=== PATIENT | female | born 1970 | race Caucasian/White ===

== ENCOUNTER → 2017-06-10 | Outpatient (CLI) | payer OTHER ==
[2017-06-10 21:21] LABS: BASO % 0.3 % (0.0-1.0); EOS # 0.1 10^3/uL (0.0-0.50); EOS % 0.8 % (0.0-3.0); IMMATURE GRANULOCYTE % 0.3 % (0-0); LYMPH # 1.9 10^3/uL (1.5-4.5); LYMPH % 20.9 % (24.0-44.0); MEAN CORPUSCULAR HEMOGLOBIN 33.5 pg (27.0-33.0); MEAN CORPUSCULAR HGB CONC 32.9 g/dl (32.0-36.5); MEAN CORPUSCULAR VOLUME 101.8 fl (80.0-96.0); MONO # 0.6 10^3/uL (0.0-0.8); MONO % 6.5 % (0.0-5.0); NEUTROPHILS # 6.3 10^3/uL (1.8-7.7); NEUTROPHILS % 71.2 % (36.0-66.0); PLATELET COUNT, AUTOMATED 262 10^3/uL (150-450); RED CELL DISTRIBUTION WIDTH 12.5 % (11.5-14.5); WHITE BLOOD COUNT 8.9 10^3/uL (4.0-10.0)
[2017-06-10 21:29] LABS: ADD MORPHOLOGY? NO
--- NOTE | 2017-06-11 03:11 | REP ---
Clinical: Acute bronchitis. Technique: PA and lateral. Comparison: 09/16/2011. Findings: Mediastinum and cardiac silhouette are normal. Coarsened interstitial markings are again appreciated and suggest chronic reactive airway disease and/or superimposed bronchitis. No focal consolidation, effusion, or pneumothorax. Skeletal structures intact. Impression: Findings suggest chronic reactive airway disease. Superimposed acute bronchitis cannot be excluded. No focal consolidation. Signed by Murray Freeman MD 06/11/2017 03:02 A
== END ==
LOC: M ADAMS 13:12
PROVIDERS: ATTEND Physician Assistant Medical
DX: J20.9 Acute bronchitis, unspecified (principal)

== ENCOUNTER → 2019-04-07 | Outpatient (CLI) | payer OTHER ==
[~2019-04-07] MED LIST: BACT800T5 PO
--- NOTE | 2019-04-08 03:03 | REP ---
Clinical: Trauma. Technique: AP, lateral, bilateral oblique views right third digit . Findings: Lateral view demonstrates a tiny density in the anterior joint space of the distal interphalangeal joint which is nonspecific and should be correlated with mechanism of injury and point of tenderness. While this may reflect incidental finding or artifact, the smallest of avulsion fractures cannot definitively be excluded. Remainder examination is normal. Impression: No definite acute fracture. However, findings as described above require correlation. Electronically Signed by Murray Freeman MD 04/08/2019 02:54 A
== END ==
LOC: M WUC 17:01
PROVIDERS: ATTEND Physician Assistant
DX: M79.644 Pain in right finger(s) (principal)

== ENCOUNTER 2019-04-09 17:43 | Emergency (ER) | payer OTHER ==
[~2019-04-09] VITALS: Ht 162.6 cm; Wt 50.2 kg
[2019-04-09] MEDS ORDERED: KETOROLAC TROMETHAMINE 10 MG TAB PO ONE (21:00)
[2019-04-09] MEDS ORDERED: BACT800T5 PO (22:36)
[2019-04-09] MEDS ORDERED: traMADol 50 MG TAB (BULK 4 TAB ED) PO ONE (22:45)
[2019-04-09] MEDS ORDERED: BACTRIM 160MG/800MG DS TAB PO ONE (22:45)
[2019-04-09 22:49] VITALS: BP 110/65
--- NOTE | 2019-04-10 07:34 | REP ---
Right middle finger four views: There is soft tissue edema. Mineralization and joint spaces are normal. There is no fracture or dislocation. No calcifications or foreign bodies. Impression: Soft tissue edema, no fracture. The bowel Electronically Signed by Mihir Dominguez MD 04/10/2019 07:26 A
== END 2019-04-09 22:53 | disposition home or self-care (01) ==
LOC: M ED 17:43
DX: L02.511 Cutaneous abscess of right hand (principal); Z72.0 Tobacco use; Z88.5 Allergy status to narcotic agent

== ENCOUNTER → 2019-10-04 | Outpatient (REF) | payer OTHER, MEDICAID ==
[~2019-10-04] MED LIST changes: +ASPI81CH8 NG; +FERR325T3 PO; +FOLI1TAB11 PO; +KEFL500C17 PO; +NAPR220C14 PO; +NYAM10003 TOP; +PROTPAK PO; +REGL5TAB2 PO
[2019-10-04 17:19] LABS: BASO % 0.4 % (0.0-1.0); EOS # 0.1 10^3/uL (0.0-0.5); EOS % 1.4 % (0.0-3.0); HEMATOCRIT 45.2 % (36.0-47.0); HEMOGLOBIN 14.2 g/dl (12.0-15.5); LYMPH # 1.7 10^3/uL (1.5-5.0); LYMPH % 20.7 % (24.0-44.0); MEAN CORPUSCULAR HEMOGLOBIN 30.9 pg (27.0-33.0); MEAN CORPUSCULAR HGB CONC 31.4 g/dl (32.0-36.5); MEAN CORPUSCULAR VOLUME 98.3 fl (80.0-96.0); MONO # 0.4 10^3/uL (0.0-0.8); MONO % 5.4 % (0.0-5.0); NEUTROPHILS # 5.8 10^3/uL (1.5-8.5); NEUTROPHILS % 71.9 % (36.0-66.0); PLATELET COUNT, AUTOMATED 332 10^3/uL (150-450)
[2019-10-04 17:31] LABS: ALBUMIN 3.4 GM/DL (3.2-5.2); ALT/SGPT 9 U/L (12-78); BILIRUBIN,TOTAL 0.3 MG/DL (0.2-1.0); BLOOD UREA NITROGEN 19 MG/DL (7-18); CALCIUM LEVEL 9.2 MG/DL (8.5-10.1); CARBON DIOXIDE LEVEL 27 MEQ/L (21-32); CHLORIDE LEVEL 104 MEQ/L (98-107); CHOLESTEROL LEVEL 157 MG/DL (<200); CHOLESTEROL RISK RATIO 3.568 (<5); CREATININE FOR GFR 0.59 MG/DL (0.55-1.30); FREE T4 0.69 NG/DL (0.76-1.46); GLOMERULAR FILTRATION RATE > 60.0 (>58); GLUCOSE, FASTING 67 MG/DL (70-100); HDL CHOLESTEROL 44 MG/DL (>40); LDL CHOLESTEROL 93 MG/DL (<100); NON-HDL-C 113 MG/DL; SODIUM LEVEL 137 MEQ/L (136-145); TOTAL PROTEIN 7.8 GM/DL (6.4-8.2); TRIGLYCERIDES LEVEL 98 MG/DL (<150)
== END ==
LOC: M LAB REF 16:41
PROVIDERS: ATTEND Physician Assistant
DX: Z86.14 Personal history of Methicillin resistant Staphylococcus aureus infection (principal); M79.671 Pain in right foot; M79.672 Pain in left foot; Z68.1 Body mass index [BMI] 19.9 or less, adult; R63.6 Underweight

== ENCOUNTER → 2019-11-08 | Outpatient (CLI) | payer OTHER ==
--- NOTE | 2019-11-08 13:37 | REP ---
BILATERAL LOWER EXTREMITY DUPLEX DOPPLER ARTERIAL ULTRASOUND: Real-time ultrasound evaluation and duplex Doppler interrogation of bilateral lower extremity arterial systems is performed. RICHARD right 0.96 and left 0.93. Minimal scattered plaquing and intimal thickening is seen bilaterally. There is no evidence of hemodynamically significant stenosis bilaterally. Normal triphasic and biphasic waveforms are seen diffusely bilaterally. Right Peak Left Peak Systolic Velocity Systolic velocity Common femoral artery 124.0 cm/s 109.0 cm/s Profunda 74.0 cm/s 68.0 cm/s SFA 159 cm/s 115 cm/s Mid SFA 56 cm/s 60 cm/s Proximal HEAVEN 106 cm/s 50 cm/s Tibial peroneal trunk 56 cm/s 79 cm/s Proximal CONTROLS ENGINEER 67 cm/s 53 cm/s Distal CONTROLS ENGINEER 74 cm/s 65 cm/s Distal HEAVEN 60 cm/s 29 cm/s IMPRESSION: Minimal scattered plaquing bilaterally without evidence of hemodynamically significant stenosis. Electronically Signed by Mihir Black MD 11/08/2019 04:02 P
== END ==
LOC: M RAD 10:56
PROVIDERS: ATTEND Physician Assistant
DX: I73.9 Peripheral vascular disease, unspecified (principal); R09.89 Other specified symptoms and signs involving the circulatory and respiratory systems

== ENCOUNTER → 2019-11-24 | Outpatient (REF) | payer OTHER, MEDICAID ==
[2019-11-24 20:12] LABS: FREE T4 0.88 NG/DL (0.76-1.46); THYROID STIMULATING HORMONE 7.8 uIU/ML (0.358-3.740)
== END ==
LOC: M LAB REF 18:42
PROVIDERS: ATTEND Physician Assistant
DX: E03.9 Hypothyroidism, unspecified (principal)

== ENCOUNTER → 2019-12-23 | Outpatient (REF) | payer OTHER, MEDICAID ==
[2019-12-23 17:55] LABS: FREE T4 0.76 NG/DL (0.76-1.46); THYROID STIMULATING HORMONE 39.8 uIU/ML (0.358-3.740)
== END ==
LOC: M LAB REF 16:42
PROVIDERS: ATTEND Physician Assistant
DX: E03.9 Hypothyroidism, unspecified (principal)

== ENCOUNTER → 2020-02-14 | Outpatient (REF) | payer OTHER, MEDICAID ==
[2020-02-14 17:45] LABS: FREE T4 0.78 NG/DL (0.76-1.46); THYROID STIMULATING HORMONE 29.5 uIU/ML (0.358-3.740)
== END ==
LOC: M LAB REF 16:30
PROVIDERS: ATTEND Physician Assistant
DX: E03.9 Hypothyroidism, unspecified (principal)

== ENCOUNTER → 2020-05-11 | Outpatient (REF) | payer OTHER, MEDICAID ==
[2020-05-11 20:14] LABS: FREE T4 0.8 NG/DL (0.76-1.46); THYROID STIMULATING HORMONE 26.7 uIU/ML (0.358-3.740)
[2020-05-11 20:54] LABS: THYROID PEROXIDASE ANTIBODY 37.3 U/ML (<60.0)
[2020-05-11 20:55] LABS: TOTAL T3 107.6 NG/DL (60.0-181.0)
[2020-05-13 12:07] LABS: THRYOGLOBULIN ANTIBODIES (ATA) < 1.0 IU/mL (0.0-0.9); THYROGLOBULIN QUANTITATIVE 29.5 ng/mL (1.5-38.5)
== END ==
LOC: M LAB REF 18:46
PROVIDERS: ATTEND Physician Assistant
DX: E03.9 Hypothyroidism, unspecified (principal)

== ENCOUNTER → 2020-07-26 | Outpatient (REF) | payer OTHER, MEDICAID ==
[2020-07-26 17:28] LABS: FREE T4 0.66 NG/DL (0.76-1.46); THYROID STIMULATING HORMONE 16.2 uIU/ML (0.358-3.740)
== END ==
LOC: M LAB REF 16:37
PROVIDERS: ATTEND Physician Assistant
DX: E03.9 Hypothyroidism, unspecified (principal)

== ENCOUNTER → 2020-10-11 | Outpatient (REF) | payer OTHER, MEDICAID | LOC: M LAB REF 16:08 | PROVIDERS: ATTEND Physician Assistant | DX: E03.9 Hypothyroidism, unspecified (principal) ==

== ENCOUNTER → 2020-10-17 | Outpatient (CLI) | payer OTHER ==
[2020-10-17 09:55] LABS: BASO % 0.3 % (0.0-1.0); EOS # 0.1 10^3/uL (0.0-0.5); EOS % 1.1 % (0.0-3.0); HEMATOCRIT 45.2 % (36.0-47.0); HEMOGLOBIN 14.6 g/dl (12.0-15.5); LYMPH # 1.6 10^3/uL (1.5-5.0); LYMPH % 26.1 % (24.0-44.0); MEAN CORPUSCULAR HEMOGLOBIN 31.5 pg (27.0-33.0); MEAN CORPUSCULAR HGB CONC 32.3 g/dl (32.0-36.5); MEAN CORPUSCULAR VOLUME 97.4 fl (80.0-96.0); MONO # 0.4 10^3/uL (0.0-0.8); MONO % 6.2 % (0.0-5.0); NEUTROPHILS % 65.6 % (36.0-66.0); PLATELET COUNT, AUTOMATED 218 10^3/uL (150-450); RED BLOOD COUNT 4.64 10^6/uL (4.00-5.40); WHITE BLOOD COUNT 6.1 10^3/uL (4.0-10.0)
[2020-10-17 10:28] LABS: ALBUMIN 3.5 GM/DL (3.2-5.2); ALT/SGPT 348 U/L (12-78); BILIRUBIN,TOTAL 0.5 MG/DL (0.2-1.0); BLOOD UREA NITROGEN 11 MG/DL (7-18); CALCIUM LEVEL 9.4 MG/DL (8.5-10.1); CARBON DIOXIDE LEVEL 26 MEQ/L (21-32); CHLORIDE LEVEL 103 MEQ/L (98-107); CREATININE FOR GFR 0.79 MG/DL (0.55-1.30); FREE T3 2.9 PG/ML (2.2-4.0); FREE T4 0.79 NG/DL (0.76-1.46); GLOMERULAR FILTRATION RATE > 60.0 (>51); GLUCOSE, FASTING 134 MG/DL (70-100); SODIUM LEVEL 138 MEQ/L (136-145); TOTAL PROTEIN 7.7 GM/DL (6.4-8.2)
[2020-10-17 11:51] LABS: THYROID PEROXIDASE ANTIBODY < 28.0 U/ML (<60.0)
[2020-10-17 11:52] LABS: THYROGLOBULIN ANTIBODY < 15.0 U/ML (<60.0)
[2020-10-17 16:05] LABS: TOTAL 25(OH) VITAMIN D 11.4 NG/ML (30.0-100.0)
[2020-10-17 16:17] LABS: HEPATITIS B SURFACE ANTIGEN NEGATIVE (NEGATIVE)
[2020-10-17 16:42] LABS: HEPATITIS B CORE ANTIBODY IGM NEGATIVE (NEGATIVE); HEPATITIS C VIRUS ABY INDEX < 0.0 INDEX (<0.8)
[2020-10-17 16:45] LABS: HEPATITIS A ANTIBODY IGM NEGATIVE (NEGATIVE)
[2020-10-17 17:04] LABS: MONO SCRN NEGATIVE (NEGATIVE)
[2020-10-19 08:08] LABS: CYTOMEGALOVIRUS IgG ANTIBODY <0.60 U/mL (0.00-0.59); CYTOMEGALOVIRUS IgM ANTIBODY 86.3 AU/mL (0.0-29.9)
== END ==
LOC: M WUC 08:42
PROVIDERS: ATTEND Physician Assistant
DX: E03.9 Hypothyroidism, unspecified (principal); R74.01 Elevation of levels of liver transaminase levels

== ENCOUNTER → 2020-10-23 | Outpatient (REF) | payer OTHER ==
[2020-10-23 17:08] LABS: ALBUMIN 3.2 GM/DL (3.2-5.2); ALT/SGPT 466 U/L (12-78); BILIRUBIN,TOTAL 0.7 MG/DL (0.2-1.0); BLOOD UREA NITROGEN 10 MG/DL (7-18); CALCIUM LEVEL 9.1 MG/DL (8.5-10.1); CARBON DIOXIDE LEVEL 26 MEQ/L (21-32); CHLORIDE LEVEL 103 MEQ/L (98-107); CREATININE FOR GFR 0.82 MG/DL (0.55-1.30); FREE T3 2.4 PG/ML (2.2-4.0); GLOMERULAR FILTRATION RATE > 60.0 (>51); GLUCOSE, FASTING 103 MG/DL (70-100); POTASSIUM SERUM 4.1 MEQ/L (3.5-5.1); SODIUM LEVEL 136 MEQ/L (136-145); TOTAL PROTEIN 7.6 GM/DL (6.4-8.2)
[2020-10-23 17:50] LABS: HIV 1&2 SCREEN CENTAUR NEGATIVE (NEGATIVE)
[2020-10-25 17:09] LABS: EBV VIRAL CAPSID AG IgG >600.0 U/mL (0.0-17.9); EBV VIRAL CAPSID AG IgM <36.0 U/mL (0.0-35.9)
== END ==
LOC: M LAB REF 15:36
PROVIDERS: ATTEND Physician Assistant
DX: B25.9 Cytomegaloviral disease, unspecified (principal); R74.01 Elevation of levels of liver transaminase levels; E03.9 Hypothyroidism, unspecified

== ENCOUNTER → 2020-10-26 | Outpatient (CLI) | payer OTHER | LOC: M LAB 07:48 | PROVIDERS: ATTEND Family Medicine Addiction Medicine | DX: R74.01 Elevation of levels of liver transaminase levels (principal) ==

== ENCOUNTER → 2020-10-26 | Outpatient (CLI) | payer OTHER ==
--- NOTE | 2020-10-26 08:23 | REP ---
INDICATION: ELEVATED LIVER ENZYMES PT NEEDS LABS AFTER US COMPARISON: 07/04/2019 TECHNIQUE: Real time thompson scale ultrasound examination using curved array transducer. FINDINGS: The liver is enlarged and measures 22 cm in craniocaudal length with relatively normal parenchymal echotexture and no focal hepatic lesion identified. The pancreas is normal in appearance. Gallbladder demonstrates 23 mm gallstone with mild gallbladder wall thickening to 5 mm. No pericholecystic fluid is appreciated and there is no evidence for biliary ductal dilatation. The common bile duct measures 5 mm diameter. The right kidney is normal in reniform shape without hydronephrosis and measures 10.9 x 5.9 x 3.8 cm. No ascites in the visualized right upper quadrant. Abdominal aorta appears normal and measures 2.2 cm maximal diameter. IMPRESSION: Hepatomegaly. Cholelithiasis. <Electronically signed by Murray Freeman > 10/26/20 [id number]
[2020-10-26 08:46] LABS: INR 1.02; PARTIAL THROMBOPLASTIN TIME 38.2 SECONDS (24.2-38.5); PROTHROMBIN TIME 13.6 SECONDS (12.5-14.3)
== END ==
LOC: M RAD 07:19 → M LAB 07:19
PROVIDERS: ATTEND Physician Assistant
DX: R94.5 Abnormal results of liver function studies (principal); R74.01 Elevation of levels of liver transaminase levels

== ENCOUNTER → 2020-10-30 | Outpatient (REF) | payer OTHER ==
[2020-10-30 20:13] LABS: ALBUMIN 3.2 GM/DL (3.2-5.2); ALT/SGPT 489 U/L (12-78); BILIRUBIN,TOTAL 2.2 MG/DL (0.2-1.0); BLOOD UREA NITROGEN 7 MG/DL (7-18); CALCIUM LEVEL 8.6 MG/DL (8.5-10.1); CARBON DIOXIDE LEVEL 24 MEQ/L (21-32); CHLORIDE LEVEL 107 MEQ/L (98-107); CREATININE FOR GFR 0.86 MG/DL (0.55-1.30); GLOMERULAR FILTRATION RATE > 60.0 (>51); GLUCOSE, FASTING 142 MG/DL (70-100); SODIUM LEVEL 138 MEQ/L (136-145); TOTAL PROTEIN 7.6 GM/DL (6.4-8.2)
== END ==
LOC: M WUC 19:15
PROVIDERS: ATTEND Physician Assistant
DX: B25.9 Cytomegaloviral disease, unspecified (principal)

== ENCOUNTER → 2020-11-10 | Outpatient (CLI) | payer OTHER ==
[2020-11-10 18:48] LABS: ALBUMIN 2.9 GM/DL (3.2-5.2); ALT/SGPT 388 U/L (12-78); BILIRUBIN,TOTAL 3.3 MG/DL (0.2-1.0); BLOOD UREA NITROGEN 14 MG/DL (7-18); CALCIUM LEVEL 8.6 MG/DL (8.5-10.1); CARBON DIOXIDE LEVEL 23 MEQ/L (21-32); CHLORIDE LEVEL 106 MEQ/L (98-107); CREATININE FOR GFR 0.91 MG/DL (0.55-1.30); GLOMERULAR FILTRATION RATE > 60.0 (>51); GLUCOSE, FASTING 107 MG/DL (70-100); POTASSIUM SERUM 4.2 MEQ/L (3.5-5.1); SODIUM LEVEL 134 MEQ/L (136-145); TOTAL PROTEIN 8.2 GM/DL (6.4-8.2)
== END ==
LOC: M LAB 17:22
PROVIDERS: ATTEND Family Medicine Addiction Medicine
DX: R94.5 Abnormal results of liver function studies (principal); R74.01 Elevation of levels of liver transaminase levels

== ENCOUNTER → 2020-11-10 | Outpatient (CLI) | payer OTHER ==
[2020-11-10 18:38] LABS: PROTHROMBIN TIME 13.4 SECONDS (12.5-14.3)
[2020-11-10 18:39] LABS: PARTIAL THROMBOPLASTIN TIME 38.6 SECONDS (24.2-38.5)
[2020-11-10 18:50] LABS: ALBUMIN 2.9 GM/DL (3.2-5.2); ALT/SGPT 388 U/L (12-78); BILIRUBIN,TOTAL 3.2 MG/DL (0.2-1.0); BLOOD UREA NITROGEN 13 MG/DL (7-18); CALCIUM LEVEL 8.4 MG/DL (8.5-10.1); CARBON DIOXIDE LEVEL 22 MEQ/L (21-32); CHLORIDE LEVEL 104 MEQ/L (98-107); CREATININE FOR GFR 0.84 MG/DL (0.55-1.30); GLOMERULAR FILTRATION RATE > 60.0 (>51); GLUCOSE, FASTING 107 MG/DL (70-100); POTASSIUM SERUM 4.5 MEQ/L (3.5-5.1); SODIUM LEVEL 134 MEQ/L (136-145); TOTAL PROTEIN 8.2 GM/DL (6.4-8.2)
== END ==
LOC: M LAB 17:20
PROVIDERS: ATTEND Physician Assistant
DX: R94.5 Abnormal results of liver function studies (principal); B25.9 Cytomegaloviral disease, unspecified

== ENCOUNTER → 2020-11-21 | Outpatient (CLI) | payer OTHER ==
[~2020-11-21] MED LIST changes: +CEFD300C PO; +MELO15TA28; +SYNT75TA; +TRAM50TA2 PO; +ZITHTAB PO
[2020-11-21 15:01] LABS: ALBUMIN 2.2 GM/DL (3.2-5.2); ALT/SGPT 179 U/L (12-78); BILIRUBIN,TOTAL 1.6 MG/DL (0.2-1.0); BLOOD UREA NITROGEN 15 MG/DL (7-18); CALCIUM LEVEL 8.1 MG/DL (8.5-10.1); CARBON DIOXIDE LEVEL 23 MEQ/L (21-32); CHLORIDE LEVEL 105 MEQ/L (98-107); CREATININE FOR GFR 0.64 MG/DL (0.55-1.30); GLOMERULAR FILTRATION RATE > 60.0 (>51); GLUCOSE, FASTING 92 MG/DL (70-100); POTASSIUM SERUM 4.2 MEQ/L (3.5-5.1); SODIUM LEVEL 134 MEQ/L (136-145); TOTAL PROTEIN 7.8 GM/DL (6.4-8.2)
== END ==
LOC: M LAB 13:47
PROVIDERS: ATTEND Family Medicine Addiction Medicine
DX: R94.5 Abnormal results of liver function studies (principal)

== ENCOUNTER 2020-11-23 18:10 | Emergency (ER) | payer OTHER ==
[~2020-11-23] VITALS: Ht 162.6 cm; Wt 51.6 kg
[~2020-11-23 18:10] MED LIST changes: -CEFD300C PO; -MELO15TA28; -SYNT75TA; -TRAM50TA2 PO; -ZITHTAB PO
[2020-11-23] MEDS ORDERED: MELO15TA28 (18:28)
[2020-11-23] MEDS ORDERED: SYNT75TA PO (18:28)
[2020-11-23] MEDS ORDERED: KETOROLAC 60MG 2ML VIAL IM ONE (19:00)
[2020-11-23 19:31] LABS: HEMATOCRIT 39.6 % (36.0-47.0); HEMOGLOBIN 13.4 g/dl (12.0-15.5); MEAN CORPUSCULAR HEMOGLOBIN 32.1 pg (27.0-33.0); MEAN CORPUSCULAR HGB CONC 33.8 g/dl (32.0-36.5); PLATELET COUNT, AUTOMATED 261 10^3/uL (150-450); RED BLOOD COUNT 4.17 10^6/uL (4.00-5.40); WHITE BLOOD COUNT 29.7 10^3/uL (4.0-10.0)
--- NOTE | 2020-11-23 19:40 | REP ---
INDICATION: swelling/pain/dec rom COMPARISON: None. TECHNIQUE: AP, lateral, bilateral oblique views left hand. FINDINGS: Generalized age-related degenerative changes. No acute fracture or dislocation. No subcutaneous emphysema or foreign body. IMPRESSION: Generalized degenerative changes. No acute fracture or dislocation. <Electronically signed by Murray Freeman > 11/23/201936
[2020-11-23 19:58] LABS: ERYTHROCYTE SEDIMENTATION RATE 30 mm/hr (0-30)
[2020-11-23] MEDS ORDERED: NS 1,550 ML in IV 1 EA IV ONE (20:05)
[2020-11-23 20:07] LABS: LYMPHOCYTES 5 % (16-44); MONOCYTES 1 % (0-5); NEUTROPHILS 70 % (28-66); PLATELET ESTIMATE NORMAL (NORMAL)
[2020-11-23] MEDS ORDERED: MORPHINE 2 MG/ML 1ML VIAL (J2270) IV ONE (20:10)
--- NOTE | 2020-11-23 21:19 | REPVR ---
PROCEDURE INFORMATION: Exam: XR Chest Exam date and time: 11/23/2020 8:23 PM Age: 50 years old Clinical indication: Other: Sepsis/shock TECHNIQUE: Imaging protocol: XR of the chest Views: 1 view. COMPARISON: NE PORTABLE CHEST X-RAY 07/25/2019 6:49 AM FINDINGS: Lungs: The right lung remains hyperinflated with interstitial prominence and bronchial wall thickening. There is diffuse increased density in the left hemithorax with pleuroparenchymal scarring and cysts at the left lung apex and leftward shift of the trachea Pleural spaces: No definite pleural effusion. Heart/Mediastinum: The cardiomediastinal silhouette is obscured. Bones/joints: No significant skeletal findings. IMPRESSION: There is diffuse increased density in the left hemithorax which is increased in comparison to the prior studies. Some likely represents fibrosis associated with prior infections however there may be superimposed acute pneumonia. PA and lateral chest x-ray and/ or chest CT is recommended for further evaluation. Electronically signed by: Amada Aldrich On 11/23/2020 21:19:54 PM
[2020-11-23 21:50] LABS: INR 1.21; PROTHROMBIN TIME 15.6 SECONDS (12.5-14.3)
[2020-11-23 21:51] LABS: PARTIAL THROMBOPLASTIN TIME 45.4 SECONDS (24.2-38.5)
[2020-11-23 21:53] LABS: ALBUMIN 2.1 GM/DL (3.2-5.2); ALT/SGPT 125 U/L (12-78); BILIRUBIN,DIRECT < 0.1 MG/DL (0.0-0.2); BILIRUBIN,TOTAL 1.6 MG/DL (0.2-1.0); BLOOD UREA NITROGEN 17 MG/DL (7-18); CALCIUM LEVEL 8.4 MG/DL (8.5-10.1); CARBON DIOXIDE LEVEL 20 MEQ/L (21-32); CHLORIDE LEVEL 104 MEQ/L (98-107); CREATININE FOR GFR 0.84 MG/DL (0.55-1.30); GLOMERULAR FILTRATION RATE > 60.0 (>51); GLUCOSE, FASTING 90 MG/DL (70-100); POTASSIUM SERUM 4.3 MEQ/L (3.5-5.1); SODIUM LEVEL 133 MEQ/L (136-145); TOTAL PROTEIN 7.7 GM/DL (6.4-8.2)
[2020-11-23] MEDS ORDERED: fentaNYL 100 MCG/2 ML INJECTION (J3010) IV ONE (21:55)
[2020-11-23 22:17] LABS: APPEARANCE, URINE CLOUDY (CLEAR); BACTERIA, URINE AUTO 3+ (NEGATIVE); BILIRUBIN, URINE AUTO 1+ (NEGATIVE); BLOOD, URINE BLOOD NEGATIVE (NEGATIVE); COLOR, URINE AMBER (YELLOW); GLUCOSE, URINE (UA) AUTO NEGATIVE (NEGATIVE); KETONE, URINE AUTO TRACE mg/dL (NEGATIVE); LEUKOCYTE ESTERASE, URINE AUTO 3+ (NEGATIVE); MUCUS, URINE SMALL (NEGATIVE); NITRITE, URINE AUTO POSITIVE (NEGATIVE); PROTEIN, URINE AUTO 2+ mg/dL (NEGATIVE); RBC, URINE AUTO 5 /HPF (0-3); SPECIFIC GRAVITY URINE AUTO 1.038 (1.002-1.035); SQUAMOUS EPITHELIAL CELL UR AU 5 /HPF (0-6); WBC, URINE AUTO TNTC /HPF (0-3)
[2020-11-23 23:16] LABS: CK-MB VALUE MASS 1.7 NG/ML (<3.6); CPK CREATINE PHOSPHOKINASE 60 U/L (26-192); MB/CK RELATIVE INDEX 2.83 (< OR =4); TROPONIN I < 0.02 NG/ML (< 0.10)
[2020-11-23] MEDS ORDERED: cefTRIAXone SOD 2 GM in D5W MINI-BAG PLUS 50 ML IV ONE (23:20)
[2020-11-23] MEDS ORDERED: ISOVUE-370 76% 100ML VIAL As Ordered ONE (23:22)
[2020-11-24] MEDS ORDERED: MORPHINE 4 MG/ML 1ML VIAL/SYRINGE (J2270) IV ONE (00:10)
--- NOTE | 2020-11-24 00:24 | REPVR ---
PROCEDURE INFORMATION: Exam: CT Abdomen And Pelvis With Contrast Exam date and time: 11/23/2020 11:15 PM Age: 50 years old Clinical indication: Abdominal pain; Generalized; Patient HX: Knee pain, hand pain; Additional info: ? Pyelonephritis TECHNIQUE: Imaging protocol: Computed tomography of the abdomen and pelvis with contrast. Radiation optimization: All CT scans at this facility use at least one of these dose optimization techniques: automated exposure control; mA and/or kV adjustment per patient size (includes targeted exams where dose is matched to clinical indication); or iterative reconstruction. Contrast material: ISO; Contrast volume: 100 ml; Contrast route: INTRAVENOUS (IV); COMPARISON: CT ABD/PEL W/IV ORAL CONTRAS 07/06/2019 3:53 PM FINDINGS: Lungs: Centrilobular nodules in the right middle lobe. See CT chest report. Liver: No mass. Hepatomegaly. Gallbladder and bile ducts: Gallbladder is dilated. Question fasting state. No gallbladder wall thickening. No biliary ductal dilatation. Pancreas: Normal. No ductal dilation. Spleen: Mild splenomegaly. Adrenal glands: Normal. No mass. Kidneys and ureters: Normal. No hydronephrosis. Symmetric nephrograms. No evidence of pyelonephritis on CT. Stomach and bowel: Colon is diffusely collapsed. Colitis cannot be excluded. No abnormal bowel dilatation. Negative for colonic diverticulitis. Appendix: No evidence of appendicitis. Intraperitoneal space: Mild ascites. No free air. Vasculature: Moderate atherosclerotic disease. No aortic aneurysm. Lymph nodes: Unremarkable. No enlarged lymph nodes. Urinary bladder: Unremarkable as visualized. Reproductive: Uterus is normal. Pelvic Floor: There is dilatation of the levator hiatus. Bones/joints: Mild degenerative spine. No acute fracture. Soft tissues: There is dependent subcutaneous edema. IMPRESSION: 1. No evidence of pyelonephritis on CT. 2. Mild splenomegaly. No change from prior. 3. Hepatomegaly. Unchanged from prior. 4. Mild ascites. Unknown etiology. 5. Additional findings as described. Electronically signed by: Yanely Lopez On 11/24/2020 00:25:24 AM
--- NOTE | 2020-11-24 00:28 | REPVR ---
PROCEDURE INFORMATION: Exam: CT Chest With Contrast; Diagnostic Exam date and time: 11/23/2020 11:15 PM Age: 50 years old Clinical indication: Other: Hand pain, knee pain, pneumonia, fibrosis? ? ; Additional info: ? Pneumonia on fibrosis TECHNIQUE: Imaging protocol: Diagnostic computed tomography of the chest with contrast. Radiation optimization: All CT scans at this facility use at least one of these dose optimization techniques: automated exposure control; mA and/or kV adjustment per patient size (includes targeted exams where dose is matched to clinical indication); or iterative reconstruction. Contrast material: ISO; Contrast volume: 100 ml; Contrast route: INTRAVENOUS (IV); COMPARISON: CT Chest without contrast 07/09/2019 3:46 PM FINDINGS: Bronchial tree: Bronchiectasis in the left upper lobe. Lungs: Dense consolidation in the left upper lobe and lingula measuring approximately 9.0 x 6.4 x 8.6 cm. Cluster of centrilobular nodules in the medial right middle lobe and septal thickening. Diffuse centrilobular nodules in the lateral basal left lower lobe. Centrilobular emphysematous lung disease. Pleural spaces: Loculated pneumothorax versus bulla in the left apex measuring approximately 7.1 x 6.2 x 3.8 cm. Bronchopleural fistula cannot be excluded. Mild pleural thickening in the left upper lobe. Heart: Unremarkable. No cardiomegaly. No pericardial effusion. Aorta: Unremarkable. No aortic aneurysm. Lymph nodes: Multiple mildly enlarged mediastinal nodes. Spleen: Spleen is enlarged. Spleen is not fully imaged on this study however. Bones/joints: Unremarkable. No acute fracture. Soft tissues: Unremarkable. IMPRESSION: 1. Dense consolidation in the left upper lobe and lingula. Consistent with pneumonia. Consolidation is overall decreased from prior. Underlying neoplasm cannot be excluded. Correlate clinically. 2. Centrilobular nodules as described. Suspect infectious process. Overall decreased from prior. 3. Additional findings as described. Electronically signed by: Yanely Lopez On 11/24/2020 00:29:42 AM
[2020-11-24 00:58] VITALS: BP 140/83
[2020-11-24] MEDS ORDERED: TRAM50TA2 PO (00:59)
[2020-11-24] MEDS ORDERED: ZITHTAB PO (00:59)
[2020-11-24] MEDS ORDERED: CEFD300C PO (00:59)
--- NOTE | 2020-11-24 07:39 | ED PDOC ---
Post-Departure Follow-Up ct chest/abd/pelvis faxed formal report of to radha staley for fu. Yaron Smith MD Nov 24, 2020 07:39
[2020-11-24 12:03] LABS: RHEUMATOID FACTOR QUANT < 10.0 IU/ML (<15.0)
[2020-11-24 17:50] LABS: HEPATITIS B SURFACE ANTIGEN NEGATIVE (NEGATIVE)
[2020-11-24 18:17] LABS: HEPATITIS C VIRUS ABY INDEX < 0.0 INDEX (<0.8)
[2020-11-24 18:18] LABS: HEPATITIS B CORE ANTIBODY IGM NEGATIVE (NEGATIVE)
[2020-11-24 19:33] LABS: HEPATITIS A ANTIBODY IGM NEGATIVE (NEGATIVE)
[2020-11-29 11:34] LABS: DRVV SCREEN 56.1 SEC
[2020-11-29 11:39] LABS: PTT LUPUS TYPE ANTICOAG SCREEN 1.4 (0-1.2)
[2020-11-29 11:47] LABS: DRVV CONFIRM 45.1 SEC; LUPUS CONFIRM RATIO 1.2; NORMALIZED RATIO 1.17 (0.00-1.20)
== END 2020-11-24 01:15 | disposition left against medical advice (07) ==
LOC: M ED 18:10
DX: Z53.9 Procedure and treatment not carried out, unspecified reason (principal); J18.9 Pneumonia, unspecified organism; N39.0 Urinary tract infection, site not specified; M25.50 Pain in unspecified joint; R16.0 Hepatomegaly, not elsewhere classified; E03.9 Hypothyroidism, unspecified; R16.1 Splenomegaly, not elsewhere classified; Z87.891 Personal history of nicotine dependence; Z79.82 Long term (current) use of aspirin; Z79.899 Other long term (current) drug therapy; Z88.5 Allergy status to narcotic agent
CPT/HCPCS: 71045; 71260; 73130; 74177; 80048; 80076; 81001; 82550; 82553; 83605; 85025; 85610; 85613; 85652; 85730; 86140; 86431; 86705; 86709; 86803; 87040; 87077; 87088; 87186; 87340; 96365; 96372; 96375; 99284; J0696; J1885; J2270; J3010; Q9967

== ENCOUNTER 2020-11-27 15:36 | Inpatient (IN) | payer OTHER ==
[~2020-11-27] VITALS: Ht 162.6 cm; Wt 51.8 kg
[~2020-11-27 15:36] MED LIST changes: +CEFD300C PO; +MELO15TA28; +SYNT75TA PO; +TRAM50TA2 PO; +ZITHTAB PO
--- NOTE | 2020-11-27 17:39 | REP ---
INDICATION: MEHRAN PN. COMPARISON: Portable chest dated 11/23/2020, PA and lateral chest dated 07/26/[address] dated 11/23/2020. TECHNIQUE: Portable chest, AP with the patient upright. FINDINGS: The diffuse increased density throughout the left lung identified on the recent portable chest of 11/23/[address] of the same date involving predominantly the left upper lobe by CT has significantly decreased in density. There is a pneumatocele involving the apex of the left upper lobe. Additionally there is a pneumatocele in the left suprahilar area. The right lung remains clear. Cardiac size is normal. No pleural effusions are identified. IMPRESSION: The left lung infiltrate has decreased in density. There are developing pneumo seals in the apex of the left upper lobe and in the left suprahilar zone <Electronically signed by Mihir Dominguez > 11/27/20 [id number]
[2020-11-27 18:07] LABS: BASO # 0.1 10^3/uL (0.0-0.2); BASO % 0.5 % (0.0-1.0); EOS % 0.2 % (0.0-3.0); HEMATOCRIT 37.8 % (36.0-47.0); HEMOGLOBIN 12.7 g/dl (12.0-15.5); LYMPH # 1.1 10^3/uL (1.5-5.0); LYMPH % 9.8 % (24.0-44.0); MEAN CORPUSCULAR HEMOGLOBIN 32.3 pg (27.0-33.0); MEAN CORPUSCULAR HGB CONC 33.6 g/dl (32.0-36.5); MEAN CORPUSCULAR VOLUME 96.2 fl (80.0-96.0); MONO # 0.4 10^3/uL (0.0-0.8); MONO % 3.9 % (2.0-8.0); NEUTROPHILS # 8.7 10^3/uL (1.5-8.5); NEUTROPHILS % 81.7 % (36.0-66.0); PLATELET COUNT, AUTOMATED 224 10^3/uL (150-450); RED BLOOD COUNT 3.93 10^6/uL (4.00-5.40); WHITE BLOOD COUNT 10.7 10^3/uL (4.0-10.0)
[2020-11-27] MEDS ORDERED: TRAM50TA2 PO (18:18)
[2020-11-27] MEDS ORDERED: CEFD1CAP8 PO (18:18)
[2020-11-27] MEDS ORDERED: AZIT-12 PO (18:18)
[2020-11-27] MEDS ORDERED: ASPI81TA26 PO (18:18)
[2020-11-27 18:32] LABS: BLOOD UREA NITROGEN 16 MG/DL (7-18); CALCIUM LEVEL 7.6 MG/DL (8.5-10.1); CARBON DIOXIDE LEVEL 22 MEQ/L (21-32); CHLORIDE LEVEL 104 MEQ/L (98-107); CREATININE FOR GFR 0.43 MG/DL (0.55-1.30); GLOMERULAR FILTRATION RATE > 60.0 (>51); GLUCOSE, FASTING 68 MG/DL (70-100); POTASSIUM SERUM 4.2 MEQ/L (3.5-5.1); SODIUM LEVEL 134 MEQ/L (136-145)
[2020-11-27] MEDS ORDERED: ALBUTEROL 90 MCG/ACT 8GM HFA INHALER INH PRN (19:40)
[2020-11-27] MEDS ORDERED: FLUID PLACE HOLDER IV SCH (19:40)
[2020-11-27] MEDS ORDERED: VANCOMYCIN HCL IV SCH (19:40)
[2020-11-27] MEDS ORDERED: guaiFENesin 200 MG TAB PO PRN (19:40)
--- NOTE | 2020-11-27 19:53 | HPEPDOC ---
[facility] Medical History & Physical Date of Admission Nov 27, 2020 Date of Service: Nov 27, 2020 History and Physical CHIEF COMPLAINT: Shortness of breath HISTORY OF PRESENT ILLNESS: This is a 50-year-old female history of hyperthyroidism status post radiation now hypothyroid who is here in the ED with complaints of shortness of breath found to have a pneumonia but left AMA she was prescribed Cefdinir and azithromycin she only took 2 doses. She presents again with shortness of breath is worsening again. She has dyspnea on exertion. She endorses a cough but no productive sputum. Denies any fevers or chills. Denies headache or chest pains or abdominal pain. She called her primary care physician who recommended that she come to the ED. Blood cultures from the ED a few days ago when she left AMA were positive for s trep pneumo. Urine culture was positive for Escherichia coli. At this time she denies dysuria or other urinary symptoms. Dr. Almaguer considered sending her home to complete her treatment with Cefdinir and azithromycin for 10 days as her white count has improved however given her 2 positive blood cultures was decided to repeat her blood cultures and treat her more aggressively in the inpatient setting. Of note patient had an extensive admission in 2019 here to [facility] where she had necrotizing staph aureus pneumonia and a prolonged hospital stay necessitating trach and PEG to be placed which were removed shortly after. On review of systems patient tells me she's also concerned because she has knee and wrist pain bilaterally at been ongoing for about 2 weeks. Her primary care physician told her that this is related to her mononucleosis infection 3 weeks ago. 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 Sutton transmission technician Tracheostomy placement and removal 2019 PEG tube placement and removal 2019 Tubal ligation SOCIAL HISTORY: Denies alcohol use Denies tobacco use Denies illicit drug use Lives at home with her boyfriend Tomi Gaytan FAMILY HISTORY: Reviewed and none contributory to this admission ALLERGIES: Please see below. REVIEW OF SYSTEMS: 10 point review of systems complete all negative otherwise stated in HPI HOME MEDICATIONS: Please see below. PHYSICAL EXAMINATION: Constitutional: Awake and alert, in no apparent distress ENT: Sclera are clear. Mucosa is moist. Respiratory: Lungs CTA bilaterally. No respiratory distress. No use of accessory muscles. Breathing comfortably on room air Cardiovascular: Fast heart rate 110 on monitor no murmur appreciated Gastrointestinal: Abdomen is soft, non distended, non tender, BS present. Musculoskeletal: No lower extremity edema. No hand elbow or knee swelling. Neurologic: No focal neurological deficit. Mental Status: A&O x3, normal affect Skin: Warm, dry LABORATORY DATA: See below. IMAGING: See chart MICROBIOLOGY: Please see below. ASSESSMENT/PLAN 50-year-old female history of hypothyroidism here with shortness of breath was found to have a pneumonia 4 days ago left the ED AMA took 2 doses of prescribed antibiotics before feeling short of breath again and presents again to the hospital. Blood cultures for a few days ago were positive for strep pneumo. # Presumed community-acquired pneumonia - Has shortness of breath with improved leukocytosis and no fevers/chills. No productive sputum. WBC 10.7 improved from 29.7 a few days ago. Lactic acid 1.8. - Blood cultures from 11/23/2020, positive for strep pneumo. Follow-up repeat blood cultures - She had an extensive hospital stay in 2019 with necrotizing staph aureus pneumonia. She'll be placed on broad-spectrum antibiotics with vancomycin and Zosyn until repeat blood cultures results. Follow-up sputum culture. Follow-up urine strep pneumo and Legionella antigen. - Incentive spirometry. Albuterol as needed. # Joint pains: This could be from her recent history of mononucleosis infection. Pain control for now and monitor progression of joint pain. No swelling on exam. # History of urinary tract infection: Urine culture from 11/23/2020 was positive for Escherichia coli. She has no urinary symptoms at this time. Follow-up repeat urinalysis. This will be covered by Zosyn and might have already been covered by ceftriaxone received at that time and cefdinir at home. # Hypothyroidism: resume Synthroid. Fu TSH. Follows up with Dr. Sutton outpatient has an appointment next week # DVT prophylaxis: Lovenox A Yousef Hospitalist Vital Signs Vital Signs Date Time Temp Pulse Resp B/P (MAP) Pulse Ox O2 Delivery O2 Flow Rate FiO2 11/27/20 17:45 112 125/75 (92) 97 11/27/20 15:37 98.2 18 Room Air Laboratory Data Labs 24H Laboratory Tests 2 11/27/20 17:09: Immature Granulocyte % (Auto) 3.9H, Neutrophils (%) (Auto) 81.7H, Lymphocytes (%) (Auto) 9.8L, Monocytes (%) (Auto) 3.9, Eosinophils (%) (Auto) 0.2, Basophils (%) (Auto) 0.5, Neutrophils # (Auto) 8.7H, Lymphocytes # (Auto) 1.1L, Monocytes # (Auto) 0.4, Eosinophils # (Auto) 0.0, Basophils # (Auto) 0.1, Nucleated Red Blood Cells % (auto) 0.0, Anion Gap 8, Glomerular Filtration Rate > 60.0, Lactic Acid Level 1.8, Calcium Level 7.6L CBC/BMP Laboratory Tests 11/27/20 17:09 Home Medications Scheduled Aspirin (Aspirin EC) 81 Mg Tablet.dr, 81 MG PO DAILY Azithromycin (Azithromycin) 250 Mg Tablet, 250 MG PO DAILY Cefdinir (Cefdinir) 300 Mg Capsule, 300 MG PO BID Levothyroxine Sodium (Synthroid) 75 Mcg Tablet, 75 MCG PO DAILY Meloxicam (Meloxicam) 15 Mg Tablet, 15 MG DAILY Scheduled PRN Tramadol HCl (Tramadol HCl) 50 Mg Tablet, 50 MG PO TID PRN for PAIN Allergies Coded Allergies: hydrocodone (Verified Adverse Reaction, Unknown, 04/09/19) A-FIB/CHADSVASC A-FIB History Current/History of A-Fib/PAF?: No RONAL VILLALOBOS MD Nov 27, 2020 19:53
[2020-11-27] MEDS ORDERED: MOM 30ML SUSPENSION UDC PO PRN (19:55)
[2020-11-27] MEDS ORDERED: VANCOMYCIN HCL 1,000 MG, VIAL MATE ADAPTER 1 EACH in NS 250 ML IV ONE (20:00)
[2020-11-27] MEDS: traMADol 50 MG TAB PO PRN (20:30)
[2020-11-27 20:43] LABS: RSV AMPLIFICATION NEGATIVE (NEGATIVE)
[2020-11-27 20:46] LABS: FREE T4 0.73 NG/DL (0.76-1.46); THYROID STIMULATING HORMONE 26.2 uIU/ML (0.358-3.740)
[2020-11-27 22:35] VITALS: BP 116/82
[2020-11-27] MEDS: MAALOX 30 ML SUSP *UDC PO PRN (23:27)
[2020-11-27] MEDS: PIPERACILLIN/TAZOBACTAM SOD 4.5 GM in D5W MINI-BAG PLUS 100 ML IV SCH (23:27)
[2020-11-27] MEDS: DOCUSATE SODIUM 100MG CAPSULE PO SCH (23:31)
[2020-11-27] MEDS: ACETAMINOPHEN 650MG ER TAB (TYLENOL ARTHRITIS) PO PRN (23:35)
[2020-11-28] MEDS: PIPERACILLIN/TAZOBACTAM SOD 4.5 GM in D5W MINI-BAG PLUS 100 ML IV SCH ×2 (05:15→10:40)
[2020-11-28] MEDS: traMADol 50 MG TAB PO PRN ×2 (05:16→20:49)
[2020-11-28 06:00] VITALS: BP 118/73
[2020-11-28] MEDS ORDERED: LEVOTHYROXINE 75MCG TABLET (0.075MG) PO SCH (06:00)
[2020-11-28 06:57] LABS: HEMATOCRIT 34.8 % (36.0-47.0); HEMOGLOBIN 11.5 g/dl (12.0-15.5); MEAN CORPUSCULAR HEMOGLOBIN 31.9 pg (27.0-33.0); MEAN CORPUSCULAR VOLUME 96.4 fl (80.0-96.0); PLATELET COUNT, AUTOMATED 247 10^3/uL (150-450); RED BLOOD COUNT 3.61 10^6/uL (4.00-5.40); WHITE BLOOD COUNT 8.2 10^3/uL (4.0-10.0)
[2020-11-28 07:28] LABS: ALBUMIN 1.6 GM/DL (3.2-5.2); ALT/SGPT 57 U/L (12-78); BILIRUBIN,TOTAL 1.1 MG/DL (0.2-1.0); BLOOD UREA NITROGEN 13 MG/DL (7-18); CALCIUM LEVEL 7.3 MG/DL (8.5-10.1); CARBON DIOXIDE LEVEL 24 MEQ/L (21-32); CHLORIDE LEVEL 104 MEQ/L (98-107); CREATININE FOR GFR 0.45 MG/DL (0.55-1.30); GLOMERULAR FILTRATION RATE > 60.0 (>51); GLUCOSE, FASTING 94 MG/DL (70-100); MAGNESIUM LEVEL 1.9 MG/DL (1.8-2.4); POTASSIUM SERUM 3.9 MEQ/L (3.5-5.1); SODIUM LEVEL 136 MEQ/L (136-145); TOTAL PROTEIN 6.4 GM/DL (6.4-8.2)
[2020-11-28] MEDS ORDERED: VANCOMYCIN HCL 750 MG, VIAL MATE ADAPTER 1 EACH in NS 250 ML IV SCH (08:00)
[2020-11-28] MEDS: DOCUSATE SODIUM 100MG CAPSULE PO SCH ×2 (09:18→20:50)
[2020-11-28] MEDS: ENOXAPARIN 40MG/0.4ML SYRINGE (J1650 PER 10MG) SC SCH (09:19)
--- NOTE | 2020-11-28 13:20 | IPNPDOC ---
Text Note Date of Service The patient was seen on 11/28/20. NOTE Subjective: Patient complains of multiple joint pain, more intense in her hands, she stated that 3 weeks ago she had mononucleosis. Patient stated that she has intermittent cough but no sputum Objective: GENERAL APPEARANCE: NAD HEENT: no scleral icterus, no JVD, EOMI CARDIOVASCULAR: S1S2 LUNGS: Diminished lung sounds bilaterally, mild rales bilaterally ABDOMEN: soft & not tender w palpitation MUSCULOSKELETAL: no cyanosis, no swelling INTEGUMENT: no generalized pallor NEUROLOGICAL: cranial nerve function from 2-12 intact intact, follows commands, speech not dysarthric Assessment and plan: 50-year-old female history of hypothyroidism here with shortness of breath was f ound to have a pneumonia 4 days ago left the ED AMA took 2 doses of prescribed antibiotics before feeling short of breath again and presents again to the hospital. Blood cultures for a few days ago were positive for strep pneumo. Community acquired pneumonia Patient was diagnosed on 11/23/20 with community-acquired pneumonia. CT from 11/23/20 showed 1. Dense consolidation in the left upper lobe and lingula. Consistent with pneumonia. Consolidation is overall decreased from prior. Underlying neoplasm cannot be excluded. Cluster of centrilobular nodules in the medial right middle lobe and septal thickening. Diffuse centrilobular nodules in the lateral basal left lower lobe. Centrilobular emphysematous lung disease. Suspect infectious process. Overall decreased from prior. X-ray showed on 11/27/20 The left lung infiltrate has decreased in density. There are developing pneumo seals in the apex of the left upper lobe and in the left suprahilar zone 2 sets of blood culture from 11/24/20 showed Streptococcus pneumonia MRSA negative I will change antibiotics:vancomycin and Zosyn to ceftriaxone and doxycycline Prednisone by mouth Await repeat his blood culture, per calcitonin elevated to 9.3 Patient will need to have repeated CT in 3-6 months Will proceed with echo Centrilobular emphysema Patient stated that she stopped smoking many years ago I will check shayna trypsin level Hypothyroidism TSH 26.2, free T4 0.7 Will increase dose of levothyroxine to 100 g Joints pain Most likely secondary to recent history of mononucleosis Visually Joints are not inflamed, not any redness. However patient had positive blood culture, there is possibility for infected joints. Await repeated blood culture CRP, sedimentation rate History of urinary tract infection: Urine culture from 11/23/2020 was positive for Escherichia coli. She has no urinary symptoms at this time. Await UA VS,Kwan, I+O VS, Kwan, I+O Laboratory Tests 11/27/20 17:09 11/28/20 06:35 Vital Signs Date Time Temp Pulse Resp B/P (MAP) Pulse Ox O2 Delivery O2 Flow Rate FiO2 11/28/20 06:00 99.4 110 19 118/73 (88) 96 Room Air I&O- Last 24 Hours up to 6 AM 11/28/20 06:00 Intake Total 1020 ml Output Total 0 ml Balance 1020 ml SOLANGE CUELLAR DO Nov 28, 2020 13:20
[2020-11-28] MEDS ORDERED: predniSONE 20 MG TAB PO ONE (13:35)
[2020-11-28 14:00] VITALS: BP 118/72
[2020-11-28] MEDS: IPRATROPIUM 0.5MG/ALBUTEROL 2.5MG INH SOL UD 3ML (DUONEB) INH SCH ×2 (14:20→19:36)
[2020-11-28] MEDS: cefTRIAXone SOD 2 GM in D5W MINI-BAG PLUS 50 ML IV SCH (14:22)
[2020-11-28] MEDS: DOXYCYCLINE HYCLATE 100 MG in D5W MINI-BAG PLUS 100 ML IV SCH (16:04)
[2020-11-28 22:00] VITALS: BP 125/80
[2020-11-29] MEDS: IPRATROPIUM 0.5MG/ALBUTEROL 2.5MG INH SOL UD 3ML (DUONEB) INH SCH ×6 (03:10→19:52)
[2020-11-29] MEDS: DOXYCYCLINE HYCLATE 100 MG in D5W MINI-BAG PLUS 100 ML IV SCH ×2 (04:06→14:24)
[2020-11-29] MEDS: ACETAMINOPHEN 650MG ER TAB (TYLENOL ARTHRITIS) PO PRN (04:11)
[2020-11-29] MEDS: LEVOTHYROXINE 100MCG TABLET (0.1MG) PO SCH (05:56)
[2020-11-29] MEDS: CALCIUM CARBONATE 500 MG CHEW U/D PO PRN ×2 (05:56→14:45)
[2020-11-29 06:00] VITALS: BP 114/72
[2020-11-29 07:16] LABS: HEMATOCRIT 32.4 % (36.0-47.0); HEMOGLOBIN 10.6 g/dl (12.0-15.5); MEAN CORPUSCULAR HEMOGLOBIN 31.6 pg (27.0-33.0); MEAN CORPUSCULAR HGB CONC 32.7 g/dl (32.0-36.5); MEAN CORPUSCULAR VOLUME 96.7 fl (80.0-96.0); PLATELET COUNT, AUTOMATED 275 10^3/uL (150-450); RED BLOOD COUNT 3.35 10^6/uL (4.00-5.40); WHITE BLOOD COUNT 7.2 10^3/uL (4.0-10.0)
[2020-11-29 07:34] LABS: ALBUMIN 1.5 GM/DL (3.2-5.2); ALT/SGPT 49 U/L (12-78); BILIRUBIN,TOTAL 0.6 MG/DL (0.2-1.0); BLOOD UREA NITROGEN 17 MG/DL (7-18); CALCIUM LEVEL 7.5 MG/DL (8.5-10.1); CARBON DIOXIDE LEVEL 25 MEQ/L (21-32); CHLORIDE LEVEL 106 MEQ/L (98-107); CREATININE FOR GFR 0.42 MG/DL (0.55-1.30); GLOMERULAR FILTRATION RATE > 60.0 (>51); GLUCOSE, FASTING 131 MG/DL (70-100); MAGNESIUM LEVEL 2.1 MG/DL (1.8-2.4); POTASSIUM SERUM 4.4 MEQ/L (3.5-5.1); SODIUM LEVEL 137 MEQ/L (136-145); TOTAL PROTEIN 6.6 GM/DL (6.4-8.2)
[2020-11-29 07:40] LABS: LYMPHOCYTES 18 % (16-44); MONOCYTES 4 % (0-5); NEUTROPHILS 77 % (28-66); PLATELET ESTIMATE NORMAL (NORMAL)
[2020-11-29] MEDS: DOCUSATE SODIUM 100MG CAPSULE PO SCH ×2 (09:08→21:17)
[2020-11-29] MEDS: ENOXAPARIN 40MG/0.4ML SYRINGE (J1650 PER 10MG) SC SCH (09:08)
[2020-11-29] MEDS: predniSONE 20 MG TAB PO SCH (09:08)
--- NOTE | 2020-11-29 12:14 | ECHO ---
DATE OF PROCEDURE: 11/28/2020 Age: 50 Gender: Female Height: 163 cm Weight: 52 kg REFERRING PHYSICIAN: Boby Fuentes DO. INDICATION: Abnormal EKG. MEASUREMENTS: IVS 0.9 cm LV 4.5 cm LVPW 0.9 cm LA 3.6 cm Aorta 2.7 cm IVC 1.5 cm Mitral E wave velocity 62 A wave 110 E prime septal 9.3 E prime lateral 15.6 FINDINGS: This study is of fair technical quality. Patient is in sinus tachycardia with very frequent ventricular ectopy. Left ventricle is normal size and has normal systolic function, I estimate EF at least 65%. No segmental wall motion abnormalities are appreciated. Right ventricle is also normal size and systolic function. Both atria appear normal. Aortic, mitral, tricuspid, and pulmonic valves all appear normal. No pericardial effusion is noted. Inferior vena cava is normal size and appropriately collapses with inspiration indicative of normal central venous pressure. Aortic root and abdominal aorta appear normal. Aortic arch was not well seen. Mitral inflow pattern and tissue Doppler imaging of mitral annulus revealed grade 1 diastolic dysfunction. There is functionally competent aortic valve. There is trace mitral and tricuspid insufficiency. Calculated pulmonary artery pressure is around 40 mmHg corresponding to moderate pulmonary hypertension. CONCLUSIONS: 1. Study is of fair technical quality. Patient is in sinus tachycardia with frequent PVCs. 2. Normal LV size with normal LV systolic function and grade 1 diastolic dysfunction. 3. Normal RV size and systolic function. 4. No hemodynamically significant valvular disease. 5. Likely normal central venous pressure but moderate pulmonary hypertension. MTDD
[2020-11-29 14:00] VITALS: BP 118/71
[2020-11-29] MEDS: cefTRIAXone SOD 2 GM in D5W MINI-BAG PLUS 50 ML IV SCH (14:24)
[2020-11-29] MEDS: traMADol 50 MG TAB PO PRN (14:46)
--- NOTE | 2020-11-29 15:23 | IPNPDOC ---
Text Note Date of Service The patient was seen on 11/29/20. NOTE Subjective: Patient stated that she feels better today, joint pain subsided Objective: GENERAL APPEARANCE: NAD HEENT: no scleral icterus, no JVD, EOMI CARDIOVASCULAR: S1S2 LUNGS: Diminished lung sounds bilaterally, mild rales bilaterally ABDOMEN: soft & not tender w palpitation MUSCULOSKELETAL: no cyanosis, no swelling INTEGUMENT: no generalized pallor NEUROLOGICAL: cranial nerve function from 2-12 intact intact, follows commands, speech not dysarthric Assessment and plan: 50-year-old female history of hypothyroidism here with shortness of breath was found to have a pneumonia 4 days ago left the ED AMA took 2 doses of prescribed antibiotics before feeling short of breath again and presents again to the hospital. Blood cultures for a few days ago were positive for strep pneumo. Community acquired pneumonia Patient was diagnosed on 11/23/20 with community-acquired pneumonia. CT from 11/23/20 showed 1. Dense consolidation in the left upper lobe and lingula. Consistent with pneumonia. Consolidation is overall decreased from prior. Underlying neoplasm cannot be excluded. Cluster of centrilobular nodules in the medial right middle lobe and septal thickening. Diffuse centrilobular nodules in the lateral basal left lower lobe. Centrilobular emphysematous lung disease. Suspect infectious process. Overall decreased from prior. X-ray showed on 11/27/20 The left lung infiltrate has decreased in density. There are developing pneumo seals in the apex of the left upper lobe and in the left suprahilar zone 2 sets of blood culture from 11/24/20 showed Streptococcus pneumonia MRSA negative I changed antibiotics : vancomycin and Zosyn to ceftriaxone and doxycycline Prednisone by mouth per calcitonin elevated to 9.3 Patient will need to have repeated CT in 3-6 months echo showed 1. Study is of fair technical quality. Patient is in sinus tachycardia with frequent PVCs. 2. Normal LV size with normal LV systolic function and grade 1 diastolic dysfunction. 3. Normal RV size and systolic function. 4. No hemodynamically significant valvular disease. 5. Likely normal central venous pressure but moderate pulmonary hypertension. Blood culture negative Centrilobular emphysema Patient stated that she stopped smoking many years ago shayna anti-trypsin level elevated to 249 Follow-up with captain waiter in the outpatient settings Hypothyroidism TSH 26.2, free T4 0.7 we increased the dose of levothyroxine to 100 g Joints pain Most likely secondary to recent history of mononucleosis repeated blood culture negative History of urinary tract infection: Urine culture from 11/23/2020 was positive for Escherichia coli. She has no urinary symptoms at this time. Await UA VS,Kwan, I+O VS, Kwan, I+O Laboratory Tests 11/29/20 06:41 Vital Signs Date Time Temp Pulse Resp B/P (MAP) Pulse Ox O2 Delivery O2 Flow Rate FiO2 11/29/20 14:46 18 11/29/20 14:00 98.8 98 118/71 (87) 97 Room Air I&O- Last 24 Hours up to 6 AM 11/29/20 06:00 Intake Total 2120 ml Output Total 150 ml Balance 1970 ml SOLANGE CUELLAR DO Nov 29, 2020 15:23
[2020-11-29 22:00] VITALS: BP 129/76
[2020-11-30] MEDS: CALCIUM CARBONATE 500 MG CHEW U/D PO PRN (00:45)
[2020-11-30] MEDS: traMADol 50 MG TAB PO PRN ×2 (00:46→09:04)
[2020-11-30] MEDS: DOXYCYCLINE HYCLATE 100 MG in D5W MINI-BAG PLUS 100 ML IV SCH (03:43)
[2020-11-30] MEDS: IPRATROPIUM 0.5MG/ALBUTEROL 2.5MG INH SOL UD 3ML (DUONEB) INH SCH ×4 (03:52→12:00)
[2020-11-30] MEDS: MAALOX 30 ML SUSP *UDC PO PRN (03:54)
[2020-11-30 06:00] VITALS: BP 132/78
[2020-11-30] MEDS: LEVOTHYROXINE 100MCG TABLET (0.1MG) PO SCH (06:54)
[2020-11-30 07:02] LABS: HEMATOCRIT 35.4 % (36.0-47.0); HEMOGLOBIN 11.5 g/dl (12.0-15.5); MEAN CORPUSCULAR HEMOGLOBIN 31.7 pg (27.0-33.0); MEAN CORPUSCULAR HGB CONC 32.5 g/dl (32.0-36.5); MEAN CORPUSCULAR VOLUME 97.5 fl (80.0-96.0); PLATELET COUNT, AUTOMATED 322 10^3/uL (150-450); RED BLOOD COUNT 3.63 10^6/uL (4.00-5.40); WHITE BLOOD COUNT 11.7 10^3/uL (4.0-10.0)
[2020-11-30 07:27] LABS: ALBUMIN 1.7 GM/DL (3.2-5.2); ALT/SGPT 78 U/L (12-78); BILIRUBIN,TOTAL 0.6 MG/DL (0.2-1.0); BLOOD UREA NITROGEN 19 MG/DL (7-18); CALCIUM LEVEL 8.3 MG/DL (8.5-10.1); CARBON DIOXIDE LEVEL 27 MEQ/L (21-32); CHLORIDE LEVEL 108 MEQ/L (98-107); CREATININE FOR GFR 0.43 MG/DL (0.55-1.30); GLOMERULAR FILTRATION RATE > 60.0 (>51); GLUCOSE, FASTING 85 MG/DL (70-100); SODIUM LEVEL 140 MEQ/L (136-145); TOTAL PROTEIN 6.4 GM/DL (6.4-8.2)
[2020-11-30 07:28] LABS: MAGNESIUM LEVEL 1.9 MG/DL (1.8-2.4)
[2020-11-30 07:36] LABS: LYMPHOCYTES 14 % (16-44); MONOCYTES 4 % (0-5); NEUTROPHILS 81 % (28-66); PLATELET ESTIMATE NORMAL (NORMAL)
[2020-11-30] MEDS: DOCUSATE SODIUM 100MG CAPSULE PO SCH (09:02)
[2020-11-30] MEDS: ENOXAPARIN 40MG/0.4ML SYRINGE (J1650 PER 10MG) SC SCH (09:03)
[2020-11-30] MEDS: predniSONE 20 MG TAB PO SCH (09:03)
[2020-11-30] MEDS ORDERED: LEVO100T5 PO (10:24)
[2020-11-30] MEDS ORDERED: DOXY-350 PO (10:24)
[2020-11-30] MEDS ORDERED: AUGM875T28 PO (10:24)
[2020-11-30] MEDS ORDERED: PRED5PAK PO (10:24)
--- NOTE | 2020-11-30 19:38 | DS.PDOC ---
Discharge Summary General Date of Admission Nov 27, 2020 at 19:52 Date of Discharge 11/30/20 Discharge Summary PROCEDURES PERFORMED DURING STAY: [None]. ADMITTING DIAGNOSES: Community acquired pneumonia Centrilobular emphysema Hypothyroidism Joints pain History of urinary tract infection DISCHARGE DIAGNOSES: Community acquired pneumonia Centrilobular emphysema Hypothyroidism Joints pain History of urinary tract infection COMPLICATIONS/CHIEF COMPLAINT: Pneumonia. HISTORY OF PRESENT ILLNESS: 50-year-old female history of hypothyroidism here with shortness of breath was found to have a pneumonia 4 days ago left the ED AMA took 2 doses of prescribed antibiotics before feeling short of breath again and presents again to the hospital. Blood cultures for a few days ago were positive for strep pneumo. HOSPITAL COURSE: During hospital stay following issue addressed Community acquired pneumonia Patient was diagnosed on 11/23/20 with community-acquired pneumonia. CT from 11/23/20 showed 1. Dense consolidation in the left upper lobe and lingula. Consistent with pneumonia. Consolidation is overall decreased from pr ior. Underlying neoplasm cannot be excluded. Cluster of centrilobular nodules in the medial right middle lobe and septal thickening. Diffuse centrilobular nodules in the lateral basal left lower lobe. Centrilobular emphysematous lung disease. Suspect infectious process. Overall decreased from prior. X-ray showed on 11/27/20 The left lung infiltrate has decreased in density. There are developing pneumo seals in the apex of the left upper lobe and in the left suprahilar zone 2 sets of blood culture from 11/24/20 showed Streptococcus pneumonia MRSA negative I changed antibiotics : vancomycin and Zosyn to ceftriaxone and doxycycline Prednisone by mouth per calcitonin elevated to 9.3 Patient will need to have repeated CT in 3-6 months echo showed 1. Study is of fair technical quality. Patient is in sinus tachycardia with frequent PVCs. 2. Normal LV size with normal LV systolic function and grade 1 diastolic dysfunction. 3. Normal RV size and systolic function. 4. No hemodynamically significant valvular disease. 5. Likely normal central venous pressure but moderate pulmonary hypertension. Blood culture negative Today patient feels much better, lungs clear to auscultation Centrilobular emphysema Patient stated that she stopped smoking many years ago shayna anti-trypsin level elevated to 249 Follow-up with power plant operator apprentice in the outpatient settings Hypothyroidism TSH 26.2, free T4 0.7 we increased the dose of levothyroxine to 100 g Joints pain Most likely secondary to recent history of mononucleosis repeated blood culture negative History of urinary tract infection: Urine culture from 11/23/2020 was positive for Escherichia coli. She has no urinary symptoms at this time. DISCHARGE MEDICATIONS: Please see below. ALLERGIES: Please see below. PHYSICAL EXAMINATION ON DISCHARGE: VITAL SIGNS: Please see below. GENERAL APPEARANCE: NAD HEENT: no scleral icterus, no JVD, EOMI CARDIOVASCULAR: S1S2 LUNGS: Diminished lung sounds bilaterally ABDOMEN: soft & not tender w palpitation MUSCULOSKELETAL: no cyanosis, no swelling INTEGUMENT: no generalized pallor NEUROLOGICAL: cranial nerve function from 2-12 intact intact, follows commands, speech not dysarthric LABORATORY DATA: Please see below. IMAGING: See above PROGNOSIS: Fair ACTIVITY: [As tolerated]. DIET: Regular DISPOSITION: 01 Home, Self-Care. DISCHARGE INSTRUCTIONS: Continue incentive spirometry ITEMS TO FOLLOWUP ON ON OUTPATIENT: Follow-up with PCP and power plant operator apprentice DISCHARGE CONDITION: [Stable]. TIME SPENT ON DISCHARGE: 30 minutes. Vital Signs/I&Os Vital Signs Date Time Temp Pulse Resp B/P (MAP) Pulse Ox O2 Delivery O2 Flow Rate FiO2 11/30/20 09:04 18 11/30/20 06:00 97.0 96 132/78 (96) 94 Room Air I&O- Last 24 Hours up to 6 AM 11/30/20 06:00 Intake Total 2030 ml Balance 2030 ml Laboratory Data Labs 24H Laboratory Tests 2 11/30/20 06:49: Immature Granulocyte % (Auto) , Neutrophils (%) (Auto) , Nucleated Red Blood Cells % (auto) 0.0, Neutrophils 81H, Band Neutrophils 1, Lymphocytes (Manual) 14L, Monocytes (Manual) 4, Red Blood Cell Morphology NORMAL, Platelet Estimate NORMAL, Anion Gap 5L, Glomerular Filtration Rate > 60.0, Calcium Level 8.3L, Magnesium Level 1.9, Total Bilirubin 0.6, Aspartate Amino Transf (AST/SGOT) 142H, Alanine Aminotransferase (ALT/SGPT) 78, Alkaline Phosphatase 296H, Total Protein 6.4, Albumin 1.7L, Albumin/Globulin Ratio 0.4L 11/30/20 08:06: CBC/BMP Laboratory Tests 11/30/20 06:49 Microbiology Microbiology 11/27/20 Blood Culture - Preliminary, Resulted No Growth after 48 hours. All Specime... 11/27/20 Blood Culture - Preliminary, Resulted No Growth after 48 hours. All Specime... Discharge Medications Scheduled Amoxicillin/Potassium Clav (Augmentin 875-125 Tablet) 1 Each Tablet, 1 TAB PO BID Aspirin (Aspirin EC) 81 Mg Tablet.dr, 81 MG PO DAILY, (Reported) Doxycycline Monohydrate (Doxycycline) 100 Mg Capsule, 1 CAP PO BID Levothyroxine Sodium (Levothyroxine Sodium) 100 Mcg Tablet, 100 MCG PO DAILY@0600 Meloxicam (Meloxicam) 15 Mg Tablet, 15 MG DAILY, (Reported) Prednisone (Prednisone) 5 Mg Tab.ds.pk, 0 PO ASDIRECTED 6 day dose pack taper Scheduled PRN Tramadol HCl (Tramadol HCl) 50 Mg Tablet, 50 MG PO TID PRN for PAIN, (Reported) Allergies Coded Allergies: hydrocodone (Verified Adverse Reaction, Unknown, 04/09/19) SOLANGE CUELLAR DO Nov 30, 2020 19:38
[2020-12-02 12:16] LABS: BODY FLUID CULTURE Not indicated. (.); ORGANISM ID Not indicated. (.); SPECIMEN SOURCE Urine (.)
[2020-12-04 15:07] LABS: URINE STREP PNEUMONIAE ANTIGEN Positive (Negative)
== END 2020-11-30 13:14 | disposition home or self-care (01) | DRG 139 ==
LOC: M ED 15:36 → M ED INP 19:52 → ENRESERV 21:12 → M MS5PR 22:30
PROVIDERS: ADMIT Family Medicine; ATTEND Internal Medicine
DX: J18.9 Pneumonia, unspecified organism (principal); J43.2 Centrilobular emphysema; E03.9 Hypothyroidism, unspecified; M25.50 Pain in unspecified joint; Z79.899 Other long term (current) drug therapy; Z79.82 Long term (current) use of aspirin; Z88.5 Allergy status to narcotic agent

== ENCOUNTER → 2020-12-06 | Outpatient (CLI) | payer OTHER ==
[~2020-12-06] MED LIST changes: +ASPI81TA26 PO; +AUGM875T28 PO; +AZIT-12 PO; +CEFD1CAP8 PO; +DOXY-350 PO; +LEVO100T5 PO; +PRED5PAK PO
--- NOTE | 2020-12-06 18:42 | REP ---
INDICATION: PNEUMONIA UNSPECIFIED ORGANISM. COMPARISON: 11/27/2020 and multiple prior studies dating to 07/02/2019. Chest CT of 11/23/[address] of 07/09/2019 TECHNIQUE: Upright PA and lateral chest. FINDINGS: The multifocal infiltrates that were present previously in the right lung have essentially resolved. This is unchanged from 11/27/2020. The remaining infiltrate involving predominantly the left upper lobe has slightly decreased from 11/27/2020. There are no pleural effusions. The cardiac size is normal. Pneumatocele is a in the left upper lobe apex and in the left suprahilar zone are again identified, unchanged. IMPRESSION: The remaining infiltrate in the left lung continues to improve from 11/27/2020. <Electronically signed by Mihir Dominguez > 12/06/20 [id number]
== END ==
LOC: M RAD 18:01
PROVIDERS: ATTEND Family Medicine Addiction Medicine
DX: J18.9 Pneumonia, unspecified organism (principal)

== ENCOUNTER → 2020-12-06 | Outpatient (REF) | payer OTHER ==
[2020-12-06 16:13] LABS: ALBUMIN 2.1 GM/DL (3.2-5.2); ALT/SGPT 92 U/L (12-78); BILIRUBIN,TOTAL 0.7 MG/DL (0.2-1.0); BLOOD UREA NITROGEN 19 MG/DL (7-18); CALCIUM LEVEL 7.9 MG/DL (8.5-10.1); CARBON DIOXIDE LEVEL 25 MEQ/L (21-32); CHLORIDE LEVEL 106 MEQ/L (98-107); CREATININE FOR GFR 0.47 MG/DL (0.55-1.30); GLOMERULAR FILTRATION RATE > 60.0 (>51); GLUCOSE, FASTING 110 MG/DL (70-100); POTASSIUM SERUM 3.7 MEQ/L (3.5-5.1); SODIUM LEVEL 139 MEQ/L (136-145); TOTAL PROTEIN 6.4 GM/DL (6.4-8.2)
[2020-12-06 16:20] LABS: BASO % 0.4 % (0.0-1.0); EOS % 0.5 % (0.0-3.0); HEMATOCRIT 35.9 % (36.0-47.0); HEMOGLOBIN 11.5 g/dl (12.0-15.5); LYMPH # 1.8 10^3/uL (1.5-5.0); LYMPH % 20.6 % (24.0-44.0); MONO # 0.2 10^3/uL (0.0-0.8); MONO % 2.7 % (2.0-8.0); NEUTROPHILS # 6.4 10^3/uL (1.5-8.5); PLATELET COUNT, AUTOMATED 433 10^3/uL (150-450); RED BLOOD COUNT 3.59 10^6/uL (4.00-5.40); WHITE BLOOD COUNT 8.5 10^3/uL (4.0-10.0)
== END ==
LOC: M LAB REF 15:44
PROVIDERS: ATTEND Family Medicine Addiction Medicine
DX: J18.9 Pneumonia, unspecified organism (principal); R94.5 Abnormal results of liver function studies

== ENCOUNTER → 2020-12-29 | Outpatient (CLI) | payer OTHER ==
[2020-12-29 19:06] LABS: ALBUMIN 2.3 GM/DL (3.2-5.2); BILIRUBIN,DIRECT 5.6 MG/DL (0.0-0.2); BILIRUBIN,TOTAL 7.1 MG/DL (0.2-1.0); TOTAL PROTEIN 7.1 GM/DL (6.4-8.2)
[2020-12-31 07:06] LABS: HEPATITIS A IgG TOTAL Positive (Negative); HEPATITIS B CORE ANTIBODY IGG Negative (Negative)
[2021-01-01 16:07] LABS: HEPATITIS C VIRUS ABY INDEX 0.2 INDEX (<0.8)
== END ==
LOC: M LAB 17:25
PROVIDERS: ATTEND Internal Medicine Gastroenterology
DX: R94.5 Abnormal results of liver function studies (principal)

== ENCOUNTER 2021-01-03 17:13 | Emergency (ER) | payer OTHER ==
[~2021-01-03] VITALS: Ht 162.6 cm; Wt 50.5 kg
[2021-01-03] MEDS ORDERED: NS 1,000 ML IV ONE (18:25)
[2021-01-03 18:52] LABS: BASO % 0.1 % (0.0-1.0); EOS % 0.1 % (0.0-3.0); HEMATOCRIT 38.6 % (36.0-47.0); HEMOGLOBIN 12.5 g/dl (12.0-15.5); LYMPH # 0.7 10^3/uL (1.5-5.0); LYMPH % 8.3 % (24.0-44.0); MEAN CORPUSCULAR HEMOGLOBIN 32.6 pg (27.0-33.0); MEAN CORPUSCULAR HGB CONC 32.4 g/dl (32.0-36.5); MEAN CORPUSCULAR VOLUME 100.8 fl (80.0-96.0); MONO # 0.3 10^3/uL (0.0-0.8); MONO % 3.9 % (2.0-8.0); NEUTROPHILS # 7.4 10^3/uL (1.5-8.5); NEUTROPHILS % 86.8 % (36.0-66.0); PLATELET COUNT, AUTOMATED 145 10^3/uL (150-450); RED BLOOD COUNT 3.83 10^6/uL (4.00-5.40); WHITE BLOOD COUNT 8.5 10^3/uL (4.0-10.0)
[2021-01-03] MEDS ORDERED: ISOVUE-370 76% 100ML VIAL As Ordered ONE (19:31)
[2021-01-03 19:40] LABS: ALT/SGPT 679 U/L (12-78); LIPASE 135 U/L (73-393); TOTAL PROTEIN 6.8 GM/DL (6.4-8.2)
[2021-01-03 19:50] LABS: BILIRUBIN,TOTAL 20.8 MG/DL (0.2-1.0)
--- NOTE | 2021-01-03 20:50 | REPVR ---
PROCEDURE INFORMATION: Exam: CT Abdomen And Pelvis With Contrast Exam date and time: 01/03/2021 7:37 PM Age: 50 years old Clinical indication: Bloating; Additional info: Jaundiced/distended ? ascites TECHNIQUE: Imaging protocol: Computed tomography of the abdomen and pelvis with contrast. Radiation optimization: All CT scans at this facility use at least one of these dose optimization techniques: automated exposure control; mA and/or kV adjustment per patient size (includes targeted exams where dose is matched to clinical indication); or iterative reconstruction. Contrast material: ISOVUE 370; Contrast volume: 100 ml; Contrast route: INTRAVENOUS (IV); COMPARISON: CT ABD/PEL W/IV CONTRAST ONLY 11/23/2020 11:28 PM FINDINGS: Lungs: Centrilobular type emphysema and paraseptal emphysema noted at the lung bases. Mediastinal space: Small sliding hiatal hernia. Liver: Liver measures 19.8 cm in craniocaudal span. Gallbladder and bile ducts: Normal. No calcified stones. No ductal dilation. Pancreas: Normal. No ductal dilation. Spleen: Spleen measures 14.3 cm in craniocaudal span. Adrenal glands: Normal. No mass. Kidneys and ureters: Mild bilateral hydronephrosis. Stomach and bowel: There is mucosal thickening of the proximal jejunal bowel loops. Mildly dilated fluid-filled bowel loops noted in the pelvis. Appendix: No evidence of appendicitis. Intraperitoneal space: There is a small amount of intra-abdominal ascites. Vasculature: Unremarkable. No abdominal aortic aneurysm. Lymph nodes: Adriana caval lymph nodes present measuring 1.3 by 2 by 1.4 cm and to by 1.2 by 1.9 cm. Urinary bladder: Unremarkable as visualized. Reproductive: There is edema and fluid noted within the labia/perineum with prolapse of the uterus through the pelvic floor into perineum. Bones/joints: Unremarkable. No acute fracture. Soft tissues: Unremarkable. Other findings: There is thickening of the levator ani IMPRESSION: 1. Hepatosplenomegaly with the moderate intra-abdominal ascites. 2. Mild hydronephrosis bilaterally. 3. Severe pelvic floor laxity with cystocele and prolapse of the uterus into the perineum. 4. Mildly thickened proximal jejunal bowel loops could be related to ascites. 5. Centrilobular type emphysema and paraseptal type emphysema at the lung bases. Electronically signed by: Yina Verma On 01/03/2021 20:50:33 PM
[2021-01-03] MEDS ORDERED: cefTRIAXone SOD 1 GM in D5W MINI-BAG PLUS 50 ML IV ONE (21:55)
[2021-01-03 22:20] LABS: AMPHETAMINES LEVEL URINE NEGATIVE (NEGATIVE); BARBITURATES URINE NEGATIVE (NEGATIVE); BENZODIAZEPINES URINE NEGATIVE (NEGATIVE); CANNABINOIDS URINE NEGATIVE (NEGATIVE); COCAINE METABOLITE URINE NEGATIVE (NEGATIVE); METHADONE URINE NEGATIVE (NEGATIVE); OPIATES URINE NEGATIVE (NEGATIVE); PHENCYCLIDINE URINE NEGATIVE (NEGATIVE)
[2021-01-03 22:41] LABS: INR 1.96; PROTHROMBIN TIME 22.7 SECONDS (12.5-14.3)
[2021-01-03 22:42] LABS: PARTIAL THROMBOPLASTIN TIME 50.6 SECONDS (24.2-38.5)
[2021-01-03 22:50] LABS: ACETAMINOPHEN LEVEL < 2.0 UG/ML (10.0-30.0); ETHYL ALCOHOL (ETHANOL) < 0.003 % (0.000-0.010)
[2021-01-03 23:11] LABS: HEPATITIS A ANTIBODY IGM NEGATIVE (NEGATIVE)
[2021-01-03 23:15] LABS: RSV AMPLIFICATION NEGATIVE (NEGATIVE)
[2021-01-04 00:07] VITALS: BP 99/51
[2021-01-05 13:31] LABS: ANTI DOUBLE STRAND-DNA AB 8 IU/mL (0-9); ANTINUCLEAR ANTIBODIES DIRECT Positive (Negative); RNP ANTIBODIES 7.6 AI (0.0-0.9); SJOGREN'S ANTI SS-A 5.1 AI (0.0-0.9); SJOGREN'S ANTI SS-B <0.2 AI (0.0-0.9); SMITH ANTIBODIES 1.3 AI (0.0-0.9)
== END 2021-01-04 00:16 | disposition short-term general hospital (02) ==
LOC: M ED 17:13
DX: K72.90 Hepatic failure, unspecified without coma (principal); R18.8 Other ascites; R16.2 Hepatomegaly with splenomegaly, not elsewhere classified; N13.2 Hydronephrosis with renal and ureteral calculous obstruction; N81.10 Cystocele, unspecified; N81.89 Other female genital prolapse; K63.89 Other specified diseases of intestine; J43.8 Other emphysema; J43.2 Centrilobular emphysema; E03.9 Hypothyroidism, unspecified; Z92.3 Personal history of irradiation; Z86.14 Personal history of Methicillin resistant Staphylococcus aureus infection; Z79.82 Long term (current) use of aspirin; Z79.899 Other long term (current) drug therapy; Z88.5 Allergy status to narcotic agent
CPT/HCPCS: 74177; 80047; 80076; 80143; 80307; 81001; 82077; 82140; 83690; 85025; 85610; 85730; 86038; 86709; 87088; 87186; 87631; 96361; 96365; 99284; J0696; Q9967

== ENCOUNTER → 2021-02-08 | Outpatient (REF) | payer OTHER ==
[2021-02-08 15:50] LABS: BASO # 0.1 10^3/uL (0.0-0.2); BASO % 0.7 % (0.0-1.0); EOS # 0.3 10^3/uL (0.0-0.5); EOS % 3.7 % (0.0-3.0); HEMATOCRIT 30.4 % (36.0-47.0); HEMOGLOBIN 9.2 g/dl (12.0-15.5); LYMPH # 1.2 10^3/uL (1.5-5.0); LYMPH % 17.6 % (24.0-44.0); MEAN CORPUSCULAR HEMOGLOBIN 30.9 pg (27.0-33.0); MEAN CORPUSCULAR HGB CONC 30.3 g/dl (32.0-36.5); MONO # 0.3 10^3/uL (0.0-0.8); NEUTROPHILS # 4.9 10^3/uL (1.5-8.5); NEUTROPHILS % 73.4 % (36.0-66.0); PLATELET COUNT, AUTOMATED 632 10^3/uL (150-450); RED BLOOD COUNT 2.98 10^6/uL (4.00-5.40); WHITE BLOOD COUNT 6.7 10^3/uL (4.0-10.0)
[2021-02-08 16:21] LABS: ALBUMIN 3.5 GM/DL (3.2-5.2); ALT/SGPT 56 U/L (12-78); BILIRUBIN,TOTAL 1.5 MG/DL (0.2-1.0); BLOOD UREA NITROGEN 17 MG/DL (7-18); CALCIUM LEVEL 9.4 MG/DL (8.5-10.1); CARBON DIOXIDE LEVEL 26 MEQ/L (21-32); CHLORIDE LEVEL 106 MEQ/L (98-107); CREATININE FOR GFR 0.49 MG/DL (0.55-1.30); GLOMERULAR FILTRATION RATE > 60.0 (>51); GLUCOSE, FASTING 122 MG/DL (70-100); MAGNESIUM LEVEL 1.4 MG/DL (1.8-2.4); POTASSIUM SERUM 4.4 MEQ/L (3.5-5.1); SODIUM LEVEL 139 MEQ/L (136-145); TOTAL PROTEIN 6.8 GM/DL (6.4-8.2)
== END ==
LOC: M LAB REF 15:11
DX: K72.00 Acute and subacute hepatic failure without coma (principal)

== ENCOUNTER → 2021-02-15 | Outpatient (REF) | payer OTHER ==
[2021-02-15 12:55] LABS: BASO # 0.1 10^3/uL (0.0-0.2); BASO % 0.7 % (0.0-1.0); EOS # 0.1 10^3/uL (0.0-0.5); EOS % 0.6 % (0.0-3.0); HEMATOCRIT 36.1 % (36.0-47.0); HEMOGLOBIN 10.9 g/dl (12.0-15.5); LYMPH # 1.7 10^3/uL (1.5-5.0); LYMPH % 17.7 % (24.0-44.0); MEAN CORPUSCULAR HEMOGLOBIN 31.2 pg (27.0-33.0); MEAN CORPUSCULAR HGB CONC 30.2 g/dl (32.0-36.5); MEAN CORPUSCULAR VOLUME 103.4 fl (80.0-96.0); MONO # 0.5 10^3/uL (0.0-0.8); MONO % 4.9 % (2.0-8.0); NEUTROPHILS # 7.1 10^3/uL (1.5-8.5); NEUTROPHILS % 74.6 % (36.0-66.0); PLATELET COUNT, AUTOMATED 583 10^3/uL (150-450); RED BLOOD COUNT 3.49 10^6/uL (4.00-5.40); WHITE BLOOD COUNT 9.5 10^3/uL (4.0-10.0)
[2021-02-15 13:20] LABS: ALBUMIN 3.4 GM/DL (3.2-5.2); ALT/SGPT 64 U/L (12-78); BLOOD UREA NITROGEN 27 MG/DL (7-18); CALCIUM LEVEL 9.2 MG/DL (8.5-10.1); CARBON DIOXIDE LEVEL 27 MEQ/L (21-32); CHLORIDE LEVEL 105 MEQ/L (98-107); CREATININE FOR GFR 0.51 MG/DL (0.55-1.30); GLOMERULAR FILTRATION RATE > 60.0 (>51); GLUCOSE, FASTING 93 MG/DL (70-100); MAGNESIUM LEVEL 1.7 MG/DL (1.8-2.4); POTASSIUM SERUM 4.5 MEQ/L (3.5-5.1); SODIUM LEVEL 136 MEQ/L (136-145); TOTAL PROTEIN 7.2 GM/DL (6.4-8.2)
== END ==
LOC: M LAB REF 12:33
PROVIDERS: ATTEND Nurse Practitioner Acute Care
DX: K72.00 Acute and subacute hepatic failure without coma (principal)

== ENCOUNTER → 2021-02-22 | Outpatient (CLI) | payer OTHER ==
[2021-02-22 12:27] LABS: BASO % 0.4 % (0.0-1.0); EOS % 0.3 % (0.0-3.0); HEMOGLOBIN 12.6 g/dl (12.0-15.5); LYMPH # 1.1 10^3/uL (1.5-5.0); LYMPH % 10.5 % (24.0-44.0); MEAN CORPUSCULAR HEMOGLOBIN 30.7 pg (27.0-33.0); MEAN CORPUSCULAR VOLUME 102.2 fl (80.0-96.0); MONO # 0.5 10^3/uL (0.0-0.8); MONO % 4.6 % (2.0-8.0); NEUTROPHILS # 8.8 10^3/uL (1.5-8.5); NEUTROPHILS % 81.8 % (36.0-66.0); PLATELET COUNT, AUTOMATED 414 10^3/uL (150-450); RED BLOOD COUNT 4.11 10^6/uL (4.00-5.40); WHITE BLOOD COUNT 10.7 10^3/uL (4.0-10.0)
[2021-02-22 15:00] LABS: ALBUMIN 3.6 GM/DL (3.2-5.2); ALT/SGPT 413 U/L (12-78); BILIRUBIN,TOTAL 1.5 MG/DL (0.2-1.0); BLOOD UREA NITROGEN 31 MG/DL (7-18); CALCIUM LEVEL 9.3 MG/DL (8.5-10.1); CARBON DIOXIDE LEVEL 24 MEQ/L (21-32); CHLORIDE LEVEL 103 MEQ/L (98-107); CREATININE FOR GFR 0.62 MG/DL (0.55-1.30); GLOMERULAR FILTRATION RATE > 60.0 (>51); GLUCOSE, FASTING 103 MG/DL (70-100); MAGNESIUM LEVEL 1.9 MG/DL (1.8-2.4); POTASSIUM SERUM 4.6 MEQ/L (3.5-5.1); SODIUM LEVEL 136 MEQ/L (136-145); TOTAL PROTEIN 7.5 GM/DL (6.4-8.2)
== END ==
LOC: M LAB 11:42
PROVIDERS: ATTEND Nurse Practitioner Adult Health
DX: Z94.4 Liver transplant status (principal)

== ENCOUNTER 2021-03-07 17:18 | Emergency (ER) | payer OTHER ==
[~2021-03-07] VITALS: Ht 160 cm; Wt 45.4 kg
--- NOTE | 2021-03-07 19:13 | REP ---
INDICATION: sob. COMPARISON: Comparison chest x-ray December 06, 2020. TECHNIQUE: Portable upright AP chest radiograph. FINDINGS: There is pleuroparenchymal scarring in the left lung apex with a large bullous again noted unchanged. Interstitial markings are slightly prominent diffusely. No focal infiltrate is appreciated. The pleural angles are sharp. Heart size is normal. Pulmonary vasculature is not increased. There are clips in right upper quadrant of the abdomen.. IMPRESSION: No acute infiltrate seen. Pleuroparenchymal scarring left apex with a large bullous again seen.. <Electronically signed by Vahe Tejeda > 03/07/21 [id number]
[2021-03-07 19:51] LABS: BASO % 0.2 % (0.0-1.0); EOS % 0.1 % (0.0-3.0); HEMATOCRIT 42.4 % (36.0-47.0); LYMPH # 0.9 10^3/uL (1.5-5.0); LYMPH % 10.2 % (24.0-44.0); MEAN CORPUSCULAR HEMOGLOBIN 30.8 pg (27.0-33.0); MEAN CORPUSCULAR HGB CONC 30.7 g/dl (32.0-36.5); MEAN CORPUSCULAR VOLUME 100.5 fl (80.0-96.0); MONO # 0.3 10^3/uL (0.0-0.8); MONO % 3.9 % (2.0-8.0); NEUTROPHILS % 83.1 % (36.0-66.0); PLATELET COUNT, AUTOMATED 418 10^3/uL (150-450); RED BLOOD COUNT 4.22 10^6/uL (4.00-5.40); WHITE BLOOD COUNT 8.4 10^3/uL (4.0-10.0)
[2021-03-07 20:06] LABS: ALBUMIN 3.8 GM/DL (3.2-5.2); ALT/SGPT 104 U/L (12-78); BILIRUBIN,DIRECT 0.3 MG/DL (0.0-0.2); BILIRUBIN,TOTAL 0.5 MG/DL (0.2-1.0); CK-MB VALUE MASS 1.4 NG/ML (<3.6); CPK CREATINE PHOSPHOKINASE 18 U/L (26-192); LIPASE 197 U/L (73-393); MB/CK RELATIVE INDEX 7.78 (< OR =4); TOTAL PROTEIN 7.3 GM/DL (6.4-8.2); TROPONIN I < 0.02 NG/ML (< 0.10)
[2021-03-07 20:15] LABS: INR 0.81; PROTHROMBIN TIME 11.4 SECONDS (12.5-14.3)
[2021-03-07 20:16] LABS: PARTIAL THROMBOPLASTIN TIME 29.7 SECONDS (24.2-38.5)
[2021-03-07 20:18] LABS: D-DIMER QUANT 1083.05 ng/ml (<500)
[2021-03-07 21:58] VITALS: BP 129/77
--- NOTE | 2021-03-08 20:37 | ECGEPIP ---
[facility] - ED Test Date: 2021-03-07 Pat Name: NEVIN CURRY Department: Room: - Gender: Female Jive Developer: FRANCO : 1970 Requested By: JORDAN Long PA-C Order Number: [id number] Reading MD: Chava Almaguer Measurements Intervals [place] Rate: 97 P: 76 MD: 112 QRS: 88 QRSD: 76 T: 74 QT: 348 QTc: 441 Interpretive Statements Normal sinus rhythm Right atrial enlargement Minimal voltage criteria for LVH, may be normal variant ( Sokolow-Palm ) Electronically Signed on 03-08-2021 20:37:51 EDT by Chava Almaguer
== END 2021-03-07 22:00 | disposition home or self-care (01) ==
LOC: M ED 17:18
DX: J00 Acute nasopharyngitis [common cold] (principal); B34.8 Other viral infections of unspecified site; R94.5 Abnormal results of liver function studies; R09.82 Postnasal drip; R06.02 Shortness of breath; Z94.4 Liver transplant status; Z87.440 Personal history of urinary (tract) infections; E03.9 Hypothyroidism, unspecified; Z92.3 Personal history of irradiation; Z87.891 Personal history of nicotine dependence; Z79.82 Long term (current) use of aspirin; Z79.899 Other long term (current) drug therapy; Z88.5 Allergy status to narcotic agent

== ENCOUNTER → 2021-03-08 | Outpatient (CLI) | payer OTHER ==
[2021-03-08 13:52] LABS: ALBUMIN 3.6 GM/DL (3.2-5.2); ALT/SGPT 83 U/L (12-78); BILIRUBIN,TOTAL 0.5 MG/DL (0.2-1.0); BLOOD UREA NITROGEN 28 MG/DL (7-18); CALCIUM LEVEL 9.6 MG/DL (8.5-10.1); CARBON DIOXIDE LEVEL 24 MEQ/L (21-32); CHLORIDE LEVEL 108 MEQ/L (98-107); CREATININE FOR GFR 0.73 MG/DL (0.55-1.30); GLOMERULAR FILTRATION RATE > 60.0 (>51); GLUCOSE, FASTING 132 MG/DL (70-100); POTASSIUM SERUM 4.6 MEQ/L (3.5-5.1); SODIUM LEVEL 138 MEQ/L (136-145); TOTAL PROTEIN 7.1 GM/DL (6.4-8.2)
[2021-03-09 16:08] LABS: Lyme Disease IgG/IgM Antibodie <0.91 ISR (0.00-0.90); Lyme Disease IgM Ab Quantitati <0.80 index (0.00-0.79)
== END ==
LOC: M LAB 11:59
PROVIDERS: ATTEND Family Medicine Addiction Medicine
DX: R94.5 Abnormal results of liver function studies (principal); M25.50 Pain in unspecified joint

== ENCOUNTER → 2021-03-12 | Outpatient (CLI) | payer OTHER ==
[2021-03-12 14:07] LABS: ALBUMIN 3.9 GM/DL (3.2-5.2); ALT/SGPT 30 U/L (12-78); BILIRUBIN,TOTAL 0.5 MG/DL (0.2-1.0); BLOOD UREA NITROGEN 35 MG/DL (7-18); CALCIUM LEVEL 9.7 MG/DL (8.5-10.1); CARBON DIOXIDE LEVEL 21 MEQ/L (21-32); CHLORIDE LEVEL 107 MEQ/L (98-107); CREATININE FOR GFR 0.76 MG/DL (0.55-1.30); GLOMERULAR FILTRATION RATE > 60.0 (>51); GLUCOSE, FASTING 119 MG/DL (70-100); POTASSIUM SERUM 4.4 MEQ/L (3.5-5.1); SODIUM LEVEL 136 MEQ/L (136-145); TOTAL PROTEIN 7.5 GM/DL (6.4-8.2)
[2021-03-13 15:09] LABS: Lyme Disease IgG/IgM Antibodie <0.91 ISR (0.00-0.90); Lyme Disease IgM Ab Quantitati <0.80 index (0.00-0.79)
== END ==
LOC: M LAB 12:11
PROVIDERS: ATTEND Family Medicine Addiction Medicine
DX: R94.5 Abnormal results of liver function studies (principal); M25.50 Pain in unspecified joint

== ENCOUNTER → 2021-03-15 | Outpatient (CLI) | payer OTHER ==
[2021-03-15 12:51] LABS: ALBUMIN 4.2 GM/DL (3.2-5.2); BILIRUBIN,TOTAL 0.6 MG/DL (0.2-1.0); CALCIUM LEVEL 9.5 MG/DL (8.5-10.1); CREATININE FOR GFR 1.04 MG/DL (0.55-1.30); GLOMERULAR FILTRATION RATE 59.7 (>51); POTASSIUM SERUM 4.3 MEQ/L (3.5-5.1); TOTAL PROTEIN 7.9 GM/DL (6.4-8.2)
[2021-03-16 17:08] LABS: Lyme Disease IgG/IgM Antibodie <0.91 ISR (0.00-0.90); Lyme Disease IgM Ab Quantitati <0.80 index (0.00-0.79)
== END ==
LOC: M LAB 11:40
PROVIDERS: ATTEND Family Medicine Addiction Medicine
DX: R94.5 Abnormal results of liver function studies (principal)

== ENCOUNTER → 2021-03-19 | Outpatient (CLI) | payer OTHER ==
[2021-03-19 13:22] LABS: ALBUMIN 4.1 GM/DL (3.2-5.2); ALT/SGPT 21 U/L (12-78); BILIRUBIN,TOTAL 0.5 MG/DL (0.2-1.0); BLOOD UREA NITROGEN 40 MG/DL (7-18); CALCIUM LEVEL 9.6 MG/DL (8.5-10.1); CARBON DIOXIDE LEVEL 28 MEQ/L (21-32); CHLORIDE LEVEL 104 MEQ/L (98-107); GLOMERULAR FILTRATION RATE > 60.0 (>51); GLUCOSE, FASTING 146 MG/DL (70-100); POTASSIUM SERUM 5.2 MEQ/L (3.5-5.1); SODIUM LEVEL 135 MEQ/L (136-145); TOTAL PROTEIN 7.6 GM/DL (6.4-8.2)
[2021-03-21 17:07] LABS: Lyme Disease IgG/IgM Antibodie <0.91 ISR (0.00-0.90); Lyme Disease IgM Ab Quantitati <0.80 index (0.00-0.79)
== END ==
LOC: M LAB 11:57
PROVIDERS: ATTEND Family Medicine Addiction Medicine
DX: R94.5 Abnormal results of liver function studies (principal); M25.50 Pain in unspecified joint

== ENCOUNTER → 2021-03-22 | Outpatient (CLI) | payer OTHER ==
[2021-03-22 14:08] LABS: HEMATOCRIT 45.2 % (36.0-47.0); HEMOGLOBIN 14.2 g/dl (12.0-15.5); MEAN CORPUSCULAR HEMOGLOBIN 31.1 pg (27.0-33.0); MEAN CORPUSCULAR HGB CONC 31.4 g/dl (32.0-36.5); MEAN CORPUSCULAR VOLUME 98.9 fl (80.0-96.0); PLATELET COUNT, AUTOMATED 293 10^3/uL (150-450); RED BLOOD COUNT 4.57 10^6/uL (4.00-5.40); WHITE BLOOD COUNT 9.5 10^3/uL (4.0-10.0)
[2021-03-22 14:28] LABS: ALBUMIN 3.4 GM/DL (3.2-5.2); ALT/SGPT 22 U/L (12-78); BILIRUBIN,TOTAL 0.3 MG/DL (0.2-1.0); BLOOD UREA NITROGEN 29 MG/DL (7-18); CALCIUM LEVEL 9.4 MG/DL (8.5-10.1); CARBON DIOXIDE LEVEL 23 MEQ/L (21-32); CHLORIDE LEVEL 108 MEQ/L (98-107); CREATININE FOR GFR 0.73 MG/DL (0.55-1.30); GLOMERULAR FILTRATION RATE > 60.0 (>51); GLUCOSE, FASTING 87 MG/DL (70-100); MAGNESIUM LEVEL 1.7 MG/DL (1.8-2.4); POTASSIUM SERUM 4.6 MEQ/L (3.5-5.1); SODIUM LEVEL 139 MEQ/L (136-145); TOTAL PROTEIN 6.6 GM/DL (6.4-8.2)
[2021-03-22 14:45] LABS: ANISOCYTOSIS 1+; ATYPICAL LYMPH 2 % (0-5); EOSINOPHILS 1 % (0-3); LYMPHOCYTES 26 % (16-44); MONOCYTES 6 % (0-5); NEUTROPHILS 60 % (28-66); PLATELET ESTIMATE NORMAL (NORMAL)
== END ==
LOC: M LAB 12:01
PROVIDERS: ATTEND Nurse Practitioner Adult Health
DX: Z94.4 Liver transplant status (principal)

== ENCOUNTER → 2021-03-26 | Outpatient (CLI) | payer OTHER ==
[~2021-03-26] MED LIST changes: -CEFD1CAP8 PO; +CEFD300C41 PO
[2021-03-26 12:32] LABS: HEMATOCRIT 48.7 % (36.0-47.0); MEAN CORPUSCULAR HEMOGLOBIN 31.2 pg (27.0-33.0); MEAN CORPUSCULAR HGB CONC 30.8 g/dl (32.0-36.5); MEAN CORPUSCULAR VOLUME 101.2 fl (80.0-96.0); PLATELET COUNT, AUTOMATED 231 10^3/uL (150-450); RED BLOOD COUNT 4.81 10^6/uL (4.00-5.40); WHITE BLOOD COUNT 6.3 10^3/uL (4.0-10.0)
[2021-03-26 13:18] LABS: ALBUMIN 3.7 GM/DL (3.2-5.2); ALT/SGPT 28 U/L (12-78); BILIRUBIN,TOTAL 0.4 MG/DL (0.2-1.0); BLOOD UREA NITROGEN 28 MG/DL (7-18); CALCIUM LEVEL 9.1 MG/DL (8.5-10.1); CARBON DIOXIDE LEVEL 26 MEQ/L (21-32); CHLORIDE LEVEL 104 MEQ/L (98-107); CREATININE FOR GFR 0.73 MG/DL (0.55-1.30); GLOMERULAR FILTRATION RATE > 60.0 (>51); GLUCOSE, FASTING 81 MG/DL (70-100); MAGNESIUM LEVEL 2.1 MG/DL (1.8-2.4); POTASSIUM SERUM 4.7 MEQ/L (3.5-5.1); SODIUM LEVEL 136 MEQ/L (136-145); TOTAL PROTEIN 7.1 GM/DL (6.4-8.2)
[2021-03-26 13:20] LABS: ATYPICAL LYMPH 2 % (0-5); BASOPHILS 1 % (0-1); EOSINOPHILS 2 % (0-3); LYMPHOCYTES 27 % (16-44); MONOCYTES 3 % (0-5); NEUTROPHILS 61 % (28-66); PLATELET ESTIMATE NORMAL (NORMAL)
== END ==
LOC: M LAB 11:35
PROVIDERS: ATTEND Nurse Practitioner Adult Health
DX: Z94.4 Liver transplant status (principal)

== ENCOUNTER → 2021-04-02 | Outpatient (CLI) | payer OTHER ==
[~2021-04-02] MED LIST changes: +CEFD1CAP8 PO; -CEFD300C41 PO
[2021-04-02 13:03] LABS: HEMATOCRIT 44.8 % (36.0-47.0); HEMOGLOBIN 14.6 g/dl (12.0-15.5); MEAN CORPUSCULAR HEMOGLOBIN 31.6 pg (27.0-33.0); MEAN CORPUSCULAR HGB CONC 32.6 g/dl (32.0-36.5); PLATELET COUNT, AUTOMATED 278 10^3/uL (150-450); RED BLOOD COUNT 4.62 10^6/uL (4.00-5.40); WHITE BLOOD COUNT 5.5 10^3/uL (4.0-10.0)
[2021-04-02 13:35] LABS: ALT/SGPT 34 U/L (12-78); BLOOD UREA NITROGEN 27 MG/DL (7-18); CALCIUM LEVEL 9.9 MG/DL (8.5-10.1); CARBON DIOXIDE LEVEL 25 MEQ/L (21-32); CHLORIDE LEVEL 105 MEQ/L (98-107); CREATININE FOR GFR 0.95 MG/DL (0.55-1.30); GLOMERULAR FILTRATION RATE > 60.0 (>51); GLUCOSE, FASTING 84 MG/DL (70-100); POTASSIUM SERUM 4.9 MEQ/L (3.5-5.1); SODIUM LEVEL 136 MEQ/L (136-145)
[2021-04-02 13:36] LABS: ALBUMIN 3.6 GM/DL (3.2-5.2); BASOPHILS 1 % (0-1); BILIRUBIN,TOTAL 0.4 MG/DL (0.2-1.0); EOSINOPHILS 2 % (0-3); LYMPHOCYTES 38 % (16-44); MAGNESIUM LEVEL 1.9 MG/DL (1.8-2.4); MONOCYTES 5 % (0-5); NEUTROPHILS 54 % (28-66); PLATELET ESTIMATE NORMAL (NORMAL)
== END ==
LOC: M LAB 12:03
PROVIDERS: ATTEND Nurse Practitioner Adult Health
DX: Z94.4 Liver transplant status (principal)

== ENCOUNTER → 2021-04-09 | Outpatient (CLI) | payer OTHER ==
[2021-04-09 14:56] LABS: FREE T4 0.87 NG/DL (0.76-1.46); THYROID STIMULATING HORMONE 2.72 uIU/ML (0.358-3.740)
== END ==
LOC: M LAB 12:30
PROVIDERS: ATTEND Physician Assistant
DX: E03.9 Hypothyroidism, unspecified (principal)

== ENCOUNTER → 2021-04-09 | Outpatient (CLI) | payer OTHER ==
[2021-04-09 13:20] LABS: HEMATOCRIT 45.9 % (36.0-47.0); HEMOGLOBIN 14.8 g/dl (12.0-15.5); MEAN CORPUSCULAR HEMOGLOBIN 31.9 pg (27.0-33.0); MEAN CORPUSCULAR HGB CONC 32.2 g/dl (32.0-36.5); MEAN CORPUSCULAR VOLUME 98.9 fl (80.0-96.0); PLATELET COUNT, AUTOMATED 315 10^3/uL (150-450); RED BLOOD COUNT 4.64 10^6/uL (4.00-5.40); WHITE BLOOD COUNT 5.3 10^3/uL (4.0-10.0)
[2021-04-09 13:44] LABS: ANISOCYTOSIS 1+; ATYPICAL LYMPH 6 % (0-5); BASOPHILS 3 % (0-1); LYMPHOCYTES 36 % (16-44); MONOCYTES 7 % (0-5); MYELOCYTES 2 % (0-0); NEUTROPHILS 33 % (28-66); PLATELET CLUMPS SMALL AMT; PLATELET ESTIMATE NORMAL (NORMAL)
[2021-04-09 13:45] LABS: HYPOCHROMASIA 1+; MICROCYTOSIS 1+; STOMATOCYTES 1+
[2021-04-09 14:47] LABS: ALBUMIN 3.7 GM/DL (3.2-5.2); ALT/SGPT 45 U/L (12-78); BILIRUBIN,TOTAL 0.3 MG/DL (0.2-1.0); BLOOD UREA NITROGEN 24 MG/DL (7-18); CALCIUM LEVEL 9.6 MG/DL (8.5-10.1); CARBON DIOXIDE LEVEL 27 MEQ/L (21-32); CHLORIDE LEVEL 106 MEQ/L (98-107); CREATININE FOR GFR 0.63 MG/DL (0.55-1.30); GLOMERULAR FILTRATION RATE > 60.0 (>51); GLUCOSE, FASTING 80 MG/DL (70-100); POTASSIUM SERUM 4.4 MEQ/L (3.5-5.1); SODIUM LEVEL 137 MEQ/L (136-145); TOTAL PROTEIN 7.1 GM/DL (6.4-8.2)
== END ==
LOC: M LAB 12:33
PROVIDERS: ATTEND Nurse Practitioner Adult Health
DX: Z94.4 Liver transplant status (principal)

== ENCOUNTER → 2021-04-16 | Outpatient (CLI) | payer OTHER ==
[2021-04-16 13:23] LABS: HEMATOCRIT 46.1 % (36.0-47.0); MEAN CORPUSCULAR HEMOGLOBIN 32.1 pg (27.0-33.0); MEAN CORPUSCULAR HGB CONC 32.5 g/dl (32.0-36.5); MEAN CORPUSCULAR VOLUME 98.5 fl (80.0-96.0); PLATELET COUNT, AUTOMATED 268 10^3/uL (150-450); RED BLOOD COUNT 4.68 10^6/uL (4.00-5.40); WHITE BLOOD COUNT 4.9 10^3/uL (4.0-10.0)
[2021-04-16 13:49] LABS: ALBUMIN 3.5 GM/DL (3.2-5.2); ALT/SGPT 44 U/L (12-78); BILIRUBIN,TOTAL 0.3 MG/DL (0.2-1.0); BLOOD UREA NITROGEN 23 MG/DL (7-18); CALCIUM LEVEL 9.6 MG/DL (8.5-10.1); CARBON DIOXIDE LEVEL 22 MEQ/L (21-32); CHLORIDE LEVEL 111 MEQ/L (98-107); CREATININE FOR GFR 0.78 MG/DL (0.55-1.30); GLOMERULAR FILTRATION RATE > 60.0 (>51); GLUCOSE, FASTING 101 MG/DL (70-100); MAGNESIUM LEVEL 1.8 MG/DL (1.8-2.4); POTASSIUM SERUM 4.4 MEQ/L (3.5-5.1); SODIUM LEVEL 140 MEQ/L (136-145); TOTAL PROTEIN 6.9 GM/DL (6.4-8.2)
[2021-04-16 20:17] LABS: ATYPICAL LYMPH 10 % (0-5); EOSINOPHILS 2 % (0-3); LYMPHOCYTES 36 % (16-44); MONOCYTES 4 % (0-5); MYELOCYTES 1 % (0-0); NEUTROPHILS 44 % (28-66)
[2021-04-16 20:19] LABS: ANISOCYTOSIS 1+; PLATELET CLUMPS SMALL AMT; PLATELET ESTIMATE NORMAL (NORMAL)
== END ==
LOC: M LAB 12:24
PROVIDERS: ATTEND Nurse Practitioner Adult Health
DX: Z94.4 Liver transplant status (principal)

== ENCOUNTER → 2021-04-24 | Outpatient (CLI) | payer OTHER ==
[2021-04-24 14:20] LABS: HEMOGLOBIN 14.9 g/dl (12.0-15.5); MEAN CORPUSCULAR HEMOGLOBIN 32.4 pg (27.0-33.0); MEAN CORPUSCULAR HGB CONC 32.4 g/dl (32.0-36.5); PLATELET COUNT, AUTOMATED 231 10^3/uL (150-450); WHITE BLOOD COUNT 3.5 10^3/uL (4.0-10.0)
[2021-04-24 14:46] LABS: BLOOD UREA NITROGEN 21 MG/DL (7-18); CHLORIDE LEVEL 110 MEQ/L (98-107); GLOMERULAR FILTRATION RATE > 60.0 (>51); GLUCOSE, FASTING 88 MG/DL (70-100); POTASSIUM SERUM 3.9 MEQ/L (3.5-5.1); SODIUM LEVEL 141 MEQ/L (136-145)
[2021-04-24 14:47] LABS: ALBUMIN 3.4 GM/DL (3.2-5.2); ALT/SGPT 61 U/L (12-78); BILIRUBIN,TOTAL 0.6 MG/DL (0.2-1.0); CARBON DIOXIDE LEVEL 25 MEQ/L (21-32); MAGNESIUM LEVEL 2.1 MG/DL (1.8-2.4); TOTAL PROTEIN 6.6 GM/DL (6.4-8.2)
[2021-04-24 14:53] LABS: ATYPICAL LYMPH 3 % (0-5); BASOPHILS 1 % (0-1); EOSINOPHILS 4 % (0-3); LYMPHOCYTES 30 % (16-44); MONOCYTES 8 % (0-5); NEUTROPHILS 51 % (28-66)
[2021-04-24 14:54] LABS: PLATELET ESTIMATE NORMAL (NORMAL)
[2021-04-24 14:55] LABS: ANISOCYTOSIS 1+
== END ==
LOC: M LAB 13:34
PROVIDERS: ATTEND Nurse Practitioner Adult Health
DX: Z94.4 Liver transplant status (principal)

== ENCOUNTER → 2021-04-30 | Outpatient (CLI) | payer OTHER ==
[2021-04-30 13:15] LABS: HEMATOCRIT 43.8 % (36.0-47.0); MEAN CORPUSCULAR HEMOGLOBIN 31.6 pg (27.0-33.0); MEAN CORPUSCULAR VOLUME 98.9 fl (80.0-96.0); PLATELET COUNT, AUTOMATED 220 10^3/uL (150-450); RED BLOOD COUNT 4.43 10^6/uL (4.00-5.40); WHITE BLOOD COUNT 2.9 10^3/uL (4.0-10.0)
[2021-04-30 13:31] LABS: ALBUMIN 3.4 GM/DL (3.2-5.2); ALT/SGPT 47 U/L (12-78); BILIRUBIN,TOTAL 0.6 MG/DL (0.2-1.0); BLOOD UREA NITROGEN 18 MG/DL (7-18); CALCIUM LEVEL 8.6 MG/DL (8.5-10.1); CARBON DIOXIDE LEVEL 24 MEQ/L (21-32); CHLORIDE LEVEL 110 MEQ/L (98-107); CREATININE FOR GFR 0.66 MG/DL (0.55-1.30); GLOMERULAR FILTRATION RATE > 60.0 (>51); GLUCOSE, FASTING 99 MG/DL (70-100); POTASSIUM SERUM 3.9 MEQ/L (3.5-5.1); SODIUM LEVEL 140 MEQ/L (136-145); TOTAL PROTEIN 6.6 GM/DL (6.4-8.2)
[2021-04-30 14:03] LABS: EOSINOPHILS 1 % (0-3); LYMPHOCYTES 28 % (16-44); MONOCYTES 13 % (0-5); NEUTROPHILS 54 % (28-66)
[2021-04-30 14:05] LABS: PLATELET ESTIMATE NORMAL (NORMAL)
== END ==
LOC: M LAB 12:18
PROVIDERS: ATTEND Nurse Practitioner Adult Health
DX: Z48.298 Encounter for aftercare following other organ transplant (principal); Z94.4 Liver transplant status

== ENCOUNTER → 2021-05-08 | Outpatient (CLI) | payer OTHER ==
[2021-05-08 17:16] LABS: HEMATOCRIT 42.1 % (36.0-47.0); HEMOGLOBIN 13.3 g/dl (12.0-15.5); MEAN CORPUSCULAR HEMOGLOBIN 31.7 pg (27.0-33.0); MEAN CORPUSCULAR HGB CONC 31.6 g/dl (32.0-36.5); MEAN CORPUSCULAR VOLUME 100.2 fl (80.0-96.0); PLATELET COUNT, AUTOMATED 233 10^3/uL (150-450); WHITE BLOOD COUNT 3.1 10^3/uL (4.0-10.0)
[2021-05-08 17:22] LABS: ALBUMIN 3.3 GM/DL (3.2-5.2); ALT/SGPT 80 U/L (12-78); BLOOD UREA NITROGEN 16 MG/DL (7-18); CALCIUM LEVEL 9.3 MG/DL (8.5-10.1); CARBON DIOXIDE LEVEL 25 MEQ/L (21-32); CHLORIDE LEVEL 107 MEQ/L (98-107); CREATININE FOR GFR 0.65 MG/DL (0.55-1.30); GLOMERULAR FILTRATION RATE > 60.0 (>51); GLUCOSE, FASTING 93 MG/DL (70-100); POTASSIUM SERUM 4.4 MEQ/L (3.5-5.1); SODIUM LEVEL 138 MEQ/L (136-145); TOTAL PROTEIN 6.7 GM/DL (6.4-8.2)
[2021-05-08 20:32] LABS: ATYPICAL LYMPH 11 % (0-5); BASOPHILS 2 % (0-1); EOSINOPHILS 3 % (0-3); LYMPHOCYTES 35 % (16-44); METAMYELOCYTES 2 % (0-0); MONOCYTES 11 % (0-5); MYELOCYTES 1 % (0-0); NEUTROPHILS 33 % (28-66); PLATELET ESTIMATE NORMAL (NORMAL)
[2021-05-08 20:33] LABS: PLATELET CLUMPS SMALL AMT
[2021-05-08 20:34] LABS: ANISOCYTOSIS 1+; OVALOCYTES 1+; POIKILOCYTOSIS 1+
== END ==
LOC: M LAB 15:58
PROVIDERS: ATTEND Nurse Practitioner Adult Health
DX: Z94.4 Liver transplant status (principal)

== ENCOUNTER → 2021-05-14 | Outpatient (CLI) | payer OTHER ==
[2021-05-14 16:45] LABS: HEMATOCRIT 46.2 % (36.0-47.0); HEMOGLOBIN 14.8 g/dl (12.0-15.5); MEAN CORPUSCULAR HEMOGLOBIN 31.7 pg (27.0-33.0); MEAN CORPUSCULAR VOLUME 98.9 fl (80.0-96.0); PLATELET COUNT, AUTOMATED 272 10^3/uL (150-450); RED BLOOD COUNT 4.67 10^6/uL (4.00-5.40); WHITE BLOOD COUNT 3.5 10^3/uL (4.0-10.0)
[2021-05-14 17:18] LABS: ALBUMIN 3.5 GM/DL (3.2-5.2); ALT/SGPT 72 U/L (12-78); BILIRUBIN,TOTAL 0.6 MG/DL (0.2-1.0); BLOOD UREA NITROGEN 24 MG/DL (7-18); CALCIUM LEVEL 9.5 MG/DL (8.5-10.1); CARBON DIOXIDE LEVEL 24 MEQ/L (21-32); CHLORIDE LEVEL 109 MEQ/L (98-107); CREATININE FOR GFR 0.91 MG/DL (0.55-1.30); GLOMERULAR FILTRATION RATE > 60.0 (>51); GLUCOSE, FASTING 116 MG/DL (70-100); MAGNESIUM LEVEL 1.8 MG/DL (1.8-2.4); POTASSIUM SERUM 4.5 MEQ/L (3.5-5.1); SODIUM LEVEL 139 MEQ/L (136-145)
[2021-05-14 17:27] LABS: BASOPHILS 2 % (0-1); EOSINOPHILS 1 % (0-3); LYMPHOCYTES 27 % (16-44); MONOCYTES 11 % (0-5); NEUTROPHILS 59 % (28-66); PLATELET ESTIMATE NORMAL (NORMAL)
== END ==
LOC: M LAB 15:20
PROVIDERS: ATTEND Nurse Practitioner Adult Health
DX: Z94.4 Liver transplant status (principal)

== ENCOUNTER → 2021-05-21 | Outpatient (CLI) | payer OTHER ==
[2021-05-21 14:11] LABS: HEMATOCRIT 43.8 % (36.0-47.0); HEMOGLOBIN 14.3 g/dl (12.0-15.5); MEAN CORPUSCULAR HEMOGLOBIN 32.4 pg (27.0-33.0); MEAN CORPUSCULAR HGB CONC 32.6 g/dl (32.0-36.5); MEAN CORPUSCULAR VOLUME 99.1 fl (80.0-96.0); PLATELET COUNT, AUTOMATED 266 10^3/uL (150-450); RED BLOOD COUNT 4.42 10^6/uL (4.00-5.40); WHITE BLOOD COUNT 5.9 10^3/uL (4.0-10.0)
[2021-05-21 14:44] LABS: ALBUMIN 3.5 GM/DL (3.2-5.2); ALT/SGPT 74 U/L (12-78); BILIRUBIN,TOTAL 0.5 MG/DL (0.2-1.0); BLOOD UREA NITROGEN 28 MG/DL (7-18); CALCIUM LEVEL 8.9 MG/DL (8.5-10.1); CARBON DIOXIDE LEVEL 20 MEQ/L (21-32); CHLORIDE LEVEL 111 MEQ/L (98-107); GLOMERULAR FILTRATION RATE > 60.0 (>51); GLUCOSE, FASTING 145 MG/DL (70-100); MAGNESIUM LEVEL 1.6 MG/DL (1.8-2.4); POTASSIUM SERUM 4.3 MEQ/L (3.5-5.1); SODIUM LEVEL 138 MEQ/L (136-145); TOTAL PROTEIN 6.6 GM/DL (6.4-8.2)
[2021-05-21 15:05] LABS: ANISOCYTOSIS 1+; BASOPHILS 3 % (0-1); EOSINOPHILS 4 % (0-3); LYMPHOCYTES 37 % (16-44); MONOCYTES 7 % (0-5); NEUTROPHILS 49 % (28-66); OVALOCYTES 1+; PLATELET CLUMPS SMALL AMT; PLATELET ESTIMATE NORMAL (NORMAL); POIKILOCYTOSIS 1+
== END ==
LOC: M LAB 13:45
PROVIDERS: ATTEND Nurse Practitioner Adult Health
DX: Z94.4 Liver transplant status (principal)

== ENCOUNTER → 2021-05-23 | Outpatient (CLI) | payer OTHER ==
[2021-05-23 11:16] LABS: BASO # 0.1 10^3/uL (0.0-0.2); BASO % 0.9 % (0.0-1.0); EOS # 0.1 10^3/uL (0.0-0.5); EOS % 1.9 % (0.0-3.0); HEMATOCRIT 42.3 % (36.0-47.0); LYMPH # 2.2 10^3/uL (1.5-5.0); LYMPH % 31.3 % (24.0-44.0); MEAN CORPUSCULAR HEMOGLOBIN 32.3 pg (27.0-33.0); MEAN CORPUSCULAR HGB CONC 33.1 g/dl (32.0-36.5); MEAN CORPUSCULAR VOLUME 97.7 fl (80.0-96.0); MONO # 0.5 10^3/uL (0.0-0.8); MONO % 7.4 % (2.0-8.0); NEUTROPHILS # 3.8 10^3/uL (1.5-8.5); PLATELET COUNT, AUTOMATED 264 10^3/uL (150-450); RED BLOOD COUNT 4.33 10^6/uL (4.00-5.40); WHITE BLOOD COUNT 6.9 10^3/uL (4.0-10.0)
[2021-05-23 11:46] LABS: ALBUMIN 3.5 GM/DL (3.2-5.2); ALT/SGPT 79 U/L (12-78); BILIRUBIN,TOTAL 0.5 MG/DL (0.2-1.0); BLOOD UREA NITROGEN 26 MG/DL (7-18); CALCIUM LEVEL 9.2 MG/DL (8.5-10.1); CARBON DIOXIDE LEVEL 24 MEQ/L (21-32); CHLORIDE LEVEL 109 MEQ/L (98-107); CREATININE FOR GFR 0.72 MG/DL (0.55-1.30); GLOMERULAR FILTRATION RATE > 60.0 (>51); GLUCOSE, FASTING 100 MG/DL (70-100); MAGNESIUM LEVEL 1.8 MG/DL (1.8-2.4); POTASSIUM SERUM 4.3 MEQ/L (3.5-5.1); SODIUM LEVEL 138 MEQ/L (136-145); TOTAL PROTEIN 6.5 GM/DL (6.4-8.2)
== END ==
LOC: M LAB 10:37
PROVIDERS: ATTEND Nurse Practitioner Adult Health
DX: Z94.4 Liver transplant status (principal)

== ENCOUNTER → 2021-05-28 | Outpatient (CLI) | payer OTHER ==
[2021-05-28 11:15] LABS: BASO # 0.1 10^3/uL (0.0-0.2); EOS # 0.2 10^3/uL (0.0-0.5); EOS % 1.8 % (0.0-3.0); HEMATOCRIT 48.8 % (36.0-47.0); LYMPH # 2.4 10^3/uL (1.5-5.0); LYMPH % 28.6 % (24.0-44.0); MEAN CORPUSCULAR HEMOGLOBIN 32.7 pg (27.0-33.0); MEAN CORPUSCULAR HGB CONC 32.8 g/dl (32.0-36.5); MEAN CORPUSCULAR VOLUME 99.8 fl (80.0-96.0); MONO # 0.5 10^3/uL (0.0-0.8); NEUTROPHILS # 4.9 10^3/uL (1.5-8.5); PLATELET COUNT, AUTOMATED 282 10^3/uL (150-450); RED BLOOD COUNT 4.89 10^6/uL (4.00-5.40); WHITE BLOOD COUNT 8.3 10^3/uL (4.0-10.0)
[2021-05-28 12:59] LABS: ALBUMIN 3.8 GM/DL (3.2-5.2); ALT/SGPT 87 U/L (12-78); BILIRUBIN,TOTAL 0.6 MG/DL (0.2-1.0); BLOOD UREA NITROGEN 24 MG/DL (7-18); CALCIUM LEVEL 10.1 MG/DL (8.5-10.1); CARBON DIOXIDE LEVEL 25 MEQ/L (21-32); CHLORIDE LEVEL 105 MEQ/L (98-107); CREATININE FOR GFR 0.83 MG/DL (0.55-1.30); GLOMERULAR FILTRATION RATE > 60.0 (>51); GLUCOSE, FASTING 107 MG/DL (70-100); MAGNESIUM LEVEL 1.9 MG/DL (1.8-2.4); POTASSIUM SERUM 4.4 MEQ/L (3.5-5.1); SODIUM LEVEL 139 MEQ/L (136-145); TOTAL PROTEIN 7.2 GM/DL (6.4-8.2)
== END ==
LOC: M LAB 10:39
PROVIDERS: ATTEND Nurse Practitioner Adult Health
DX: Z94.4 Liver transplant status (principal)

== ENCOUNTER → 2021-06-04 | Outpatient (CLI) | payer OTHER ==
[2021-06-04 11:53] LABS: BASO # 0.1 10^3/uL (0.0-0.2); BASO % 0.7 % (0.0-1.0); EOS # 0.2 10^3/uL (0.0-0.5); EOS % 2.4 % (0.0-3.0); HEMATOCRIT 49.5 % (36.0-47.0); HEMOGLOBIN 16.3 g/dl (12.0-15.5); LYMPH # 2.8 10^3/uL (1.5-5.0); LYMPH % 37.5 % (24.0-44.0); MEAN CORPUSCULAR HEMOGLOBIN 33.2 pg (27.0-33.0); MEAN CORPUSCULAR HGB CONC 32.9 g/dl (32.0-36.5); MEAN CORPUSCULAR VOLUME 100.8 fl (80.0-96.0); MONO # 0.4 10^3/uL (0.0-0.8); NEUTROPHILS # 3.9 10^3/uL (1.5-8.5); NEUTROPHILS % 51.7 % (36.0-66.0); PLATELET COUNT, AUTOMATED 272 10^3/uL (150-450); RED BLOOD COUNT 4.91 10^6/uL (4.00-5.40); WHITE BLOOD COUNT 7.4 10^3/uL (4.0-10.0)
[2021-06-04 12:42] LABS: ALBUMIN 4.2 GM/DL (3.2-5.2); ALT/SGPT 46 U/L (12-78); BLOOD UREA NITROGEN 33 MG/DL (7-18); CALCIUM LEVEL 9.7 MG/DL (8.5-10.1); CARBON DIOXIDE LEVEL 26 MEQ/L (21-32); CHLORIDE LEVEL 105 MEQ/L (98-107); GLOMERULAR FILTRATION RATE > 60.0 (>51); GLUCOSE, FASTING 91 MG/DL (70-100); MAGNESIUM LEVEL 2.2 MG/DL (1.8-2.4); POTASSIUM SERUM 4.4 MEQ/L (3.5-5.1); SODIUM LEVEL 138 MEQ/L (136-145); TOTAL PROTEIN 7.6 GM/DL (6.4-8.2)
== END ==
LOC: M LAB 11:00
PROVIDERS: ATTEND Nurse Practitioner Adult Health
DX: Z94.4 Liver transplant status (principal)

== ENCOUNTER → 2021-06-11 | Outpatient (CLI) | payer OTHER ==
[2021-06-11 12:37] LABS: MEAN CORPUSCULAR HGB CONC 32.6 g/dl (32.0-36.5); MEAN CORPUSCULAR VOLUME 101.1 fl (80.0-96.0); PLATELET COUNT, AUTOMATED 250 10^3/uL (150-450); RED BLOOD COUNT 4.55 10^6/uL (4.00-5.40); WHITE BLOOD COUNT 7.2 10^3/uL (4.0-10.0)
[2021-06-11 12:56] LABS: ANISOCYTOSIS 1+; ATYPICAL LYMPH 6 % (0-5); EOSINOPHILS 3 % (0-3); LYMPHOCYTES 32 % (16-44); MONOCYTES 4 % (0-5); NEUTROPHILS 55 % (28-66); PLATELET ESTIMATE NORMAL (NORMAL)
[2021-06-11 13:07] LABS: ALBUMIN 3.5 GM/DL (3.2-5.2); ALT/SGPT 70 U/L (12-78); BILIRUBIN,TOTAL 0.5 MG/DL (0.2-1.0); BLOOD UREA NITROGEN 23 MG/DL (7-18); CALCIUM LEVEL 9.4 MG/DL (8.5-10.1); CARBON DIOXIDE LEVEL 25 MEQ/L (21-32); CHLORIDE LEVEL 109 MEQ/L (98-107); CREATININE FOR GFR 0.82 MG/DL (0.55-1.30); GLOMERULAR FILTRATION RATE > 60.0 (>51); GLUCOSE, FASTING 127 MG/DL (70-100); MAGNESIUM LEVEL 1.7 MG/DL (1.8-2.4); POTASSIUM SERUM 4.3 MEQ/L (3.5-5.1); SODIUM LEVEL 140 MEQ/L (136-145); TOTAL PROTEIN 6.6 GM/DL (6.4-8.2)
== END ==
LOC: M LAB 11:43
PROVIDERS: ATTEND Nurse Practitioner Adult Health
DX: Z94.4 Liver transplant status (principal)

== ENCOUNTER → 2021-06-19 | Outpatient (CLI) | payer OTHER ==
[2021-06-19 12:48] LABS: BASO % 0.6 % (0.0-1.0); EOS # 0.1 10^3/uL (0.0-0.5); HEMATOCRIT 43.1 % (36.0-47.0); HEMOGLOBIN 13.8 g/dl (12.0-15.5); LYMPH # 1.6 10^3/uL (1.5-5.0); LYMPH % 32.9 % (24.0-44.0); MEAN CORPUSCULAR HEMOGLOBIN 33.4 pg (27.0-33.0); MEAN CORPUSCULAR VOLUME 104.4 fl (80.0-96.0); MONO # 0.3 10^3/uL (0.0-0.8); MONO % 5.8 % (2.0-8.0); NEUTROPHILS # 2.7 10^3/uL (1.5-8.5); NEUTROPHILS % 53.7 % (36.0-66.0); PLATELET COUNT, AUTOMATED 213 10^3/uL (150-450); RED BLOOD COUNT 4.13 10^6/uL (4.00-5.40)
[2021-06-19 14:55] LABS: ALT/SGPT 43 U/L (12-78); BILIRUBIN,TOTAL 0.5 MG/DL (0.2-1.0); BLOOD UREA NITROGEN 24 MG/DL (7-18); CALCIUM LEVEL 9.1 MG/DL (8.5-10.1); CARBON DIOXIDE LEVEL 24 MEQ/L (21-32); CHLORIDE LEVEL 111 MEQ/L (98-107); CREATININE FOR GFR 0.68 MG/DL (0.55-1.30); GLOMERULAR FILTRATION RATE > 60.0 (>51); GLUCOSE, FASTING 97 MG/DL (70-100); MAGNESIUM LEVEL 1.7 MG/DL (1.8-2.4); POTASSIUM SERUM 3.9 MEQ/L (3.5-5.1); SODIUM LEVEL 140 MEQ/L (136-145); TOTAL PROTEIN 5.8 GM/DL (6.4-8.2)
== END ==
LOC: M LAB 11:01
PROVIDERS: ATTEND Nurse Practitioner Adult Health
DX: Z94.4 Liver transplant status (principal)

== ENCOUNTER → 2021-06-25 | Outpatient (CLI) | payer OTHER ==
[2021-06-25 13:35] LABS: HEMATOCRIT 44.9 % (36.0-47.0); HEMOGLOBIN 14.3 g/dl (12.0-15.5); MEAN CORPUSCULAR HEMOGLOBIN 33.6 pg (27.0-33.0); MEAN CORPUSCULAR HGB CONC 31.8 g/dl (32.0-36.5); MEAN CORPUSCULAR VOLUME 105.6 fl (80.0-96.0); PLATELET COUNT, AUTOMATED 252 10^3/uL (150-450); RED BLOOD COUNT 4.25 10^6/uL (4.00-5.40); WHITE BLOOD COUNT 5.6 10^3/uL (4.0-10.0)
[2021-06-25 14:00] LABS: ANISOCYTOSIS 1+; ATYPICAL LYMPH 7 % (0-5); EOSINOPHILS 2 % (0-3); HYPOCHROMASIA 1+; LYMPHOCYTES 31 % (16-44); MONOCYTES 2 % (0-5); NEUTROPHILS 47 % (28-66); PLATELET CLUMPS SMALL AMT; PLATELET ESTIMATE NORMAL (NORMAL)
[2021-06-25 14:20] LABS: ALBUMIN 3.2 GM/DL (3.2-5.2); ALT/SGPT 38 U/L (12-78); BILIRUBIN,TOTAL 0.9 MG/DL (0.2-1.0); BLOOD UREA NITROGEN 19 MG/DL (7-18); CALCIUM LEVEL 9.2 MG/DL (8.5-10.1); CARBON DIOXIDE LEVEL 25 MEQ/L (21-32); CHLORIDE LEVEL 109 MEQ/L (98-107); CREATININE FOR GFR 0.78 MG/DL (0.55-1.30); GLOMERULAR FILTRATION RATE > 60.0 (>51); GLUCOSE, FASTING 92 MG/DL (70-100); MAGNESIUM LEVEL 1.8 MG/DL (1.8-2.4); SODIUM LEVEL 141 MEQ/L (136-145); TOTAL PROTEIN 6.4 GM/DL (6.4-8.2)
== END ==
LOC: M LAB 10:48
PROVIDERS: ATTEND Nurse Practitioner Adult Health
DX: Z94.4 Liver transplant status (principal)

== ENCOUNTER → 2021-07-02 | Outpatient (CLI) | payer OTHER ==
[2021-07-02 11:44] LABS: HEMOGLOBIN 15.1 g/dl (12.0-15.5); MEAN CORPUSCULAR HEMOGLOBIN 33.7 pg (27.0-33.0); MEAN CORPUSCULAR HGB CONC 32.1 g/dl (32.0-36.5); MEAN CORPUSCULAR VOLUME 104.9 fl (80.0-96.0); PLATELET COUNT, AUTOMATED 296 10^3/uL (150-450); RED BLOOD COUNT 4.48 10^6/uL (4.00-5.40); WHITE BLOOD COUNT 6.1 10^3/uL (4.0-10.0)
[2021-07-02 12:17] LABS: ALBUMIN 3.4 GM/DL (3.2-5.2); ALT/SGPT 52 U/L (12-78); BLOOD UREA NITROGEN 22 MG/DL (7-18); CALCIUM LEVEL 9.7 MG/DL (8.5-10.1); CARBON DIOXIDE LEVEL 27 MEQ/L (21-32); CHLORIDE LEVEL 109 MEQ/L (98-107); CREATININE FOR GFR 0.83 MG/DL (0.55-1.30); GLOMERULAR FILTRATION RATE > 60.0 (>51); GLUCOSE, FASTING 100 MG/DL (70-100); MAGNESIUM LEVEL 1.6 MG/DL (1.8-2.4); SODIUM LEVEL 141 MEQ/L (136-145); TOTAL PROTEIN 6.8 GM/DL (6.4-8.2)
[2021-07-02 12:31] LABS: ATYPICAL LYMPH 6 % (0-5); BASOPHILS 4 % (0-1); EOSINOPHILS 1 % (0-3); LYMPHOCYTES 28 % (16-44); MONOCYTES 8 % (0-5); NEUTROPHILS 51 % (28-66)
[2021-07-02 12:32] LABS: PLATELET ESTIMATE NORMAL (NORMAL)
== END ==
LOC: M LAB 10:59
PROVIDERS: ATTEND Nurse Practitioner Adult Health
DX: Z94.4 Liver transplant status (principal)

== ENCOUNTER → 2021-07-09 | Outpatient (CLI) | payer OTHER ==
[2021-07-09 12:13] LABS: BASO % 0.5 % (0.0-1.0); EOS # 0.1 10^3/uL (0.0-0.5); EOS % 2.3 % (0.0-3.0); HEMATOCRIT 44.4 % (36.0-47.0); HEMOGLOBIN 14.3 g/dl (12.0-15.5); LYMPH # 1.5 10^3/uL (1.5-5.0); LYMPH % 24.7 % (24.0-44.0); MEAN CORPUSCULAR HGB CONC 32.2 g/dl (32.0-36.5); MEAN CORPUSCULAR VOLUME 105.5 fl (80.0-96.0); MONO # 0.4 10^3/uL (0.0-0.8); MONO % 6.8 % (2.0-8.0); NEUTROPHILS # 3.9 10^3/uL (1.5-8.5); NEUTROPHILS % 62.5 % (36.0-66.0); PLATELET COUNT, AUTOMATED 279 10^3/uL (150-450); RED BLOOD COUNT 4.21 10^6/uL (4.00-5.40); WHITE BLOOD COUNT 6.2 10^3/uL (4.0-10.0)
[2021-07-09 13:08] LABS: ALBUMIN 3.4 GM/DL (3.2-5.2); ALT/SGPT 51 U/L (12-78); BLOOD UREA NITROGEN 23 MG/DL (7-18); CALCIUM LEVEL 9.8 MG/DL (8.5-10.1); CARBON DIOXIDE LEVEL 23 MEQ/L (21-32); CHLORIDE LEVEL 112 MEQ/L (98-107); CREATININE FOR GFR 0.75 MG/DL (0.55-1.30); GLOMERULAR FILTRATION RATE > 60.0 (>51); GLUCOSE, FASTING 112 MG/DL (70-100); MAGNESIUM LEVEL 1.7 MG/DL (1.8-2.4); POTASSIUM SERUM 4.1 MEQ/L (3.5-5.1); SODIUM LEVEL 141 MEQ/L (136-145); TOTAL PROTEIN 6.5 GM/DL (6.4-8.2)
== END ==
LOC: M LAB 10:48
PROVIDERS: ATTEND Nurse Practitioner Adult Health
DX: Z94.4 Liver transplant status (principal)

== ENCOUNTER → 2021-07-17 | Outpatient (CLI) | payer OTHER ==
[2021-07-17 12:00] LABS: BASO % 0.6 % (0.0-1.0); EOS # 0.1 10^3/uL (0.0-0.5); EOS % 1.7 % (0.0-3.0); HEMATOCRIT 43.7 % (36.0-47.0); HEMOGLOBIN 14.2 g/dl (12.0-15.5); LYMPH # 0.9 10^3/uL (1.5-5.0); MEAN CORPUSCULAR HEMOGLOBIN 33.9 pg (27.0-33.0); MEAN CORPUSCULAR HGB CONC 32.5 g/dl (32.0-36.5); MEAN CORPUSCULAR VOLUME 104.3 fl (80.0-96.0); MONO # 0.5 10^3/uL (0.0-0.8); MONO % 8.8 % (2.0-8.0); NEUTROPHILS # 3.6 10^3/uL (1.5-8.5); NEUTROPHILS % 69.2 % (36.0-66.0); PLATELET COUNT, AUTOMATED 251 10^3/uL (150-450); RED BLOOD COUNT 4.19 10^6/uL (4.00-5.40); WHITE BLOOD COUNT 5.2 10^3/uL (4.0-10.0)
[2021-07-17 12:27] LABS: ALBUMIN 3.3 GM/DL (3.2-5.2); ALT/SGPT 57 U/L (12-78); BILIRUBIN,TOTAL 1.8 MG/DL (0.2-1.0); BLOOD UREA NITROGEN 20 MG/DL (7-18); CALCIUM LEVEL 9.5 MG/DL (8.5-10.1); CARBON DIOXIDE LEVEL 22 MEQ/L (21-32); CHLORIDE LEVEL 111 MEQ/L (98-107); GLOMERULAR FILTRATION RATE > 60.0 (>51); GLUCOSE, FASTING 110 MG/DL (70-100); POTASSIUM SERUM 4.2 MEQ/L (3.5-5.1); SODIUM LEVEL 138 MEQ/L (136-145); TOTAL PROTEIN 6.5 GM/DL (6.4-8.2)
== END ==
LOC: M LAB 10:32
PROVIDERS: ATTEND Nurse Practitioner Adult Health
DX: Z94.4 Liver transplant status (principal)

== ENCOUNTER → 2021-07-24 | Outpatient (CLI) | payer OTHER ==
[2021-07-24 11:33] LABS: BASO % 0.5 % (0.0-1.0); EOS # 0.1 10^3/uL (0.0-0.5); HEMATOCRIT 40.6 % (36.0-47.0); LYMPH # 1.2 10^3/uL (1.5-5.0); LYMPH % 20.9 % (24.0-44.0); MEAN CORPUSCULAR HEMOGLOBIN 33.6 pg (27.0-33.0); MEAN CORPUSCULAR VOLUME 104.9 fl (80.0-96.0); MONO # 0.4 10^3/uL (0.0-0.8); MONO % 7.4 % (2.0-8.0); PLATELET COUNT, AUTOMATED 270 10^3/uL (150-450); RED BLOOD COUNT 3.87 10^6/uL (4.00-5.40); WHITE BLOOD COUNT 5.9 10^3/uL (4.0-10.0)
[2021-07-24 12:20] LABS: ALT/SGPT 37 U/L (12-78); BILIRUBIN,TOTAL 1.2 MG/DL (0.2-1.0); BLOOD UREA NITROGEN 21 MG/DL (7-18); CALCIUM LEVEL 9.3 MG/DL (8.5-10.1); CARBON DIOXIDE LEVEL 24 MEQ/L (21-32); CHLORIDE LEVEL 109 MEQ/L (98-107); CREATININE FOR GFR 0.62 MG/DL (0.55-1.30); GLOMERULAR FILTRATION RATE > 60.0 (>51); GLUCOSE, FASTING 101 MG/DL (70-100); MAGNESIUM LEVEL 1.7 MG/DL (1.8-2.4); POTASSIUM SERUM 4.5 MEQ/L (3.5-5.1); SODIUM LEVEL 140 MEQ/L (136-145); TOTAL PROTEIN 6.2 GM/DL (6.4-8.2)
== END ==
LOC: M LAB 10:33
PROVIDERS: ATTEND Nurse Practitioner Adult Health
DX: Z94.4 Liver transplant status (principal)

== ENCOUNTER → 2021-07-31 | Outpatient (CLI) | payer OTHER | LOC: M LAB 11:05 | PROVIDERS: ATTEND Nurse Practitioner Family | DX: Z94.4 Liver transplant status (principal) ==

== ENCOUNTER → 2021-07-31 | Outpatient (CLI) | payer OTHER ==
[2021-07-31 12:43] LABS: BASO % 0.7 % (0.0-1.0); EOS # 0.1 10^3/uL (0.0-0.5); EOS % 1.9 % (0.0-3.0); HEMATOCRIT 39.7 % (36.0-47.0); HEMOGLOBIN 12.9 g/dl (12.0-15.5); LYMPH # 1.3 10^3/uL (1.5-5.0); LYMPH % 22.8 % (24.0-44.0); MEAN CORPUSCULAR HEMOGLOBIN 33.7 pg (27.0-33.0); MEAN CORPUSCULAR HGB CONC 32.5 g/dl (32.0-36.5); MEAN CORPUSCULAR VOLUME 103.7 fl (80.0-96.0); MONO # 0.4 10^3/uL (0.0-0.8); MONO % 7.1 % (2.0-8.0); NEUTROPHILS # 3.7 10^3/uL (1.5-8.5); NEUTROPHILS % 64.9 % (36.0-66.0); PLATELET COUNT, AUTOMATED 310 10^3/uL (150-450); RED BLOOD COUNT 3.83 10^6/uL (4.00-5.40); WHITE BLOOD COUNT 5.7 10^3/uL (4.0-10.0)
[2021-07-31 13:16] LABS: ALBUMIN 3.2 GM/DL (3.2-5.2); ALT/SGPT 54 U/L (12-78); BILIRUBIN,TOTAL 0.9 MG/DL (0.2-1.0); BLOOD UREA NITROGEN 25 MG/DL (7-18); CALCIUM LEVEL 9.5 MG/DL (8.5-10.1); CARBON DIOXIDE LEVEL 23 MEQ/L (21-32); CHLORIDE LEVEL 108 MEQ/L (98-107); CREATININE FOR GFR 0.67 MG/DL (0.55-1.30); GLOMERULAR FILTRATION RATE > 60.0 (>51); GLUCOSE, FASTING 95 MG/DL (70-100); MAGNESIUM LEVEL 1.9 MG/DL (1.8-2.4); POTASSIUM SERUM 4.3 MEQ/L (3.5-5.1); SODIUM LEVEL 139 MEQ/L (136-145); TOTAL PROTEIN 6.5 GM/DL (6.4-8.2)
== END ==
LOC: M LAB 10:52
PROVIDERS: ATTEND Nurse Practitioner Adult Health
DX: Z94.4 Liver transplant status (principal)

== ENCOUNTER → 2021-08-06 | Outpatient (CLI) | payer OTHER ==
[2021-08-06 11:38] LABS: BASO % 0.4 % (0.0-1.0); EOS # 0.1 10^3/uL (0.0-0.5); EOS % 2.2 % (0.0-3.0); HEMATOCRIT 39.8 % (36.0-47.0); HEMOGLOBIN 12.7 g/dl (12.0-15.5); LYMPH # 1.2 10^3/uL (1.5-5.0); LYMPH % 22.8 % (24.0-44.0); MEAN CORPUSCULAR HEMOGLOBIN 33.4 pg (27.0-33.0); MEAN CORPUSCULAR HGB CONC 31.9 g/dl (32.0-36.5); MEAN CORPUSCULAR VOLUME 104.7 fl (80.0-96.0); MONO # 0.4 10^3/uL (0.0-0.8); MONO % 6.4 % (2.0-8.0); NEUTROPHILS # 3.6 10^3/uL (1.5-8.5); NEUTROPHILS % 66.2 % (36.0-66.0); PLATELET COUNT, AUTOMATED 292 10^3/uL (150-450); WHITE BLOOD COUNT 5.5 10^3/uL (4.0-10.0)
[2021-08-06 12:27] LABS: MAGNESIUM LEVEL 2.2 MG/DL (1.8-2.4)
== END ==
LOC: M LAB 10:19
PROVIDERS: ATTEND Nurse Practitioner Adult Health
DX: Z94.0 Kidney transplant status (principal)

== ENCOUNTER → 2021-08-14 | Outpatient (CLI) | payer OTHER ==
[~2021-08-14] MED LIST changes: -CEFD1CAP8 PO; +CEFD300C41 PO
[2021-08-16 20:20] LABS: CMV QUANT DNA PCR (PLASMA) Negative (Negative)
== END ==
LOC: M LAB 10:12
PROVIDERS: ATTEND Nurse Practitioner Adult Health
DX: Z94.4 Liver transplant status (principal)

== ENCOUNTER → 2021-08-21 | Outpatient (CLI) | payer OTHER ==
[~2021-08-21] MED LIST changes: +CEFD1CAP8 PO; -CEFD300C41 PO
== END ==
LOC: M LAB 11:04
PROVIDERS: ATTEND Nurse Practitioner Adult Health
DX: Z94.4 Liver transplant status (principal)

== ENCOUNTER → 2021-08-27 | Outpatient (CLI) | payer OTHER ==
[~2021-08-27] MED LIST changes: -CEFD1CAP8 PO; +CEFD300C41 PO
[2021-08-29 21:07] LABS: CMV QUANT DNA PCR (PLASMA) Negative (Negative)
== END ==
LOC: M LAB 09:42
PROVIDERS: ATTEND Nurse Practitioner Adult Health
DX: Z94.4 Liver transplant status (principal)

== ENCOUNTER → 2021-09-04 | Outpatient (CLI) | payer OTHER ==
[~2021-09-04] MED LIST changes: +CEFD1CAP8 PO; -CEFD300C41 PO
[2021-09-06 19:07] LABS: CMV QUANT DNA PCR (PLASMA) Negative (Negative)
== END ==
LOC: M LAB 10:12
PROVIDERS: ATTEND Physician Assistant
DX: Z94.4 Liver transplant status (principal)

== ENCOUNTER → 2021-09-04 | Outpatient (CLI) | payer OTHER ==
[2021-09-04 10:52] LABS: BASO # 0.1 10^3/uL (0.0-0.2); BASO % 0.5 % (0.0-1.0); EOS # 0.2 10^3/uL (0.0-0.5); EOS % 1.8 % (0.0-3.0); HEMATOCRIT 37.1 % (36.0-47.0); LYMPH # 1.4 10^3/uL (1.5-5.0); LYMPH % 12.3 % (24.0-44.0); MEAN CORPUSCULAR HEMOGLOBIN 33.1 pg (27.0-33.0); MEAN CORPUSCULAR HGB CONC 32.3 g/dl (32.0-36.5); MEAN CORPUSCULAR VOLUME 102.5 fl (80.0-96.0); MONO # 0.8 10^3/uL (0.0-0.8); MONO % 6.8 % (2.0-8.0); NEUTROPHILS # 8.6 10^3/uL (1.5-8.5); NEUTROPHILS % 77.8 % (36.0-66.0); PLATELET COUNT, AUTOMATED 298 10^3/uL (150-450); RED BLOOD COUNT 3.62 10^6/uL (4.00-5.40)
[2021-09-04 11:24] LABS: ALBUMIN 3.1 GM/DL (3.2-5.2); ALT/SGPT 43 U/L (12-78); BLOOD UREA NITROGEN 36 MG/DL (7-18); CALCIUM LEVEL 9.5 MG/DL (8.5-10.1); CARBON DIOXIDE LEVEL 22 MEQ/L (21-32); CHLORIDE LEVEL 111 MEQ/L (98-107); CREATININE FOR GFR 0.98 MG/DL (0.55-1.30); GLOMERULAR FILTRATION RATE > 60.0 (>51); GLUCOSE, FASTING 93 MG/DL (70-100); MAGNESIUM LEVEL 1.7 MG/DL (1.8-2.4); POTASSIUM SERUM 4.7 MEQ/L (3.5-5.1); SODIUM LEVEL 140 MEQ/L (136-145); TOTAL PROTEIN 6.7 GM/DL (6.4-8.2)
== END ==
LOC: M LAB 10:06
PROVIDERS: ATTEND Nurse Practitioner Adult Health
DX: Z94.4 Liver transplant status (principal)

== ENCOUNTER → 2021-09-11 | Outpatient (CLI) | payer OTHER ==
[~2021-09-11] MED LIST changes: -CEFD1CAP8 PO; +CEFD300C41 PO
[2021-09-11 10:59] LABS: BASO % 0.4 % (0.0-1.0); EOS # 0.2 10^3/uL (0.0-0.5); EOS % 2.2 % (0.0-3.0); HEMOGLOBIN 12.2 g/dl (12.0-15.5); LYMPH % 9.6 % (24.0-44.0); MEAN CORPUSCULAR HEMOGLOBIN 33.5 pg (27.0-33.0); MEAN CORPUSCULAR HGB CONC 32.1 g/dl (32.0-36.5); MEAN CORPUSCULAR VOLUME 104.4 fl (80.0-96.0); MONO # 0.9 10^3/uL (0.0-0.8); MONO % 8.7 % (2.0-8.0); NEUTROPHILS # 8.3 10^3/uL (1.5-8.5); NEUTROPHILS % 78.4 % (36.0-66.0); PLATELET COUNT, AUTOMATED 333 10^3/uL (150-450); RED BLOOD COUNT 3.64 10^6/uL (4.00-5.40); WHITE BLOOD COUNT 10.6 10^3/uL (4.0-10.0)
[2021-09-11 11:30] LABS: ALBUMIN 3.3 GM/DL (3.2-5.2); ALT/SGPT 47 U/L (12-78); BILIRUBIN,TOTAL 1.4 MG/DL (0.2-1.0); BLOOD UREA NITROGEN 25 MG/DL (7-18); CALCIUM LEVEL 9.4 MG/DL (8.5-10.1); CARBON DIOXIDE LEVEL 25 MEQ/L (21-32); CHLORIDE LEVEL 106 MEQ/L (98-107); CREATININE FOR GFR 0.71 MG/DL (0.55-1.30); GLOMERULAR FILTRATION RATE > 60.0 (>51); GLUCOSE, FASTING 109 MG/DL (70-100); MAGNESIUM LEVEL 1.8 MG/DL (1.8-2.4); SODIUM LEVEL 138 MEQ/L (136-145)
== END ==
LOC: M LAB 09:53
PROVIDERS: ATTEND Nurse Practitioner Adult Health
DX: Z94.4 Liver transplant status (principal)

== ENCOUNTER → 2021-09-18 | Outpatient (CLI) | payer OTHER ==
[~2021-09-18] MED LIST changes: +CEFD1CAP8 PO; -CEFD300C41 PO
[2021-09-18 10:30] LABS: BASO % 0.3 % (0.0-1.0); EOS # 0.2 10^3/uL (0.0-0.5); EOS % 2.8 % (0.0-3.0); LYMPH # 1.1 10^3/uL (1.5-5.0); LYMPH % 14.1 % (24.0-44.0); MEAN CORPUSCULAR HEMOGLOBIN 33.1 pg (27.0-33.0); MEAN CORPUSCULAR HGB CONC 31.6 g/dl (32.0-36.5); MONO # 0.7 10^3/uL (0.0-0.8); MONO % 8.5 % (2.0-8.0); NEUTROPHILS # 5.7 10^3/uL (1.5-8.5); PLATELET COUNT, AUTOMATED 402 10^3/uL (150-450); RED BLOOD COUNT 3.62 10^6/uL (4.00-5.40)
[2021-09-18 11:08] LABS: ALBUMIN 2.7 GM/DL (3.2-5.2); ALT/SGPT 23 U/L (12-78); BILIRUBIN,TOTAL 0.6 MG/DL (0.2-1.0); BLOOD UREA NITROGEN 24 MG/DL (7-18); CALCIUM LEVEL 8.9 MG/DL (8.5-10.1); CARBON DIOXIDE LEVEL 26 MEQ/L (21-32); CHLORIDE LEVEL 109 MEQ/L (98-107); CREATININE FOR GFR 0.75 MG/DL (0.55-1.30); GLOMERULAR FILTRATION RATE > 60.0 (>51); GLUCOSE, FASTING 115 MG/DL (70-100); MAGNESIUM LEVEL 1.5 MG/DL (1.8-2.4); POTASSIUM SERUM 4.1 MEQ/L (3.5-5.1); SODIUM LEVEL 141 MEQ/L (136-145); TOTAL PROTEIN 6.3 GM/DL (6.4-8.2)
== END ==
LOC: M LAB 09:54
PROVIDERS: ATTEND Nurse Practitioner Adult Health
DX: Z94.4 Liver transplant status (principal)

== ENCOUNTER → 2021-10-02 | Outpatient (CLI) | payer OTHER ==
[~2021-10-02] MED LIST changes: -CEFD1CAP8 PO; +CEFD300C41 PO
[2021-10-02 16:44] LABS: HEMOGLOBIN 11.7 g/dl (12.0-15.5); MEAN CORPUSCULAR HEMOGLOBIN 33.6 pg (27.0-33.0); MEAN CORPUSCULAR HGB CONC 31.6 g/dl (32.0-36.5); MEAN CORPUSCULAR VOLUME 106.3 fl (80.0-96.0); PLATELET COUNT, AUTOMATED 393 10^3/uL (150-450); RED BLOOD COUNT 3.48 10^6/uL (4.00-5.40); WHITE BLOOD COUNT 13.4 10^3/uL (4.0-10.0)
[2021-10-02 17:10] LABS: ALBUMIN 3.2 GM/DL (3.2-5.2); ALT/SGPT 33 U/L (12-78); BILIRUBIN,TOTAL 0.6 MG/DL (0.2-1.0); BLOOD UREA NITROGEN 29 MG/DL (7-18); CARBON DIOXIDE LEVEL 24 MEQ/L (21-32); CHLORIDE LEVEL 104 MEQ/L (98-107); CREATININE FOR GFR 0.83 MG/DL (0.55-1.30); GLOMERULAR FILTRATION RATE > 60.0 (>51); GLUCOSE, FASTING 130 MG/DL (70-100); POTASSIUM SERUM 4.2 MEQ/L (3.5-5.1); SODIUM LEVEL 139 MEQ/L (136-145)
== END ==
LOC: M LAB 10:11
PROVIDERS: ATTEND Nurse Practitioner Family
DX: Z94.4 Liver transplant status (principal)

== ENCOUNTER → 2021-10-10 | Outpatient (CLI) | payer OTHER ==
[2021-10-10 11:09] LABS: HEMATOCRIT 36.8 % (36.0-47.0); HEMOGLOBIN 11.6 g/dl (12.0-15.5); MEAN CORPUSCULAR HGB CONC 31.5 g/dl (32.0-36.5); MEAN CORPUSCULAR VOLUME 104.5 fl (80.0-96.0); PLATELET COUNT, AUTOMATED 336 10^3/uL (150-450); RED BLOOD COUNT 3.52 10^6/uL (4.00-5.40); WHITE BLOOD COUNT 9.4 10^3/uL (4.0-10.0)
[2021-10-10 12:43] LABS: ALBUMIN 2.8 GM/DL (3.2-5.2); ALT/SGPT 20 U/L (12-78); BILIRUBIN,TOTAL 0.5 MG/DL (0.2-1.0); BLOOD UREA NITROGEN 15 MG/DL (7-18); CARBON DIOXIDE LEVEL 26 MEQ/L (21-32); CHLORIDE LEVEL 108 MEQ/L (98-107); CREATININE FOR GFR 0.78 MG/DL (0.55-1.30); GLOMERULAR FILTRATION RATE > 60.0 (>51); GLUCOSE, FASTING 121 MG/DL (70-100); POTASSIUM SERUM 4.2 MEQ/L (3.5-5.1); SODIUM LEVEL 141 MEQ/L (136-145)
== END ==
LOC: M LAB 10:24
PROVIDERS: ATTEND Nurse Practitioner Family
DX: Z94.4 Liver transplant status (principal)

== ENCOUNTER → 2021-10-17 | Outpatient (CLI) | payer OTHER ==
[2021-10-17 11:55] LABS: BASO % 0.3 % (0.0-1.0); EOS # 0.2 10^3/uL (0.0-0.5); EOS % 2.5 % (0.0-3.0); HEMOGLOBIN 12.4 g/dl (12.0-15.5); LYMPH # 0.9 10^3/uL (1.5-5.0); LYMPH % 14.8 % (24.0-44.0); MEAN CORPUSCULAR HEMOGLOBIN 32.9 pg (27.0-33.0); MEAN CORPUSCULAR HGB CONC 31.8 g/dl (32.0-36.5); MEAN CORPUSCULAR VOLUME 103.4 fl (80.0-96.0); MONO # 0.6 10^3/uL (0.0-0.8); MONO % 9.1 % (2.0-8.0); NEUTROPHILS # 4.6 10^3/uL (1.5-8.5); NEUTROPHILS % 72.7 % (36.0-66.0); PLATELET COUNT, AUTOMATED 270 10^3/uL (150-450); RED BLOOD COUNT 3.77 10^6/uL (4.00-5.40); WHITE BLOOD COUNT 6.3 10^3/uL (4.0-10.0)
[2021-10-17 12:45] LABS: ALT/SGPT 18 U/L (12-78); BILIRUBIN,TOTAL 0.5 MG/DL (0.2-1.0); BLOOD UREA NITROGEN 16 MG/DL (7-18); CALCIUM LEVEL 8.8 MG/DL (8.5-10.1); CARBON DIOXIDE LEVEL 24 MEQ/L (21-32); CREATININE FOR GFR 0.66 MG/DL (0.55-1.30); GLOMERULAR FILTRATION RATE > 60.0 (>51); TOTAL PROTEIN 6.4 GM/DL (6.4-8.2)
[2021-10-17 12:46] LABS: CHLORIDE LEVEL 110 MEQ/L (98-107); GLUCOSE, FASTING 124 MG/DL (70-100); POTASSIUM SERUM 4.2 MEQ/L (3.5-5.1); SODIUM LEVEL 139 MEQ/L (136-145)
[2021-10-17 20:13] LABS: MAGNESIUM LEVEL 1.5 MG/DL (1.8-2.4)
== END ==
LOC: M LAB 10:45
PROVIDERS: ATTEND Nurse Practitioner Family
DX: Z94.4 Liver transplant status (principal)

== ENCOUNTER → 2021-10-18 | Outpatient (CLI) | payer OTHER | LOC: M CARPUL 14:42 | PROVIDERS: ATTEND Internal Medicine Pulmonary Disease | DX: J44.9 Chronic obstructive pulmonary disease, unspecified (principal) ==

== ENCOUNTER → 2021-10-22 | Outpatient (CLI) | payer OTHER ==
[2021-10-22 12:06] LABS: HEMATOCRIT 38.4 % (36.0-47.0); HEMOGLOBIN 12.2 g/dl (12.0-15.5); MEAN CORPUSCULAR HEMOGLOBIN 32.2 pg (27.0-33.0); MEAN CORPUSCULAR HGB CONC 31.8 g/dl (32.0-36.5); MEAN CORPUSCULAR VOLUME 101.3 fl (80.0-96.0); PLATELET COUNT, AUTOMATED 206 10^3/uL (150-450); RED BLOOD COUNT 3.79 10^6/uL (4.00-5.40); WHITE BLOOD COUNT 6.3 10^3/uL (4.0-10.0)
[2021-10-22 12:30] LABS: ALT/SGPT 16 U/L (12-78); BILIRUBIN,TOTAL 0.4 MG/DL (0.2-1.0); BLOOD UREA NITROGEN 20 MG/DL (7-18); CALCIUM LEVEL 8.6 MG/DL (8.5-10.1); CARBON DIOXIDE LEVEL 24 MEQ/L (21-32); CHLORIDE LEVEL 107 MEQ/L (98-107); CREATININE FOR GFR 0.82 MG/DL (0.55-1.30); GLOMERULAR FILTRATION RATE > 60.0 (>51); GLUCOSE, FASTING 135 MG/DL (70-100); POTASSIUM SERUM 4.3 MEQ/L (3.5-5.1); SODIUM LEVEL 138 MEQ/L (136-145); TOTAL PROTEIN 6.5 GM/DL (6.4-8.2)
== END ==
LOC: M LAB 10:58
PROVIDERS: ATTEND Nurse Practitioner Family
DX: Z94.4 Liver transplant status (principal)

== ENCOUNTER → 2021-10-29 | Outpatient (CLI) | payer OTHER ==
[2021-10-29 11:51] LABS: HEMATOCRIT 37.8 % (36.0-47.0); HEMOGLOBIN 12.5 g/dl (12.0-15.5); MEAN CORPUSCULAR HEMOGLOBIN 32.4 pg (27.0-33.0); MEAN CORPUSCULAR HGB CONC 33.1 g/dl (32.0-36.5); MEAN CORPUSCULAR VOLUME 97.9 fl (80.0-96.0); PLATELET COUNT, AUTOMATED 176 10^3/uL (150-450); RED BLOOD COUNT 3.86 10^6/uL (4.00-5.40); WHITE BLOOD COUNT 7.1 10^3/uL (4.0-10.0)
[2021-10-29 12:18] LABS: ALBUMIN 3.1 GM/DL (3.2-5.2); BILIRUBIN,TOTAL 0.6 MG/DL (0.2-1.0); CALCIUM LEVEL 8.4 MG/DL (8.5-10.1); CREATININE FOR GFR 1.08 MG/DL (0.55-1.30); GLOMERULAR FILTRATION RATE 56.9 (>51); POTASSIUM SERUM 4.6 MEQ/L (3.5-5.1); TOTAL PROTEIN 6.7 GM/DL (6.4-8.2)
== END ==
LOC: M LAB 10:32
PROVIDERS: ATTEND Nurse Practitioner Family
DX: Z94.4 Liver transplant status (principal)

== ENCOUNTER → 2022-01-07 | Outpatient (CLI) | payer MEDICARE, OTHER ==
[~2022-01-07] MED LIST changes: +HYDR-643; +MYCO250C; +TACR0.5C3; +URSO300C3
[2022-01-07 11:09] LABS: HEMATOCRIT 37.1 % (36.0-47.0); HEMOGLOBIN 11.3 g/dl (12.0-15.5); MEAN CORPUSCULAR HEMOGLOBIN 29.5 pg (27.0-33.0); MEAN CORPUSCULAR HGB CONC 30.5 g/dl (32.0-36.5); MEAN CORPUSCULAR VOLUME 96.9 fl (80.0-96.0); PLATELET COUNT, AUTOMATED 211 10^3/uL (150-450); RED BLOOD COUNT 3.83 10^6/uL (4.00-5.40); WHITE BLOOD COUNT 4.5 10^3/uL (4.0-10.0)
[2022-01-07 12:33] LABS: ALBUMIN 2.7 GM/DL (3.2-5.2); ALT/SGPT 15 U/L (12-78); BILIRUBIN,TOTAL 0.9 MG/DL (0.2-1.0); BLOOD UREA NITROGEN 20 MG/DL (7-18); CALCIUM LEVEL 8.7 MG/DL (8.5-10.1); CARBON DIOXIDE LEVEL 23 MEQ/L (21-32); CHLORIDE LEVEL 109 MEQ/L (98-107); CREATININE FOR GFR 0.73 MG/DL (0.55-1.30); GLOMERULAR FILTRATION RATE > 60.0 (>51); GLUCOSE, FASTING 102 MG/DL (70-100); POTASSIUM SERUM 4.5 MEQ/L (3.5-5.1); SODIUM LEVEL 138 MEQ/L (136-145); TOTAL PROTEIN 6.7 GM/DL (6.4-8.2)
[2022-01-09 16:10] LABS: CMV QUANT DNA PCR (PLASMA) Positive < 200 IU/mL (Negative)
== END ==
LOC: M LAB 10:28
PROVIDERS: ATTEND Nurse Practitioner Family
DX: Z94.4 Liver transplant status (principal)

== ENCOUNTER → 2022-01-14 | Outpatient (CLI) | payer MEDICARE, MEDICAID ==
[2022-01-14 11:38] LABS: HEMATOCRIT 36.8 % (36.0-47.0); HEMOGLOBIN 11.1 g/dl (12.0-15.5); MEAN CORPUSCULAR HEMOGLOBIN 29.2 pg (27.0-33.0); MEAN CORPUSCULAR HGB CONC 30.2 g/dl (32.0-36.5); MEAN CORPUSCULAR VOLUME 96.8 fl (80.0-96.0); PLATELET COUNT, AUTOMATED 220 10^3/uL (150-450); WHITE BLOOD COUNT 3.5 10^3/uL (4.0-10.0)
[2022-01-14 12:29] LABS: ALBUMIN 2.5 GM/DL (3.2-5.2); ALT/SGPT 19 U/L (12-78); BILIRUBIN,TOTAL 1.1 MG/DL (0.2-1.0); BLOOD UREA NITROGEN 19 MG/DL (7-18); CALCIUM LEVEL 8.6 MG/DL (8.5-10.1); CARBON DIOXIDE LEVEL 23 MEQ/L (21-32); CHLORIDE LEVEL 109 MEQ/L (98-107); CREATININE FOR GFR 0.86 MG/DL (0.55-1.30); GLOMERULAR FILTRATION RATE > 60.0 (>51); GLUCOSE, FASTING 113 MG/DL (70-100); POTASSIUM SERUM 4.3 MEQ/L (3.5-5.1); SODIUM LEVEL 138 MEQ/L (136-145); TOTAL PROTEIN 6.7 GM/DL (6.4-8.2)
[2022-01-18 10:08] LABS: CMV QUANT DNA PCR (PLASMA) Positive < 200 IU/mL (Negative)
== END ==
LOC: M LAB 10:47
PROVIDERS: ATTEND Nurse Practitioner Family
DX: Z94.4 Liver transplant status (principal)

== ENCOUNTER → 2022-01-21 | Outpatient (CLI) | payer MEDICARE, MEDICAID ==
[2022-01-21 11:02] LABS: HEMATOCRIT 36.9 % (36.0-47.0); HEMOGLOBIN 11.2 g/dl (12.0-15.5); MEAN CORPUSCULAR HEMOGLOBIN 29.5 pg (27.0-33.0); MEAN CORPUSCULAR HGB CONC 30.4 g/dl (32.0-36.5); MEAN CORPUSCULAR VOLUME 97.1 fl (80.0-96.0); PLATELET COUNT, AUTOMATED 174 10^3/uL (150-450); WHITE BLOOD COUNT 3.5 10^3/uL (4.0-10.0)
[2022-01-21 11:54] LABS: ALBUMIN 2.4 GM/DL (3.2-5.2); ALT/SGPT 27 U/L (12-78); BILIRUBIN,TOTAL 1.3 MG/DL (0.2-1.0); BLOOD UREA NITROGEN 20 MG/DL (7-18); CALCIUM LEVEL 8.9 MG/DL (8.5-10.1); CARBON DIOXIDE LEVEL 21 MEQ/L (21-32); CHLORIDE LEVEL 111 MEQ/L (98-107); CREATININE FOR GFR 0.91 MG/DL (0.55-1.30); GLOMERULAR FILTRATION RATE > 60.0 (>51); GLUCOSE, FASTING 126 MG/DL (70-100); POTASSIUM SERUM 4.1 MEQ/L (3.5-5.1); SODIUM LEVEL 140 MEQ/L (136-145); TOTAL PROTEIN 6.6 GM/DL (6.4-8.2)
[2022-01-23 17:09] LABS: CMV QUANT DNA PCR (PLASMA) Positive < 200 IU/mL (Negative)
== END ==
LOC: M LAB 10:20
PROVIDERS: ATTEND Nurse Practitioner Family
DX: Z94.4 Liver transplant status (principal)

== ENCOUNTER → 2022-01-28 | Outpatient (CLI) | payer MEDICARE, MEDICAID | LOC: M RAD 10:38 | PROVIDERS: ATTEND Internal Medicine Pulmonary Disease | DX: Z12.2 Encounter for screening for malignant neoplasm of respiratory organs (principal); Z87.891 Personal history of nicotine dependence ==

== ENCOUNTER → 2022-01-28 | Outpatient (CLI) | payer MEDICARE, MEDICAID ==
[2022-01-28 11:55] LABS: HEMATOCRIT 34.9 % (36.0-47.0); HEMOGLOBIN 10.5 g/dl (12.0-15.5); MEAN CORPUSCULAR HEMOGLOBIN 29.7 pg (27.0-33.0); MEAN CORPUSCULAR HGB CONC 30.1 g/dl (32.0-36.5); MEAN CORPUSCULAR VOLUME 98.9 fl (80.0-96.0); PLATELET COUNT, AUTOMATED 142 10^3/uL (150-450); RED BLOOD COUNT 3.53 10^6/uL (4.00-5.40); WHITE BLOOD COUNT 3.1 10^3/uL (4.0-10.0)
[2022-01-28 12:38] LABS: ALBUMIN 2.6 GM/DL (3.2-5.2); ALT/SGPT 22 U/L (12-78); BLOOD UREA NITROGEN 20 MG/DL (7-18); CALCIUM LEVEL 8.6 MG/DL (8.5-10.1); CARBON DIOXIDE LEVEL 22 MEQ/L (21-32); CHLORIDE LEVEL 111 MEQ/L (98-107); CREATININE FOR GFR 0.89 MG/DL (0.55-1.30); GLOMERULAR FILTRATION RATE > 60.0 (>51); GLUCOSE, FASTING 131 MG/DL (70-100); POTASSIUM SERUM 4.1 MEQ/L (3.5-5.1); SODIUM LEVEL 139 MEQ/L (136-145); TOTAL PROTEIN 6.9 GM/DL (6.4-8.2)
[2022-01-31 11:08] LABS: CMV QUANT DNA PCR (PLASMA) Positive < 200 IU/mL (Negative)
== END ==
LOC: M LAB 10:44
PROVIDERS: ATTEND Nurse Practitioner Family
DX: Z94.4 Liver transplant status (principal)

== ENCOUNTER → 2022-02-05 | Outpatient (CLI) | payer MEDICARE, MEDICAID ==
[2022-02-05 11:46] LABS: HEMATOCRIT 35.1 % (36.0-47.0); HEMOGLOBIN 10.5 g/dl (12.0-15.5); MEAN CORPUSCULAR HEMOGLOBIN 30.2 pg (27.0-33.0); MEAN CORPUSCULAR HGB CONC 29.9 g/dl (32.0-36.5); MEAN CORPUSCULAR VOLUME 100.9 fl (80.0-96.0); PLATELET COUNT, AUTOMATED 152 10^3/uL (150-450); RED BLOOD COUNT 3.48 10^6/uL (4.00-5.40); WHITE BLOOD COUNT 3.4 10^3/uL (4.0-10.0)
[2022-02-05 12:20] LABS: ALBUMIN 2.4 GM/DL (3.2-5.2); ALT/SGPT 15 U/L (12-78); BILIRUBIN,TOTAL 1.8 MG/DL (0.2-1.0); BLOOD UREA NITROGEN 25 MG/DL (7-18); CALCIUM LEVEL 8.3 MG/DL (8.5-10.1); CARBON DIOXIDE LEVEL 25 MEQ/L (21-32); CHLORIDE LEVEL 112 MEQ/L (98-107); GLOMERULAR FILTRATION RATE > 60.0 (>51); GLUCOSE, FASTING 106 MG/DL (70-100); POTASSIUM SERUM 4.4 MEQ/L (3.5-5.1); SODIUM LEVEL 140 MEQ/L (136-145); TOTAL PROTEIN 6.5 GM/DL (6.4-8.2)
[2022-02-07 17:09] LABS: log10 CMV QN DNA P1 3.041 (.)
== END ==
LOC: M LAB 11:08
PROVIDERS: ATTEND Nurse Practitioner Family
DX: Z94.4 Liver transplant status (principal)

== ENCOUNTER → 2022-02-11 | Outpatient (CLI) | payer MEDICARE, MEDICAID ==
[2022-02-11 11:25] LABS: HEMATOCRIT 32.6 % (36.0-47.0); HEMOGLOBIN 9.8 g/dl (12.0-15.5); MEAN CORPUSCULAR HEMOGLOBIN 30.4 pg (27.0-33.0); MEAN CORPUSCULAR HGB CONC 30.1 g/dl (32.0-36.5); MEAN CORPUSCULAR VOLUME 101.2 fl (80.0-96.0); PLATELET COUNT, AUTOMATED 110 10^3/uL (150-450); RED BLOOD COUNT 3.22 10^6/uL (4.00-5.40); WHITE BLOOD COUNT 3.8 10^3/uL (4.0-10.0)
[2022-02-11 12:27] LABS: ALBUMIN 2.1 GM/DL (3.2-5.2); ALT/SGPT 12 U/L (12-78); BILIRUBIN,TOTAL 2.5 MG/DL (0.2-1.0); BLOOD UREA NITROGEN 20 MG/DL (7-18); CALCIUM LEVEL 7.8 MG/DL (8.5-10.1); CARBON DIOXIDE LEVEL 22 MEQ/L (21-32); CHLORIDE LEVEL 111 MEQ/L (98-107); CREATININE FOR GFR 0.87 MG/DL (0.55-1.30); GLOMERULAR FILTRATION RATE > 60.0 (>51); GLUCOSE, FASTING 115 MG/DL (70-100); POTASSIUM SERUM 4.4 MEQ/L (3.5-5.1); SODIUM LEVEL 138 MEQ/L (136-145)
[2022-02-16 08:17] LABS: log10 CMV QN DNA P1 3.079 (.)
== END ==
LOC: M LAB 10:13
PROVIDERS: ATTEND Nurse Practitioner Family
DX: Z94.4 Liver transplant status (principal)

== ENCOUNTER → 2022-02-14 | Outpatient (CLI) | payer MEDICARE, MEDICAID ==
[2022-02-18 12:08] LABS: log10 CMV QN DNA P1 2.45 (.)
== END ==
LOC: M LAB 16:07
PROVIDERS: ATTEND Nurse Practitioner Family
DX: Z94.4 Liver transplant status (principal)

== ENCOUNTER → 2022-02-18 | Outpatient (CLI) | payer MEDICARE, MEDICAID ==
[2022-02-20 16:08] LABS: CMV QUANT DNA PCR (PLASMA) Positive < 200 IU/mL (Negative)
== END ==
LOC: M LAB 10:57
PROVIDERS: ATTEND Internal Medicine Infectious Disease
DX: B25.9 Cytomegaloviral disease, unspecified (principal)

== ENCOUNTER → 2022-02-18 | Outpatient (CLI) | payer MEDICARE, MEDICAID ==
[2022-02-18 12:31] LABS: HEMATOCRIT 34.3 % (36.0-47.0); HEMOGLOBIN 10.4 g/dl (12.0-15.5); MEAN CORPUSCULAR HEMOGLOBIN 32.1 pg (27.0-33.0); MEAN CORPUSCULAR HGB CONC 30.3 g/dl (32.0-36.5); MEAN CORPUSCULAR VOLUME 105.9 fl (80.0-96.0); RED BLOOD COUNT 3.24 10^6/uL (4.00-5.40); WHITE BLOOD COUNT 4.1 10^3/uL (4.0-10.0)
[2022-02-18 13:07] LABS: PLATELET COUNT, AUTOMATED 96 10^3/uL (150-450)
[2022-02-18 14:23] LABS: ALBUMIN 2.1 GM/DL (3.2-5.2); BILIRUBIN,TOTAL 4.9 MG/DL (0.2-1.0); CALCIUM LEVEL 8.2 MG/DL (8.5-10.1); CREATININE FOR GFR 1.24 MG/DL (0.55-1.30); GLOMERULAR FILTRATION RATE 48.5 (>51); POTASSIUM SERUM 4.8 MEQ/L (3.5-5.1)
== END ==
LOC: M LAB 10:59
PROVIDERS: ATTEND Nurse Practitioner Family
DX: Z94.4 Liver transplant status (principal)

== ENCOUNTER → 2022-02-21 | Outpatient (CLI) | payer MEDICARE, MEDICAID ==
[2022-02-21 12:14] LABS: HEMATOCRIT 32.4 % (36.0-47.0); HEMOGLOBIN 9.8 g/dl (12.0-15.5); MEAN CORPUSCULAR HEMOGLOBIN 32.6 pg (27.0-33.0); MEAN CORPUSCULAR HGB CONC 30.2 g/dl (32.0-36.5); MEAN CORPUSCULAR VOLUME 107.6 fl (80.0-96.0); RED BLOOD COUNT 3.01 10^6/uL (4.00-5.40); WHITE BLOOD COUNT 3.4 10^3/uL (4.0-10.0)
[2022-02-21 12:17] LABS: PLATELET COUNT, AUTOMATED 65 10^3/uL (150-450)
[2022-02-21 12:51] LABS: ALBUMIN 2.2 GM/DL (3.2-5.2); ALT/SGPT 21 U/L (12-78); BILIRUBIN,TOTAL 3.8 MG/DL (0.2-1.0); BLOOD UREA NITROGEN 21 MG/DL (7-18); CALCIUM LEVEL 8.5 MG/DL (8.5-10.1); CARBON DIOXIDE LEVEL 20 MEQ/L (21-32); CHLORIDE LEVEL 109 MEQ/L (98-107); CREATININE FOR GFR 0.96 MG/DL (0.55-1.30); GLOMERULAR FILTRATION RATE > 60.0 (>51); GLUCOSE, FASTING 157 MG/DL (70-100); POTASSIUM SERUM 4.3 MEQ/L (3.5-5.1); SODIUM LEVEL 140 MEQ/L (136-145); TOTAL PROTEIN 6.5 GM/DL (6.4-8.2)
== END ==
LOC: M LAB 11:06
PROVIDERS: ATTEND Nurse Practitioner Family
DX: Z94.9 Transplanted organ and tissue status, unspecified (principal)

== ENCOUNTER → 2022-02-21 | Outpatient (CLI) | payer MEDICARE, MEDICAID ==
[2022-02-23 15:09] LABS: CMV QUANT DNA PCR (PLASMA) Positive < 200 IU/mL (Negative)
== END ==
LOC: M LAB 11:03
PROVIDERS: ATTEND Internal Medicine Infectious Disease
DX: B25.9 Cytomegaloviral disease, unspecified (principal)

== ENCOUNTER → 2022-02-25 | Outpatient (CLI) | payer MEDICARE, MEDICAID ==
[2022-02-25 12:00] LABS: HEMATOCRIT 29.8 % (36.0-47.0); HEMOGLOBIN 9.1 g/dl (12.0-15.5); MEAN CORPUSCULAR HEMOGLOBIN 34.2 pg (27.0-33.0); MEAN CORPUSCULAR HGB CONC 30.5 g/dl (32.0-36.5); RED BLOOD COUNT 2.66 10^6/uL (4.00-5.40); WHITE BLOOD COUNT 2.1 10^3/uL (4.0-10.0)
[2022-02-25 12:03] LABS: PLATELET COUNT, AUTOMATED 64 10^3/uL (150-450)
[2022-02-25 12:50] LABS: ALBUMIN 2.1 GM/DL (3.2-5.2); ALT/SGPT 13 U/L (12-78); BILIRUBIN,TOTAL 3.3 MG/DL (0.2-1.0); BLOOD UREA NITROGEN 29 MG/DL (7-18); CALCIUM LEVEL 9.2 MG/DL (8.5-10.1); CARBON DIOXIDE LEVEL 19 MEQ/L (21-32); CHLORIDE LEVEL 112 MEQ/L (98-107); CREATININE FOR GFR 1.02 MG/DL (0.55-1.30); GLOMERULAR FILTRATION RATE > 60.0 (>51); GLUCOSE, FASTING 107 MG/DL (70-100); POTASSIUM SERUM 3.9 MEQ/L (3.5-5.1); SODIUM LEVEL 141 MEQ/L (136-145); TOTAL PROTEIN 6.4 GM/DL (6.4-8.2)
[2022-02-25 14:53] LABS: EOSINOPHILS 1 % (0-3); LYMPHOCYTES 57 % (16-44); METAMYELOCYTES 1 % (0-0); MONOCYTES 4 % (0-5); NEUTROPHILS 28 % (28-66); PLATELET ESTIMATE DECREASED (NORMAL)
[2022-02-25 14:54] LABS: ANISOCYTOSIS 3+
[2022-02-25 14:55] LABS: POIKILOCYTOSIS 1+
[2022-03-01 12:08] LABS: CMV QUANT DNA PCR (PLASMA) Positive < 200 IU/mL (Negative)
== END ==
LOC: M LAB 10:54
PROVIDERS: ATTEND Nurse Practitioner Family
DX: Z94.4 Liver transplant status (principal)

== ENCOUNTER → 2022-02-28 | Outpatient (CLI) | payer MEDICARE, MEDICAID ==
[2022-02-28 11:15] LABS: HEMATOCRIT 27.2 % (36.0-47.0); HEMOGLOBIN 8.4 g/dl (12.0-15.5); MEAN CORPUSCULAR HEMOGLOBIN 35.1 pg (27.0-33.0); MEAN CORPUSCULAR HGB CONC 30.9 g/dl (32.0-36.5); MEAN CORPUSCULAR VOLUME 113.8 fl (80.0-96.0); RED BLOOD COUNT 2.39 10^6/uL (4.00-5.40); WHITE BLOOD COUNT 1.3 10^3/uL (4.0-10.0)
[2022-02-28 11:18] LABS: PLATELET COUNT, AUTOMATED 79 10^3/uL (150-450)
[2022-02-28 11:55] LABS: ATYPICAL LYMPH 2 % (0-5); BASOPHILS 1 % (0-1); EOSINOPHILS 4 % (0-3); LYMPHOCYTES 39 % (16-44); MONOCYTES 8 % (0-5); NEUTROPHILS 46 % (28-66)
[2022-02-28 11:56] LABS: ANISOCYTOSIS 3+; GIANT PLATELETS 1+; PLATELET ESTIMATE DECREASED (NORMAL)
[2022-02-28 11:57] LABS: ALBUMIN 1.9 GM/DL (3.2-5.2); ALT/SGPT 10 U/L (12-78); BILIRUBIN,TOTAL 2.7 MG/DL (0.2-1.0); BLOOD UREA NITROGEN 16 MG/DL (7-18); CALCIUM LEVEL 8.6 MG/DL (8.5-10.1); CARBON DIOXIDE LEVEL 19 MEQ/L (21-32); CHLORIDE LEVEL 109 MEQ/L (98-107); CREATININE FOR GFR 0.86 MG/DL (0.55-1.30); GLOMERULAR FILTRATION RATE > 60.0 (>51); GLUCOSE, FASTING 136 MG/DL (70-100); POTASSIUM SERUM 4.1 MEQ/L (3.5-5.1); SODIUM LEVEL 137 MEQ/L (136-145); TOTAL PROTEIN 5.8 GM/DL (6.4-8.2)
[2022-03-03 23:06] LABS: CMV QUANT DNA PCR (PLASMA) Negative (Negative)
== END ==
LOC: M LAB 10:07
PROVIDERS: ATTEND Nurse Practitioner Family
DX: Z94.4 Liver transplant status (principal)

== ENCOUNTER → 2022-02-28 | Outpatient (CLI) | payer OTHER ==
[~2022-02-28] MED LIST changes: -HYDR-643; -MYCO250C; -TACR0.5C3; -URSO300C3
== END ==
LOC: M LAB 10:00
PROVIDERS: ATTEND Internal Medicine Infectious Disease
DX: B25.9 Cytomegaloviral disease, unspecified (principal); Z53.9 Procedure and treatment not carried out, unspecified reason

== ENCOUNTER 2022-03-02 16:10 | Emergency (ER) | payer MEDICARE, MEDICAID ==
[~2022-03-02] VITALS: Ht 160 cm; Wt 48.4 kg
[2022-03-02] MEDS ORDERED: HYDR-643 (16:22)
[2022-03-02] MEDS ORDERED: MYCO250C (16:22)
[2022-03-02] MEDS ORDERED: TACR0.5C3 (16:22)
[2022-03-02] MEDS ORDERED: URSO300C3 (16:22)
[2022-03-02] MEDS ORDERED: FILGRASTIM 300 MCG/0.5 ML SYRINGE **SC ADMINISTRATION ONLY SC SCH (17:30)
[2022-03-02] MEDS ORDERED: FILGRASTIM 300 MCG/0.5 ML SYRINGE **SC ADMINISTRATION ONLY SC ONE (18:00)
[2022-03-02 18:23] VITALS: BP 117/57
[2022-03-03] MEDS ORDERED: FILGRASTIM 300 MCG/0.5 ML SYRINGE **SC ADMINISTRATION ONLY SC SCH (09:00)
== END 2022-03-02 18:27 | disposition home or self-care (01) ==
LOC: M ED 16:10
DX: Z23 Encounter for immunization (principal); D72.819 Decreased white blood cell count, unspecified; D70.9 Neutropenia, unspecified; Z94.4 Liver transplant status; I10 Essential (primary) hypertension; E03.8 Other specified hypothyroidism; Z88.5 Allergy status to narcotic agent
CPT/HCPCS: 96372; 99283; J1442

== ENCOUNTER → 2022-03-04 | Outpatient (CLI) | payer MEDICARE, MEDICAID ==
[~2022-03-04] MED LIST changes: +HYDR-643; +MYCO250C; +TACR0.5C3; +URSO300C3
[2022-03-07 18:07] LABS: CMV QUANT DNA PCR (PLASMA) Negative (Negative)
== END ==
LOC: M LAB 11:15
PROVIDERS: ATTEND Internal Medicine Infectious Disease
DX: B25.9 Cytomegaloviral disease, unspecified (principal)

== ENCOUNTER → 2022-03-04 | Outpatient (CLI) | payer MEDICARE, MEDICAID ==
[2022-03-04 12:18] LABS: HEMATOCRIT 26.8 % (36.0-47.0); HEMOGLOBIN 8.1 g/dl (12.0-15.5); MEAN CORPUSCULAR HEMOGLOBIN 35.1 pg (27.0-33.0); MEAN CORPUSCULAR HGB CONC 30.2 g/dl (32.0-36.5); RED BLOOD COUNT 2.31 10^6/uL (4.00-5.40); WHITE BLOOD COUNT 1.9 10^3/uL (4.0-10.0)
[2022-03-04 12:20] LABS: PLATELET COUNT, AUTOMATED 86 10^3/uL (150-450)
[2022-03-04 12:50] LABS: ALBUMIN 1.9 GM/DL (3.2-5.2); ALT/SGPT 7 U/L (12-78); BILIRUBIN,TOTAL 2.3 MG/DL (0.2-1.0); BLOOD UREA NITROGEN 25 MG/DL (7-18); CALCIUM LEVEL 8.5 MG/DL (8.5-10.1); CARBON DIOXIDE LEVEL 21 MEQ/L (21-32); CHLORIDE LEVEL 109 MEQ/L (98-107); CREATININE FOR GFR 0.87 MG/DL (0.55-1.30); GLOMERULAR FILTRATION RATE > 60.0 (>51); GLUCOSE, FASTING 96 MG/DL (70-100); POTASSIUM SERUM 4.1 MEQ/L (3.5-5.1); SODIUM LEVEL 139 MEQ/L (136-145); TOTAL PROTEIN 5.9 GM/DL (6.4-8.2)
== END ==
LOC: M LAB 11:17
PROVIDERS: ATTEND Nurse Practitioner Family
DX: Z94.4 Liver transplant status (principal)

== ENCOUNTER → 2022-03-07 | Outpatient (CLI) | payer MEDICARE, MEDICAID ==
[2022-03-07 11:53] LABS: HEMATOCRIT 24.1 % (36.0-47.0); HEMOGLOBIN 7.3 g/dl (12.0-15.5); MEAN CORPUSCULAR HEMOGLOBIN 34.3 pg (27.0-33.0); MEAN CORPUSCULAR HGB CONC 30.3 g/dl (32.0-36.5); MEAN CORPUSCULAR VOLUME 113.1 fl (80.0-96.0); PLATELET COUNT, AUTOMATED 107 10^3/uL (150-450); RED BLOOD COUNT 2.13 10^6/uL (4.00-5.40); WHITE BLOOD COUNT 2.4 10^3/uL (4.0-10.0)
[2022-03-07 12:33] LABS: LYMPHOCYTES 34 % (16-44); MONOCYTES 12 % (0-5); NEUTROPHILS 51 % (28-66)
[2022-03-07 12:34] LABS: ROULEAUX 2+; TEAR DROP CELLS 2+
[2022-03-07 12:35] LABS: OVALOCYTES 1+; PLATELET ESTIMATE DECREASED (NORMAL)
[2022-03-07 12:36] LABS: MICROCYTOSIS 1+
[2022-03-07 13:31] LABS: ALBUMIN 1.6 GM/DL (3.2-5.2); ALT/SGPT < 6 U/L (12-78); BILIRUBIN,TOTAL 1.2 MG/DL (0.2-1.0); BLOOD UREA NITROGEN 22 MG/DL (7-18); CALCIUM LEVEL 7.5 MG/DL (8.5-10.1); CARBON DIOXIDE LEVEL 21 MEQ/L (21-32); CHLORIDE LEVEL 111 MEQ/L (98-107); CREATININE FOR GFR 0.75 MG/DL (0.55-1.30); GLOMERULAR FILTRATION RATE > 60.0 (>51); GLUCOSE, FASTING 119 MG/DL (70-100); POTASSIUM SERUM 4.2 MEQ/L (3.5-5.1); SODIUM LEVEL 140 MEQ/L (136-145); TOTAL PROTEIN 5.5 GM/DL (6.4-8.2)
[2022-03-11 12:11] LABS: CMV QUANT DNA PCR (PLASMA) Negative (Negative)
== END ==
LOC: M LAB 10:36
PROVIDERS: ATTEND Internal Medicine Infectious Disease
DX: Z94.4 Liver transplant status (principal)

== ENCOUNTER → 2022-03-11 | Outpatient (CLI) | payer MEDICARE, MEDICAID ==
[2022-03-11 11:33] LABS: HEMATOCRIT 27.9 % (36.0-47.0); HEMOGLOBIN 8.6 g/dl (12.0-15.5); MEAN CORPUSCULAR HEMOGLOBIN 35.1 pg (27.0-33.0); MEAN CORPUSCULAR HGB CONC 30.8 g/dl (32.0-36.5); MEAN CORPUSCULAR VOLUME 113.9 fl (80.0-96.0); PLATELET COUNT, AUTOMATED 207 10^3/uL (150-450); RED BLOOD COUNT 2.45 10^6/uL (4.00-5.40); WHITE BLOOD COUNT 4.3 10^3/uL (4.0-10.0)
[2022-03-11 12:33] LABS: ALT/SGPT 8 U/L (12-78); BILIRUBIN,TOTAL 1.9 MG/DL (0.2-1.0); BLOOD UREA NITROGEN 15 MG/DL (7-18); CALCIUM LEVEL 8.3 MG/DL (8.5-10.1); CARBON DIOXIDE LEVEL 25 MEQ/L (21-32); CHLORIDE LEVEL 109 MEQ/L (98-107); CREATININE FOR GFR 0.89 MG/DL (0.55-1.30); GLOMERULAR FILTRATION RATE > 60.0 (>51); GLUCOSE, FASTING 164 MG/DL (70-100); POTASSIUM SERUM 3.6 MEQ/L (3.5-5.1); SODIUM LEVEL 142 MEQ/L (136-145)
[2022-03-13 17:08] LABS: CMV QUANT DNA PCR (PLASMA) Positive < 200 IU/mL (Negative)
== END ==
LOC: M LAB 10:43
PROVIDERS: ATTEND Internal Medicine Infectious Disease
DX: B25.9 Cytomegaloviral disease, unspecified (principal); Z94.4 Liver transplant status

== ENCOUNTER → 2022-03-14 | Outpatient (CLI) | payer MEDICARE, MEDICAID ==
[2022-03-14 11:35] LABS: HEMATOCRIT 29.3 % (36.0-47.0); HEMOGLOBIN 8.7 g/dl (12.0-15.5); MEAN CORPUSCULAR HEMOGLOBIN 34.4 pg (27.0-33.0); MEAN CORPUSCULAR HGB CONC 29.7 g/dl (32.0-36.5); PLATELET COUNT, AUTOMATED 257 10^3/uL (150-450); RED BLOOD COUNT 2.53 10^6/uL (4.00-5.40); WHITE BLOOD COUNT 8.5 10^3/uL (4.0-10.0)
[2022-03-14 11:37] LABS: MEAN CORPUSCULAR VOLUME 115.8 fl (80.0-96.0)
[2022-03-14 13:06] LABS: ALBUMIN 2.1 GM/DL (3.2-5.2); BILIRUBIN,TOTAL 2.4 MG/DL (0.2-1.0); CALCIUM LEVEL 8.7 MG/DL (8.5-10.1); CREATININE FOR GFR 1.04 MG/DL (0.55-1.30); GLOMERULAR FILTRATION RATE 59.5 (>51); POTASSIUM SERUM 3.4 MEQ/L (3.5-5.1); TOTAL PROTEIN 6.3 GM/DL (6.4-8.2)
[2022-03-19 15:10] LABS: log10 CMV QN DNA P1 3.017 (.)
== END ==
LOC: M LAB 10:06
PROVIDERS: ATTEND Nurse Practitioner Family
DX: B25.9 Cytomegaloviral disease, unspecified (principal); Z94.4 Liver transplant status

== ENCOUNTER → 2022-03-18 | Outpatient (CLI) | payer MEDICARE, MEDICAID ==
[2022-03-18 11:39] LABS: HEMATOCRIT 24.1 % (36.0-47.0); HEMOGLOBIN 7.6 g/dl (12.0-15.5); MEAN CORPUSCULAR HGB CONC 31.5 g/dl (32.0-36.5); PLATELET COUNT, AUTOMATED 140 10^3/uL (150-450); RED BLOOD COUNT 2.11 10^6/uL (4.00-5.40); WHITE BLOOD COUNT 5.9 10^3/uL (4.0-10.0)
[2022-03-18 11:52] LABS: MEAN CORPUSCULAR VOLUME 114.2 fl (80.0-96.0)
[2022-03-18 12:20] LABS: ALBUMIN 1.9 GM/DL (3.2-5.2); ALT/SGPT 6 U/L (12-78); BILIRUBIN,TOTAL 1.7 MG/DL (0.2-1.0); BLOOD UREA NITROGEN 14 MG/DL (7-18); CALCIUM LEVEL 8.2 MG/DL (8.5-10.1); CARBON DIOXIDE LEVEL 21 MEQ/L (21-32); CHLORIDE LEVEL 108 MEQ/L (98-107); CREATININE FOR GFR 0.83 MG/DL (0.55-1.30); GLOMERULAR FILTRATION RATE > 60.0 (>51); GLUCOSE, FASTING 107 MG/DL (70-100); POTASSIUM SERUM 3.9 MEQ/L (3.5-5.1); SODIUM LEVEL 139 MEQ/L (136-145); TOTAL PROTEIN 6.1 GM/DL (6.4-8.2)
[2022-03-21 18:08] LABS: log10 CMV QN DNA P1 3.447 (.)
== END ==
LOC: M LAB 10:54
PROVIDERS: ATTEND Internal Medicine
DX: B52.9 Plasmodium malariae malaria without complication (principal); Z94.4 Liver transplant status

== ENCOUNTER → 2022-03-21 | Outpatient (CLI) | payer MEDICARE, MEDICAID ==
[2022-03-24 16:07] LABS: log10 CMV QN DNA P1 3.45 (.)
== END ==
LOC: M LAB 10:47
PROVIDERS: ATTEND Internal Medicine
DX: B25.9 Cytomegaloviral disease, unspecified (principal)

== ENCOUNTER → 2022-03-21 | Outpatient (CLI) | payer MEDICARE, MEDICAID ==
[2022-03-21 12:11] LABS: HEMATOCRIT 22.9 % (36.0-47.0); HEMOGLOBIN 7.1 g/dl (12.0-15.5); RED BLOOD COUNT 1.97 10^6/uL (4.00-5.40); WHITE BLOOD COUNT 7.4 10^3/uL (4.0-10.0)
[2022-03-21 12:49] LABS: MEAN CORPUSCULAR VOLUME 116.2 fl (80.0-96.0); PLATELET COUNT, AUTOMATED 72 10^3/uL (150-450)
[2022-03-21 12:54] LABS: ALBUMIN 1.9 GM/DL (3.2-5.2); ALT/SGPT 8 U/L (12-78); BILIRUBIN,TOTAL 1.7 MG/DL (0.2-1.0); BLOOD UREA NITROGEN 16 MG/DL (7-18); CALCIUM LEVEL 7.8 MG/DL (8.5-10.1); CARBON DIOXIDE LEVEL 21 MEQ/L (21-32); CHLORIDE LEVEL 111 MEQ/L (98-107); GLOMERULAR FILTRATION RATE > 60.0 (>51); GLUCOSE, FASTING 94 MG/DL (70-100); SODIUM LEVEL 138 MEQ/L (136-145); TOTAL PROTEIN 6.1 GM/DL (6.4-8.2)
== END ==
LOC: M LAB 10:42
PROVIDERS: ATTEND Nurse Practitioner Family
DX: Z94.4 Liver transplant status (principal)

== ENCOUNTER → 2022-03-25 | Outpatient (CLI) | payer MEDICARE, MEDICAID ==
[2022-03-25 11:51] LABS: HEMOGLOBIN 7.8 g/dl (12.0-15.5); MEAN CORPUSCULAR HEMOGLOBIN 36.3 pg (27.0-33.0); MEAN CORPUSCULAR HGB CONC 31.2 g/dl (32.0-36.5); RED BLOOD COUNT 2.15 10^6/uL (4.00-5.40); WHITE BLOOD COUNT 7.6 10^3/uL (4.0-10.0)
[2022-03-25 13:52] LABS: MEAN CORPUSCULAR VOLUME 116.3 fl (80.0-96.0)
[2022-03-25 13:53] LABS: PLATELET COUNT, AUTOMATED 27 10^3/uL (150-450)
[2022-03-25 15:29] LABS: ALBUMIN 2.2 GM/DL (3.2-5.2); ALT/SGPT 8 U/L (12-78); BILIRUBIN,TOTAL 2.4 MG/DL (0.2-1.0); BLOOD UREA NITROGEN 17 MG/DL (7-18); CALCIUM LEVEL 8.4 MG/DL (8.5-10.1); CARBON DIOXIDE LEVEL 23 MEQ/L (21-32); CHLORIDE LEVEL 111 MEQ/L (98-107); GLOMERULAR FILTRATION RATE > 60.0 (>51); GLUCOSE, FASTING 103 MG/DL (70-100); POTASSIUM SERUM 3.9 MEQ/L (3.5-5.1); SODIUM LEVEL 138 MEQ/L (136-145); TOTAL PROTEIN 7.5 GM/DL (6.4-8.2)
== END ==
LOC: M LAB 10:59
PROVIDERS: ATTEND Internal Medicine Infectious Disease
DX: Z94.4 Liver transplant status (principal)

== ENCOUNTER → 2022-03-26 | Outpatient (CLI) | payer MEDICARE, MEDICAID ==
[2022-03-26 13:36] LABS: BASO % 0.3 % (0.0-1.0); EOS % 0.4 % (0.0-3.0); HEMOGLOBIN 7.6 g/dl (12.0-15.5); LYMPH # 2.9 10^3/uL (1.5-5.0); LYMPH % 37.5 % (24.0-44.0); MEAN CORPUSCULAR HEMOGLOBIN 37.8 pg (27.0-33.0); MEAN CORPUSCULAR HGB CONC 31.7 g/dl (32.0-36.5); MONO # 0.7 10^3/uL (0.0-0.8); MONO % 9.4 % (2.0-8.0); NEUTROPHILS # 3.7 10^3/uL (1.5-8.5); NEUTROPHILS % 47.7 % (36.0-66.0); RED BLOOD COUNT 2.01 10^6/uL (4.00-5.40); WHITE BLOOD COUNT 7.7 10^3/uL (4.0-10.0)
[2022-03-26 13:37] LABS: MEAN CORPUSCULAR VOLUME 119.4 fl (80.0-96.0); PLATELET COUNT, AUTOMATED 32 10^3/uL (150-450)
== END ==
LOC: M LAB 10:18
PROVIDERS: ATTEND Nurse Practitioner Family
DX: Z94.4 Liver transplant status (principal)

== ENCOUNTER → 2022-03-28 | Outpatient (CLI) | payer MEDICARE, MEDICAID ==
[2022-03-28 12:57] LABS: HEMATOCRIT 24.3 % (36.0-47.0); HEMOGLOBIN 7.6 g/dl (12.0-15.5); MEAN CORPUSCULAR HEMOGLOBIN 36.9 pg (27.0-33.0); MEAN CORPUSCULAR HGB CONC 31.3 g/dl (32.0-36.5); PLATELET COUNT, AUTOMATED 42 10^3/uL (150-450); RED BLOOD COUNT 2.06 10^6/uL (4.00-5.40); WHITE BLOOD COUNT 7.4 10^3/uL (4.0-10.0)
[2022-03-28 13:52] LABS: BILIRUBIN,TOTAL 2.1 MG/DL (0.2-1.0); CALCIUM LEVEL 8.4 MG/DL (8.5-10.1); CREATININE FOR GFR 1.33 MG/DL (0.55-1.30); GLOMERULAR FILTRATION RATE 44.8 (>51); POTASSIUM SERUM 3.8 MEQ/L (3.5-5.1); TOTAL PROTEIN 7.2 GM/DL (6.4-8.2)
== END ==
LOC: M LAB 11:26
PROVIDERS: ATTEND Physician Assistant
DX: B25.9 Cytomegaloviral disease, unspecified (principal); Z94.4 Liver transplant status

== ENCOUNTER → 2022-04-01 | Outpatient (CLI) | payer MEDICARE, MEDICAID ==
[2022-04-01 11:55] LABS: HEMOGLOBIN 8.1 g/dl (12.0-15.5); MEAN CORPUSCULAR HGB CONC 31.2 g/dl (32.0-36.5); RED BLOOD COUNT 2.13 10^6/uL (4.00-5.40); WHITE BLOOD COUNT 5.5 10^3/uL (4.0-10.0)
[2022-04-01 11:56] LABS: MEAN CORPUSCULAR VOLUME 122.1 fl (80.0-96.0); PLATELET COUNT, AUTOMATED 60 10^3/uL (150-450)
[2022-04-01 12:59] LABS: BILIRUBIN,TOTAL 1.9 MG/DL (0.2-1.0); CALCIUM LEVEL 8.5 MG/DL (8.5-10.1); CREATININE FOR GFR 1.12 MG/DL (0.55-1.30); GLOMERULAR FILTRATION RATE 54.6 (>51); POTASSIUM SERUM 4.2 MEQ/L (3.5-5.1); TOTAL PROTEIN 7.9 GM/DL (6.4-8.2)
== END ==
LOC: M LAB 11:22
PROVIDERS: ATTEND Internal Medicine Infectious Disease
DX: B25.9 Cytomegaloviral disease, unspecified (principal)

== ENCOUNTER 2022-04-04 18:06 | Emergency (ER) | payer MEDICARE, MEDICAID ==
[~2022-04-04] VITALS: Ht 160 cm; Wt 43.9 kg
[~2022-04-04 18:06] MED LIST changes: -ALBU2.5V10; -BUDE10.7; -PANT40TA29; -VALG1TAB
[2022-04-04] MEDS ORDERED: VALG1TAB (18:38)
[2022-04-04] MEDS ORDERED: ALBU2.5V10 (18:38)
[2022-04-04] MEDS ORDERED: BUDE10.7 (18:38)
[2022-04-04] MEDS ORDERED: PANT40TA29 (18:38)
[2022-04-04 21:36] LABS: BASO % 0.3 % (0.0-1.0); EOS # 0.1 10^3/uL (0.0-0.5); EOS % 2.4 % (0.0-3.0); HEMATOCRIT 22.6 % (36.0-47.0); LYMPH # 1.4 10^3/uL (1.5-5.0); LYMPH % 48.1 % (24.0-44.0); MEAN CORPUSCULAR HEMOGLOBIN 37.8 pg (27.0-33.0); MONO # 0.1 10^3/uL (0.0-0.8); NEUTROPHILS # 1.4 10^3/uL (1.5-8.5); NEUTROPHILS % 45.8 % (36.0-66.0); RED BLOOD COUNT 1.85 10^6/uL (4.00-5.40)
[2022-04-04 21:48] LABS: INR 0.96; PROTHROMBIN TIME 13.2 SECONDS (12.7-14.5)
[2022-04-04 21:59] LABS: MEAN CORPUSCULAR VOLUME 122.2 fl (80.0-96.0); PLATELET COUNT, AUTOMATED 87 10^3/uL (150-450)
[2022-04-04 22:01] LABS: ANISOCYTOSIS 2+
[2022-04-04 22:02] LABS: PLATELET ESTIMATE DECREASED (NORMAL)
[2022-04-04] MEDS ORDERED: traMADol 50 MG TAB PO ONE (23:45)
[2022-04-05 01:07] LABS: BILIRUBIN,DIRECT 1.6 MG/DL (0.0-0.2); BILIRUBIN,TOTAL 1.7 MG/DL (0.2-1.0); CALCIUM LEVEL 7.8 MG/DL (8.5-10.1); CREATININE FOR GFR 1.18 MG/DL (0.55-1.30); GLOMERULAR FILTRATION RATE 51.4 (>51); POTASSIUM SERUM 4.2 MEQ/L (3.5-5.1); TOTAL PROTEIN 7.3 GM/DL (6.4-8.2)
[2022-04-05 01:58] VITALS: BP 111/61
[2022-04-05 02:14] VITALS: BP 117/69
[2022-04-05 02:55] VITALS: BP 116/82
[2022-04-05 03:57] VITALS: BP 114/78
== END 2022-04-05 04:10 | disposition home or self-care (01) ==
LOC: M ED 18:06
DX: D64.9 Anemia, unspecified (principal); R00.0 Tachycardia, unspecified; Z94.4 Liver transplant status; E03.9 Hypothyroidism, unspecified; B25.9 Cytomegaloviral disease, unspecified; D61.818 Other pancytopenia; D69.6 Thrombocytopenia, unspecified; I51.3 Intracardiac thrombosis, not elsewhere classified; Z86.73 Personal history of transient ischemic attack (TIA), and cerebral infarction without residual deficits; Z79.899 Other long term (current) drug therapy; Z88.5 Allergy status to narcotic agent
CPT/HCPCS: 36415; 36430; 80048; 80053; 80076; 80197; 85025; 85027; 85049; 85055; 85610; 86022; 86747; 86850; 86900; 86901; 86920; 87497; 87798; 93005; 93041; 94760; 99285; P9016

== ENCOUNTER → 2022-04-04 | Outpatient (CLI) | payer MEDICARE, MEDICAID ==
[~2022-04-04] MED LIST changes: +ALBU2.5V10; +BUDE10.7; +PANT40TA29; +VALG1TAB
== END ==
LOC: M LAB 11:59
PROVIDERS: ATTEND Nurse Practitioner
DX: I51.3 Intracardiac thrombosis, not elsewhere classified (principal); D69.6 Thrombocytopenia, unspecified

== ENCOUNTER → 2022-04-04 | Outpatient (CLI) | payer MEDICARE, MEDICAID ==
[2022-04-04 13:58] LABS: MEAN CORPUSCULAR HEMOGLOBIN 38.5 pg (27.0-33.0); RED BLOOD COUNT 1.69 10^6/uL (4.00-5.40); WHITE BLOOD COUNT 2.6 10^3/uL (4.0-10.0)
[2022-04-04 14:03] LABS: HEMOGLOBIN 6.5 g/dl (12.0-15.5); MEAN CORPUSCULAR VOLUME 124.3 fl (80.0-96.0); PLATELET COUNT, AUTOMATED 81 10^3/uL (150-450)
[2022-04-04 14:37] LABS: ALBUMIN 2.1 GM/DL (3.2-5.2); CALCIUM LEVEL 8.5 MG/DL (8.5-10.1); CREATININE FOR GFR 1.31 MG/DL (0.55-1.30); GLOMERULAR FILTRATION RATE 45.6 (>51); POTASSIUM SERUM 4.5 MEQ/L (3.5-5.1); TOTAL PROTEIN 7.9 GM/DL (6.4-8.2)
== END ==
LOC: M LAB 12:03
PROVIDERS: ATTEND Nurse Practitioner Family
DX: Z94.4 Liver transplant status (principal)

== ENCOUNTER → 2022-04-04 | Outpatient (CLI) | payer MEDICARE, MEDICAID ==
[2022-04-08 13:07] LABS: CMV QUANT DNA PCR (PLASMA) Negative (Negative)
== END ==
LOC: M LAB 11:56
PROVIDERS: ATTEND Internal Medicine Infectious Disease
DX: B25.9 Cytomegaloviral disease, unspecified (principal)

== ENCOUNTER → 2022-04-04 | Outpatient (CLI) | payer MEDICARE, MEDICAID ==
[2022-04-08 17:08] LABS: ANTI PARVO VIRUS LEVEL IGG 7.6 index (0.0-0.8); ANTI PARVO VIRUS LEVEL IgM 0.2 index (0.0-0.8)
== END ==
LOC: M LAB 11:39
PROVIDERS: ATTEND Nurse Practitioner Family
DX: B25.9 Cytomegaloviral disease, unspecified (principal); D61.818 Other pancytopenia; D69.6 Thrombocytopenia, unspecified; I51.3 Intracardiac thrombosis, not elsewhere classified; Z94.4 Liver transplant status; Z79.899 Other long term (current) drug therapy

== ENCOUNTER → 2022-04-05 | Outpatient (REF) | payer MEDICARE, MEDICAID ==
[~2022-04-05] MED LIST changes: +ALBU2.5V10; +BUDE10.7; +PANT40TA29; +VALG1TAB
== END ==
LOC: M LAB 17:07
PROVIDERS: ATTEND Nurse Practitioner Family
DX: D61.818 Other pancytopenia (principal); D69.6 Thrombocytopenia, unspecified; Z94.4 Liver transplant status; Z79.899 Other long term (current) drug therapy

== ENCOUNTER → 2022-04-08 | Outpatient (CLI) | payer MEDICARE, MEDICAID ==
[2022-04-08 12:19] LABS: PLATELET COUNT, AUTOMATED 85 10^3/uL (150-450)
[2022-04-08 12:27] LABS: INR 0.94; PROTHROMBIN TIME 12.9 SECONDS (12.7-14.5)
== END ==
LOC: M LAB 11:01
DX: Z94.4 Liver transplant status (principal)

== ENCOUNTER → 2022-04-08 | Outpatient (CLI) | payer MEDICARE, MEDICAID | LOC: M LAB 11:12 | PROVIDERS: ATTEND Nurse Practitioner Family | DX: D61.818 Other pancytopenia (principal) ==

== ENCOUNTER → 2022-04-08 | Outpatient (CLI) | payer MEDICARE, MEDICAID ==
[2022-04-08 12:17] LABS: HEMATOCRIT 23.3 % (36.0-47.0); HEMOGLOBIN 7.5 g/dl (12.0-15.5); MEAN CORPUSCULAR HEMOGLOBIN 37.5 pg (27.0-33.0); MEAN CORPUSCULAR HGB CONC 32.2 g/dl (32.0-36.5); MEAN CORPUSCULAR VOLUME 116.5 fl (80.0-96.0); PLATELET COUNT, AUTOMATED 85 10^3/uL (150-450); WHITE BLOOD COUNT 1.4 10^3/uL (4.0-10.0)
[2022-04-08 13:16] LABS: ALBUMIN 1.9 GM/DL (3.2-5.2); BILIRUBIN,TOTAL 2.3 MG/DL (0.2-1.0); CALCIUM LEVEL 8.5 MG/DL (8.5-10.1); CREATININE FOR GFR 1.25 MG/DL (0.55-1.30); GLOMERULAR FILTRATION RATE 48.1 (>51); POTASSIUM SERUM 4.1 MEQ/L (3.5-5.1); TOTAL PROTEIN 7.1 GM/DL (6.4-8.2)
[2022-04-09 15:29] LABS: ATYPICAL LYMPH 1 % (0-5); EOSINOPHILS 2 % (0-3); LYMPHOCYTES 53 % (16-44); MONOCYTES 3 % (0-5); NEUTROPHILS 39 % (28-66); PLATELET ESTIMATE DECREASED (NORMAL)
[2022-04-09 15:30] LABS: ANISOCYTOSIS 1+
== END ==
LOC: M LAB 11:07
PROVIDERS: ATTEND Nurse Practitioner Family
DX: I51.3 Intracardiac thrombosis, not elsewhere classified (principal); D69.6 Thrombocytopenia, unspecified; Z94.4 Liver transplant status; D61.818 Other pancytopenia

== ENCOUNTER → 2022-04-08 | Outpatient (CLI) | payer MEDICARE, MEDICAID | LOC: M LAB 10:52 | PROVIDERS: ATTEND Nurse Practitioner | DX: I51.3 Intracardiac thrombosis, not elsewhere classified (principal); D69.6 Thrombocytopenia, unspecified ==

== ENCOUNTER → 2022-04-15 | Outpatient (CLI) | payer MEDICARE, MEDICAID ==
[~2022-04-15] MED LIST changes: -ALBU2.5V10; +ALBU2.5V10 NEB; -BUDE10.7; +BUDE10.7 INH; -HYDR-643; +HYDR-643 PO; -PANT40TA29; +PANT40TA29 PO; -TACR0.5C3; +TACR0.5C3 PO; -URSO300C3; +URSO300C3 PO; -VALG1TAB; +VALG1TAB PO
[2022-04-15 12:15] LABS: BASO % 0.3 % (0.0-1.0); HEMATOCRIT 22.2 % (36.0-47.0); HEMOGLOBIN 7.2 g/dl (12.0-15.5); LYMPH % 27.7 % (24.0-44.0); MEAN CORPUSCULAR HEMOGLOBIN 38.5 pg (27.0-33.0); MEAN CORPUSCULAR HGB CONC 32.4 g/dl (32.0-36.5); MONO # 0.3 10^3/uL (0.0-0.8); MONO % 7.5 % (2.0-8.0); NEUTROPHILS # 2.2 10^3/uL (1.5-8.5); NEUTROPHILS % 63.1 % (36.0-66.0); PLATELET COUNT, AUTOMATED 142 10^3/uL (150-450); RED BLOOD COUNT 1.87 10^6/uL (4.00-5.40); WHITE BLOOD COUNT 3.5 10^3/uL (4.0-10.0)
[2022-04-15 12:29] LABS: MEAN CORPUSCULAR VOLUME 118.7 fl (80.0-96.0)
[2022-04-15 13:03] LABS: ALBUMIN 1.8 GM/DL (3.2-5.2); ALT/SGPT 11 U/L (12-78); BILIRUBIN,TOTAL 1.7 MG/DL (0.2-1.0); BLOOD UREA NITROGEN 18 MG/DL (7-18); CALCIUM LEVEL 8.1 MG/DL (8.5-10.1); CARBON DIOXIDE LEVEL 20 MEQ/L (21-32); CHLORIDE LEVEL 112 MEQ/L (98-107); CREATININE FOR GFR 0.92 MG/DL (0.55-1.30); GLOMERULAR FILTRATION RATE > 60.0 (>51); GLUCOSE, FASTING 99 MG/DL (70-100); POTASSIUM SERUM 3.9 MEQ/L (3.5-5.1); SODIUM LEVEL 138 MEQ/L (136-145); TOTAL PROTEIN 6.5 GM/DL (6.4-8.2)
== END ==
LOC: M LAB 10:53
PROVIDERS: ATTEND Nurse Practitioner Family
DX: Z94.4 Liver transplant status (principal)

== ENCOUNTER → 2022-04-18 | Outpatient (CLI) | payer MEDICARE, MEDICAID ==
[2022-04-18 12:00] LABS: BASO % 0.6 % (0.0-1.0); HEMOGLOBIN 7.8 g/dl (12.0-15.5); LYMPH # 0.9 10^3/uL (1.5-5.0); LYMPH % 18.9 % (24.0-44.0); MEAN CORPUSCULAR HEMOGLOBIN 38.8 pg (27.0-33.0); MEAN CORPUSCULAR HGB CONC 32.5 g/dl (32.0-36.5); MONO # 0.3 10^3/uL (0.0-0.8); MONO % 5.3 % (2.0-8.0); NEUTROPHILS # 3.5 10^3/uL (1.5-8.5); NEUTROPHILS % 74.1 % (36.0-66.0); PLATELET COUNT, AUTOMATED 167 10^3/uL (150-450); RED BLOOD COUNT 2.01 10^6/uL (4.00-5.40); WHITE BLOOD COUNT 4.7 10^3/uL (4.0-10.0)
[2022-04-18 12:01] LABS: MEAN CORPUSCULAR VOLUME 119.4 fl (80.0-96.0)
[2022-04-18 12:39] LABS: PLATELET ESTIMATE NORMAL (NORMAL)
[2022-04-18 12:40] LABS: ANISOCYTOSIS 4+; OVALOCYTES 2+; TEAR DROP CELLS 1+
[2022-04-18 12:50] LABS: ALBUMIN 1.9 GM/DL (3.2-5.2); ALT/SGPT 11 U/L (12-78); BILIRUBIN,TOTAL 1.6 MG/DL (0.2-1.0); BLOOD UREA NITROGEN 19 MG/DL (7-18); CALCIUM LEVEL 8.6 MG/DL (8.5-10.1); CARBON DIOXIDE LEVEL 22 MEQ/L (21-32); CHLORIDE LEVEL 107 MEQ/L (98-107); CREATININE FOR GFR 0.96 MG/DL (0.55-1.30); GLOMERULAR FILTRATION RATE > 60.0 (>51); GLUCOSE, FASTING 122 MG/DL (70-100); POTASSIUM SERUM 3.6 MEQ/L (3.5-5.1); SODIUM LEVEL 135 MEQ/L (136-145); TOTAL PROTEIN 7.7 GM/DL (6.4-8.2)
[2022-04-20 16:09] LABS: CMV QUANT DNA PCR (PLASMA) Positive < 200 IU/mL (Negative)
== END ==
LOC: M LAB 04-15 11:15
PROVIDERS: ATTEND Internal Medicine Infectious Disease
DX: B25.9 Cytomegaloviral disease, unspecified (principal); Z94.4 Liver transplant status

== ENCOUNTER → 2022-04-18 | Outpatient (CLI) | payer MEDICARE, MEDICAID ==
[2022-04-18 12:51] LABS: ALT/SGPT 11 U/L (12-78); BILIRUBIN,TOTAL 1.6 MG/DL (0.2-1.0); BLOOD UREA NITROGEN 19 MG/DL (7-18); CALCIUM LEVEL 8.6 MG/DL (8.5-10.1); CARBON DIOXIDE LEVEL 22 MEQ/L (21-32); CHLORIDE LEVEL 107 MEQ/L (98-107); CREATININE FOR GFR 0.94 MG/DL (0.55-1.30); GLOMERULAR FILTRATION RATE > 60.0 (>51); GLUCOSE, FASTING 117 MG/DL (70-100); POTASSIUM SERUM 3.6 MEQ/L (3.5-5.1); SODIUM LEVEL 136 MEQ/L (136-145); TOTAL PROTEIN 7.6 GM/DL (6.4-8.2)
[2022-04-18 14:31] LABS: BASO % 0.6 % (0.0-1.0); HEMATOCRIT 24.1 % (36.0-47.0); HEMOGLOBIN 7.8 g/dl (12.0-15.5); LYMPH # 0.8 10^3/uL (1.5-5.0); LYMPH % 17.8 % (24.0-44.0); MEAN CORPUSCULAR HEMOGLOBIN 38.2 pg (27.0-33.0); MEAN CORPUSCULAR HGB CONC 32.4 g/dl (32.0-36.5); MEAN CORPUSCULAR VOLUME 118.1 fl (80.0-96.0); MONO # 0.3 10^3/uL (0.0-0.8); MONO % 6.2 % (2.0-8.0); NEUTROPHILS # 3.5 10^3/uL (1.5-8.5); NEUTROPHILS % 74.5 % (36.0-66.0); PLATELET COUNT, AUTOMATED 168 10^3/uL (150-450); RED BLOOD COUNT 2.04 10^6/uL (4.00-5.40); WHITE BLOOD COUNT 4.7 10^3/uL (4.0-10.0)
== END ==
LOC: M LAB 11:04
PROVIDERS: ATTEND Nurse Practitioner Family
DX: Z94.4 Liver transplant status (principal)

== ENCOUNTER 2022-04-20 20:00 | Inpatient (IN) | payer MEDICARE, MEDICAID ==
[~2022-04-20] VITALS: Ht 160 cm; Wt 46.8 kg
[2022-04-20] MEDS ORDERED: diazePAM 10MG/2ML SYRINGE (J3360 PER 5MG) IV ONE (20:25)
[2022-04-20] MEDS ORDERED: NS 1,000 ML IV ONE ×2 (20:25→22:55)
[2022-04-20 20:50] LABS: MEAN CORPUSCULAR HEMOGLOBIN 40.1 pg (27.0-33.0); MEAN CORPUSCULAR HGB CONC 32.4 g/dl (32.0-36.5); PLATELET COUNT, AUTOMATED 137 10^3/uL (150-450); RED BLOOD COUNT 1.52 10^6/uL (4.00-5.40); WHITE BLOOD COUNT 3.6 10^3/uL (4.0-10.0)
[2022-04-20 20:59] LABS: HEMATOCRIT 18.8 % (36.0-47.0); HEMOGLOBIN 6.1 g/dl (12.0-15.5); MEAN CORPUSCULAR VOLUME 123.7 fl (80.0-96.0)
[2022-04-20 21:25] LABS: BASOPHILS 1 % (0-1); LYMPHOCYTES 15 % (16-44); NEUTROPHILS 70 % (28-66)
[2022-04-20 21:26] LABS: ANISOCYTOSIS 4+
[2022-04-20 21:27] LABS: PLATELET ESTIMATE NORMAL (NORMAL)
[2022-04-20 21:37] LABS: ALBUMIN 1.8 GM/DL (3.2-5.2); BILIRUBIN,DIRECT 1.5 MG/DL (0.0-0.2); BILIRUBIN,TOTAL 2.1 MG/DL (0.2-1.0); CALCIUM LEVEL 7.5 MG/DL (8.5-10.1); CK-MB VALUE MASS 1.2 NG/ML (<3.6); CREATININE FOR GFR 1.27 MG/DL (0.55-1.30); GLOMERULAR FILTRATION RATE 47.2 (>51); MB/CK RELATIVE INDEX 1.54 (< OR =4); TOTAL PROTEIN 6.1 GM/DL (6.4-8.2)
[2022-04-20] MEDS ORDERED: ACETAMINOPHEN 325 MG TAB PO ONE (21:45)
[2022-04-20] MEDS ORDERED: ISOVUE-370 76% 100ML VIAL As Ordered ONE (22:07)
[2022-04-20] MEDS ORDERED: PIPERACILLIN/TAZOBACTAM SOD 4.5 GM in D5W MINI-BAG PLUS 50 ML IV ONE (22:30)
[2022-04-20] MEDS ORDERED: HOME MED LIST COMPLETE! XX SCH (23:10)
[2022-04-20 23:35] LABS: MB/CK RELATIVE INDEX 1.75 (< OR =4)
[2022-04-20 23:40] VITALS: BP 94/55
[2022-04-20 23:51] LABS: RSV AMPLIFICATION NEGATIVE (NEGATIVE)
[2022-04-20 23:55] VITALS: BP 90/51
[2022-04-21] VITALS (10 sets, daily range): BP systolic 83–117; BP diastolic 48–67
[2022-04-21] MEDS ORDERED: fentaNYL 100 MCG/2 ML INJECTION IV ONE (00:05)
[2022-04-21 01:19] LABS: CK-MB VALUE MASS 1.3 NG/ML (<3.6); MB/CK RELATIVE INDEX 1.94 (< OR =4)
[2022-04-21] MEDS ORDERED: NS 420 ML in IV 1 EA IV ONE (01:25)
[2022-04-21] MEDS ORDERED: guaiFENesin DM LIQ 10ML UD PO PRN (03:00)
[2022-04-21] MEDS ORDERED: NS 1,000 ML IV SCH (03:00)
[2022-04-21] MEDS ORDERED: DEXTROSE 50% 50 ML SYRINGE IV STA (03:38)
[2022-04-21] MEDS ORDERED: D5W/0.9% SODIUM CHLORIDE 1,000 ML IV SCH (03:40)
[2022-04-21] MEDS: HYDROMORPHONE HCL 0.5 MG/ 0.5 ML SYRINGE (J1170 PER 1) IV PRN ×5 (04:00→20:12)
[2022-04-21] MEDS ORDERED: PIPERACILLIN/TAZOBACTAM SOD 2.25 GM in D5W MINI-BAG PLUS 50 ML IV SCH (04:00)
[2022-04-21] MEDS ORDERED: ISOVUE-370 76% 100ML VIAL As Ordered ONE (09:24)
[2022-04-21 09:27] LABS: HEMATOCRIT 24.4 % (36.0-47.0)
[2022-04-21 09:37] LABS: INR 0.99; PROTHROMBIN TIME 13.5 SECONDS (12.7-14.5)
[2022-04-21 09:38] LABS: PARTIAL THROMBOPLASTIN TIME 42.8 SECONDS (25.9-37.0)
[2022-04-21] MEDS ORDERED: D5W/0.45% SODIUM CHLORIDE 1,000 ML IV SCH (09:45)
[2022-04-21] MEDS ORDERED: VANCOMYCIN HCL 1,000 MG, VIAL MATE ADAPTER 1 EACH in NS 250 ML IV SCH (10:15)
[2022-04-21] MEDS: PIPERACILLIN/TAZOBACTAM SOD 3.375 GM in D5W MINI-BAG PLUS 50 ML IV SCH ×3 (10:33→21:56)
[2022-04-21] MEDS ORDERED: NOREPINEPHRINE/DEXTROSE 8 MG in IV 492 EA IV SCH (11:00)
[2022-04-21] MEDS ORDERED: VANCOMYCIN HCL 1,000 MG, VIAL MATE ADAPTER 1 EACH in D5W 250 ML IV ONE (12:00)
[2022-04-21] MEDS: PANTOPRAZOLE 40MG VIAL IV SCH (12:47)
[2022-04-21] MEDS: IPRATROPIUM 0.5MG/ALBUTEROL 2.5MG INH SOL UD 3ML (DUONEB) NEB SCH ×3 (13:19→19:25)
[2022-04-21] MEDS ORDERED: LEVO100T5 PO (14:50)
[2022-04-21] MEDS ORDERED: HOME MED LIST COMPLETE! XX SCH (14:55)
[2022-04-21 16:04] LABS: HEMATOCRIT 24.2 % (36.0-47.0)
[2022-04-21] MEDS: PERCOCET 5MG/325MG TAB PO PRN ×2 (16:21→23:45)
[2022-04-21] MEDS: TACROLIMUS 1 MG CAP (J7507) PO SCH (20:12)
[2022-04-21] MEDS: ValGANciclovir HYDROCHLORIDE 450MG TABLET PO SCH (20:12)
[2022-04-21] MEDS: ursodioL 300MG CAP PO SCH (20:13)
[2022-04-21] MEDS: VANCOMYCIN HCL 500 MG in D5W MINI-BAG PLUS 100 ML IV SCH (23:46)
[2022-04-22] VITALS (11 sets, daily range): BP systolic 101–131; BP diastolic 55–81
[2022-04-22 03:03] LABS: HEMATOCRIT 23.6 % (36.0-47.0); HEMOGLOBIN 7.6 g/dl (12.0-15.5); MEAN CORPUSCULAR HEMOGLOBIN 36.2 pg (27.0-33.0); MEAN CORPUSCULAR HGB CONC 32.2 g/dl (32.0-36.5); MEAN CORPUSCULAR VOLUME 112.4 fl (80.0-96.0); WHITE BLOOD COUNT 9.5 10^3/uL (4.0-10.0)
[2022-04-22 03:34] LABS: PLATELET COUNT, AUTOMATED 99 10^3/uL (150-450)
[2022-04-22 03:50] LABS: ALBUMIN 1.4 GM/DL (3.2-5.2); BILIRUBIN,TOTAL 1.4 MG/DL (0.2-1.0); CALCIUM LEVEL 7.6 MG/DL (8.5-10.1); CREATININE FOR GFR 1.04 MG/DL (0.55-1.30); GLOMERULAR FILTRATION RATE 59.5 (>51); POTASSIUM SERUM 3.7 MEQ/L (3.5-5.1); TOTAL PROTEIN 5.9 GM/DL (6.4-8.2)
[2022-04-22] MEDS: PIPERACILLIN/TAZOBACTAM SOD 3.375 GM in D5W MINI-BAG PLUS 50 ML IV SCH ×4 (04:13→21:43)
[2022-04-22] MEDS: PERCOCET 5MG/325MG TAB PO PRN ×4 (04:14→20:22)
[2022-04-22] MEDS ORDERED: LIDOCAINE 5% (LIDODERM) PATCH TD ONE (06:00)
[2022-04-22 07:48] LABS: HEMATOCRIT 23.9 % (36.0-47.0); HEMOGLOBIN 7.8 g/dl (12.0-15.5)
[2022-04-22] MEDS: IPRATROPIUM 0.5MG/ALBUTEROL 2.5MG INH SOL UD 3ML (DUONEB) NEB SCH ×4 (08:22→19:27)
[2022-04-22] MEDS: TACROLIMUS 1 MG CAP (J7507) PO SCH ×2 (09:21→20:20)
[2022-04-22] MEDS: LEVOTHYROXINE 100MCG TABLET (0.1MG) PO SCH (09:21)
[2022-04-22] MEDS: PANTOPRAZOLE 40MG VIAL IV SCH (09:21)
[2022-04-22] MEDS: ursodioL 300MG CAP PO SCH ×2 (09:21→20:20)
[2022-04-22] MEDS: ValGANciclovir HYDROCHLORIDE 450MG TABLET PO SCH ×2 (09:21→18:46)
[2022-04-22] MEDS: MORPHINE 4 MG/ML 1ML VIAL/SYRINGE IV PRN ×2 (11:06→16:55)
[2022-04-22] MEDS: VANCOMYCIN HCL 500 MG in D5W MINI-BAG PLUS 100 ML IV SCH ×2 (12:31→23:29)
[2022-04-22] MEDS: BUDESONIDE 0.5 MG/2 ML INHALATION SUSPENSION INH SCH ×2 (12:40→19:27)
[2022-04-22] MEDS: FORMOTEROL FUMARATE 20 MCG/2 ML INHALATION SOLUTION (PERFOROMIST) INH SCH ×2 (12:40→19:27)
[2022-04-22] MEDS ORDERED: **NOTE PATIENT COMMENT** MISC XX ONE (18:00)
[2022-04-23] VITALS: BP 134/77
[2022-04-23] MEDS: PIPERACILLIN/TAZOBACTAM SOD 3.375 GM in D5W MINI-BAG PLUS 50 ML IV SCH ×3 (03:51→16:56)
[2022-04-23 05:15] LABS: HEMATOCRIT 29.1 % (36.0-47.0); HEMOGLOBIN 9.6 g/dl (12.0-15.5); MEAN CORPUSCULAR HEMOGLOBIN 36.5 pg (27.0-33.0); MEAN CORPUSCULAR VOLUME 110.6 fl (80.0-96.0); RED BLOOD COUNT 2.63 10^6/uL (4.00-5.40); WHITE BLOOD COUNT 8.1 10^3/uL (4.0-10.0)
[2022-04-23 05:16] LABS: PLATELET COUNT, AUTOMATED 84 10^3/uL (150-450)
[2022-04-23] MEDS: LEVOTHYROXINE 100MCG TABLET (0.1MG) PO SCH (05:18)
[2022-04-23] MEDS: PERCOCET 5MG/325MG TAB PO PRN ×2 (05:34→17:06)
[2022-04-23 05:58] LABS: ALBUMIN 1.4 GM/DL (3.2-5.2); ALT/SGPT 9 U/L (12-78); BILIRUBIN,TOTAL 1.8 MG/DL (0.2-1.0); BLOOD UREA NITROGEN 13 MG/DL (7-18); CALCIUM LEVEL 8.2 MG/DL (8.5-10.1); CARBON DIOXIDE LEVEL 18 MEQ/L (21-32); CHLORIDE LEVEL 112 MEQ/L (98-107); CREATININE FOR GFR 0.92 MG/DL (0.55-1.30); GLOMERULAR FILTRATION RATE > 60.0 (>51); GLUCOSE, FASTING 86 MG/DL (70-100); SODIUM LEVEL 138 MEQ/L (136-145); TOTAL PROTEIN 6.4 GM/DL (6.4-8.2)
[2022-04-23] MEDS: IPRATROPIUM 0.5MG/ALBUTEROL 2.5MG INH SOL UD 3ML (DUONEB) NEB SCH ×4 (07:50→20:00)
[2022-04-23] MEDS: FORMOTEROL FUMARATE 20 MCG/2 ML INHALATION SOLUTION (PERFOROMIST) INH SCH ×2 (07:50→20:00)
[2022-04-23] MEDS: BUDESONIDE 0.5 MG/2 ML INHALATION SUSPENSION INH SCH ×2 (07:50→20:00)
[2022-04-23 07:51] VITALS: O2SAT 94
[2022-04-23 08:00] VITALS: BP 134/63
[2022-04-23] MEDS ORDERED: ENOXAPARIN 30MG/0.3ML SYRINGE (J1650 PER 10MG) SC SCH (09:00)
[2022-04-23] MEDS: PANTOPRAZOLE 40MG VIAL IV SCH (09:09)
[2022-04-23] MEDS: ValGANciclovir HYDROCHLORIDE 450MG TABLET PO SCH (09:10)
[2022-04-23] MEDS: ursodioL 300MG CAP PO SCH (09:10)
[2022-04-23] MEDS: TACROLIMUS 1 MG CAP (J7507) PO SCH (09:10)
[2022-04-23 12:00] VITALS: BP 150/86
[2022-04-23] MEDS: VANCOMYCIN HCL 500 MG in D5W MINI-BAG PLUS 100 ML IV SCH (12:41)
[2022-04-23] MEDS ORDERED: ACETAMINOPHEN 500 MG TAB PO ONE (13:30)
[2022-04-23 13:54] VITALS: BP 131/74
[2022-04-23 16:15] VITALS: BP 114/70
[2022-04-23] MEDS ORDERED: ValGANciclovir HYDROCHLORIDE 450MG TABLET PO SCH (18:00)
[2022-04-25 14:08] LABS: CMV QUANT DNA PCR (PLASMA) Positive < 200 IU/mL (Negative)
== END 2022-04-23 21:01 | disposition short-term general hospital (02) | DRG 871 ==
LOC: EDBD 20:00 → M ED 20:00 → M ED INP 04-21 09:42 → ENRESERV 04-21 10:23 → M ICU 04-21 12:09 → M PCU 04-23 14:05 → M 4MAIN 04-23 19:37 → M PCU 04-23 19:38
PROVIDERS: ADMIT Internal Medicine Pulmonary Disease; ATTEND Internal Medicine
PROC: 30233N1 Transfusion of Nonautologous Red Blood Cells into Peripheral Vein, Percutaneous Approach (ICD-10-PCS; principal; 2022-04-20)
DX: A41.9 Sepsis, unspecified organism (principal); R65.21 Severe sepsis with septic shock; K75.0 Abscess of liver; R57.1 Hypovolemic shock; B25.9 Cytomegaloviral disease, unspecified; Z94.4 Liver transplant status; D61.818 Other pancytopenia; M25.512 Pain in left shoulder; E16.2 Hypoglycemia, unspecified; N18.30 Chronic kidney disease, stage 3 unspecified; E03.9 Hypothyroidism, unspecified; R09.02 Hypoxemia; E88.09 Other disorders of plasma-protein metabolism, not elsewhere classified; J43.9 Emphysema, unspecified; J47.9 Bronchiectasis, uncomplicated; K21.9 Gastro-esophageal reflux disease without esophagitis; Z87.891 Personal history of nicotine dependence; Z79.82 Long term (current) use of aspirin; K76.89 Other specified diseases of liver; Z79.890 Hormone replacement therapy; Z79.899 Other long term (current) drug therapy

== ENCOUNTER → 2022-05-02 | Outpatient (CLI) | payer MEDICARE, MEDICAID ==
[2022-05-02 12:37] LABS: HEMATOCRIT 30.1 % (36.0-47.0); HEMOGLOBIN 9.8 g/dl (12.0-15.5); LYMPH # 1.6 10^3/uL (1.5-5.0); LYMPH % 39.9 % (24.0-44.0); MEAN CORPUSCULAR HEMOGLOBIN 36.3 pg (27.0-33.0); MEAN CORPUSCULAR HGB CONC 32.6 g/dl (32.0-36.5); MEAN CORPUSCULAR VOLUME 111.5 fl (80.0-96.0); MONO # 0.2 10^3/uL (0.0-0.8); NEUTROPHILS # 2.1 10^3/uL (1.5-8.5); NEUTROPHILS % 51.8 % (36.0-66.0); PLATELET COUNT, AUTOMATED 127 10^3/uL (150-450)
[2022-05-02 13:16] LABS: ALBUMIN 2.8 GM/DL (3.2-5.2); ALT/SGPT 13 U/L (12-78); BILIRUBIN,TOTAL 1.7 MG/DL (0.2-1.0); BLOOD UREA NITROGEN 17 MG/DL (7-18); CALCIUM LEVEL 9.3 MG/DL (8.5-10.1); CARBON DIOXIDE LEVEL 22 MEQ/L (21-32); CHLORIDE LEVEL 108 MEQ/L (98-107); CREATININE FOR GFR 0.83 MG/DL (0.55-1.30); GLOMERULAR FILTRATION RATE > 60.0 (>51); GLUCOSE, FASTING 93 MG/DL (70-100); POTASSIUM SERUM 3.8 MEQ/L (3.5-5.1); SODIUM LEVEL 137 MEQ/L (136-145); TOTAL PROTEIN 8.1 GM/DL (6.4-8.2)
== END ==
LOC: M LAB 11:03
PROVIDERS: ATTEND Internal Medicine Infectious Disease
DX: B25.9 Cytomegaloviral disease, unspecified (principal)

== ENCOUNTER → 2022-05-02 | Outpatient (CLI) | payer MEDICARE, MEDICAID ==
[2022-05-02 13:04] LABS: BASO # 0.1 10^3/uL (0.0-0.2); BASO % 1.3 % (0.0-1.0); EOS % 0.3 % (0.0-3.0); HEMATOCRIT 29.7 % (36.0-47.0); HEMOGLOBIN 9.7 g/dl (12.0-15.5); LYMPH # 1.6 10^3/uL (1.5-5.0); LYMPH % 40.2 % (24.0-44.0); MEAN CORPUSCULAR HEMOGLOBIN 36.6 pg (27.0-33.0); MEAN CORPUSCULAR HGB CONC 32.7 g/dl (32.0-36.5); MEAN CORPUSCULAR VOLUME 112.1 fl (80.0-96.0); MONO # 0.2 10^3/uL (0.0-0.8); MONO % 5.6 % (2.0-8.0); NEUTROPHILS % 51.3 % (36.0-66.0); PLATELET COUNT, AUTOMATED 129 10^3/uL (150-450); RED BLOOD COUNT 2.65 10^6/uL (4.00-5.40)
[2022-05-02 13:20] LABS: ALBUMIN 2.8 GM/DL (3.2-5.2); ALT/SGPT 12 U/L (12-78); BILIRUBIN,TOTAL 1.7 MG/DL (0.2-1.0); BLOOD UREA NITROGEN 16 MG/DL (7-18); CARBON DIOXIDE LEVEL 22 MEQ/L (21-32); CHLORIDE LEVEL 107 MEQ/L (98-107); CREATININE FOR GFR 0.82 MG/DL (0.55-1.30); GLOMERULAR FILTRATION RATE > 60.0 (>51); GLUCOSE, FASTING 89 MG/DL (70-100); POTASSIUM SERUM 3.6 MEQ/L (3.5-5.1); SODIUM LEVEL 136 MEQ/L (136-145); TOTAL PROTEIN 8.1 GM/DL (6.4-8.2)
[2022-05-09 10:09] LABS: PARVOVIRUS B19 QUANT PCR Negative copies/mL (Negative)
== END ==
LOC: M LAB 10:56
PROVIDERS: ATTEND Nurse Practitioner Family
DX: D69.6 Thrombocytopenia, unspecified (principal); D61.818 Other pancytopenia; Z94.4 Liver transplant status; Z79.899 Other long term (current) drug therapy; I51.3 Intracardiac thrombosis, not elsewhere classified

== ENCOUNTER → 2022-05-06 | Outpatient (CLI) | payer MEDICARE, MEDICAID ==
[2022-05-06 12:06] LABS: BASO % 1.2 % (0.0-1.0); EOS % 0.3 % (0.0-3.0); HEMATOCRIT 28.5 % (36.0-47.0); HEMOGLOBIN 9.3 g/dl (12.0-15.5); LYMPH # 1.3 10^3/uL (1.5-5.0); LYMPH % 38.4 % (24.0-44.0); MEAN CORPUSCULAR HEMOGLOBIN 38.4 pg (27.0-33.0); MEAN CORPUSCULAR HGB CONC 32.6 g/dl (32.0-36.5); MONO # 0.2 10^3/uL (0.0-0.8); MONO % 5.3 % (2.0-8.0); NEUTROPHILS # 1.8 10^3/uL (1.5-8.5); NEUTROPHILS % 53.9 % (36.0-66.0); PLATELET COUNT, AUTOMATED 190 10^3/uL (150-450); RED BLOOD COUNT 2.42 10^6/uL (4.00-5.40); WHITE BLOOD COUNT 3.4 10^3/uL (4.0-10.0)
[2022-05-06 12:21] LABS: MEAN CORPUSCULAR VOLUME 117.8 fl (80.0-96.0)
[2022-05-06 12:59] LABS: ALBUMIN 2.8 GM/DL (3.2-5.2); ALT/SGPT 17 U/L (12-78); BILIRUBIN,TOTAL 1.4 MG/DL (0.2-1.0); BLOOD UREA NITROGEN 12 MG/DL (7-18); CALCIUM LEVEL 8.8 MG/DL (8.5-10.1); CARBON DIOXIDE LEVEL 22 MEQ/L (21-32); CHLORIDE LEVEL 111 MEQ/L (98-107); CREATININE FOR GFR 0.87 MG/DL (0.55-1.30); GLOMERULAR FILTRATION RATE > 60.0 (>51); GLUCOSE, FASTING 86 MG/DL (70-100); POTASSIUM SERUM 3.8 MEQ/L (3.5-5.1); SODIUM LEVEL 139 MEQ/L (136-145); TOTAL PROTEIN 7.9 GM/DL (6.4-8.2)
[2022-05-08 18:10] LABS: HEPARIN INDUCED PLATELET ABY 0.106 OD (0.000-0.400)
== END ==
LOC: M LAB 11:09
PROVIDERS: ATTEND Nurse Practitioner Family
DX: Z94.4 Liver transplant status (principal)

== ENCOUNTER → 2022-05-06 | Outpatient (CLI) | payer MEDICARE, MEDICAID ==
[2022-05-06 12:07] LABS: BASO % 1.2 % (0.0-1.0); EOS % 0.3 % (0.0-3.0); HEMATOCRIT 29.7 % (36.0-47.0); HEMOGLOBIN 9.5 g/dl (12.0-15.5); LYMPH # 1.3 10^3/uL (1.5-5.0); LYMPH % 38.8 % (24.0-44.0); MEAN CORPUSCULAR HEMOGLOBIN 37.8 pg (27.0-33.0); MONO # 0.2 10^3/uL (0.0-0.8); NEUTROPHILS # 1.8 10^3/uL (1.5-8.5); NEUTROPHILS % 53.8 % (36.0-66.0); PLATELET COUNT, AUTOMATED 194 10^3/uL (150-450); RED BLOOD COUNT 2.51 10^6/uL (4.00-5.40); WHITE BLOOD COUNT 3.4 10^3/uL (4.0-10.0)
[2022-05-06 12:22] LABS: MEAN CORPUSCULAR VOLUME 118.3 fl (80.0-96.0)
[2022-05-06 12:56] LABS: ALBUMIN 2.8 GM/DL (3.2-5.2); ALT/SGPT 17 U/L (12-78); BILIRUBIN,TOTAL 1.4 MG/DL (0.2-1.0); BLOOD UREA NITROGEN 11 MG/DL (7-18); CARBON DIOXIDE LEVEL 23 MEQ/L (21-32); CHLORIDE LEVEL 111 MEQ/L (98-107); CREATININE FOR GFR 0.86 MG/DL (0.55-1.30); GLOMERULAR FILTRATION RATE > 60.0 (>51); GLUCOSE, FASTING 86 MG/DL (70-100); POTASSIUM SERUM 3.8 MEQ/L (3.5-5.1); SODIUM LEVEL 139 MEQ/L (136-145)
[2022-05-08 14:11] LABS: CMV QUANT DNA PCR (PLASMA) Positive < 200 IU/mL (Negative)
== END ==
LOC: M LAB 10:41
PROVIDERS: ATTEND Internal Medicine
DX: Z94.4 Liver transplant status (principal)

== ENCOUNTER → 2022-05-09 | Outpatient (CLI) | payer MEDICARE, MEDICAID ==
[2022-05-09 13:17] LABS: BASO % 1.1 % (0.0-1.0); EOS % 0.5 % (0.0-3.0); HEMATOCRIT 29.9 % (36.0-47.0); HEMOGLOBIN 9.8 g/dl (12.0-15.5); LYMPH # 1.2 10^3/uL (1.5-5.0); MEAN CORPUSCULAR HEMOGLOBIN 38.9 pg (27.0-33.0); MEAN CORPUSCULAR HGB CONC 32.8 g/dl (32.0-36.5); MONO # 0.2 10^3/uL (0.0-0.8); MONO % 4.1 % (2.0-8.0); NEUTROPHILS # 2.3 10^3/uL (1.5-8.5); NEUTROPHILS % 60.8 % (36.0-66.0); PLATELET COUNT, AUTOMATED 221 10^3/uL (150-450); RED BLOOD COUNT 2.52 10^6/uL (4.00-5.40); WHITE BLOOD COUNT 3.7 10^3/uL (4.0-10.0)
[2022-05-09 13:19] LABS: MEAN CORPUSCULAR VOLUME 118.7 fl (80.0-96.0)
[2022-05-09 13:26] LABS: ALBUMIN 2.9 GM/DL (3.2-5.2); ALT/SGPT 18 U/L (12-78); BILIRUBIN,TOTAL 1.3 MG/DL (0.2-1.0); BLOOD UREA NITROGEN 15 MG/DL (7-18); CALCIUM LEVEL 9.2 MG/DL (8.5-10.1); CARBON DIOXIDE LEVEL 23 MEQ/L (21-32); CHLORIDE LEVEL 108 MEQ/L (98-107); GLOMERULAR FILTRATION RATE > 60.0 (>51); GLUCOSE, FASTING 89 MG/DL (70-100); SODIUM LEVEL 136 MEQ/L (136-145); TOTAL PROTEIN 7.8 GM/DL (6.4-8.2)
[2022-05-09 14:35] LABS: ANISOCYTOSIS 2+; PLATELET ESTIMATE NORMAL (NORMAL)
[2022-05-11 16:08] LABS: CMV QUANT DNA PCR (PLASMA) Positive < 200 IU/mL (Negative)
== END ==
LOC: M LAB 10:25
PROVIDERS: ATTEND Internal Medicine Infectious Disease
DX: B25.9 Cytomegaloviral disease, unspecified (principal)

== ENCOUNTER → 2022-05-09 | Outpatient (CLI) | payer MEDICARE, MEDICAID ==
[2022-05-09 13:26] LABS: ALBUMIN 2.9 GM/DL (3.2-5.2); ALT/SGPT 19 U/L (12-78); BILIRUBIN,TOTAL 1.2 MG/DL (0.2-1.0); BLOOD UREA NITROGEN 15 MG/DL (7-18); CALCIUM LEVEL 9.1 MG/DL (8.5-10.1); CARBON DIOXIDE LEVEL 23 MEQ/L (21-32); CHLORIDE LEVEL 109 MEQ/L (98-107); CREATININE FOR GFR 0.86 MG/DL (0.55-1.30); GLOMERULAR FILTRATION RATE > 60.0 (>51); GLUCOSE, FASTING 90 MG/DL (70-100); POTASSIUM SERUM 4.2 MEQ/L (3.5-5.1); SODIUM LEVEL 138 MEQ/L (136-145); TOTAL PROTEIN 7.9 GM/DL (6.4-8.2)
[2022-05-09 14:04] LABS: BASO # 0.1 10^3/uL (0.0-0.2); BASO % 1.4 % (0.0-1.0); EOS % 0.3 % (0.0-3.0); HEMATOCRIT 29.9 % (36.0-47.0); HEMOGLOBIN 9.8 g/dl (12.0-15.5); LYMPH # 1.2 10^3/uL (1.5-5.0); LYMPH % 34.3 % (24.0-44.0); MEAN CORPUSCULAR HEMOGLOBIN 39.2 pg (27.0-33.0); MEAN CORPUSCULAR HGB CONC 32.8 g/dl (32.0-36.5); MONO # 0.1 10^3/uL (0.0-0.8); NEUTROPHILS # 2.1 10^3/uL (1.5-8.5); NEUTROPHILS % 59.2 % (36.0-66.0); PLATELET COUNT, AUTOMATED 222 10^3/uL (150-450); WHITE BLOOD COUNT 3.5 10^3/uL (4.0-10.0)
[2022-05-09 14:05] LABS: MEAN CORPUSCULAR VOLUME 119.6 fl (80.0-96.0)
== END ==
LOC: M LAB 10:21
PROVIDERS: ATTEND Nurse Practitioner Family
DX: Z94.4 Liver transplant status (principal)

== ENCOUNTER → 2022-05-13 | Outpatient (CLI) | payer MEDICARE, MEDICAID ==
[2022-05-13 12:29] LABS: BASO # 0.1 10^3/uL (0.0-0.2); BASO % 1.4 % (0.0-1.0); EOS % 0.6 % (0.0-3.0); HEMATOCRIT 31.3 % (36.0-47.0); LYMPH # 1.4 10^3/uL (1.5-5.0); LYMPH % 39.4 % (24.0-44.0); MEAN CORPUSCULAR HEMOGLOBIN 39.2 pg (27.0-33.0); MEAN CORPUSCULAR HGB CONC 31.9 g/dl (32.0-36.5); MONO # 0.1 10^3/uL (0.0-0.8); MONO % 2.5 % (2.0-8.0); NEUTROPHILS % 55.5 % (36.0-66.0); PLATELET COUNT, AUTOMATED 180 10^3/uL (150-450); RED BLOOD COUNT 2.55 10^6/uL (4.00-5.40); WHITE BLOOD COUNT 3.6 10^3/uL (4.0-10.0)
[2022-05-13 12:30] LABS: BASO # 0.1 10^3/uL (0.0-0.2); BASO % 1.4 % (0.0-1.0); EOS % 0.3 % (0.0-3.0); HEMOGLOBIN 9.9 g/dl (12.0-15.5); LYMPH # 1.4 10^3/uL (1.5-5.0); LYMPH % 38.9 % (24.0-44.0); MEAN CORPUSCULAR HEMOGLOBIN 39.1 pg (27.0-33.0); MEAN CORPUSCULAR HGB CONC 31.9 g/dl (32.0-36.5); MONO # 0.1 10^3/uL (0.0-0.8); MONO % 2.8 % (2.0-8.0); NEUTROPHILS % 56.3 % (36.0-66.0); PLATELET COUNT, AUTOMATED 177 10^3/uL (150-450); RED BLOOD COUNT 2.53 10^6/uL (4.00-5.40); WHITE BLOOD COUNT 3.6 10^3/uL (4.0-10.0)
[2022-05-13 12:32] LABS: MEAN CORPUSCULAR VOLUME 122.7 fl (80.0-96.0)
[2022-05-13 12:33] LABS: MEAN CORPUSCULAR VOLUME 122.5 fl (80.0-96.0)
[2022-05-13 12:54] LABS: ANISOCYTOSIS 3+; OVALOCYTES 2+; PLATELET ESTIMATE NORMAL (NORMAL); POIKILOCYTOSIS 2+
[2022-05-13 13:23] LABS: ALT/SGPT 14 U/L (12-78); BILIRUBIN,TOTAL 1.1 MG/DL (0.2-1.0); BLOOD UREA NITROGEN 19 MG/DL (7-18); CALCIUM LEVEL 8.8 MG/DL (8.5-10.1); CARBON DIOXIDE LEVEL 23 MEQ/L (21-32); CHLORIDE LEVEL 109 MEQ/L (98-107); CREATININE FOR GFR 0.84 MG/DL (0.55-1.30); GLOMERULAR FILTRATION RATE > 60.0 (>51); GLUCOSE, FASTING 104 MG/DL (70-100); POTASSIUM SERUM 4.2 MEQ/L (3.5-5.1); SODIUM LEVEL 139 MEQ/L (136-145); TOTAL PROTEIN 7.8 GM/DL (6.4-8.2)
[2022-05-13 13:25] LABS: ALT/SGPT 13 U/L (12-78); BILIRUBIN,TOTAL 1.1 MG/DL (0.2-1.0); BLOOD UREA NITROGEN 18 MG/DL (7-18); CARBON DIOXIDE LEVEL 24 MEQ/L (21-32); CHLORIDE LEVEL 109 MEQ/L (98-107); CREATININE FOR GFR 0.86 MG/DL (0.55-1.30); GLOMERULAR FILTRATION RATE > 60.0 (>51); GLUCOSE, FASTING 104 MG/DL (70-100); POTASSIUM SERUM 4.3 MEQ/L (3.5-5.1); SODIUM LEVEL 138 MEQ/L (136-145); TOTAL PROTEIN 7.9 GM/DL (6.4-8.2)
[2022-05-15 12:07] LABS: CMV QUANT DNA PCR (PLASMA) Positive < 200 IU/mL (Negative)
== END ==
LOC: M LAB 11:15
PROVIDERS: ATTEND Nurse Practitioner Family
DX: Z94.4 Liver transplant status (principal); B25.9 Cytomegaloviral disease, unspecified

== ENCOUNTER → 2022-05-20 | Outpatient (CLI) | payer MEDICARE, MEDICAID ==
[2022-05-20 12:06] LABS: BASO # 0.1 10^3/uL (0.0-0.2); BASO % 1.7 % (0.0-1.0); HEMATOCRIT 29.8 % (36.0-47.0); HEMOGLOBIN 9.9 g/dl (12.0-15.5); LYMPH # 1.4 10^3/uL (1.5-5.0); LYMPH % 37.6 % (24.0-44.0); MEAN CORPUSCULAR HEMOGLOBIN 41.8 pg (27.0-33.0); MEAN CORPUSCULAR HGB CONC 33.2 g/dl (32.0-36.5); MONO # 0.1 10^3/uL (0.0-0.8); MONO % 3.6 % (2.0-8.0); NEUTROPHILS % 56.5 % (36.0-66.0); PLATELET COUNT, AUTOMATED 141 10^3/uL (150-450); RED BLOOD COUNT 2.37 10^6/uL (4.00-5.40); WHITE BLOOD COUNT 3.6 10^3/uL (4.0-10.0)
[2022-05-20 12:09] LABS: MEAN CORPUSCULAR VOLUME 125.7 fl (80.0-96.0)
[2022-05-20 12:34] LABS: ALT/SGPT 16 U/L (12-78); BILIRUBIN,TOTAL 1.3 MG/DL (0.2-1.0); BLOOD UREA NITROGEN 23 MG/DL (7-18); CARBON DIOXIDE LEVEL 24 MEQ/L (21-32); CHLORIDE LEVEL 108 MEQ/L (98-107); CREATININE FOR GFR 0.84 MG/DL (0.55-1.30); GLOMERULAR FILTRATION RATE > 60.0 (>51); GLUCOSE, FASTING 89 MG/DL (70-100); POTASSIUM SERUM 4.7 MEQ/L (3.5-5.1); SODIUM LEVEL 136 MEQ/L (136-145); TOTAL PROTEIN 7.6 GM/DL (6.4-8.2)
== END ==
LOC: M LAB 11:36
PROVIDERS: ATTEND Nurse Practitioner Family
DX: Z94.4 Liver transplant status (principal)

== ENCOUNTER → 2022-05-20 | Outpatient (CLI) | payer MEDICARE, MEDICAID ==
[2022-05-20 12:06] LABS: BASO # 0.1 10^3/uL (0.0-0.2); BASO % 1.7 % (0.0-1.0); HEMATOCRIT 30.7 % (36.0-47.0); HEMOGLOBIN 10.1 g/dl (12.0-15.5); LYMPH # 1.4 10^3/uL (1.5-5.0); LYMPH % 37.9 % (24.0-44.0); MEAN CORPUSCULAR HEMOGLOBIN 40.7 pg (27.0-33.0); MEAN CORPUSCULAR HGB CONC 32.9 g/dl (32.0-36.5); MONO # 0.1 10^3/uL (0.0-0.8); MONO % 3.7 % (2.0-8.0); NEUTROPHILS % 55.9 % (36.0-66.0); PLATELET COUNT, AUTOMATED 143 10^3/uL (150-450); RED BLOOD COUNT 2.48 10^6/uL (4.00-5.40); WHITE BLOOD COUNT 3.6 10^3/uL (4.0-10.0)
[2022-05-20 12:10] LABS: MEAN CORPUSCULAR VOLUME 123.8 fl (80.0-96.0)
[2022-05-20 12:33] LABS: ALBUMIN 2.9 GM/DL (3.2-5.2); ALT/SGPT 16 U/L (12-78); BILIRUBIN,TOTAL 1.3 MG/DL (0.2-1.0); BLOOD UREA NITROGEN 23 MG/DL (7-18); CARBON DIOXIDE LEVEL 23 MEQ/L (21-32); CHLORIDE LEVEL 107 MEQ/L (98-107); CREATININE FOR GFR 0.78 MG/DL (0.55-1.30); GLOMERULAR FILTRATION RATE > 60.0 (>51); GLUCOSE, FASTING 87 MG/DL (70-100); POTASSIUM SERUM 4.5 MEQ/L (3.5-5.1); SODIUM LEVEL 135 MEQ/L (136-145); TOTAL PROTEIN 7.5 GM/DL (6.4-8.2)
[2022-05-20 13:03] LABS: PLATELET ESTIMATE DECREASED (NORMAL)
[2022-05-23 15:09] LABS: CMV QUANT DNA PCR (PLASMA) Negative (Negative)
== END ==
LOC: M LAB 11:33
PROVIDERS: ATTEND Internal Medicine Infectious Disease
DX: B25.9 Cytomegaloviral disease, unspecified (principal); Z94.4 Liver transplant status

== ENCOUNTER → 2022-05-27 | Outpatient (CLI) | payer MEDICARE, MEDICAID ==
[2022-05-27 12:56] LABS: BASO # 0.1 10^3/uL (0.0-0.2); EOS % 0.2 % (0.0-3.0); HEMATOCRIT 30.9 % (36.0-47.0); HEMOGLOBIN 10.1 g/dl (12.0-15.5); LYMPH # 1.3 10^3/uL (1.5-5.0); LYMPH % 21.6 % (24.0-44.0); MEAN CORPUSCULAR HEMOGLOBIN 41.9 pg (27.0-33.0); MEAN CORPUSCULAR HGB CONC 32.7 g/dl (32.0-36.5); MEAN CORPUSCULAR VOLUME 128.2 fl (80.0-96.0); MONO # 0.5 10^3/uL (0.0-0.8); MONO % 7.5 % (2.0-8.0); NEUTROPHILS # 4.1 10^3/uL (1.5-8.5); NEUTROPHILS % 69.2 % (36.0-66.0); PLATELET COUNT, AUTOMATED 224 10^3/uL (150-450); RED BLOOD COUNT 2.41 10^6/uL (4.00-5.40)
[2022-05-27 13:26] LABS: ALBUMIN 3.2 GM/DL (3.2-5.2); ALT/SGPT 24 U/L (12-78); BILIRUBIN,TOTAL 1.5 MG/DL (0.2-1.0); BLOOD UREA NITROGEN 20 MG/DL (7-18); CALCIUM LEVEL 9.2 MG/DL (8.5-10.1); CARBON DIOXIDE LEVEL 23 MEQ/L (21-32); CHLORIDE LEVEL 108 MEQ/L (98-107); CREATININE FOR GFR 0.75 MG/DL (0.55-1.30); GLOMERULAR FILTRATION RATE > 60.0 (>51); GLUCOSE, FASTING 130 MG/DL (70-100); POTASSIUM SERUM 4.3 MEQ/L (3.5-5.1); SODIUM LEVEL 137 MEQ/L (136-145)
== END ==
LOC: M LAB 11:32
PROVIDERS: ATTEND Nurse Practitioner Family
DX: Z94.4 Liver transplant status (principal)

== ENCOUNTER → 2022-05-27 | Outpatient (CLI) | payer MEDICARE, MEDICAID ==
[2022-05-27 12:38] LABS: BASO # 0.1 10^3/uL (0.0-0.2); BASO % 0.9 % (0.0-1.0); EOS % 0.2 % (0.0-3.0); HEMATOCRIT 32.5 % (36.0-47.0); HEMOGLOBIN 10.4 g/dl (12.0-15.5); LYMPH # 1.1 10^3/uL (1.5-5.0); LYMPH % 20.6 % (24.0-44.0); MEAN CORPUSCULAR HEMOGLOBIN 41.1 pg (27.0-33.0); MONO # 0.4 10^3/uL (0.0-0.8); MONO % 6.3 % (2.0-8.0); NEUTROPHILS % 71.5 % (36.0-66.0); PLATELET COUNT, AUTOMATED 223 10^3/uL (150-450); RED BLOOD COUNT 2.53 10^6/uL (4.00-5.40); WHITE BLOOD COUNT 5.5 10^3/uL (4.0-10.0)
[2022-05-27 12:41] LABS: MEAN CORPUSCULAR VOLUME 128.5 fl (80.0-96.0)
[2022-05-27 14:21] LABS: ALBUMIN 3.1 GM/DL (3.2-5.2); ALT/SGPT 23 U/L (12-78); BILIRUBIN,TOTAL 1.4 MG/DL (0.2-1.0); BLOOD UREA NITROGEN 20 MG/DL (7-18); CALCIUM LEVEL 9.1 MG/DL (8.5-10.1); CARBON DIOXIDE LEVEL 22 MEQ/L (21-32); CHLORIDE LEVEL 107 MEQ/L (98-107); CREATININE FOR GFR 0.84 MG/DL (0.55-1.30); GLOMERULAR FILTRATION RATE > 60.0 (>51); GLUCOSE, FASTING 117 MG/DL (70-100); POTASSIUM SERUM 4.4 MEQ/L (3.5-5.1); SODIUM LEVEL 134 MEQ/L (136-145); TOTAL PROTEIN 8.1 GM/DL (6.4-8.2)
[2022-05-29 16:08] LABS: CMV QUANT DNA PCR (PLASMA) Positive < 200 IU/mL (Negative)
== END ==
LOC: M LAB 11:29
PROVIDERS: ATTEND Internal Medicine Infectious Disease
DX: B25.9 Cytomegaloviral disease, unspecified (principal)

== ENCOUNTER → 2022-05-30 | Outpatient (CLI) | payer MEDICARE, MEDICAID | LOC: M LAB 10:21 | PROVIDERS: ATTEND Internal Medicine Infectious Disease | DX: B25.9 Cytomegaloviral disease, unspecified (principal) ==

== ENCOUNTER → 2022-05-30 | Outpatient (CLI) | payer MEDICARE, MEDICAID ==
[2022-05-30 11:16] LABS: BASO % 0.8 % (0.0-1.0); EOS % 0.2 % (0.0-3.0); HEMOGLOBIN 9.9 g/dl (12.0-15.5); LYMPH # 0.9 10^3/uL (1.5-5.0); LYMPH % 19.3 % (24.0-44.0); MEAN CORPUSCULAR HEMOGLOBIN 42.3 pg (27.0-33.0); MONO # 0.3 10^3/uL (0.0-0.8); MONO % 6.9 % (2.0-8.0); NEUTROPHILS # 3.4 10^3/uL (1.5-8.5); NEUTROPHILS % 72.2 % (36.0-66.0); PLATELET COUNT, AUTOMATED 236 10^3/uL (150-450); RED BLOOD COUNT 2.34 10^6/uL (4.00-5.40); WHITE BLOOD COUNT 4.8 10^3/uL (4.0-10.0)
[2022-05-30 11:19] LABS: MEAN CORPUSCULAR VOLUME 128.2 fl (80.0-96.0)
[2022-05-30 11:54] LABS: ALBUMIN 3.1 GM/DL (3.2-5.2); ALT/SGPT 22 U/L (12-78); BLOOD UREA NITROGEN 27 MG/DL (7-18); CALCIUM LEVEL 8.9 MG/DL (8.5-10.1); CARBON DIOXIDE LEVEL 22 MEQ/L (21-32); CHLORIDE LEVEL 108 MEQ/L (98-107); CREATININE FOR GFR 0.82 MG/DL (0.55-1.30); GLOMERULAR FILTRATION RATE > 60.0 (>51); GLUCOSE, FASTING 118 MG/DL (70-100); POTASSIUM SERUM 4.3 MEQ/L (3.5-5.1); SODIUM LEVEL 138 MEQ/L (136-145); TOTAL PROTEIN 7.7 GM/DL (6.4-8.2)
[2022-06-02 20:12] LABS: CMV QUANT DNA PCR (PLASMA) Positive < 200 IU/mL (Negative)
== END ==
LOC: M LAB 10:27
PROVIDERS: ATTEND Nurse Practitioner Family
DX: Z94.4 Liver transplant status (principal)

== ENCOUNTER → 2022-06-03 | Outpatient (CLI) | payer MEDICARE, MEDICAID ==
[2022-06-03 11:23] LABS: BASO # 0.1 10^3/uL (0.0-0.2); BASO % 1.2 % (0.0-1.0); EOS % 0.8 % (0.0-3.0); HEMATOCRIT 28.8 % (36.0-47.0); HEMOGLOBIN 9.2 g/dl (12.0-15.5); LYMPH # 1.4 10^3/uL (1.5-5.0); LYMPH % 28.1 % (24.0-44.0); MEAN CORPUSCULAR HEMOGLOBIN 41.3 pg (27.0-33.0); MEAN CORPUSCULAR HGB CONC 31.9 g/dl (32.0-36.5); MONO # 0.4 10^3/uL (0.0-0.8); MONO % 8.6 % (2.0-8.0); NEUTROPHILS % 60.1 % (36.0-66.0); PLATELET COUNT, AUTOMATED 249 10^3/uL (150-450); RED BLOOD COUNT 2.23 10^6/uL (4.00-5.40); WHITE BLOOD COUNT 4.9 10^3/uL (4.0-10.0)
[2022-06-03 11:26] LABS: MEAN CORPUSCULAR VOLUME 129.1 fl (80.0-96.0)
[2022-06-03 12:27] LABS: BLOOD UREA NITROGEN 21 MG/DL (7-18); CARBON DIOXIDE LEVEL 25 MEQ/L (21-32); CHLORIDE LEVEL 108 MEQ/L (98-107); CREATININE FOR GFR 0.72 MG/DL (0.55-1.30); GLOMERULAR FILTRATION RATE > 60.0 (>51); GLUCOSE, FASTING 96 MG/DL (70-100); POTASSIUM SERUM 4.4 MEQ/L (3.5-5.1); SODIUM LEVEL 136 MEQ/L (136-145)
[2022-06-03 12:28] LABS: ALBUMIN 2.7 GM/DL (3.2-5.2); ALT/SGPT 24 U/L (12-78); BILIRUBIN,TOTAL 1.7 MG/DL (0.2-1.0); TOTAL PROTEIN 7.1 GM/DL (6.4-8.2)
[2022-06-06 21:08] LABS: CMV QUANT DNA PCR (PLASMA) Positive < 200 IU/mL (Negative)
== END ==
LOC: M LAB 10:25
PROVIDERS: ATTEND Internal Medicine Infectious Disease
DX: B25.9 Cytomegaloviral disease, unspecified (principal); Z94.4 Liver transplant status

== ENCOUNTER → 2022-06-03 | Outpatient (CLI) | payer MEDICARE, MEDICAID ==
[2022-06-03 11:22] LABS: BASO % 0.8 % (0.0-1.0); EOS % 0.6 % (0.0-3.0); HEMATOCRIT 28.2 % (36.0-47.0); HEMOGLOBIN 9.2 g/dl (12.0-15.5); LYMPH # 1.3 10^3/uL (1.5-5.0); LYMPH % 27.3 % (24.0-44.0); MEAN CORPUSCULAR HEMOGLOBIN 42.6 pg (27.0-33.0); MEAN CORPUSCULAR HGB CONC 32.6 g/dl (32.0-36.5); MONO # 0.4 10^3/uL (0.0-0.8); MONO % 8.8 % (2.0-8.0); NEUTROPHILS % 60.7 % (36.0-66.0); PLATELET COUNT, AUTOMATED 240 10^3/uL (150-450); RED BLOOD COUNT 2.16 10^6/uL (4.00-5.40); WHITE BLOOD COUNT 4.9 10^3/uL (4.0-10.0)
[2022-06-03 11:26] LABS: MEAN CORPUSCULAR VOLUME 130.6 fl (80.0-96.0)
[2022-06-03 12:40] LABS: ALBUMIN 2.7 GM/DL (3.2-5.2); ALT/SGPT 25 U/L (12-78); BILIRUBIN,TOTAL 1.7 MG/DL (0.2-1.0); BLOOD UREA NITROGEN 21 MG/DL (7-18); CALCIUM LEVEL 9.1 MG/DL (8.5-10.1); CARBON DIOXIDE LEVEL 25 MEQ/L (21-32); CHLORIDE LEVEL 108 MEQ/L (98-107); CREATININE FOR GFR 0.74 MG/DL (0.55-1.30); GLOMERULAR FILTRATION RATE > 60.0 (>51); GLUCOSE, FASTING 95 MG/DL (70-100); POTASSIUM SERUM 4.5 MEQ/L (3.5-5.1); SODIUM LEVEL 137 MEQ/L (136-145); TOTAL PROTEIN 7.3 GM/DL (6.4-8.2)
== END ==
LOC: M LAB 10:21
PROVIDERS: ATTEND Nurse Practitioner Family
DX: Z94.4 Liver transplant status (principal)

== ENCOUNTER → 2022-06-06 | Outpatient (CLI) | payer MEDICARE, MEDICAID ==
[2022-06-06 11:43] LABS: BASO % 0.4 % (0.0-1.0); EOS # 0.1 10^3/uL (0.0-0.5); EOS % 1.1 % (0.0-3.0); HEMATOCRIT 32.1 % (36.0-47.0); HEMOGLOBIN 10.4 g/dl (12.0-15.5); LYMPH # 1.3 10^3/uL (1.5-5.0); LYMPH % 27.6 % (24.0-44.0); MEAN CORPUSCULAR HGB CONC 32.4 g/dl (32.0-36.5); MONO # 0.3 10^3/uL (0.0-0.8); MONO % 6.9 % (2.0-8.0); NEUTROPHILS % 63.1 % (36.0-66.0); PLATELET COUNT, AUTOMATED 219 10^3/uL (150-450); RED BLOOD COUNT 2.42 10^6/uL (4.00-5.40); WHITE BLOOD COUNT 4.7 10^3/uL (4.0-10.0)
[2022-06-06 11:45] LABS: MEAN CORPUSCULAR VOLUME 132.6 fl (80.0-96.0)
[2022-06-06 11:58] LABS: INR 0.82; PROTHROMBIN TIME 11.7 SECONDS (12.7-14.5)
[2022-06-06 11:59] LABS: PARTIAL THROMBOPLASTIN TIME 39.9 SECONDS (25.9-37.0)
[2022-06-06 12:51] LABS: ALBUMIN 3.1 GM/DL (3.2-5.2); ALT/SGPT 28 U/L (12-78); BILIRUBIN,TOTAL 3.5 MG/DL (0.2-1.0); BLOOD UREA NITROGEN 26 MG/DL (7-18); CALCIUM LEVEL 9.1 MG/DL (8.5-10.1); CARBON DIOXIDE LEVEL 20 MEQ/L (21-32); CHLORIDE LEVEL 108 MEQ/L (98-107); CREATININE FOR GFR 0.89 MG/DL (0.55-1.30); FERRITIN 204 NG/ML (8-252); GLOMERULAR FILTRATION RATE > 60.0 (>51); GLUCOSE, FASTING 101 MG/DL (70-100); IRON (FE) 135 UG/DL (50-170); LDH LACTATE DEHYDROGENASE 200 U/L (84-246); PERCENT SATURATION 35.1 % (13.2-45.0); POTASSIUM SERUM 4.4 MEQ/L (3.5-5.1); RHEUMATOID FACTOR QUANT < 10.0 IU/ML (<15.0); SODIUM LEVEL 136 MEQ/L (136-145); TOTAL IRON BINDING CAPACITY 385 UG/DL (250-450); TOTAL PROTEIN 7.9 GM/DL (6.4-8.2)
[2022-06-06 13:24] LABS: VITAMIN B12 LEVEL 508 PG/ML (247-911)
[2022-06-07 08:09] LABS: FOLATE 9.3 ng/mL (>3.0)
[2022-06-07 13:07] LABS: ANTI DOUBLE STRAND-DNA AB 1 IU/mL (0-9); ANTINUCLEAR ANTIBODIES DIRECT Positive (Negative); HAPTOGLOBIN 172 mg/dL (33-346); RNP ANTIBODIES 4.9 AI (0.0-0.9); SJOGREN'S ANTI SS-A 0.3 AI (0.0-0.9); SJOGREN'S ANTI SS-B <0.2 AI (0.0-0.9); SMITH ANTIBODIES <0.2 AI (0.0-0.9)
[2022-06-07 14:13] LABS: ALBUMIN 3.89 GM/DL (3.29-5.55); ALBUMIN % 49.3 % (55.8-66.1); ALPHA-1-GLOBULIN % 6.7 % (2.9-4.9); ALPHA-1-GLOBULINS 0.53 GM/DL (0.17-0.41); ALPHA-2-GLOBULINS 0.97 GM/DL (0.42-0.99); ALPHA-2-GLOBULINS % 12.3 % (7.1-11.8); BETA-1-GLOBULINS % 6.3 % (4.7-7.2); BETA-2-GLOBULINS 0.43 GM/DL (0.19-0.55); BETA-2-GLOBULINS % 5.5 % (3.2-6.5); GAMMA GLOBULIN % 19.9 % (11.1-18.8); GAMMA GLOBULINS 1.57 GM/DL (0.65-1.58)
== END ==
LOC: M LAB 10:43
PROVIDERS: ATTEND Internal Medicine
DX: D53.9 Nutritional anemia, unspecified (principal)

== ENCOUNTER → 2022-06-06 | Outpatient (CLI) | payer MEDICARE, MEDICAID ==
[2022-06-06 11:30] LABS: BASO % 0.7 % (0.0-1.0); EOS # 0.1 10^3/uL (0.0-0.5); EOS % 1.1 % (0.0-3.0); HEMATOCRIT 32.6 % (36.0-47.0); HEMOGLOBIN 10.5 g/dl (12.0-15.5); LYMPH # 1.3 10^3/uL (1.5-5.0); LYMPH % 27.9 % (24.0-44.0); MEAN CORPUSCULAR HEMOGLOBIN 42.5 pg (27.0-33.0); MEAN CORPUSCULAR HGB CONC 32.2 g/dl (32.0-36.5); MONO # 0.3 10^3/uL (0.0-0.8); MONO % 7.3 % (2.0-8.0); NEUTROPHILS # 2.8 10^3/uL (1.5-8.5); NEUTROPHILS % 62.3 % (36.0-66.0); PLATELET COUNT, AUTOMATED 220 10^3/uL (150-450); RED BLOOD COUNT 2.47 10^6/uL (4.00-5.40); WHITE BLOOD COUNT 4.6 10^3/uL (4.0-10.0)
[2022-06-06 12:16] LABS: ALBUMIN 3.2 GM/DL (3.2-5.2); ALT/SGPT 30 U/L (12-78); BILIRUBIN,TOTAL 3.6 MG/DL (0.2-1.0); BLOOD UREA NITROGEN 25 MG/DL (7-18); CALCIUM LEVEL 9.2 MG/DL (8.5-10.1); CARBON DIOXIDE LEVEL 23 MEQ/L (21-32); CHLORIDE LEVEL 106 MEQ/L (98-107); CREATININE FOR GFR 0.94 MG/DL (0.55-1.30); GLOMERULAR FILTRATION RATE > 60.0 (>51); GLUCOSE, FASTING 97 MG/DL (70-100); POTASSIUM SERUM 4.2 MEQ/L (3.5-5.1); SODIUM LEVEL 135 MEQ/L (136-145); TOTAL PROTEIN 8.3 GM/DL (6.4-8.2)
== END ==
LOC: M LAB 10:34
PROVIDERS: ATTEND Nurse Practitioner Family
DX: Z94.4 Liver transplant status (principal)

== ENCOUNTER → 2022-06-06 | Outpatient (CLI) | payer MEDICARE, MEDICAID ==
[2022-06-06 11:43] LABS: BASO % 0.4 % (0.0-1.0); EOS % 0.9 % (0.0-3.0); HEMOGLOBIN 10.6 g/dl (12.0-15.5); LYMPH # 1.3 10^3/uL (1.5-5.0); MEAN CORPUSCULAR HEMOGLOBIN 42.1 pg (27.0-33.0); MEAN CORPUSCULAR HGB CONC 32.1 g/dl (32.0-36.5); MONO # 0.3 10^3/uL (0.0-0.8); NEUTROPHILS % 63.8 % (36.0-66.0); PLATELET COUNT, AUTOMATED 228 10^3/uL (150-450); RED BLOOD COUNT 2.52 10^6/uL (4.00-5.40); WHITE BLOOD COUNT 4.7 10^3/uL (4.0-10.0)
[2022-06-06 12:44] LABS: ALT/SGPT 30 U/L (12-78); BILIRUBIN,TOTAL 3.5 MG/DL (0.2-1.0); BLOOD UREA NITROGEN 25 MG/DL (7-18); CALCIUM LEVEL 9.2 MG/DL (8.5-10.1); CARBON DIOXIDE LEVEL 21 MEQ/L (21-32); CHLORIDE LEVEL 108 MEQ/L (98-107); CREATININE FOR GFR 0.88 MG/DL (0.55-1.30); GLOMERULAR FILTRATION RATE > 60.0 (>51); GLUCOSE, FASTING 102 MG/DL (70-100); POTASSIUM SERUM 4.5 MEQ/L (3.5-5.1); SODIUM LEVEL 137 MEQ/L (136-145); TOTAL PROTEIN 7.7 GM/DL (6.4-8.2)
== END ==
LOC: M LAB 10:38
PROVIDERS: ATTEND Internal Medicine Infectious Disease
DX: B25.9 Cytomegaloviral disease, unspecified (principal)

== ENCOUNTER → 2022-06-10 | Outpatient (CLI) | payer MEDICARE, MEDICAID | LOC: M RAD 10:37 | DX: Z94.4 Liver transplant status (principal); R16.2 Hepatomegaly with splenomegaly, not elsewhere classified ==

== ENCOUNTER → 2022-06-10 | Outpatient (CLI) | payer MEDICARE, MEDICAID ==
[2022-06-10 12:31] LABS: ALBUMIN 2.9 GM/DL (3.2-5.2); ALT/SGPT 33 U/L (12-78); BILIRUBIN,TOTAL 2.3 MG/DL (0.2-1.0); BLOOD UREA NITROGEN 21 MG/DL (7-18); CALCIUM LEVEL 8.8 MG/DL (8.5-10.1); CARBON DIOXIDE LEVEL 23 MEQ/L (21-32); CHLORIDE LEVEL 109 MEQ/L (98-107); GLOMERULAR FILTRATION RATE > 60.0 (>51); GLUCOSE, FASTING 105 MG/DL (70-100); POTASSIUM SERUM 4.6 MEQ/L (3.5-5.1); SODIUM LEVEL 139 MEQ/L (136-145); TOTAL PROTEIN 7.2 GM/DL (6.4-8.2)
[2022-06-10 12:41] LABS: BASO % 0.7 % (0.0-1.0); EOS # 0.1 10^3/uL (0.0-0.5); HEMATOCRIT 32.2 % (36.0-47.0); HEMOGLOBIN 10.2 g/dl (12.0-15.5); LYMPH # 1.2 10^3/uL (1.5-5.0); LYMPH % 20.6 % (24.0-44.0); MEAN CORPUSCULAR HEMOGLOBIN 42.7 pg (27.0-33.0); MEAN CORPUSCULAR HGB CONC 31.7 g/dl (32.0-36.5); MONO # 0.4 10^3/uL (0.0-0.8); MONO % 7.4 % (2.0-8.0); NEUTROPHILS % 69.4 % (36.0-66.0); PLATELET COUNT, AUTOMATED 180 10^3/uL (150-450); RED BLOOD COUNT 2.39 10^6/uL (4.00-5.40); WHITE BLOOD COUNT 5.8 10^3/uL (4.0-10.0)
[2022-06-10 12:43] LABS: MEAN CORPUSCULAR VOLUME 134.7 fl (80.0-96.0)
== END ==
LOC: M LAB 10:33
PROVIDERS: ATTEND Nurse Practitioner Family
DX: Z94.4 Liver transplant status (principal)

== ENCOUNTER → 2022-06-10 | Outpatient (CLI) | payer MEDICARE, MEDICAID ==
[2022-06-10 11:29] LABS: BASO % 0.7 % (0.0-1.0); EOS # 0.1 10^3/uL (0.0-0.5); EOS % 1.1 % (0.0-3.0); HEMATOCRIT 32.2 % (36.0-47.0); HEMOGLOBIN 10.3 g/dl (12.0-15.5); LYMPH # 1.2 10^3/uL (1.5-5.0); LYMPH % 21.6 % (24.0-44.0); MEAN CORPUSCULAR HEMOGLOBIN 42.6 pg (27.0-33.0); MONO # 0.4 10^3/uL (0.0-0.8); NEUTROPHILS # 3.9 10^3/uL (1.5-8.5); NEUTROPHILS % 68.7 % (36.0-66.0); PLATELET COUNT, AUTOMATED 175 10^3/uL (150-450); RED BLOOD COUNT 2.42 10^6/uL (4.00-5.40); WHITE BLOOD COUNT 5.6 10^3/uL (4.0-10.0)
[2022-06-10 11:32] LABS: MEAN CORPUSCULAR VOLUME 133.1 fl (80.0-96.0)
[2022-06-10 12:26] LABS: ALT/SGPT 34 U/L (12-78); BILIRUBIN,TOTAL 2.5 MG/DL (0.2-1.0); BLOOD UREA NITROGEN 20 MG/DL (7-18); CALCIUM LEVEL 9.2 MG/DL (8.5-10.1); CARBON DIOXIDE LEVEL 22 MEQ/L (21-32); CHLORIDE LEVEL 108 MEQ/L (98-107); CREATININE FOR GFR 0.81 MG/DL (0.55-1.30); GLOMERULAR FILTRATION RATE > 60.0 (>51); GLUCOSE, FASTING 109 MG/DL (70-100); POTASSIUM SERUM 4.2 MEQ/L (3.5-5.1); SODIUM LEVEL 137 MEQ/L (136-145); TOTAL PROTEIN 7.7 GM/DL (6.4-8.2)
[2022-06-10 12:29] LABS: PLATELET ESTIMATE NORMAL (NORMAL); TEAR DROP CELLS 1+
[2022-06-10 12:30] LABS: POLYCHROMASIA 1+
[2022-06-11 20:07] LABS: CMV QUANT DNA PCR (PLASMA) Positive < 200 IU/mL (Negative)
== END ==
LOC: M LAB 10:26
PROVIDERS: ATTEND Internal Medicine Infectious Disease
DX: B25.9 Cytomegaloviral disease, unspecified (principal)

== ENCOUNTER → 2022-06-13 | Outpatient (CLI) | payer MEDICARE, MEDICAID ==
[2022-06-14 23:07] LABS: HBV HBV DNA not detected IU/mL (.)
== END ==
LOC: M LAB 11:02
DX: Z94.4 Liver transplant status (principal); B25.9 Cytomegaloviral disease, unspecified

== ENCOUNTER → 2022-06-13 | Outpatient (CLI) | payer MEDICARE, MEDICAID ==
[2022-06-13 12:16] LABS: BASO % 0.6 % (0.0-1.0); EOS # 0.1 10^3/uL (0.0-0.5); EOS % 0.8 % (0.0-3.0); HEMOGLOBIN 10.4 g/dl (12.0-15.5); LYMPH # 1.3 10^3/uL (1.5-5.0); LYMPH % 19.6 % (24.0-44.0); MEAN CORPUSCULAR HEMOGLOBIN 42.4 pg (27.0-33.0); MEAN CORPUSCULAR HGB CONC 31.5 g/dl (32.0-36.5); MONO # 0.4 10^3/uL (0.0-0.8); MONO % 5.9 % (2.0-8.0); NEUTROPHILS # 4.8 10^3/uL (1.5-8.5); NEUTROPHILS % 72.2 % (36.0-66.0); PLATELET COUNT, AUTOMATED 184 10^3/uL (150-450); RED BLOOD COUNT 2.45 10^6/uL (4.00-5.40); WHITE BLOOD COUNT 6.6 10^3/uL (4.0-10.0)
[2022-06-13 12:20] LABS: MEAN CORPUSCULAR VOLUME 134.7 fl (80.0-96.0)
[2022-06-13 12:51] LABS: TEAR DROP CELLS 2+
[2022-06-13 12:53] LABS: PLATELET ESTIMATE NORMAL (NORMAL); POLYCHROMASIA 1+
[2022-06-13 12:54] LABS: OVALOCYTES 1+
[2022-06-13 13:11] LABS: ALBUMIN 3.2 GM/DL (3.2-5.2); ALT/SGPT 31 U/L (12-78); BILIRUBIN,TOTAL 3.5 MG/DL (0.2-1.0); BLOOD UREA NITROGEN 22 MG/DL (7-18); CALCIUM LEVEL 9.7 MG/DL (8.5-10.1); CARBON DIOXIDE LEVEL 22 MEQ/L (21-32); CHLORIDE LEVEL 105 MEQ/L (98-107); CREATININE FOR GFR 0.82 MG/DL (0.55-1.30); GLOMERULAR FILTRATION RATE > 60.0 (>51); GLUCOSE, FASTING 103 MG/DL (70-100); POTASSIUM SERUM 4.4 MEQ/L (3.5-5.1); SODIUM LEVEL 134 MEQ/L (136-145); TOTAL PROTEIN 8.3 GM/DL (6.4-8.2)
[2022-06-15 00:11] LABS: CMV QUANT DNA PCR (PLASMA) Positive < 200 IU/mL (Negative)
== END ==
LOC: M LAB 10:33
PROVIDERS: ATTEND Internal Medicine Infectious Disease
DX: B25.9 Cytomegaloviral disease, unspecified (principal); Z94.4 Liver transplant status

== ENCOUNTER → 2022-06-13 | Outpatient (CLI) | payer MEDICARE, MEDICAID ==
[2022-06-13 12:17] LABS: BASO # 0.1 10^3/uL (0.0-0.2); BASO % 0.8 % (0.0-1.0); EOS # 0.1 10^3/uL (0.0-0.5); HEMATOCRIT 33.4 % (36.0-47.0); HEMOGLOBIN 10.7 g/dl (12.0-15.5); LYMPH # 1.3 10^3/uL (1.5-5.0); LYMPH % 20.3 % (24.0-44.0); MONO # 0.4 10^3/uL (0.0-0.8); MONO % 5.7 % (2.0-8.0); NEUTROPHILS # 4.5 10^3/uL (1.5-8.5); NEUTROPHILS % 71.2 % (36.0-66.0); PLATELET COUNT, AUTOMATED 194 10^3/uL (150-450); RED BLOOD COUNT 2.49 10^6/uL (4.00-5.40); WHITE BLOOD COUNT 6.3 10^3/uL (4.0-10.0)
[2022-06-13 12:21] LABS: MEAN CORPUSCULAR VOLUME 134.1 fl (80.0-96.0)
[2022-06-13 12:54] LABS: OVALOCYTES 1+; POLYCHROMASIA 1+; TEAR DROP CELLS 2+
[2022-06-13 12:55] LABS: PLATELET ESTIMATE NORMAL (NORMAL)
[2022-06-13 13:12] LABS: ALBUMIN 3.1 GM/DL (3.2-5.2); ALT/SGPT 31 U/L (12-78); BILIRUBIN,TOTAL 3.5 MG/DL (0.2-1.0); BLOOD UREA NITROGEN 22 MG/DL (7-18); CALCIUM LEVEL 9.7 MG/DL (8.5-10.1); CARBON DIOXIDE LEVEL 22 MEQ/L (21-32); CHLORIDE LEVEL 105 MEQ/L (98-107); GLOMERULAR FILTRATION RATE > 60.0 (>51); GLUCOSE, FASTING 103 MG/DL (70-100); POTASSIUM SERUM 4.4 MEQ/L (3.5-5.1); SODIUM LEVEL 134 MEQ/L (136-145); TOTAL PROTEIN 8.4 GM/DL (6.4-8.2)
== END ==
LOC: M LAB 10:45
PROVIDERS: ATTEND Nurse Practitioner Family
DX: Z94.4 Liver transplant status (principal)

== ENCOUNTER → 2022-06-20 | Outpatient (CLI) | payer MEDICARE, MEDICAID ==
[2022-06-20 11:26] LABS: HEMATOCRIT 31.8 % (36.0-47.0); HEMOGLOBIN 10.2 g/dl (12.0-15.5); MEAN CORPUSCULAR HEMOGLOBIN 42.7 pg (27.0-33.0); RED BLOOD COUNT 2.39 10^6/uL (4.00-5.40); WHITE BLOOD COUNT 5.2 10^3/uL (4.0-10.0)
[2022-06-20 11:27] LABS: BASO % 0.8 % (0.0-1.0); EOS # 0.1 10^3/uL (0.0-0.5); EOS % 1.4 % (0.0-3.0); LYMPH # 1.1 10^3/uL (1.5-5.0); LYMPH % 21.6 % (24.0-44.0); MEAN CORPUSCULAR HGB CONC 32.1 g/dl (32.0-36.5); MEAN CORPUSCULAR VOLUME 133.1 fl (80.0-96.0); MONO # 0.3 10^3/uL (0.0-0.8); NEUTROPHILS # 3.6 10^3/uL (1.5-8.5); PLATELET COUNT, AUTOMATED 187 10^3/uL (150-450)
[2022-06-20 12:32] LABS: ALBUMIN 2.7 GM/DL (3.2-5.2); ALT/SGPT 29 U/L (12-78); BILIRUBIN,TOTAL 2.7 MG/DL (0.2-1.0); BLOOD UREA NITROGEN 25 MG/DL (7-18); CALCIUM LEVEL 9.1 MG/DL (8.5-10.1); CARBON DIOXIDE LEVEL 22 MEQ/L (21-32); CHLORIDE LEVEL 106 MEQ/L (98-107); GLOMERULAR FILTRATION RATE > 60.0 (>51); GLUCOSE, FASTING 107 MG/DL (70-100); POTASSIUM SERUM 4.4 MEQ/L (3.5-5.1); SODIUM LEVEL 135 MEQ/L (136-145); TOTAL PROTEIN 7.2 GM/DL (6.4-8.2)
== END ==
LOC: M LAB 10:42
PROVIDERS: ATTEND Nurse Practitioner Family
DX: Z94.4 Liver transplant status (principal)

== ENCOUNTER → 2022-06-20 | Outpatient (CLI) | payer MEDICARE, MEDICAID ==
[2022-06-20 11:26] LABS: BASO % 0.6 % (0.0-1.0); EOS # 0.1 10^3/uL (0.0-0.5); EOS % 1.1 % (0.0-3.0); HEMATOCRIT 32.5 % (36.0-47.0); HEMOGLOBIN 10.4 g/dl (12.0-15.5); LYMPH # 1.2 10^3/uL (1.5-5.0); LYMPH % 22.7 % (24.0-44.0); MEAN CORPUSCULAR HEMOGLOBIN 42.3 pg (27.0-33.0); MONO # 0.3 10^3/uL (0.0-0.8); MONO % 5.3 % (2.0-8.0); NEUTROPHILS # 3.6 10^3/uL (1.5-8.5); NEUTROPHILS % 69.3 % (36.0-66.0); PLATELET COUNT, AUTOMATED 201 10^3/uL (150-450); RED BLOOD COUNT 2.46 10^6/uL (4.00-5.40); WHITE BLOOD COUNT 5.2 10^3/uL (4.0-10.0)
[2022-06-20 11:28] LABS: MEAN CORPUSCULAR VOLUME 132.1 fl (80.0-96.0)
[2022-06-20 11:47] LABS: OVALOCYTES 1+
[2022-06-20 11:48] LABS: TEAR DROP CELLS 2+
[2022-06-20 11:50] LABS: PLATELET ESTIMATE NORMAL (NORMAL)
[2022-06-20 12:33] LABS: ALBUMIN 2.8 GM/DL (3.2-5.2); ALT/SGPT 23 U/L (12-78); BILIRUBIN,TOTAL 2.7 MG/DL (0.2-1.0); BLOOD UREA NITROGEN 25 MG/DL (7-18); CALCIUM LEVEL 9.1 MG/DL (8.5-10.1); CARBON DIOXIDE LEVEL 22 MEQ/L (21-32); CHLORIDE LEVEL 106 MEQ/L (98-107); CREATININE FOR GFR 0.82 MG/DL (0.55-1.30); GLOMERULAR FILTRATION RATE > 60.0 (>51); GLUCOSE, FASTING 105 MG/DL (70-100); POTASSIUM SERUM 4.5 MEQ/L (3.5-5.1); SODIUM LEVEL 135 MEQ/L (136-145); TOTAL PROTEIN 7.3 GM/DL (6.4-8.2)
[2022-06-22 00:12] LABS: CMV QUANT DNA PCR (PLASMA) Positive < 200 IU/mL (Negative)
== END ==
LOC: M LAB 10:36
PROVIDERS: ATTEND Internal Medicine Infectious Disease
DX: B25.9 Cytomegaloviral disease, unspecified (principal); Z94.4 Liver transplant status

== ENCOUNTER → 2022-06-24 | Outpatient (CLI) | payer MEDICARE, MEDICAID | LOC: M LAB 11:12 | PROVIDERS: ATTEND Nurse Practitioner Family | DX: Z94.4 Liver transplant status (principal) ==

== ENCOUNTER → 2022-06-24 | Outpatient (CLI) | payer MEDICARE, MEDICAID ==
[2022-06-24 12:51] LABS: BASO # 0.1 10^3/uL (0.0-0.2); BASO % 0.9 % (0.0-1.0); EOS # 0.1 10^3/uL (0.0-0.5); EOS % 0.9 % (0.0-3.0); HEMATOCRIT 37.6 % (36.0-47.0); HEMOGLOBIN 11.9 g/dl (12.0-15.5); LYMPH # 1.4 10^3/uL (1.5-5.0); LYMPH % 25.3 % (24.0-44.0); MEAN CORPUSCULAR HEMOGLOBIN 41.6 pg (27.0-33.0); MEAN CORPUSCULAR HGB CONC 31.6 g/dl (32.0-36.5); MONO # 0.3 10^3/uL (0.0-0.8); MONO % 5.8 % (2.0-8.0); NEUTROPHILS # 3.8 10^3/uL (1.5-8.5); NEUTROPHILS % 66.4 % (36.0-66.0); PLATELET COUNT, AUTOMATED 195 10^3/uL (150-450); RED BLOOD COUNT 2.86 10^6/uL (4.00-5.40); WHITE BLOOD COUNT 5.7 10^3/uL (4.0-10.0)
[2022-06-24 12:58] LABS: MEAN CORPUSCULAR VOLUME 131.5 fl (80.0-96.0)
[2022-06-24 14:00] LABS: ALBUMIN 3.2 GM/DL (3.2-5.2); ALT/SGPT 29 U/L (12-78); BILIRUBIN,TOTAL 2.8 MG/DL (0.2-1.0); BLOOD UREA NITROGEN 23 MG/DL (7-18); CALCIUM LEVEL 9.2 MG/DL (8.5-10.1); CARBON DIOXIDE LEVEL 25 MEQ/L (21-32); CHLORIDE LEVEL 104 MEQ/L (98-107); CREATININE FOR GFR 0.82 MG/DL (0.55-1.30); GLOMERULAR FILTRATION RATE > 60.0 (>51); GLUCOSE, FASTING 87 MG/DL (70-100); POTASSIUM SERUM 4.5 MEQ/L (3.5-5.1); SODIUM LEVEL 133 MEQ/L (136-145); TOTAL PROTEIN 8.4 GM/DL (6.4-8.2)
[2022-06-25 20:07] LABS: CMV QUANT DNA PCR (PLASMA) Positive < 200 IU/mL (Negative)
== END ==
LOC: M LAB 11:08
PROVIDERS: ATTEND Internal Medicine Infectious Disease
DX: B25.9 Cytomegaloviral disease, unspecified (principal); Z94.4 Liver transplant status

== ENCOUNTER → 2022-06-27 | Outpatient (CLI) | payer MEDICARE, MEDICAID ==
[2022-06-27 14:32] LABS: IMMUNOGLOBULIN G 1600 MG/DL (681-1648); IRON (FE) 44 UG/DL (50-170); PERCENT SATURATION 11.8 % (13.2-45.0); TOTAL IRON BINDING CAPACITY 374 UG/DL (250-450)
[2022-06-28 14:19] LABS: VITAMIN B12 LEVEL 464 PG/ML (247-911)
[2022-06-28 17:13] LABS: FREE KAPPA LIGHT CHAINS SERUM 82.4 mg/L (3.3-19.4); FREE LAMBDA LIGHT CHAINS SERUM 57.1 mg/L (5.7-26.3); KAPPA/LAMBDA RATIO SERUM 1.44 (0.26-1.65)
== END ==
LOC: M LAB 12:39
PROVIDERS: ATTEND Internal Medicine
DX: D53.9 Nutritional anemia, unspecified (principal)

== ENCOUNTER → 2022-06-27 | Outpatient (CLI) | payer MEDICARE, MEDICAID ==
[2022-06-27 11:44] LABS: BASO # 0.1 10^3/uL (0.0-0.2); EOS # 0.1 10^3/uL (0.0-0.5); EOS % 0.8 % (0.0-3.0); HEMATOCRIT 36.5 % (36.0-47.0); HEMOGLOBIN 11.5 g/dl (12.0-15.5); LYMPH # 1.5 10^3/uL (1.5-5.0); LYMPH % 24.4 % (24.0-44.0); MEAN CORPUSCULAR HEMOGLOBIN 40.4 pg (27.0-33.0); MEAN CORPUSCULAR HGB CONC 31.5 g/dl (32.0-36.5); MONO # 0.4 10^3/uL (0.0-0.8); MONO % 6.6 % (2.0-8.0); NEUTROPHILS # 4.1 10^3/uL (1.5-8.5); NEUTROPHILS % 66.6 % (36.0-66.0); PLATELET COUNT, AUTOMATED 192 10^3/uL (150-450); RED BLOOD COUNT 2.85 10^6/uL (4.00-5.40); WHITE BLOOD COUNT 6.2 10^3/uL (4.0-10.0)
[2022-06-27 12:09] LABS: MEAN CORPUSCULAR VOLUME 128.1 fl (80.0-96.0)
[2022-06-27 12:50] LABS: ANISOCYTOSIS 1+; PLATELET ESTIMATE NORMAL (NORMAL)
[2022-06-27 12:51] LABS: ALT/SGPT 29 U/L (12-78); BILIRUBIN,TOTAL 2.5 MG/DL (0.2-1.0); BLOOD UREA NITROGEN 20 MG/DL (7-18); CALCIUM LEVEL 9.5 MG/DL (8.5-10.1); CARBON DIOXIDE LEVEL 24 MEQ/L (21-32); CHLORIDE LEVEL 105 MEQ/L (98-107); CREATININE FOR GFR 0.88 MG/DL (0.55-1.30); GLOMERULAR FILTRATION RATE > 60.0 (>51); GLUCOSE, FASTING 99 MG/DL (70-100); SODIUM LEVEL 135 MEQ/L (136-145)
[2022-06-29 00:08] LABS: CMV QUANT DNA PCR (PLASMA) Positive < 200 IU/mL (Negative)
== END ==
LOC: M LAB 10:35
PROVIDERS: ATTEND Internal Medicine Infectious Disease
DX: B25.9 Cytomegaloviral disease, unspecified (principal); Z94.4 Liver transplant status

== ENCOUNTER → 2022-06-27 | Outpatient (CLI) | payer MEDICARE, MEDICAID ==
[2022-06-27 12:39] LABS: BLOOD UREA NITROGEN 21 MG/DL (7-18); CREATININE FOR GFR 0.83 MG/DL (0.55-1.30); GLUCOSE, FASTING 106 MG/DL (70-100)
[2022-06-27 12:40] LABS: ALBUMIN 2.9 GM/DL (3.2-5.2); ALT/SGPT 29 U/L (12-78); BILIRUBIN,TOTAL 2.4 MG/DL (0.2-1.0); CALCIUM LEVEL 9.4 MG/DL (8.5-10.1); CARBON DIOXIDE LEVEL 23 MEQ/L (21-32); CHLORIDE LEVEL 105 MEQ/L (98-107); GLOMERULAR FILTRATION RATE > 60.0 (>51); POTASSIUM SERUM 4.1 MEQ/L (3.5-5.1); SODIUM LEVEL 137 MEQ/L (136-145); TOTAL PROTEIN 7.6 GM/DL (6.4-8.2)
[2022-06-27 12:49] LABS: BASO # 0.1 10^3/uL (0.0-0.2); EOS # 0.1 10^3/uL (0.0-0.5); EOS % 0.8 % (0.0-3.0); HEMATOCRIT 35.2 % (36.0-47.0); HEMOGLOBIN 11.5 g/dl (12.0-15.5); LYMPH # 1.6 10^3/uL (1.5-5.0); LYMPH % 25.8 % (24.0-44.0); MEAN CORPUSCULAR HEMOGLOBIN 41.8 pg (27.0-33.0); MEAN CORPUSCULAR HGB CONC 32.7 g/dl (32.0-36.5); MONO # 0.4 10^3/uL (0.0-0.8); MONO % 6.2 % (2.0-8.0); NEUTROPHILS # 4.1 10^3/uL (1.5-8.5); NEUTROPHILS % 65.6 % (36.0-66.0); PLATELET COUNT, AUTOMATED 200 10^3/uL (150-450); RED BLOOD COUNT 2.75 10^6/uL (4.00-5.40); WHITE BLOOD COUNT 6.3 10^3/uL (4.0-10.0)
== END ==
LOC: M LAB 10:32
PROVIDERS: ATTEND Nurse Practitioner Family
DX: Z94.4 Liver transplant status (principal)

== ENCOUNTER → 2022-07-01 | Outpatient (CLI) | payer MEDICARE, MEDICAID ==
[2022-07-01 11:30] LABS: BASO # 0.1 10^3/uL (0.0-0.2); BASO % 1.3 % (0.0-1.0); EOS # 0.1 10^3/uL (0.0-0.5); EOS % 0.7 % (0.0-3.0); HEMATOCRIT 41.4 % (36.0-47.0); HEMOGLOBIN 13.3 g/dl (12.0-15.5); LYMPH # 1.6 10^3/uL (1.5-5.0); LYMPH % 22.6 % (24.0-44.0); MEAN CORPUSCULAR HEMOGLOBIN 40.5 pg (27.0-33.0); MEAN CORPUSCULAR HGB CONC 32.1 g/dl (32.0-36.5); MONO # 0.4 10^3/uL (0.0-0.8); MONO % 5.4 % (2.0-8.0); NEUTROPHILS # 4.9 10^3/uL (1.5-8.5); NEUTROPHILS % 69.4 % (36.0-66.0); PLATELET COUNT, AUTOMATED 162 10^3/uL (150-450); RED BLOOD COUNT 3.28 10^6/uL (4.00-5.40)
[2022-07-01 11:41] LABS: MEAN CORPUSCULAR VOLUME 126.2 fl (80.0-96.0)
[2022-07-01 11:59] LABS: OVALOCYTES 1+; TEAR DROP CELLS 3+
[2022-07-01 12:00] LABS: PLATELET ESTIMATE NORMAL (NORMAL)
[2022-07-01 12:23] LABS: ALBUMIN 3.1 GM/DL (3.2-5.2); ALT/SGPT 29 U/L (12-78); BILIRUBIN,TOTAL 2.5 MG/DL (0.2-1.0); BLOOD UREA NITROGEN 19 MG/DL (7-18); CALCIUM LEVEL 9.4 MG/DL (8.5-10.1); CARBON DIOXIDE LEVEL 23 MEQ/L (21-32); CHLORIDE LEVEL 107 MEQ/L (98-107); CREATININE FOR GFR 0.88 MG/DL (0.55-1.30); GLOMERULAR FILTRATION RATE > 60.0 (>51); GLUCOSE, FASTING 128 MG/DL (70-100); POTASSIUM SERUM 3.6 MEQ/L (3.5-5.1); SODIUM LEVEL 137 MEQ/L (136-145); TOTAL PROTEIN 8.4 GM/DL (6.4-8.2)
[2022-07-02 20:07] LABS: CMV QUANT DNA PCR (PLASMA) Positive < 200 IU/mL (Negative)
== END ==
LOC: M LAB 10:46
PROVIDERS: ATTEND Internal Medicine Infectious Disease
DX: B25.9 Cytomegaloviral disease, unspecified (principal); Z94.4 Liver transplant status

== ENCOUNTER → 2022-07-01 | Outpatient (CLI) | payer MEDICARE, MEDICAID ==
[2022-07-01 11:31] LABS: BASO # 0.1 10^3/uL (0.0-0.2); BASO % 0.9 % (0.0-1.0); EOS # 0.1 10^3/uL (0.0-0.5); EOS % 0.9 % (0.0-3.0); HEMATOCRIT 40.4 % (36.0-47.0); LYMPH # 1.4 10^3/uL (1.5-5.0); LYMPH % 20.9 % (24.0-44.0); MEAN CORPUSCULAR HGB CONC 32.2 g/dl (32.0-36.5); MONO # 0.4 10^3/uL (0.0-0.8); MONO % 6.1 % (2.0-8.0); NEUTROPHILS # 4.7 10^3/uL (1.5-8.5); NEUTROPHILS % 70.7 % (36.0-66.0); RED BLOOD COUNT 3.17 10^6/uL (4.00-5.40); WHITE BLOOD COUNT 6.6 10^3/uL (4.0-10.0)
[2022-07-01 11:37] LABS: MEAN CORPUSCULAR VOLUME 127.4 fl (80.0-96.0); PLATELET COUNT, AUTOMATED 162 10^3/uL (150-450)
[2022-07-01 12:22] LABS: ALBUMIN 2.8 GM/DL (3.2-5.2); ALT/SGPT 27 U/L (12-78); BILIRUBIN,TOTAL 2.4 MG/DL (0.2-1.0); BLOOD UREA NITROGEN 19 MG/DL (7-18); CALCIUM LEVEL 9.1 MG/DL (8.5-10.1); CARBON DIOXIDE LEVEL 22 MEQ/L (21-32); CHLORIDE LEVEL 108 MEQ/L (98-107); CREATININE FOR GFR 0.85 MG/DL (0.55-1.30); GLOMERULAR FILTRATION RATE > 60.0 (>51); GLUCOSE, FASTING 140 MG/DL (70-100); POTASSIUM SERUM 3.9 MEQ/L (3.5-5.1); SODIUM LEVEL 139 MEQ/L (136-145); TOTAL PROTEIN 7.7 GM/DL (6.4-8.2)
== END ==
LOC: M LAB 10:34
PROVIDERS: ATTEND Nurse Practitioner Family
DX: Z94.4 Liver transplant status (principal)

== ENCOUNTER → 2022-07-08 | Outpatient (CLI) | payer MEDICARE, MEDICAID | LOC: M LAB 09:48 | DX: Z94.4 Liver transplant status (principal); Z53.9 Procedure and treatment not carried out, unspecified reason ==

== ENCOUNTER → 2022-07-08 | Outpatient (CLI) | payer MEDICARE, MEDICAID ==
[~2022-07-08] MED LIST changes: -DOXY-350 PO; +DOXY-444 PO
[2022-07-08 10:51] LABS: BASO # 0.1 10^3/uL (0.0-0.2); EOS % 0.7 % (0.0-3.0); HEMATOCRIT 41.2 % (36.0-47.0); HEMOGLOBIN 13.1 g/dl (12.0-15.5); LYMPH # 1.2 10^3/uL (1.5-5.0); LYMPH % 19.8 % (24.0-44.0); MEAN CORPUSCULAR HEMOGLOBIN 39.2 pg (27.0-33.0); MEAN CORPUSCULAR HGB CONC 31.8 g/dl (32.0-36.5); MONO # 0.6 10^3/uL (0.0-0.8); MONO % 9.4 % (2.0-8.0); NEUTROPHILS # 4.1 10^3/uL (1.5-8.5); NEUTROPHILS % 68.6 % (36.0-66.0); PLATELET COUNT, AUTOMATED 165 10^3/uL (150-450); RED BLOOD COUNT 3.34 10^6/uL (4.00-5.40)
[2022-07-08 10:54] LABS: MEAN CORPUSCULAR VOLUME 123.4 fl (80.0-96.0)
[2022-07-08 11:33] LABS: ALBUMIN 2.9 GM/DL (3.2-5.2); ALKALINE PHOSPHATASE 950 U/L (45-117); ALT/SGPT 26 U/L (12-78); AST/SGOT 35 U/L (7-37); BILIRUBIN,TOTAL 1.8 MG/DL (0.2-1.0); BLOOD UREA NITROGEN 14 MG/DL (7-18); CALCIUM LEVEL 9.1 MG/DL (8.5-10.1); CARBON DIOXIDE LEVEL 24 MEQ/L (21-32); CHLORIDE LEVEL 106 MEQ/L (98-107); CREATININE FOR GFR 0.74 MG/DL (0.55-1.30); GLOMERULAR FILTRATION RATE > 60.0 (>51); GLUCOSE, FASTING 106 MG/DL (70-100); SODIUM LEVEL 137 MEQ/L (136-145); TOTAL PROTEIN 7.6 GM/DL (6.4-8.2)
[2022-07-09 18:07] LABS: log10 CMV QN DNA P1 2.428 (.)
== END ==
LOC: M LAB 09:51
PROVIDERS: ATTEND Internal Medicine Infectious Disease
DX: B25.9 Cytomegaloviral disease, unspecified (principal); Z94.4 Liver transplant status

== ENCOUNTER → 2022-07-08 | Outpatient (CLI) | payer MEDICARE, MEDICAID ==
[2022-07-08 10:51] LABS: BASO # 0.1 10^3/uL (0.0-0.2); BASO % 0.9 % (0.0-1.0); EOS % 0.7 % (0.0-3.0); HEMATOCRIT 41.1 % (36.0-47.0); HEMOGLOBIN 12.9 g/dl (12.0-15.5); LYMPH # 1.1 10^3/uL (1.5-5.0); LYMPH % 19.6 % (24.0-44.0); MEAN CORPUSCULAR HEMOGLOBIN 39.1 pg (27.0-33.0); MEAN CORPUSCULAR HGB CONC 31.4 g/dl (32.0-36.5); MONO # 0.6 10^3/uL (0.0-0.8); MONO % 9.7 % (2.0-8.0); NEUTROPHILS # 3.9 10^3/uL (1.5-8.5); NEUTROPHILS % 68.4 % (36.0-66.0); PLATELET COUNT, AUTOMATED 163 10^3/uL (150-450); WHITE BLOOD COUNT 5.8 10^3/uL (4.0-10.0)
[2022-07-08 10:55] LABS: MEAN CORPUSCULAR VOLUME 124.5 fl (80.0-96.0)
[2022-07-08 11:30] LABS: ALKALINE PHOSPHATASE 968 U/L (45-117); ALT/SGPT 25 U/L (12-78); AST/SGOT 35 U/L (7-37); BILIRUBIN,TOTAL 1.8 MG/DL (0.2-1.0); BLOOD UREA NITROGEN 14 MG/DL (7-18); CALCIUM LEVEL 9.2 MG/DL (8.5-10.1); CARBON DIOXIDE LEVEL 25 MEQ/L (21-32); CHLORIDE LEVEL 106 MEQ/L (98-107); CREATININE FOR GFR 0.72 MG/DL (0.55-1.30); GLOMERULAR FILTRATION RATE > 60.0 (>51); GLUCOSE, FASTING 105 MG/DL (70-100); POTASSIUM SERUM 3.9 MEQ/L (3.5-5.1); SODIUM LEVEL 136 MEQ/L (136-145); TOTAL PROTEIN 7.6 GM/DL (6.4-8.2)
== END ==
LOC: M LAB 09:54
PROVIDERS: ATTEND Nurse Practitioner Family
DX: Z94.4 Liver transplant status (principal)

== ENCOUNTER → 2022-07-15 | Outpatient (CLI) | payer MEDICARE, MEDICAID ==
[~2022-07-15] MED LIST changes: -VALG1TAB PO; +VALG450T10 PO
[2022-07-16 19:07] LABS: CMV QUANT DNA PCR (PLASMA) Positive < 200 IU/mL (Negative)
== END ==
LOC: M LAB 10:57
DX: Z94.4 Liver transplant status (principal); B25.9 Cytomegaloviral disease, unspecified

== ENCOUNTER → 2022-07-15 | Outpatient (CLI) | payer MEDICARE, MEDICAID ==
[2022-07-15 12:20] LABS: BASO # 0.1 10^3/uL (0.0-0.2); BASO % 0.8 % (0.0-1.0); EOS # 0.1 10^3/uL (0.0-0.5); EOS % 1.2 % (0.0-3.0); HEMATOCRIT 36.9 % (36.0-47.0); HEMOGLOBIN 11.8 g/dl (12.0-15.5); LYMPH # 1.8 10^3/uL (1.5-5.0); LYMPH % 30.1 % (24.0-44.0); MEAN CORPUSCULAR HEMOGLOBIN 38.2 pg (27.0-33.0); MONO # 0.5 10^3/uL (0.0-0.8); MONO % 8.6 % (2.0-8.0); NEUTROPHILS # 3.6 10^3/uL (1.5-8.5); NEUTROPHILS % 58.8 % (36.0-66.0); PLATELET COUNT, AUTOMATED 137 10^3/uL (150-450); RED BLOOD COUNT 3.09 10^6/uL (4.00-5.40); WHITE BLOOD COUNT 6.1 10^3/uL (4.0-10.0)
[2022-07-15 12:25] LABS: MEAN CORPUSCULAR VOLUME 119.4 fl (80.0-96.0)
[2022-07-15 13:24] LABS: ALBUMIN 2.9 GM/DL (3.2-5.2); ALKALINE PHOSPHATASE 945 U/L (45-117); ALT/SGPT 29 U/L (12-78); AST/SGOT 46 U/L (7-37); BILIRUBIN,TOTAL 2.2 MG/DL (0.2-1.0); BLOOD UREA NITROGEN 20 MG/DL (7-18); CALCIUM LEVEL 8.8 MG/DL (8.5-10.1); CARBON DIOXIDE LEVEL 22 MEQ/L (21-32); CHLORIDE LEVEL 110 MEQ/L (98-107); CREATININE FOR GFR 0.83 MG/DL (0.55-1.30); GLOMERULAR FILTRATION RATE > 60.0 (>51); GLUCOSE, FASTING 111 MG/DL (70-100); POTASSIUM SERUM 3.4 MEQ/L (3.5-5.1); SODIUM LEVEL 141 MEQ/L (136-145); TOTAL PROTEIN 7.5 GM/DL (6.4-8.2)
[2022-07-15 14:22] LABS: PLATELET ESTIMATE NORMAL (NORMAL)
== END ==
LOC: M LAB 10:44
PROVIDERS: ATTEND Internal Medicine Infectious Disease
DX: B25.9 Cytomegaloviral disease, unspecified (principal)

== ENCOUNTER → 2022-07-15 | Outpatient (CLI) | payer MEDICARE, MEDICAID ==
[2022-07-15 12:21] LABS: BASO # 0.1 10^3/uL (0.0-0.2); BASO % 0.9 % (0.0-1.0); EOS # 0.1 10^3/uL (0.0-0.5); EOS % 0.9 % (0.0-3.0); HEMATOCRIT 39.1 % (36.0-47.0); HEMOGLOBIN 12.2 g/dl (12.0-15.5); LYMPH # 1.7 10^3/uL (1.5-5.0); LYMPH % 30.4 % (24.0-44.0); MEAN CORPUSCULAR HEMOGLOBIN 37.7 pg (27.0-33.0); MEAN CORPUSCULAR HGB CONC 31.2 g/dl (32.0-36.5); MONO # 0.4 10^3/uL (0.0-0.8); MONO % 6.7 % (2.0-8.0); NEUTROPHILS # 3.4 10^3/uL (1.5-8.5); NEUTROPHILS % 60.6 % (36.0-66.0); PLATELET COUNT, AUTOMATED 144 10^3/uL (150-450); RED BLOOD COUNT 3.24 10^6/uL (4.00-5.40); WHITE BLOOD COUNT 5.6 10^3/uL (4.0-10.0)
[2022-07-15 12:23] LABS: MEAN CORPUSCULAR VOLUME 120.7 fl (80.0-96.0)
== END ==
LOC: M LAB 10:50
PROVIDERS: ATTEND Nurse Practitioner Family
DX: Z94.4 Liver transplant status (principal)

== ENCOUNTER → 2022-07-22 | Outpatient (CLI) | payer MEDICARE, MEDICAID ==
[2022-07-24 14:08] LABS: CMV QUANT DNA PCR (PLASMA) Positive < 200 IU/mL (Negative); HBV HBV DNA not detected IU/mL (.)
== END ==
LOC: M LAB 11:09
DX: Z94.4 Liver transplant status (principal)

== ENCOUNTER → 2022-07-22 | Outpatient (CLI) | payer MEDICARE, MEDICAID ==
[2022-07-22 12:48] LABS: BASO # 0.1 10^3/uL (0.0-0.2); BASO % 0.8 % (0.0-1.0); EOS # 0.2 10^3/uL (0.0-0.5); EOS % 2.6 % (0.0-3.0); HEMATOCRIT 39.1 % (36.0-47.0); HEMOGLOBIN 12.1 g/dl (12.0-15.5); LYMPH # 2.2 10^3/uL (1.5-5.0); LYMPH % 34.9 % (24.0-44.0); MEAN CORPUSCULAR HEMOGLOBIN 35.9 pg (27.0-33.0); MEAN CORPUSCULAR HGB CONC 30.9 g/dl (32.0-36.5); MONO # 0.3 10^3/uL (0.0-0.8); MONO % 5.5 % (2.0-8.0); NEUTROPHILS # 3.5 10^3/uL (1.5-8.5); NEUTROPHILS % 55.7 % (36.0-66.0); PLATELET COUNT, AUTOMATED 122 10^3/uL (150-450); RED BLOOD COUNT 3.37 10^6/uL (4.00-5.40); WHITE BLOOD COUNT 6.2 10^3/uL (4.0-10.0)
[2022-07-22 13:33] LABS: PLATELET ESTIMATE DECREASED (NORMAL)
[2022-07-22 14:05] LABS: ALBUMIN 2.8 GM/DL (3.2-5.2); ALKALINE PHOSPHATASE 982 U/L (45-117); ALT/SGPT 32 U/L (12-78); AST/SGOT 53 U/L (7-37); BILIRUBIN,TOTAL 1.8 MG/DL (0.2-1.0); BLOOD UREA NITROGEN 16 MG/DL (7-18); CALCIUM LEVEL 8.8 MG/DL (8.5-10.1); CARBON DIOXIDE LEVEL 24 MEQ/L (21-32); CHLORIDE LEVEL 107 MEQ/L (98-107); GLOMERULAR FILTRATION RATE > 60.0 (>51); GLUCOSE, FASTING 88 MG/DL (70-100); SODIUM LEVEL 137 MEQ/L (136-145); TOTAL PROTEIN 7.7 GM/DL (6.4-8.2)
== END ==
LOC: M LAB 10:55
PROVIDERS: ATTEND Nurse Practitioner Family
DX: Z94.4 Liver transplant status (principal); B25.9 Cytomegaloviral disease, unspecified

== ENCOUNTER → 2022-07-22 | Outpatient (CLI) | payer MEDICARE, MEDICAID ==
[2022-07-22 12:48] LABS: BASO # 0.1 10^3/uL (0.0-0.2); BASO % 0.8 % (0.0-1.0); EOS # 0.2 10^3/uL (0.0-0.5); EOS % 2.5 % (0.0-3.0); HEMATOCRIT 39.1 % (36.0-47.0); HEMOGLOBIN 12.1 g/dl (12.0-15.5); LYMPH # 2.3 10^3/uL (1.5-5.0); LYMPH % 36.4 % (24.0-44.0); MEAN CORPUSCULAR HGB CONC 30.9 g/dl (32.0-36.5); MONO # 0.3 10^3/uL (0.0-0.8); MONO % 4.5 % (2.0-8.0); NEUTROPHILS # 3.5 10^3/uL (1.5-8.5); NEUTROPHILS % 55.3 % (36.0-66.0); PLATELET COUNT, AUTOMATED 115 10^3/uL (150-450); RED BLOOD COUNT 3.36 10^6/uL (4.00-5.40); WHITE BLOOD COUNT 6.3 10^3/uL (4.0-10.0)
[2022-07-22 13:09] LABS: MEAN CORPUSCULAR VOLUME 116.4 fl (80.0-96.0)
[2022-07-22 13:34] LABS: PLATELET ESTIMATE DECREASED (NORMAL)
[2022-07-22 15:21] LABS: ALKALINE PHOSPHATASE 962 U/L (45-117); ALT/SGPT 32 U/L (12-78); AST/SGOT 48 U/L (7-37); BILIRUBIN,TOTAL 1.8 MG/DL (0.2-1.0); BLOOD UREA NITROGEN 16 MG/DL (7-18); CALCIUM LEVEL 9.3 MG/DL (8.5-10.1); CARBON DIOXIDE LEVEL 23 MEQ/L (21-32); CHLORIDE LEVEL 106 MEQ/L (98-107); CREATININE FOR GFR 0.77 MG/DL (0.55-1.30); GLOMERULAR FILTRATION RATE > 60.0 (>51); GLUCOSE, FASTING 92 MG/DL (70-100); SODIUM LEVEL 136 MEQ/L (136-145); TOTAL PROTEIN 7.9 GM/DL (6.4-8.2)
[2022-07-24 00:08] LABS: CMV QUANT DNA PCR (PLASMA) Positive < 200 IU/mL (Negative)
== END ==
LOC: M LAB 11:12
PROVIDERS: ATTEND Internal Medicine Infectious Disease
DX: B25.9 Cytomegaloviral disease, unspecified (principal)

== ENCOUNTER → 2022-07-29 | Outpatient (CLI) | payer MEDICARE, MEDICAID ==
[2022-07-29 13:59] LABS: BASO % 0.3 % (0.0-1.0); EOS % 0.3 % (0.0-3.0); HEMATOCRIT 46.3 % (36.0-47.0); HEMOGLOBIN 14.6 g/dl (12.0-15.5); LYMPH % 16.4 % (24.0-44.0); MEAN CORPUSCULAR HEMOGLOBIN 35.4 pg (27.0-33.0); MEAN CORPUSCULAR HGB CONC 31.5 g/dl (32.0-36.5); MEAN CORPUSCULAR VOLUME 112.4 fl (80.0-96.0); MONO # 0.4 10^3/uL (0.0-0.8); MONO % 3.5 % (2.0-8.0); NEUTROPHILS # 9.4 10^3/uL (1.5-8.5); PLATELET COUNT, AUTOMATED 125 10^3/uL (150-450); RED BLOOD COUNT 4.12 10^6/uL (4.00-5.40); WHITE BLOOD COUNT 11.9 10^3/uL (4.0-10.0)
[2022-07-29 14:32] LABS: ALBUMIN 3.1 GM/DL (3.2-5.2); ALKALINE PHOSPHATASE 898 U/L (45-117); ALT/SGPT 23 U/L (12-78); AST/SGOT 22 U/L (7-37); BILIRUBIN,TOTAL 1.7 MG/DL (0.2-1.0); BLOOD UREA NITROGEN 20 MG/DL (7-18); CALCIUM LEVEL 9.2 MG/DL (8.5-10.1); CARBON DIOXIDE LEVEL 21 MEQ/L (21-32); CHLORIDE LEVEL 105 MEQ/L (98-107); CREATININE FOR GFR 0.77 MG/DL (0.55-1.30); GLOMERULAR FILTRATION RATE > 60.0 (>51); GLUCOSE, FASTING 107 MG/DL (70-100); POTASSIUM SERUM 4.1 MEQ/L (3.5-5.1); SODIUM LEVEL 133 MEQ/L (136-145); TOTAL PROTEIN 8.2 GM/DL (6.4-8.2)
== END ==
LOC: M LAB 11:09
PROVIDERS: ATTEND Nurse Practitioner Family
DX: Z94.4 Liver transplant status (principal)

== ENCOUNTER → 2022-07-29 | Outpatient (CLI) | payer MEDICARE, MEDICAID ==
[2022-08-04 19:07] LABS: CMV QUANT DNA PCR (PLASMA) Negative (Negative); HBV HBV DNA not detected IU/mL (.)
== END ==
LOC: M LAB 10:53
PROVIDERS: ATTEND Nurse Practitioner Family
DX: Z94.4 Liver transplant status (principal); B27.90 Infectious mononucleosis, unspecified without complication

== ENCOUNTER → 2022-07-29 | Outpatient (CLI) | payer MEDICARE, MEDICAID ==
[~2022-07-29] MED LIST changes: +VALG1TAB PO; -VALG450T10 PO
== END ==
LOC: M LAB 11:13
PROVIDERS: ATTEND Internal Medicine Infectious Disease
DX: B25.9 Cytomegaloviral disease, unspecified (principal)

== ENCOUNTER → 2022-08-01 | Outpatient (CLI) | payer MEDICARE, MEDICAID ==
[2022-08-05 23:08] LABS: CMV QUANT DNA PCR (PLASMA) Positive < 200 IU/mL (Negative); HBV HBV DNA not detected IU/mL (.)
== END ==
LOC: M LAB 15:26
PROVIDERS: ATTEND Nurse Practitioner Family
DX: Z94.4 Liver transplant status (principal)

== ENCOUNTER → 2022-08-05 | Outpatient (CLI) | payer MEDICARE, MEDICAID ==
[~2022-08-05] MED LIST changes: -VALG1TAB PO; +VALG450T10 PO
[2022-08-06 23:07] LABS: CMV QUANT DNA PCR (PLASMA) Negative (Negative); HBV HBV DNA not detected IU/mL (.)
== END ==
LOC: M LAB 10:33
PROVIDERS: ATTEND Nurse Practitioner Family
DX: Z94.4 Liver transplant status (principal); B27.90 Infectious mononucleosis, unspecified without complication

== ENCOUNTER → 2022-08-05 | Outpatient (CLI) | payer MEDICARE, MEDICAID ==
[2022-08-05 11:51] LABS: BASO # 0.1 10^3/uL (0.0-0.2); BASO % 0.7 % (0.0-1.0); EOS # 0.1 10^3/uL (0.0-0.5); EOS % 0.6 % (0.0-3.0); HEMATOCRIT 37.4 % (36.0-47.0); HEMOGLOBIN 11.7 g/dl (12.0-15.5); LYMPH % 23.7 % (24.0-44.0); MEAN CORPUSCULAR HEMOGLOBIN 33.9 pg (27.0-33.0); MEAN CORPUSCULAR HGB CONC 31.3 g/dl (32.0-36.5); MEAN CORPUSCULAR VOLUME 108.4 fl (80.0-96.0); MONO # 0.5 10^3/uL (0.0-0.8); MONO % 5.8 % (2.0-8.0); NEUTROPHILS # 5.8 10^3/uL (1.5-8.5); NEUTROPHILS % 68.6 % (36.0-66.0); PLATELET COUNT, AUTOMATED 176 10^3/uL (150-450); RED BLOOD COUNT 3.45 10^6/uL (4.00-5.40); WHITE BLOOD COUNT 8.4 10^3/uL (4.0-10.0)
[2022-08-05 12:23] LABS: ALBUMIN 2.6 G/DL (3.2-5.2); ALKALINE PHOSPHATASE 568 U/L (46-116); ALT/SGPT < 9 U/L (7.0-40); AST/SGOT 14 U/L (<34); BILIRUBIN,TOTAL 1.2 MG/DL (0.3-1.2); BLOOD UREA NITROGEN 12 MG/DL (9-23); CALCIUM LEVEL 8.1 MG/DL (8.5-10.1); CARBON DIOXIDE LEVEL 20 MMOL/L (20-31); CHLORIDE LEVEL 103 MMOL/L (98-107); CREATININE FOR GFR 0.59 MG/DL (0.55-1.30); GLOMERULAR FILTRATION RATE > 60.0 (>51); GLUCOSE, FASTING 176 MG/DL (60-100); POTASSIUM SERUM 3.9 MMOL/L (3.5-5.1); SODIUM LEVEL 136 MMOL/L (136-145); TOTAL PROTEIN 6.9 G/DL (5.7-8.2)
== END ==
LOC: M LAB 10:47
PROVIDERS: ATTEND Nurse Practitioner Family
DX: Z94.4 Liver transplant status (principal)

== ENCOUNTER → 2022-08-05 | Outpatient (CLI) | payer MEDICARE, MEDICAID ==
[~2022-08-05] MED LIST changes: +VALG1TAB PO; -VALG450T10 PO
[2022-08-05 11:51] LABS: BASO # 0.1 10^3/uL (0.0-0.2); BASO % 0.6 % (0.0-1.0); EOS % 0.5 % (0.0-3.0); HEMATOCRIT 37.9 % (36.0-47.0); HEMOGLOBIN 11.9 g/dl (12.0-15.5); LYMPH # 1.9 10^3/uL (1.5-5.0); MEAN CORPUSCULAR HEMOGLOBIN 34.4 pg (27.0-33.0); MEAN CORPUSCULAR HGB CONC 31.4 g/dl (32.0-36.5); MEAN CORPUSCULAR VOLUME 109.5 fl (80.0-96.0); MONO # 0.6 10^3/uL (0.0-0.8); MONO % 6.8 % (2.0-8.0); NEUTROPHILS # 5.7 10^3/uL (1.5-8.5); NEUTROPHILS % 68.5 % (36.0-66.0); PLATELET COUNT, AUTOMATED 175 10^3/uL (150-450); RED BLOOD COUNT 3.46 10^6/uL (4.00-5.40); WHITE BLOOD COUNT 8.3 10^3/uL (4.0-10.0)
[2022-08-05 12:22] LABS: ALBUMIN 2.6 G/DL (3.2-5.2); ALT/SGPT < 9 U/L (7.0-40); BILIRUBIN,TOTAL 1.2 MG/DL (0.3-1.2); BLOOD UREA NITROGEN 12 MG/DL (9-23); CALCIUM LEVEL 8.1 MG/DL (8.5-10.1); CARBON DIOXIDE LEVEL 21 MMOL/L (20-31); CHLORIDE LEVEL 103 MMOL/L (98-107); CREATININE FOR GFR 0.59 MG/DL (0.55-1.30); GLOMERULAR FILTRATION RATE > 60.0 (>51); GLUCOSE, FASTING 173 MG/DL (60-100); POTASSIUM SERUM 3.9 MMOL/L (3.5-5.1); SODIUM LEVEL 136 MMOL/L (136-145); TOTAL PROTEIN 6.9 G/DL (5.7-8.2)
== END ==
LOC: M LAB 10:40
PROVIDERS: ATTEND Internal Medicine Infectious Disease
DX: B25.9 Cytomegaloviral disease, unspecified (principal)

== ENCOUNTER → 2022-08-12 | Outpatient (CLI) | payer MEDICARE, MEDICAID ==
[~2022-08-12] MED LIST changes: -VALG1TAB PO; +VALG450T10 PO
[2022-08-12 12:16] LABS: BASO # 0.1 10^3/uL (0.0-0.2); BASO % 0.7 % (0.0-1.0); EOS % 0.6 % (0.0-3.0); HEMATOCRIT 38.2 % (36.0-47.0); HEMOGLOBIN 12.1 g/dl (12.0-15.5); LYMPH # 1.8 10^3/uL (1.5-5.0); MEAN CORPUSCULAR HEMOGLOBIN 34.8 pg (27.0-33.0); MEAN CORPUSCULAR HGB CONC 31.7 g/dl (32.0-36.5); MEAN CORPUSCULAR VOLUME 109.8 fl (80.0-96.0); MONO # 0.4 10^3/uL (0.0-0.8); MONO % 5.5 % (2.0-8.0); NEUTROPHILS # 4.4 10^3/uL (1.5-8.5); NEUTROPHILS % 65.8 % (36.0-66.0); PLATELET COUNT, AUTOMATED 188 10^3/uL (150-450); RED BLOOD COUNT 3.48 10^6/uL (4.00-5.40); WHITE BLOOD COUNT 6.7 10^3/uL (4.0-10.0)
[2022-08-12 13:27] LABS: CHLORIDE LEVEL 105 MMOL/L (98-107); POTASSIUM SERUM 4.2 MMOL/L (3.5-5.1); SODIUM LEVEL 140 MMOL/L (136-145)
[2022-08-12 13:28] LABS: ALBUMIN 2.8 G/DL (3.2-5.2); CARBON DIOXIDE LEVEL 24 MMOL/L (20-31)
[2022-08-12 13:33] LABS: BILIRUBIN,TOTAL 1.2 MG/DL (0.3-1.2); BLOOD UREA NITROGEN 19 MG/DL (9-23); GLUCOSE, FASTING 88 MG/DL (60-100)
[2022-08-12 13:34] LABS: ALKALINE PHOSPHATASE 738 U/L (46-116)
[2022-08-12 13:35] LABS: ALT/SGPT 16 U/L (7.0-40); AST/SGOT 25 U/L (<34); CREATININE FOR GFR 0.67 MG/DL (0.55-1.30); GLOMERULAR FILTRATION RATE > 60.0 (>51); TOTAL PROTEIN 7.7 G/DL (5.7-8.2)
[2022-08-14 14:08] LABS: CMV QUANT DNA PCR (PLASMA) Positive < 200 IU/mL (Negative); HBV HBV DNA not detected IU/mL (.)
== END ==
LOC: M LAB 11:08
PROVIDERS: ATTEND Nurse Practitioner Family
DX: Z94.4 Liver transplant status (principal)

== ENCOUNTER → 2022-08-12 | Outpatient (CLI) | payer MEDICARE, MEDICAID ==
[~2022-08-12] MED LIST changes: +VALG1TAB PO; -VALG450T10 PO
[2022-08-12 12:15] LABS: BASO # 0.1 10^3/uL (0.0-0.2); BASO % 0.9 % (0.0-1.0); EOS % 0.6 % (0.0-3.0); HEMATOCRIT 38.8 % (36.0-47.0); HEMOGLOBIN 12.3 g/dl (12.0-15.5); LYMPH # 1.8 10^3/uL (1.5-5.0); LYMPH % 27.3 % (24.0-44.0); MEAN CORPUSCULAR HEMOGLOBIN 34.6 pg (27.0-33.0); MEAN CORPUSCULAR HGB CONC 31.7 g/dl (32.0-36.5); MEAN CORPUSCULAR VOLUME 109.3 fl (80.0-96.0); MONO # 0.4 10^3/uL (0.0-0.8); MONO % 5.2 % (2.0-8.0); NEUTROPHILS # 4.4 10^3/uL (1.5-8.5); NEUTROPHILS % 65.7 % (36.0-66.0); PLATELET COUNT, AUTOMATED 184 10^3/uL (150-450); RED BLOOD COUNT 3.55 10^6/uL (4.00-5.40); WHITE BLOOD COUNT 6.7 10^3/uL (4.0-10.0)
[2022-08-12 13:26] LABS: CHLORIDE LEVEL 105 MMOL/L (98-107); POTASSIUM SERUM 4.2 MMOL/L (3.5-5.1); SODIUM LEVEL 139 MMOL/L (136-145)
[2022-08-12 13:27] LABS: ALBUMIN 2.9 G/DL (3.2-5.2); CARBON DIOXIDE LEVEL 24 MMOL/L (20-31)
[2022-08-12 13:32] LABS: BILIRUBIN,TOTAL 1.2 MG/DL (0.3-1.2); BLOOD UREA NITROGEN 19 MG/DL (9-23); GLUCOSE, FASTING 89 MG/DL (60-100)
[2022-08-12 13:33] LABS: ALKALINE PHOSPHATASE 749 U/L (46-116); TOTAL PROTEIN 7.7 G/DL (5.7-8.2)
[2022-08-12 13:34] LABS: ALT/SGPT 16 U/L (7.0-40); AST/SGOT 28 U/L (<34); CREATININE FOR GFR 0.67 MG/DL (0.55-1.30); GLOMERULAR FILTRATION RATE > 60.0 (>51)
[2022-08-13 21:07] LABS: CMV QUANT DNA PCR (PLASMA) Positive < 200 IU/mL (Negative)
== END ==
LOC: M LAB 11:03
PROVIDERS: ATTEND Internal Medicine Infectious Disease
DX: B25.9 Cytomegaloviral disease, unspecified (principal)

== ENCOUNTER → 2022-08-12 | Outpatient (CLI) | payer MEDICARE, MEDICAID ==
[~2022-08-12] MED LIST changes: -VALG1TAB PO; +VALG450T10 PO
[2022-08-12 12:15] LABS: BASO % 0.6 % (0.0-1.0); EOS % 0.6 % (0.0-3.0); HEMATOCRIT 38.8 % (36.0-47.0); HEMOGLOBIN 12.2 g/dl (12.0-15.5); LYMPH # 1.8 10^3/uL (1.5-5.0); LYMPH % 27.4 % (24.0-44.0); MEAN CORPUSCULAR HEMOGLOBIN 34.4 pg (27.0-33.0); MEAN CORPUSCULAR HGB CONC 31.4 g/dl (32.0-36.5); MEAN CORPUSCULAR VOLUME 109.3 fl (80.0-96.0); MONO # 0.4 10^3/uL (0.0-0.8); MONO % 5.6 % (2.0-8.0); NEUTROPHILS # 4.3 10^3/uL (1.5-8.5); NEUTROPHILS % 65.3 % (36.0-66.0); PLATELET COUNT, AUTOMATED 175 10^3/uL (150-450); RED BLOOD COUNT 3.55 10^6/uL (4.00-5.40); WHITE BLOOD COUNT 6.6 10^3/uL (4.0-10.0)
[2022-08-12 13:38] LABS: ALBUMIN 2.9 G/DL (3.2-5.2); CARBON DIOXIDE LEVEL 23 MMOL/L (20-31); CHLORIDE LEVEL 105 MMOL/L (98-107); POTASSIUM SERUM 4.2 MMOL/L (3.5-5.1); SODIUM LEVEL 139 MMOL/L (136-145)
[2022-08-12 13:42] LABS: ALKALINE PHOSPHATASE 752 U/L (46-116)
[2022-08-12 13:44] LABS: BLOOD UREA NITROGEN 20 MG/DL (9-23); GLUCOSE, FASTING 90 MG/DL (60-100)
[2022-08-12 13:46] LABS: ALT/SGPT 16 U/L (7.0-40); AST/SGOT 26 U/L (<34); BILIRUBIN,TOTAL 1.2 MG/DL (0.3-1.2); CREATININE FOR GFR 0.68 MG/DL (0.55-1.30); GLOMERULAR FILTRATION RATE > 60.0 (>51); TOTAL PROTEIN 7.8 G/DL (5.7-8.2)
[2022-08-14 18:07] LABS: CMV QUANT DNA PCR (PLASMA) Positive < 200 IU/mL (Negative)
== END ==
LOC: M LAB 10:47
PROVIDERS: ATTEND Nurse Practitioner Family
DX: Z94.4 Liver transplant status (principal)

== ENCOUNTER → 2022-08-19 | Outpatient (CLI) | payer MEDICARE, MEDICAID ==
[2022-08-21 14:11] LABS: CMV QUANT DNA PCR (PLASMA) Positive < 200 IU/mL (Negative); HBV HBV DNA not detected IU/mL (.)
== END ==
LOC: M LAB 10:00
PROVIDERS: ATTEND Nurse Practitioner Family
DX: Z94.4 Liver transplant status (principal)

== ENCOUNTER → 2022-08-19 | Outpatient (CLI) | payer MEDICARE, MEDICAID ==
[2022-08-19 11:46] LABS: ALBUMIN 2.7 G/DL (3.2-5.2); ALKALINE PHOSPHATASE 683 U/L (46-116); ALT/SGPT 15 U/L (7.0-40); AST/SGOT 21 U/L (<34); BLOOD UREA NITROGEN 19 MG/DL (9-23); CALCIUM LEVEL 8.8 MG/DL (8.5-10.1); CARBON DIOXIDE LEVEL 23 MMOL/L (20-31); CHLORIDE LEVEL 109 MMOL/L (98-107); CREATININE FOR GFR 0.62 MG/DL (0.55-1.30); GLOMERULAR FILTRATION RATE > 60.0 (>51); GLUCOSE, FASTING 123 MG/DL (60-100); POTASSIUM SERUM 3.9 MMOL/L (3.5-5.1); SODIUM LEVEL 141 MMOL/L (136-145)
[2022-08-19 11:48] LABS: BASO # 0.1 10^3/uL (0.0-0.2); BASO % 0.9 % (0.0-1.0); EOS # 0.1 10^3/uL (0.0-0.5); EOS % 0.9 % (0.0-3.0); HEMATOCRIT 35.5 % (36.0-47.0); HEMOGLOBIN 11.3 g/dl (12.0-15.5); LYMPH # 1.8 10^3/uL (1.5-5.0); LYMPH % 25.7 % (24.0-44.0); MEAN CORPUSCULAR HEMOGLOBIN 34.9 pg (27.0-33.0); MEAN CORPUSCULAR HGB CONC 31.8 g/dl (32.0-36.5); MEAN CORPUSCULAR VOLUME 109.6 fl (80.0-96.0); MONO # 0.3 10^3/uL (0.0-0.8); MONO % 4.8 % (2.0-8.0); NEUTROPHILS # 4.6 10^3/uL (1.5-8.5); NEUTROPHILS % 67.3 % (36.0-66.0); PLATELET COUNT, AUTOMATED 171 10^3/uL (150-450); RED BLOOD COUNT 3.24 10^6/uL (4.00-5.40); WHITE BLOOD COUNT 6.8 10^3/uL (4.0-10.0)
== END ==
LOC: M LAB 10:02
PROVIDERS: ATTEND Nurse Practitioner Family
DX: Z94.4 Liver transplant status (principal)

== ENCOUNTER → 2022-08-19 | Outpatient (CLI) | payer MEDICARE, MEDICAID ==
[2022-08-19 11:47] LABS: ALBUMIN 2.8 G/DL (3.2-5.2); ALKALINE PHOSPHATASE 698 U/L (46-116); ALT/SGPT 16 U/L (7.0-40); AST/SGOT 27 U/L (<34); BLOOD UREA NITROGEN 19 MG/DL (9-23); CALCIUM LEVEL 8.6 MG/DL (8.5-10.1); CARBON DIOXIDE LEVEL 23 MMOL/L (20-31); CHLORIDE LEVEL 109 MMOL/L (98-107); CREATININE FOR GFR 0.63 MG/DL (0.55-1.30); GLOMERULAR FILTRATION RATE > 60.0 (>51); GLUCOSE, FASTING 120 MG/DL (60-100); POTASSIUM SERUM 4.3 MMOL/L (3.5-5.1); SODIUM LEVEL 140 MMOL/L (136-145); TOTAL PROTEIN 7.1 G/DL (5.7-8.2)
[2022-08-19 11:54] LABS: BASO # 0.1 10^3/uL (0.0-0.2); BASO % 0.7 % (0.0-1.0); EOS # 0.1 10^3/uL (0.0-0.5); EOS % 0.9 % (0.0-3.0); HEMATOCRIT 36.5 % (36.0-47.0); HEMOGLOBIN 11.4 g/dl (12.0-15.5); LYMPH # 1.8 10^3/uL (1.5-5.0); LYMPH % 26.2 % (24.0-44.0); MEAN CORPUSCULAR HEMOGLOBIN 34.1 pg (27.0-33.0); MEAN CORPUSCULAR HGB CONC 31.2 g/dl (32.0-36.5); MEAN CORPUSCULAR VOLUME 109.3 fl (80.0-96.0); MONO # 0.4 10^3/uL (0.0-0.8); MONO % 5.4 % (2.0-8.0); NEUTROPHILS # 4.5 10^3/uL (1.5-8.5); NEUTROPHILS % 66.4 % (36.0-66.0); PLATELET COUNT, AUTOMATED 167 10^3/uL (150-450); RED BLOOD COUNT 3.34 10^6/uL (4.00-5.40); WHITE BLOOD COUNT 6.8 10^3/uL (4.0-10.0)
[2022-08-20 17:08] LABS: CMV QUANT DNA PCR (PLASMA) Positive < 200 IU/mL (Negative)
== END ==
LOC: M LAB 09:56
PROVIDERS: ATTEND Internal Medicine Infectious Disease
DX: B25.9 Cytomegaloviral disease, unspecified (principal); Z94.4 Liver transplant status

== ENCOUNTER → 2022-08-26 | Outpatient (CLI) | payer MEDICARE, MEDICAID | LOC: M LAB 10:30 | PROVIDERS: ATTEND Physician Assistant | DX: K75.4 Autoimmune hepatitis (principal) ==

== ENCOUNTER → 2022-08-26 | Outpatient (CLI) | payer MEDICARE, MEDICAID ==
[2022-08-26 11:50] LABS: BASO # 0.1 10^3/uL (0.0-0.2); BASO % 0.9 % (0.0-1.0); EOS % 0.6 % (0.0-3.0); HEMATOCRIT 36.9 % (36.0-47.0); HEMOGLOBIN 11.3 g/dl (12.0-15.5); LYMPH # 1.6 10^3/uL (1.5-5.0); LYMPH % 23.6 % (24.0-44.0); MEAN CORPUSCULAR HEMOGLOBIN 33.4 pg (27.0-33.0); MEAN CORPUSCULAR HGB CONC 30.6 g/dl (32.0-36.5); MEAN CORPUSCULAR VOLUME 109.2 fl (80.0-96.0); MONO # 0.4 10^3/uL (0.0-0.8); MONO % 5.3 % (2.0-8.0); NEUTROPHILS # 4.6 10^3/uL (1.5-8.5); NEUTROPHILS % 69.1 % (36.0-66.0); PLATELET COUNT, AUTOMATED 159 10^3/uL (150-450); RED BLOOD COUNT 3.38 10^6/uL (4.00-5.40); WHITE BLOOD COUNT 6.6 10^3/uL (4.0-10.0)
[2022-08-26 12:26] LABS: ALBUMIN 2.8 G/DL (3.2-5.2); ALKALINE PHOSPHATASE 619 U/L (46-116); ALT/SGPT 25 U/L (7.0-40); AST/SGOT 37 U/L (<34); BILIRUBIN,TOTAL 1.2 MG/DL (0.3-1.2); BLOOD UREA NITROGEN 16 MG/DL (9-23); CALCIUM LEVEL 8.6 MG/DL (8.5-10.1); CARBON DIOXIDE LEVEL 20 MMOL/L (20-31); CHLORIDE LEVEL 112 MMOL/L (98-107); CREATININE FOR GFR 0.64 MG/DL (0.55-1.30); GLOMERULAR FILTRATION RATE > 60.0 (>51); GLUCOSE, FASTING 120 MG/DL (60-100); POTASSIUM SERUM 3.8 MMOL/L (3.5-5.1); SODIUM LEVEL 138 MMOL/L (136-145); TOTAL PROTEIN 7.2 G/DL (5.7-8.2)
== END ==
LOC: M LAB 10:54
PROVIDERS: ATTEND Nurse Practitioner Family
DX: Z94.4 Liver transplant status (principal); K75.4 Autoimmune hepatitis; B25.9 Cytomegaloviral disease, unspecified

== ENCOUNTER → 2022-08-26 | Outpatient (CLI) | payer MEDICARE, MEDICAID ==
[2022-08-28 21:11] LABS: CMV QUANT DNA PCR (PLASMA) Positive < 200 IU/mL (Negative); HBV HBV DNA not detected IU/mL (.)
== END ==
LOC: M LAB 10:50
PROVIDERS: ATTEND Nurse Practitioner Family
DX: Z94.4 Liver transplant status (principal)

== ENCOUNTER → 2022-08-26 | Outpatient (CLI) | payer MEDICARE, MEDICAID ==
[2022-08-26 11:51] LABS: BASO # 0.1 10^3/uL (0.0-0.2); EOS # 0.1 10^3/uL (0.0-0.5); EOS % 0.7 % (0.0-3.0); HEMATOCRIT 40.1 % (36.0-47.0); HEMOGLOBIN 12.9 g/dl (12.0-15.5); LYMPH % 28.1 % (24.0-44.0); MEAN CORPUSCULAR HEMOGLOBIN 34.9 pg (27.0-33.0); MEAN CORPUSCULAR HGB CONC 32.2 g/dl (32.0-36.5); MEAN CORPUSCULAR VOLUME 108.4 fl (80.0-96.0); MONO # 0.4 10^3/uL (0.0-0.8); NEUTROPHILS # 4.6 10^3/uL (1.5-8.5); NEUTROPHILS % 64.8 % (36.0-66.0); PLATELET COUNT, AUTOMATED 144 10^3/uL (150-450); WHITE BLOOD COUNT 7.1 10^3/uL (4.0-10.0)
[2022-08-26 12:13] LABS: ALBUMIN 2.8 G/DL (3.2-5.2); ALKALINE PHOSPHATASE 623 U/L (46-116); ALT/SGPT 24 U/L (7.0-40); AST/SGOT 34 U/L (<34); BILIRUBIN,TOTAL 1.3 MG/DL (0.3-1.2); BLOOD UREA NITROGEN 16 MG/DL (9-23); CALCIUM LEVEL 8.4 MG/DL (8.5-10.1); CARBON DIOXIDE LEVEL 22 MMOL/L (20-31); CHLORIDE LEVEL 110 MMOL/L (98-107); CREATININE FOR GFR 0.65 MG/DL (0.55-1.30); GLOMERULAR FILTRATION RATE > 60.0 (>51); GLUCOSE, FASTING 109 MG/DL (60-100); POTASSIUM SERUM 3.5 MMOL/L (3.5-5.1); SODIUM LEVEL 140 MMOL/L (136-145); TOTAL PROTEIN 7.2 G/DL (5.7-8.2)
[2022-08-28 11:08] LABS: CMV QUANT DNA PCR (PLASMA) Negative (Negative)
== END ==
LOC: M LAB 10:43
PROVIDERS: ATTEND Internal Medicine Infectious Disease
DX: B25.9 Cytomegaloviral disease, unspecified (principal)

== ENCOUNTER → 2022-09-02 | Outpatient (CLI) | payer MEDICARE, MEDICAID ==
[2022-09-04 19:07] LABS: CMV QUANT DNA PCR (PLASMA) Positive < 200 IU/mL (Negative); HBV HBV DNA not detected IU/mL (.)
== END ==
LOC: M LAB 10:45
PROVIDERS: ATTEND Nurse Practitioner Family
DX: Z94.4 Liver transplant status (principal)

== ENCOUNTER → 2022-09-02 | Outpatient (CLI) | payer MEDICARE, MEDICAID ==
[2022-09-02 11:45] LABS: BASO # 0.1 10^3/uL (0.0-0.2); BASO % 0.8 % (0.0-1.0); EOS % 0.4 % (0.0-3.0); HEMOGLOBIN 12.6 g/dl (12.0-15.5); LYMPH # 1.4 10^3/uL (1.5-5.0); LYMPH % 19.1 % (24.0-44.0); MEAN CORPUSCULAR HEMOGLOBIN 33.9 pg (27.0-33.0); MEAN CORPUSCULAR HGB CONC 31.5 g/dl (32.0-36.5); MEAN CORPUSCULAR VOLUME 107.5 fl (80.0-96.0); MONO # 0.6 10^3/uL (0.0-0.8); NEUTROPHILS # 5.1 10^3/uL (1.5-8.5); NEUTROPHILS % 70.9 % (36.0-66.0); PLATELET COUNT, AUTOMATED 161 10^3/uL (150-450); RED BLOOD COUNT 3.72 10^6/uL (4.00-5.40); WHITE BLOOD COUNT 7.2 10^3/uL (4.0-10.0)
[2022-09-02 12:14] LABS: ALBUMIN 3.2 G/DL (3.2-5.2); ALKALINE PHOSPHATASE 684 U/L (46-116); ALT/SGPT 23 U/L (7.0-40); AST/SGOT 32 U/L (<34); BILIRUBIN,TOTAL 1.4 MG/DL (0.3-1.2); BLOOD UREA NITROGEN 17 MG/DL (9-23); CALCIUM LEVEL 8.9 MG/DL (8.5-10.1); CARBON DIOXIDE LEVEL 22 MMOL/L (20-31); CHLORIDE LEVEL 107 MMOL/L (98-107); CREATININE FOR GFR 0.68 MG/DL (0.55-1.30); GLOMERULAR FILTRATION RATE > 60.0 (>51); GLUCOSE, FASTING 91 MG/DL (60-100); SODIUM LEVEL 137 MMOL/L (136-145); TOTAL PROTEIN 7.9 G/DL (5.7-8.2)
== END ==
LOC: M LAB 10:42
PROVIDERS: ATTEND Nurse Practitioner Family
DX: Z94.4 Liver transplant status (principal)

== ENCOUNTER → 2022-09-02 | Outpatient (CLI) | payer MEDICARE, MEDICAID ==
[2022-09-02 11:56] LABS: BASO # 0.1 10^3/uL (0.0-0.2); BASO % 0.8 % (0.0-1.0); EOS % 0.5 % (0.0-3.0); HEMATOCRIT 40.9 % (36.0-47.0); HEMOGLOBIN 12.7 g/dl (12.0-15.5); LYMPH # 1.5 10^3/uL (1.5-5.0); MEAN CORPUSCULAR HEMOGLOBIN 33.5 pg (27.0-33.0); MEAN CORPUSCULAR HGB CONC 31.1 g/dl (32.0-36.5); MEAN CORPUSCULAR VOLUME 107.9 fl (80.0-96.0); MONO # 0.6 10^3/uL (0.0-0.8); MONO % 7.4 % (2.0-8.0); NEUTROPHILS # 5.4 10^3/uL (1.5-8.5); NEUTROPHILS % 70.8 % (36.0-66.0); PLATELET COUNT, AUTOMATED 154 10^3/uL (150-450); RED BLOOD COUNT 3.79 10^6/uL (4.00-5.40); WHITE BLOOD COUNT 7.6 10^3/uL (4.0-10.0)
[2022-09-02 12:14] LABS: ALKALINE PHOSPHATASE 640 U/L (46-116); ALT/SGPT 23 U/L (7.0-40); AST/SGOT 31 U/L (<34); BILIRUBIN,TOTAL 1.3 MG/DL (0.3-1.2); BLOOD UREA NITROGEN 17 MG/DL (9-23); CALCIUM LEVEL 8.7 MG/DL (8.5-10.1); CARBON DIOXIDE LEVEL 26 MMOL/L (20-31); CHLORIDE LEVEL 107 MMOL/L (98-107); CREATININE FOR GFR 0.72 MG/DL (0.55-1.30); GLOMERULAR FILTRATION RATE > 60.0 (>51); GLUCOSE, FASTING 93 MG/DL (60-100); SODIUM LEVEL 137 MMOL/L (136-145); TOTAL PROTEIN 7.7 G/DL (5.7-8.2)
[2022-09-03 17:07] LABS: CMV QUANT DNA PCR (PLASMA) Positive < 200 IU/mL (Negative)
== END ==
LOC: M LAB 10:37
PROVIDERS: ATTEND Internal Medicine Infectious Disease
DX: B25.9 Cytomegaloviral disease, unspecified (principal); Z94.4 Liver transplant status

== ENCOUNTER → 2022-09-12 | Outpatient (CLI) | payer MEDICARE, MEDICAID ==
[2022-09-12 11:45] LABS: HEMOGLOBIN 12.2 g/dl (12.0-15.5); MEAN CORPUSCULAR HEMOGLOBIN 33.2 pg (27.0-33.0); MEAN CORPUSCULAR HGB CONC 31.3 g/dl (32.0-36.5); MEAN CORPUSCULAR VOLUME 106.3 fl (80.0-96.0); RED BLOOD COUNT 3.67 10^6/uL (4.00-5.40); WHITE BLOOD COUNT 7.4 10^3/uL (4.0-10.0)
[2022-09-12 11:58] LABS: PLATELET COUNT, AUTOMATED 112 10^3/uL (150-450)
[2022-09-12 12:31] LABS: ATYPICAL LYMPH 4 % (0-5); LYMPHOCYTES 34 % (16-44); MONOCYTES 10 % (0-5); NEUTROPHILS 51 % (28-66)
[2022-09-12 12:32] LABS: ALBUMIN 2.7 G/DL (3.2-5.2); ALKALINE PHOSPHATASE 1114 U/L (46-116); ALT/SGPT 26 U/L (7.0-40); ANISOCYTOSIS 1+; AST/SGOT 51 U/L (<34); BILIRUBIN,TOTAL 1.3 MG/DL (0.3-1.2); BLOOD UREA NITROGEN 14 MG/DL (9-23); CALCIUM LEVEL 8.4 MG/DL (8.5-10.1); CARBON DIOXIDE LEVEL 20 MMOL/L (20-31); CHLORIDE LEVEL 109 MMOL/L (98-107); CREATININE FOR GFR 0.63 MG/DL (0.55-1.30); GLOMERULAR FILTRATION RATE > 60.0 (>51); GLUCOSE, FASTING 90 MG/DL (60-100); PLATELET ESTIMATE DECREASED (NORMAL); POTASSIUM SERUM 4.1 MMOL/L (3.5-5.1); SODIUM LEVEL 138 MMOL/L (136-145); TOTAL PROTEIN 7.2 G/DL (5.7-8.2)
[2022-09-14 00:07] LABS: CMV QUANT DNA PCR (PLASMA) Positive < 200 IU/mL (Negative)
== END ==
LOC: M LAB 10:19
PROVIDERS: ATTEND Internal Medicine Infectious Disease
DX: B25.9 Cytomegaloviral disease, unspecified (principal)

== ENCOUNTER → 2022-09-12 | Outpatient (CLI) | payer MEDICARE, MEDICAID | LOC: M WHC 14:33 | PROVIDERS: ATTEND Physician Assistant | DX: Z12.31 Encounter for screening mammogram for malignant neoplasm of breast (principal); R92.8 Other abnormal and inconclusive findings on diagnostic imaging of breast ==

== ENCOUNTER → 2022-09-12 | Outpatient (CLI) | payer MEDICARE, MEDICAID | LOC: M LAB 10:12 | PROVIDERS: ATTEND Nurse Practitioner Family | DX: Z94.4 Liver transplant status (principal) ==

== ENCOUNTER → 2022-09-12 | Outpatient (CLI) | payer MEDICARE, MEDICAID ==
[2022-09-12 11:46] LABS: HEMATOCRIT 38.6 % (36.0-47.0); MEAN CORPUSCULAR HEMOGLOBIN 32.9 pg (27.0-33.0); MEAN CORPUSCULAR HGB CONC 31.1 g/dl (32.0-36.5); MEAN CORPUSCULAR VOLUME 105.8 fl (80.0-96.0); PLATELET COUNT, AUTOMATED 101 10^3/uL (150-450); RED BLOOD COUNT 3.65 10^6/uL (4.00-5.40); WHITE BLOOD COUNT 7.4 10^3/uL (4.0-10.0)
[2022-09-12 12:24] LABS: ATYPICAL LYMPH 4 % (0-5); LYMPHOCYTES 34 % (16-44); MONOCYTES 10 % (0-5); NEUTROPHILS 51 % (28-66)
[2022-09-12 12:25] LABS: ALBUMIN 2.8 G/DL (3.2-5.2); ALKALINE PHOSPHATASE 1078 U/L (46-116); ALT/SGPT 27 U/L (7.0-40); ANISOCYTOSIS 1+; AST/SGOT 52 U/L (<34); BILIRUBIN,TOTAL 1.4 MG/DL (0.3-1.2); BLOOD UREA NITROGEN 14 MG/DL (9-23); CALCIUM LEVEL 8.3 MG/DL (8.5-10.1); CARBON DIOXIDE LEVEL 21 MMOL/L (20-31); CHLORIDE LEVEL 109 MMOL/L (98-107); CREATININE FOR GFR 0.63 MG/DL (0.55-1.30); GLOMERULAR FILTRATION RATE > 60.0 (>51); GLUCOSE, FASTING 90 MG/DL (60-100); POTASSIUM SERUM 4.1 MMOL/L (3.5-5.1); SODIUM LEVEL 139 MMOL/L (136-145); TOTAL PROTEIN 7.3 G/DL (5.7-8.2)
[2022-09-12 12:27] LABS: PLATELET ESTIMATE DECREASED (NORMAL)
== END ==
LOC: M LAB 10:16
PROVIDERS: ATTEND Nurse Practitioner Family
DX: Z94.4 Liver transplant status (principal)

== ENCOUNTER → 2022-09-19 | Outpatient (CLI) | payer MEDICARE, MEDICAID ==
[2022-09-19 11:53] LABS: BASO % 0.4 % (0.0-1.0); EOS # 0.2 10^3/uL (0.0-0.5); HEMATOCRIT 30.9 % (36.0-47.0); HEMOGLOBIN 9.6 g/dl (12.0-15.5); LYMPH # 2.3 10^3/uL (1.5-5.0); LYMPH % 31.3 % (24.0-44.0); MEAN CORPUSCULAR HGB CONC 31.1 g/dl (32.0-36.5); MEAN CORPUSCULAR VOLUME 106.2 fl (80.0-96.0); MONO # 0.5 10^3/uL (0.0-0.8); MONO % 7.1 % (2.0-8.0); NEUTROPHILS # 4.4 10^3/uL (1.5-8.5); NEUTROPHILS % 58.8 % (36.0-66.0); PLATELET COUNT, AUTOMATED 111 10^3/uL (150-450); RED BLOOD COUNT 2.91 10^6/uL (4.00-5.40); WHITE BLOOD COUNT 7.5 10^3/uL (4.0-10.0)
[2022-09-19 12:16] LABS: ALBUMIN 2.6 G/DL (3.2-5.2); ALKALINE PHOSPHATASE 770 U/L (46-116); ALT/SGPT 24 U/L (7.0-40); AST/SGOT 42 U/L (<34); BILIRUBIN,TOTAL 1.7 MG/DL (0.3-1.2); BLOOD UREA NITROGEN 17 MG/DL (9-23); CALCIUM LEVEL 8.4 MG/DL (8.5-10.1); CARBON DIOXIDE LEVEL 21 MMOL/L (20-31); CHLORIDE LEVEL 109 MMOL/L (98-107); CREATININE FOR GFR 0.67 MG/DL (0.55-1.30); GLOMERULAR FILTRATION RATE > 60.0 (>51); GLUCOSE, FASTING 105 MG/DL (60-100); POTASSIUM SERUM 3.9 MMOL/L (3.5-5.1); SODIUM LEVEL 140 MMOL/L (136-145)
== END ==
LOC: M LAB 10:58
PROVIDERS: ATTEND Nurse Practitioner Family
DX: Z94.4 Liver transplant status (principal)

== ENCOUNTER → 2022-09-19 | Outpatient (CLI) | payer MEDICARE, MEDICAID ==
[2022-09-19 11:53] LABS: BASO % 0.4 % (0.0-1.0); EOS # 0.1 10^3/uL (0.0-0.5); EOS % 1.6 % (0.0-3.0); HEMATOCRIT 33.5 % (36.0-47.0); HEMOGLOBIN 10.4 g/dl (12.0-15.5); LYMPH # 2.1 10^3/uL (1.5-5.0); LYMPH % 30.9 % (24.0-44.0); MEAN CORPUSCULAR HEMOGLOBIN 32.9 pg (27.0-33.0); MONO # 0.5 10^3/uL (0.0-0.8); MONO % 6.7 % (2.0-8.0); NEUTROPHILS # 4.1 10^3/uL (1.5-8.5); NEUTROPHILS % 60.1 % (36.0-66.0); PLATELET COUNT, AUTOMATED 101 10^3/uL (150-450); RED BLOOD COUNT 3.16 10^6/uL (4.00-5.40); WHITE BLOOD COUNT 6.8 10^3/uL (4.0-10.0)
[2022-09-19 12:17] LABS: ALBUMIN 2.6 G/DL (3.2-5.2); ALKALINE PHOSPHATASE 769 U/L (46-116); ALT/SGPT 24 U/L (7.0-40); AST/SGOT 41 U/L (<34); BILIRUBIN,TOTAL 1.7 MG/DL (0.3-1.2); BLOOD UREA NITROGEN 17 MG/DL (9-23); CALCIUM LEVEL 8.3 MG/DL (8.5-10.1); CARBON DIOXIDE LEVEL 21 MMOL/L (20-31); CHLORIDE LEVEL 109 MMOL/L (98-107); CREATININE FOR GFR 0.66 MG/DL (0.55-1.30); GLOMERULAR FILTRATION RATE > 60.0 (>51); GLUCOSE, FASTING 112 MG/DL (60-100); POTASSIUM SERUM 3.8 MMOL/L (3.5-5.1); SODIUM LEVEL 140 MMOL/L (136-145)
[2022-09-21 14:08] LABS: CMV QUANT DNA PCR (PLASMA) Negative (Negative)
== END ==
LOC: M LAB 10:53
PROVIDERS: ATTEND Internal Medicine Infectious Disease
DX: B25.9 Cytomegaloviral disease, unspecified (principal)

== ENCOUNTER → 2022-09-19 | Outpatient (CLI) | payer MEDICARE, MEDICAID ==
[2022-09-21 14:08] LABS: CMV QUANT DNA PCR (PLASMA) Positive < 200 IU/mL (Negative); HBV HBV DNA not detected IU/mL (.)
== END ==
LOC: M LAB 10:48
PROVIDERS: ATTEND Nurse Practitioner Family
DX: Z94.4 Liver transplant status (principal); B27.90 Infectious mononucleosis, unspecified without complication

== ENCOUNTER → 2022-09-23 | Outpatient (CLI) | payer MEDICARE, MEDICAID ==
[2022-09-25 18:08] LABS: CMV QUANT DNA PCR (PLASMA) Negative (Negative); HBV HBV DNA not detected IU/mL (.)
== END ==
LOC: M LAB 11:09
PROVIDERS: ATTEND Nurse Practitioner Family
DX: Z94.4 Liver transplant status (principal); B27.90 Infectious mononucleosis, unspecified without complication

== ENCOUNTER → 2022-09-23 | Outpatient (CLI) | payer MEDICARE, MEDICAID ==
[2022-09-23 12:31] LABS: BASO # 0.1 10^3/uL (0.0-0.2); BASO % 0.6 % (0.0-1.0); EOS # 0.2 10^3/uL (0.0-0.5); HEMATOCRIT 35.6 % (36.0-47.0); LYMPH # 2.6 10^3/uL (1.5-5.0); LYMPH % 30.3 % (24.0-44.0); MEAN CORPUSCULAR HEMOGLOBIN 32.9 pg (27.0-33.0); MEAN CORPUSCULAR HGB CONC 30.9 g/dl (32.0-36.5); MEAN CORPUSCULAR VOLUME 106.6 fl (80.0-96.0); MONO # 0.6 10^3/uL (0.0-0.8); MONO % 7.1 % (2.0-8.0); NEUTROPHILS # 5.1 10^3/uL (1.5-8.5); NEUTROPHILS % 59.5 % (36.0-66.0); PLATELET COUNT, AUTOMATED 112 10^3/uL (150-450); RED BLOOD COUNT 3.34 10^6/uL (4.00-5.40); WHITE BLOOD COUNT 8.5 10^3/uL (4.0-10.0)
[2022-09-23 12:50] LABS: ALBUMIN 2.6 G/DL (3.2-5.2); ALKALINE PHOSPHATASE 811 U/L (46-116); ALT/SGPT 27 U/L (7.0-40); AST/SGOT 44 U/L (<34); BILIRUBIN,TOTAL 1.4 MG/DL (0.3-1.2); BLOOD UREA NITROGEN 17 MG/DL (9-23); CALCIUM LEVEL 8.6 MG/DL (8.5-10.1); CARBON DIOXIDE LEVEL 21 MMOL/L (20-31); CHLORIDE LEVEL 108 MMOL/L (98-107); CREATININE FOR GFR 0.64 MG/DL (0.55-1.30); GLOMERULAR FILTRATION RATE > 60.0 (>51); GLUCOSE, FASTING 121 MG/DL (60-100); POTASSIUM SERUM 3.9 MMOL/L (3.5-5.1); SODIUM LEVEL 139 MMOL/L (136-145); TOTAL PROTEIN 7.3 G/DL (5.7-8.2)
== END ==
LOC: M LAB 10:56
PROVIDERS: ATTEND Nurse Practitioner Family
DX: Z94.4 Liver transplant status (principal)

== ENCOUNTER → 2022-09-23 | Outpatient (CLI) | payer MEDICARE, MEDICAID ==
[2022-09-23 12:31] LABS: BASO # 0.1 10^3/uL (0.0-0.2); BASO % 0.7 % (0.0-1.0); EOS # 0.2 10^3/uL (0.0-0.5); EOS % 2.3 % (0.0-3.0); HEMATOCRIT 36.1 % (36.0-47.0); LYMPH # 2.5 10^3/uL (1.5-5.0); LYMPH % 29.9 % (24.0-44.0); MEAN CORPUSCULAR HEMOGLOBIN 32.3 pg (27.0-33.0); MEAN CORPUSCULAR HGB CONC 30.5 g/dl (32.0-36.5); MEAN CORPUSCULAR VOLUME 105.9 fl (80.0-96.0); MONO # 0.6 10^3/uL (0.0-0.8); MONO % 7.1 % (2.0-8.0); NEUTROPHILS % 59.6 % (36.0-66.0); PLATELET COUNT, AUTOMATED 106 10^3/uL (150-450); RED BLOOD COUNT 3.41 10^6/uL (4.00-5.40); WHITE BLOOD COUNT 8.4 10^3/uL (4.0-10.0)
[2022-09-23 12:49] LABS: ALBUMIN 2.7 G/DL (3.2-5.2); ALKALINE PHOSPHATASE 822 U/L (46-116); ALT/SGPT 27 U/L (7.0-40); AST/SGOT 45 U/L (<34); BILIRUBIN,TOTAL 1.4 MG/DL (0.3-1.2); BLOOD UREA NITROGEN 17 MG/DL (9-23); CALCIUM LEVEL 8.5 MG/DL (8.5-10.1); CARBON DIOXIDE LEVEL 21 MMOL/L (20-31); CHLORIDE LEVEL 108 MMOL/L (98-107); CREATININE FOR GFR 0.63 MG/DL (0.55-1.30); GLOMERULAR FILTRATION RATE > 60.0 (>51); GLUCOSE, FASTING 119 MG/DL (60-100); POTASSIUM SERUM 3.9 MMOL/L (3.5-5.1); SODIUM LEVEL 139 MMOL/L (136-145); TOTAL PROTEIN 7.4 G/DL (5.7-8.2)
[2022-09-24 21:07] LABS: CMV QUANT DNA PCR (PLASMA) Negative (Negative)
== END ==
LOC: M LAB 11:06
PROVIDERS: ATTEND Internal Medicine Infectious Disease
DX: B25.9 Cytomegaloviral disease, unspecified (principal)

== ENCOUNTER → 2022-09-30 | Outpatient (CLI) | payer MEDICARE, MEDICAID ==
[2022-09-30 11:57] LABS: BASO # 0.1 10^3/uL (0.0-0.2); BASO % 0.8 % (0.0-1.0); EOS # 0.3 10^3/uL (0.0-0.5); EOS % 4.6 % (0.0-3.0); HEMATOCRIT 37.7 % (36.0-47.0); HEMOGLOBIN 11.4 g/dl (12.0-15.5); LYMPH # 2.2 10^3/uL (1.5-5.0); LYMPH % 31.3 % (24.0-44.0); MEAN CORPUSCULAR HEMOGLOBIN 31.8 pg (27.0-33.0); MEAN CORPUSCULAR HGB CONC 30.2 g/dl (32.0-36.5); MEAN CORPUSCULAR VOLUME 105.3 fl (80.0-96.0); MONO # 0.6 10^3/uL (0.0-0.8); MONO % 7.9 % (2.0-8.0); NEUTROPHILS # 3.9 10^3/uL (1.5-8.5); PLATELET COUNT, AUTOMATED 103 10^3/uL (150-450); RED BLOOD COUNT 3.58 10^6/uL (4.00-5.40); WHITE BLOOD COUNT 7.1 10^3/uL (4.0-10.0)
[2022-09-30 12:31] LABS: ALBUMIN 2.7 G/DL (3.2-5.2); ALKALINE PHOSPHATASE 873 U/L (46-116); ALT/SGPT 48 U/L (7.0-40); AST/SGOT 84 U/L (<34); BLOOD UREA NITROGEN 18 MG/DL (9-23); CALCIUM LEVEL 8.7 MG/DL (8.5-10.1); CARBON DIOXIDE LEVEL 21 MMOL/L (20-31); CHLORIDE LEVEL 108 MMOL/L (98-107); CREATININE FOR GFR 0.67 MG/DL (0.55-1.30); GLOMERULAR FILTRATION RATE > 60.0 (>51); GLUCOSE, FASTING 94 MG/DL (60-100); POTASSIUM SERUM 3.9 MMOL/L (3.5-5.1); SODIUM LEVEL 137 MMOL/L (136-145); TOTAL PROTEIN 7.9 G/DL (5.7-8.2)
[2022-10-02 13:07] LABS: CMV QUANT DNA PCR (PLASMA) Positive < 200 IU/mL (Negative)
== END ==
LOC: M LAB 10:28
PROVIDERS: ATTEND Nurse Practitioner Family
DX: Z94.4 Liver transplant status (principal); Z79.60 Long term (current) use of unspecified immunomodulators and immunosuppressants

== ENCOUNTER → 2022-09-30 | Outpatient (CLI) | payer MEDICARE, MEDICAID | LOC: M LAB 10:35 | PROVIDERS: ATTEND Internal Medicine Infectious Disease | DX: B25.9 Cytomegaloviral disease, unspecified (principal); Z53.9 Procedure and treatment not carried out, unspecified reason ==

== ENCOUNTER → 2022-09-30 | Outpatient (CLI) | payer MEDICARE, MEDICAID | LOC: M LAB 10:22 | PROVIDERS: ATTEND Nurse Practitioner Family | DX: Z94.4 Liver transplant status (principal); Z53.9 Procedure and treatment not carried out, unspecified reason ==

== ENCOUNTER → 2022-10-02 | Outpatient (CLI) | payer MEDICARE, MEDICAID | LOC: M WHC 14:59 | PROVIDERS: ATTEND Physician Assistant | DX: Z12.31 Encounter for screening mammogram for malignant neoplasm of breast (principal); R92.8 Other abnormal and inconclusive findings on diagnostic imaging of breast | CPT/HCPCS: 77066; G0279 ==

== ENCOUNTER → 2022-10-07 | Outpatient (CLI) | payer MEDICARE, MEDICAID ==
[2022-10-07 12:11] LABS: ALBUMIN 2.5 G/DL (3.2-5.2); ALKALINE PHOSPHATASE 989 U/L (46-116); ALT/SGPT 78 U/L (7.0-40); AST/SGOT 148 U/L (<34); BLOOD UREA NITROGEN 17 MG/DL (9-23); CALCIUM LEVEL 8.6 MG/DL (8.5-10.1); CARBON DIOXIDE LEVEL 20 MMOL/L (20-31); CHLORIDE LEVEL 110 MMOL/L (98-107); CREATININE FOR GFR 0.66 MG/DL (0.55-1.30); GLOMERULAR FILTRATION RATE > 60.0 (>51); GLUCOSE, FASTING 94 MG/DL (60-100); POTASSIUM SERUM 3.9 MMOL/L (3.5-5.1); SODIUM LEVEL 139 MMOL/L (136-145); TOTAL PROTEIN 7.5 G/DL (5.7-8.2)
[2022-10-09 17:08] LABS: CMV QUANT DNA PCR (PLASMA) Positive < 200 IU/mL (Negative); HBV HBV DNA not detected IU/mL (.)
== END ==
LOC: M LAB 10:32
PROVIDERS: ATTEND Nurse Practitioner Family
DX: Z94.4 Liver transplant status (principal); Z79.60 Long term (current) use of unspecified immunomodulators and immunosuppressants

== ENCOUNTER → 2022-10-07 | Outpatient (CLI) | payer MEDICARE, MEDICAID | LOC: M LAB 10:22 | PROVIDERS: ATTEND Nurse Practitioner Family | DX: Z94.4 Liver transplant status (principal) ==

== ENCOUNTER → 2022-10-07 | Outpatient (CLI) | payer MEDICARE, MEDICAID | LOC: M LAB 10:26 | PROVIDERS: ATTEND Internal Medicine Infectious Disease | DX: B25.9 Cytomegaloviral disease, unspecified (principal); Z53.9 Procedure and treatment not carried out, unspecified reason ==

== ENCOUNTER → 2022-10-16 | Outpatient (CLI) | payer MEDICARE, MEDICAID ==
[~2022-10-16] MED LIST changes: +BUPR75TA5; +HYDR-3363; +MAGN400T2; +MORP1SOL4 PO
[2022-10-16 12:57] LABS: BASO % 0.5 % (0.0-1.0); EOS # 0.2 10^3/uL (0.0-0.5); EOS % 3.3 % (0.0-3.0); HEMATOCRIT 36.2 % (36.0-47.0); HEMOGLOBIN 10.8 g/dl (12.0-15.5); LYMPH # 2.1 10^3/uL (1.5-5.0); MEAN CORPUSCULAR HEMOGLOBIN 31.2 pg (27.0-33.0); MEAN CORPUSCULAR HGB CONC 29.8 g/dl (32.0-36.5); MEAN CORPUSCULAR VOLUME 104.6 fl (80.0-96.0); MONO # 0.4 10^3/uL (0.0-0.8); MONO % 5.9 % (2.0-8.0); NEUTROPHILS # 3.5 10^3/uL (1.5-8.5); PLATELET COUNT, AUTOMATED 120 10^3/uL (150-450); RED BLOOD COUNT 3.46 10^6/uL (4.00-5.40); WHITE BLOOD COUNT 6.3 10^3/uL (4.0-10.0)
[2022-10-16 13:50] LABS: ALBUMIN 2.5 G/DL (3.2-5.2); ALKALINE PHOSPHATASE 1022 U/L (46-116); ALT/SGPT 164 U/L (7.0-40); AST/SGOT 287 U/L (<34); BILIRUBIN,TOTAL 3.5 MG/DL (0.3-1.2); BLOOD UREA NITROGEN 24 MG/DL (9-23); CALCIUM LEVEL 8.5 MG/DL (8.5-10.1); CARBON DIOXIDE LEVEL 19 MMOL/L (20-31); CHLORIDE LEVEL 107 MMOL/L (98-107); CREATININE FOR GFR 0.97 MG/DL (0.55-1.30); GLOMERULAR FILTRATION RATE > 60.0 (>51); GLUCOSE, FASTING 124 MG/DL (60-100); POTASSIUM SERUM 3.8 MMOL/L (3.5-5.1); SODIUM LEVEL 136 MMOL/L (136-145); TOTAL PROTEIN 7.7 G/DL (5.7-8.2)
[2022-10-17 13:08] LABS: CMV QUANT DNA PCR (PLASMA) Positive < 200 IU/mL (Negative)
== END ==
LOC: M LAB 10:57
PROVIDERS: ATTEND Internal Medicine Infectious Disease
DX: B25.9 Cytomegaloviral disease, unspecified (principal)

== ENCOUNTER → 2022-10-16 | Outpatient (CLI) | payer MEDICARE, MEDICAID ==
[2022-10-16 12:55] LABS: BASO % 0.6 % (0.0-1.0); EOS # 0.2 10^3/uL (0.0-0.5); EOS % 3.2 % (0.0-3.0); HEMATOCRIT 34.7 % (36.0-47.0); HEMOGLOBIN 10.4 g/dl (12.0-15.5); LYMPH # 2.3 10^3/uL (1.5-5.0); LYMPH % 35.2 % (24.0-44.0); MEAN CORPUSCULAR HEMOGLOBIN 31.4 pg (27.0-33.0); MEAN CORPUSCULAR VOLUME 104.8 fl (80.0-96.0); MONO # 0.4 10^3/uL (0.0-0.8); MONO % 6.2 % (2.0-8.0); NEUTROPHILS # 3.6 10^3/uL (1.5-8.5); NEUTROPHILS % 54.5 % (36.0-66.0); PLATELET COUNT, AUTOMATED 119 10^3/uL (150-450); RED BLOOD COUNT 3.31 10^6/uL (4.00-5.40); WHITE BLOOD COUNT 6.6 10^3/uL (4.0-10.0)
[2022-10-16 13:34] LABS: ALBUMIN 2.4 G/DL (3.2-5.2); ALKALINE PHOSPHATASE 1025 U/L (46-116); ALT/SGPT 165 U/L (7.0-40); AST/SGOT 286 U/L (<34); BILIRUBIN,TOTAL 3.5 MG/DL (0.3-1.2); BLOOD UREA NITROGEN 24 MG/DL (9-23); CALCIUM LEVEL 8.5 MG/DL (8.5-10.1); CARBON DIOXIDE LEVEL 19 MMOL/L (20-31); CHLORIDE LEVEL 107 MMOL/L (98-107); CREATININE FOR GFR 0.97 MG/DL (0.55-1.30); GLOMERULAR FILTRATION RATE > 60.0 (>51); GLUCOSE, FASTING 125 MG/DL (60-100); POTASSIUM SERUM 3.8 MMOL/L (3.5-5.1); SODIUM LEVEL 136 MMOL/L (136-145); TOTAL PROTEIN 7.6 G/DL (5.7-8.2)
== END ==
LOC: M LAB 11:01
PROVIDERS: ATTEND Nurse Practitioner Family
DX: Z94.4 Liver transplant status (principal)

== ENCOUNTER → 2022-10-16 | Outpatient (CLI) | payer MEDICARE, MEDICAID ==
[2022-10-16 13:34] LABS: ALBUMIN 2.4 G/DL (3.2-5.2); ALKALINE PHOSPHATASE 1012 U/L (46-116); ALT/SGPT 164 U/L (7.0-40); AST/SGOT 286 U/L (<34); BILIRUBIN,TOTAL 3.5 MG/DL (0.3-1.2); BLOOD UREA NITROGEN 24 MG/DL (9-23); CALCIUM LEVEL 8.5 MG/DL (8.5-10.1); CARBON DIOXIDE LEVEL 18 MMOL/L (20-31); CHLORIDE LEVEL 107 MMOL/L (98-107); CREATININE FOR GFR 0.96 MG/DL (0.55-1.30); GLOMERULAR FILTRATION RATE > 60.0 (>51); GLUCOSE, FASTING 140 MG/DL (60-100); POTASSIUM SERUM 3.8 MMOL/L (3.5-5.1); SODIUM LEVEL 136 MMOL/L (136-145); TOTAL PROTEIN 7.6 G/DL (5.7-8.2)
[2022-10-16 15:02] LABS: BASO % 0.6 % (0.0-1.0); EOS # 0.2 10^3/uL (0.0-0.5); EOS % 3.5 % (0.0-3.0); HEMATOCRIT 34.1 % (36.0-47.0); HEMOGLOBIN 10.4 g/dl (12.0-15.5); LYMPH # 2.3 10^3/uL (1.5-5.0); LYMPH % 34.3 % (24.0-44.0); MEAN CORPUSCULAR HEMOGLOBIN 31.8 pg (27.0-33.0); MEAN CORPUSCULAR HGB CONC 30.5 g/dl (32.0-36.5); MEAN CORPUSCULAR VOLUME 104.3 fl (80.0-96.0); MONO # 0.4 10^3/uL (0.0-0.8); MONO % 5.3 % (2.0-8.0); NEUTROPHILS # 3.7 10^3/uL (1.5-8.5); PLATELET COUNT, AUTOMATED 126 10^3/uL (150-450); RED BLOOD COUNT 3.27 10^6/uL (4.00-5.40); WHITE BLOOD COUNT 6.6 10^3/uL (4.0-10.0)
[2022-10-20 00:09] LABS: CMV QUANT DNA PCR (PLASMA) Positive < 200 IU/mL (Negative); HBV HBV DNA not detected IU/mL (.)
== END ==
LOC: M LAB 10:37
PROVIDERS: ATTEND Nurse Practitioner Family
DX: Z94.4 Liver transplant status (principal); B25.9 Cytomegaloviral disease, unspecified

== ENCOUNTER → 2022-10-21 | Outpatient (CLI) | payer MEDICARE, MEDICAID ==
[2022-10-21 13:56] LABS: BASO % 0.5 % (0.0-1.0); EOS # 0.2 10^3/uL (0.0-0.5); EOS % 3.5 % (0.0-3.0); HEMATOCRIT 37.5 % (36.0-47.0); HEMOGLOBIN 11.5 g/dl (12.0-15.5); LYMPH # 2.3 10^3/uL (1.5-5.0); LYMPH % 34.6 % (24.0-44.0); MEAN CORPUSCULAR HEMOGLOBIN 31.6 pg (27.0-33.0); MEAN CORPUSCULAR HGB CONC 30.7 g/dl (32.0-36.5); MONO # 0.4 10^3/uL (0.0-0.8); MONO % 5.6 % (2.0-8.0); NEUTROPHILS # 3.7 10^3/uL (1.5-8.5); NEUTROPHILS % 55.5 % (36.0-66.0); PLATELET COUNT, AUTOMATED 135 10^3/uL (150-450); RED BLOOD COUNT 3.64 10^6/uL (4.00-5.40); WHITE BLOOD COUNT 6.6 10^3/uL (4.0-10.0)
[2022-10-21 14:34] LABS: ALBUMIN 2.5 G/DL (3.2-5.2); ALKALINE PHOSPHATASE 1039 U/L (46-116); ALT/SGPT 153 U/L (7.0-40); AST/SGOT 262 U/L (<34); BILIRUBIN,TOTAL 4.1 MG/DL (0.3-1.2); BLOOD UREA NITROGEN 21 MG/DL (9-23); CALCIUM LEVEL 9.1 MG/DL (8.5-10.1); CARBON DIOXIDE LEVEL 21 MMOL/L (20-31); CHLORIDE LEVEL 103 MMOL/L (98-107); CREATININE FOR GFR 0.84 MG/DL (0.55-1.30); GLOMERULAR FILTRATION RATE > 60.0 (>51); GLUCOSE, FASTING 92 MG/DL (60-100); POTASSIUM SERUM 4.5 MMOL/L (3.5-5.1); SODIUM LEVEL 133 MMOL/L (136-145); TOTAL PROTEIN 7.9 G/DL (5.7-8.2)
[2022-10-24 23:07] LABS: CMV QUANT DNA PCR (PLASMA) Positive < 200 IU/mL (Negative); HBV HBV DNA not detected IU/mL (.)
== END ==
LOC: M LAB 11:17
PROVIDERS: ATTEND Nurse Practitioner Family
DX: Z94.4 Liver transplant status (principal); Z79.60 Long term (current) use of unspecified immunomodulators and immunosuppressants; B27.90 Infectious mononucleosis, unspecified without complication

== ENCOUNTER → 2022-10-21 | Outpatient (REF) | payer MEDICARE, MEDICAID | LOC: M LAB REF 13:24 | PROVIDERS: ATTEND Physician Assistant | DX: R25.2 Cramp and spasm (principal) ==

== ENCOUNTER → 2022-10-23 | Outpatient (CLI) | payer MEDICARE, MEDICAID ==
[~2022-10-23] MED LIST changes: -BUPR75TA5; -HYDR-3363; -MAGN400T2; -MORP1SOL4 PO
== END ==
LOC: M WHC 12:35
PROVIDERS: ATTEND Physician Assistant
DX: R92.8 Other abnormal and inconclusive findings on diagnostic imaging of breast (principal); N63.20 Unspecified lump in the left breast, unspecified quadrant

== ENCOUNTER → 2022-10-28 | Outpatient (CLI) | payer MEDICARE, MEDICAID | LOC: M LAB 10:46 | PROVIDERS: ATTEND Nurse Practitioner Family | DX: Z94.4 Liver transplant status (principal) ==

== ENCOUNTER → 2022-10-28 | Outpatient (CLI) | payer MEDICARE, MEDICAID | LOC: M LAB 10:41 | PROVIDERS: ATTEND Nurse Practitioner Family | DX: Z79.60 Long term (current) use of unspecified immunomodulators and immunosuppressants (principal); Z94.4 Liver transplant status ==

== ENCOUNTER → 2022-10-28 | Outpatient (CLI) | payer MEDICARE, MEDICAID ==
[2022-10-28 12:41] LABS: BASO % 0.3 % (0.0-1.0); EOS # 0.1 10^3/uL (0.0-0.5); EOS % 1.7 % (0.0-3.0); HEMATOCRIT 35.5 % (36.0-47.0); LYMPH # 2.2 10^3/uL (1.5-5.0); LYMPH % 31.1 % (24.0-44.0); MEAN CORPUSCULAR VOLUME 103.2 fl (80.0-96.0); MONO # 0.6 10^3/uL (0.0-0.8); NEUTROPHILS # 4.1 10^3/uL (1.5-8.5); NEUTROPHILS % 58.3 % (36.0-66.0); PLATELET COUNT, AUTOMATED 128 10^3/uL (150-450); RED BLOOD COUNT 3.44 10^6/uL (4.00-5.40)
[2022-10-28 13:59] LABS: ALBUMIN 2.3 G/DL (3.2-5.2); ALKALINE PHOSPHATASE 962 U/L (46-116); ALT/SGPT 95 U/L (7.0-40); AST/SGOT 145 U/L (<34); BLOOD UREA NITROGEN 22 MG/DL (9-23); CALCIUM LEVEL 8.4 MG/DL (8.5-10.1); CARBON DIOXIDE LEVEL 20 MMOL/L (20-31); CHLORIDE LEVEL 104 MMOL/L (98-107); CREATININE FOR GFR 0.88 MG/DL (0.55-1.30); GLOMERULAR FILTRATION RATE > 60.0 (>51); GLUCOSE, FASTING 98 MG/DL (60-100); POTASSIUM SERUM 4.3 MMOL/L (3.5-5.1); SODIUM LEVEL 132 MMOL/L (136-145); TOTAL PROTEIN 7.9 G/DL (5.7-8.2)
== END ==
LOC: M LAB 10:36
PROVIDERS: ATTEND Internal Medicine Infectious Disease
DX: B25.9 Cytomegaloviral disease, unspecified (principal)

== ENCOUNTER → 2022-11-05 | Outpatient (CLI) | payer MEDICARE, MEDICAID | LOC: M LAB 11:11 | PROVIDERS: ATTEND Internal Medicine Infectious Disease | DX: Z53.9 Procedure and treatment not carried out, unspecified reason (principal) ==

== ENCOUNTER → 2022-11-05 | Outpatient (CLI) | payer MEDICARE, MEDICAID | LOC: M LAB 11:05 | PROVIDERS: ATTEND Nurse Practitioner Family | DX: Z53.9 Procedure and treatment not carried out, unspecified reason (principal) ==

== ENCOUNTER → 2022-11-05 | Outpatient (CLI) | payer MEDICARE, MEDICAID ==
[2022-11-05 12:17] LABS: BASO % 0.3 % (0.0-1.0); EOS # 0.1 10^3/uL (0.0-0.5); EOS % 1.8 % (0.0-3.0); HEMATOCRIT 38.6 % (36.0-47.0); HEMOGLOBIN 11.5 g/dl (12.0-15.5); LYMPH # 1.9 10^3/uL (1.5-5.0); LYMPH % 30.1 % (24.0-44.0); MEAN CORPUSCULAR HEMOGLOBIN 31.3 pg (27.0-33.0); MEAN CORPUSCULAR HGB CONC 29.8 g/dl (32.0-36.5); MEAN CORPUSCULAR VOLUME 105.2 fl (80.0-96.0); MONO # 0.4 10^3/uL (0.0-0.8); MONO % 6.4 % (2.0-8.0); NEUTROPHILS # 3.8 10^3/uL (1.5-8.5); NEUTROPHILS % 61.1 % (36.0-66.0); PLATELET COUNT, AUTOMATED 153 10^3/uL (150-450); RED BLOOD COUNT 3.67 10^6/uL (4.00-5.40); WHITE BLOOD COUNT 6.2 10^3/uL (4.0-10.0)
[2022-11-05 13:58] LABS: ALBUMIN 2.2 G/DL (3.2-5.2); ALKALINE PHOSPHATASE 805 U/L (46-116); ALT/SGPT 62 U/L (7.0-40); AST/SGOT 98 U/L (<34); BILIRUBIN,TOTAL 3.1 MG/DL (0.3-1.2); BLOOD UREA NITROGEN 13 MG/DL (9-23); CALCIUM LEVEL 8.2 MG/DL (8.5-10.1); CARBON DIOXIDE LEVEL 20 MMOL/L (20-31); CHLORIDE LEVEL 107 MMOL/L (98-107); CREATININE FOR GFR 0.59 MG/DL (0.55-1.30); GLOMERULAR FILTRATION RATE > 60.0 (>51); GLUCOSE, FASTING 150 MG/DL (60-100); POTASSIUM SERUM 3.6 MMOL/L (3.5-5.1); SODIUM LEVEL 135 MMOL/L (136-145); TOTAL PROTEIN 7.4 G/DL (5.7-8.2)
== END ==
LOC: M LAB 10:39
PROVIDERS: ATTEND Nurse Practitioner Family
DX: Z94.4 Liver transplant status (principal); Z79.60 Long term (current) use of unspecified immunomodulators and immunosuppressants

== ENCOUNTER → 2022-11-11 | Outpatient (CLI) | payer MEDICARE, MEDICAID ==
[2022-11-11 10:21] LABS: BASO # 0.1 10^3/uL (0.0-0.2); BASO % 0.7 % (0.0-1.0); EOS # 0.1 10^3/uL (0.0-0.5); EOS % 1.4 % (0.0-3.0); HEMATOCRIT 36.8 % (36.0-47.0); HEMOGLOBIN 11.4 g/dl (12.0-15.5); LYMPH # 2.1 10^3/uL (1.5-5.0); LYMPH % 25.9 % (24.0-44.0); MEAN CORPUSCULAR HEMOGLOBIN 31.6 pg (27.0-33.0); MEAN CORPUSCULAR VOLUME 101.9 fl (80.0-96.0); MONO # 0.6 10^3/uL (0.0-0.8); MONO % 7.8 % (2.0-8.0); NEUTROPHILS # 5.2 10^3/uL (1.5-8.5); NEUTROPHILS % 63.8 % (36.0-66.0); PLATELET COUNT, AUTOMATED 168 10^3/uL (150-450); RED BLOOD COUNT 3.61 10^6/uL (4.00-5.40); WHITE BLOOD COUNT 8.1 10^3/uL (4.0-10.0)
[2022-11-11 11:14] LABS: ALBUMIN 2.6 G/DL (3.2-5.2); ALKALINE PHOSPHATASE 825 U/L (46-116); ALT/SGPT 61 U/L (7.0-40); AST/SGOT 103 U/L (<34); BILIRUBIN,TOTAL 2.7 MG/DL (0.3-1.2); BLOOD UREA NITROGEN 19 MG/DL (9-23); CALCIUM LEVEL 8.6 MG/DL (8.5-10.1); CARBON DIOXIDE LEVEL 20 MMOL/L (20-31); CHLORIDE LEVEL 104 MMOL/L (98-107); CREATININE FOR GFR 0.73 MG/DL (0.55-1.30); GLOMERULAR FILTRATION RATE > 60.0 (>51); GLUCOSE, FASTING 93 MG/DL (60-100); POTASSIUM SERUM 3.9 MMOL/L (3.5-5.1); SODIUM LEVEL 133 MMOL/L (136-145); TOTAL PROTEIN 7.9 G/DL (5.7-8.2)
== END ==
LOC: M LAB 09:27
PROVIDERS: ATTEND Nurse Practitioner Family
DX: Z94.4 Liver transplant status (principal); Z79.60 Long term (current) use of unspecified immunomodulators and immunosuppressants

== ENCOUNTER → 2022-11-19 | Outpatient (CLI) | payer MEDICARE, MEDICAID ==
[2022-11-19 11:42] LABS: BASO # 0.1 10^3/uL (0.0-0.2); BASO % 0.6 % (0.0-1.0); EOS # 0.1 10^3/uL (0.0-0.5); EOS % 1.5 % (0.0-3.0); HEMATOCRIT 39.6 % (36.0-47.0); HEMOGLOBIN 12.2 g/dl (12.0-15.5); LYMPH # 1.9 10^3/uL (1.5-5.0); LYMPH % 24.5 % (24.0-44.0); MEAN CORPUSCULAR HEMOGLOBIN 31.4 pg (27.0-33.0); MEAN CORPUSCULAR HGB CONC 30.8 g/dl (32.0-36.5); MEAN CORPUSCULAR VOLUME 101.8 fl (80.0-96.0); MONO # 0.6 10^3/uL (0.0-0.8); MONO % 6.9 % (2.0-8.0); NEUTROPHILS # 5.2 10^3/uL (1.5-8.5); NEUTROPHILS % 66.2 % (36.0-66.0); PLATELET COUNT, AUTOMATED 164 10^3/uL (150-450); RED BLOOD COUNT 3.89 10^6/uL (4.00-5.40); WHITE BLOOD COUNT 7.9 10^3/uL (4.0-10.0)
[2022-11-19 12:28] LABS: ALBUMIN 2.6 G/DL (3.2-5.2); ALKALINE PHOSPHATASE 836 U/L (46-116); ALT/SGPT 66 U/L (7.0-40); AST/SGOT 118 U/L (<34); BILIRUBIN,TOTAL 2.7 MG/DL (0.3-1.2); BLOOD UREA NITROGEN 17 MG/DL (9-23); CALCIUM LEVEL 8.9 MG/DL (8.5-10.1); CARBON DIOXIDE LEVEL 23 MMOL/L (20-31); CHLORIDE LEVEL 101 MMOL/L (98-107); GLOMERULAR FILTRATION RATE > 60.0 (>51); GLUCOSE, FASTING 134 MG/DL (60-100); POTASSIUM SERUM 3.7 MMOL/L (3.5-5.1); SODIUM LEVEL 133 MMOL/L (136-145); TOTAL PROTEIN 7.9 G/DL (5.7-8.2)
== END ==
LOC: M LAB 11:11
PROVIDERS: ATTEND Nurse Practitioner Family
DX: Z94.4 Liver transplant status (principal); Z79.60 Long term (current) use of unspecified immunomodulators and immunosuppressants

== ENCOUNTER → 2022-11-25 | Outpatient (CLI) | payer MEDICARE, OTHER ==
[2022-11-25 10:36] LABS: BASO % 0.4 % (0.0-1.0); EOS # 0.2 10^3/uL (0.0-0.5); EOS % 2.4 % (0.0-3.0); HEMATOCRIT 35.9 % (36.0-47.0); HEMOGLOBIN 11.2 g/dl (12.0-15.5); LYMPH # 1.8 10^3/uL (1.5-5.0); LYMPH % 26.8 % (24.0-44.0); MEAN CORPUSCULAR HEMOGLOBIN 31.7 pg (27.0-33.0); MEAN CORPUSCULAR HGB CONC 31.2 g/dl (32.0-36.5); MEAN CORPUSCULAR VOLUME 101.7 fl (80.0-96.0); MONO # 0.4 10^3/uL (0.0-0.8); MONO % 6.6 % (2.0-8.0); NEUTROPHILS # 4.3 10^3/uL (1.5-8.5); NEUTROPHILS % 63.4 % (36.0-66.0); PLATELET COUNT, AUTOMATED 122 10^3/uL (150-450); RED BLOOD COUNT 3.53 10^6/uL (4.00-5.40); WHITE BLOOD COUNT 6.7 10^3/uL (4.0-10.0)
[2022-11-25 11:05] LABS: ALBUMIN 2.4 G/DL (3.2-5.2); ALKALINE PHOSPHATASE 711 U/L (46-116); ALT/SGPT 48 U/L (7.0-40); AST/SGOT 80 U/L (<34); BILIRUBIN,TOTAL 2.3 MG/DL (0.3-1.2); BLOOD UREA NITROGEN 15 MG/DL (9-23); CALCIUM LEVEL 8.5 MG/DL (8.5-10.1); CARBON DIOXIDE LEVEL 23 MMOL/L (20-31); CHLORIDE LEVEL 105 MMOL/L (98-107); CREATININE FOR GFR 0.66 MG/DL (0.55-1.30); GLOMERULAR FILTRATION RATE > 60.0 (>51); GLUCOSE, FASTING 93 MG/DL (60-100); POTASSIUM SERUM 3.9 MMOL/L (3.5-5.1); SODIUM LEVEL 136 MMOL/L (136-145); TOTAL PROTEIN 7.3 G/DL (5.7-8.2)
== END ==
LOC: M LAB 10:08
PROVIDERS: ATTEND Nurse Practitioner Family
DX: Z94.4 Liver transplant status (principal); Z79.60 Long term (current) use of unspecified immunomodulators and immunosuppressants

== ENCOUNTER → 2022-12-02 | Outpatient (CLI) | payer MEDICARE, MEDICAID ==
[2022-12-02 10:59] LABS: BASO % 0.4 % (0.0-1.0); EOS # 0.2 10^3/uL (0.0-0.5); EOS % 2.1 % (0.0-3.0); HEMATOCRIT 36.8 % (36.0-47.0); HEMOGLOBIN 11.5 g/dl (12.0-15.5); LYMPH # 2.3 10^3/uL (1.5-5.0); LYMPH % 27.9 % (24.0-44.0); MEAN CORPUSCULAR HEMOGLOBIN 31.6 pg (27.0-33.0); MEAN CORPUSCULAR HGB CONC 31.3 g/dl (32.0-36.5); MEAN CORPUSCULAR VOLUME 101.1 fl (80.0-96.0); MONO # 0.5 10^3/uL (0.0-0.8); MONO % 6.3 % (2.0-8.0); NEUTROPHILS # 5.1 10^3/uL (1.5-8.5); NEUTROPHILS % 62.9 % (36.0-66.0); PLATELET COUNT, AUTOMATED 151 10^3/uL (150-450); RED BLOOD COUNT 3.64 10^6/uL (4.00-5.40); WHITE BLOOD COUNT 8.2 10^3/uL (4.0-10.0)
[2022-12-02 11:26] LABS: ALBUMIN 2.4 G/DL (3.2-5.2); ALKALINE PHOSPHATASE 718 U/L (46-116); ALT/SGPT 46 U/L (7.0-40); AST/SGOT 72 U/L (<34); BILIRUBIN,TOTAL 3.2 MG/DL (0.3-1.2); BLOOD UREA NITROGEN 13 MG/DL (9-23); CARBON DIOXIDE LEVEL 22 MMOL/L (20-31); CHLORIDE LEVEL 103 MMOL/L (98-107); CREATININE FOR GFR 0.68 MG/DL (0.55-1.30); GLOMERULAR FILTRATION RATE > 60.0 (>51); GLUCOSE, FASTING 92 MG/DL (60-100); POTASSIUM SERUM 3.6 MMOL/L (3.5-5.1); SODIUM LEVEL 135 MMOL/L (136-145); TOTAL PROTEIN 7.6 G/DL (5.7-8.2)
== END ==
LOC: M LAB 10:16
PROVIDERS: ATTEND Nurse Practitioner Family
DX: Z94.4 Liver transplant status (principal); E83.42 Hypomagnesemia

== ENCOUNTER → 2022-12-02 | Outpatient (CLI) | payer MEDICARE, MEDICAID | LOC: M LAB 10:19 | PROVIDERS: ATTEND Physician Assistant | DX: E83.42 Hypomagnesemia (principal) ==

== ENCOUNTER → 2022-12-06 | Outpatient (CLI) | payer MEDICARE, MEDICAID ==
[2022-12-10 14:12] LABS: CMV QUANT DNA PCR (PLASMA) Positive < 200 IU/mL (Negative)
== END ==
LOC: M LAB 13:44
PROVIDERS: ATTEND Nurse Practitioner Family
DX: Z94.4 Liver transplant status (principal)

== ENCOUNTER → 2022-12-09 | Outpatient (CLI) | payer MEDICARE, MEDICAID ==
[2022-12-09 12:13] LABS: BASO % 0.3 % (0.0-1.0); EOS # 0.1 10^3/uL (0.0-0.5); HEMATOCRIT 32.9 % (36.0-47.0); HEMOGLOBIN 10.3 g/dl (12.0-15.5); LYMPH # 1.6 10^3/uL (1.5-5.0); MEAN CORPUSCULAR HEMOGLOBIN 31.6 pg (27.0-33.0); MEAN CORPUSCULAR HGB CONC 31.3 g/dl (32.0-36.5); MEAN CORPUSCULAR VOLUME 100.9 fl (80.0-96.0); MONO # 0.7 10^3/uL (0.0-0.8); MONO % 6.9 % (2.0-8.0); NEUTROPHILS # 8.2 10^3/uL (1.5-8.5); NEUTROPHILS % 76.2 % (36.0-66.0); PLATELET COUNT, AUTOMATED 172 10^3/uL (150-450); RED BLOOD COUNT 3.26 10^6/uL (4.00-5.40); WHITE BLOOD COUNT 10.7 10^3/uL (4.0-10.0)
[2022-12-09 12:26] LABS: ALBUMIN 2.1 G/DL (3.2-5.2); ALKALINE PHOSPHATASE 595 U/L (46-116); ALT/SGPT 34 U/L (7.0-40); AST/SGOT 63 U/L (<34); BILIRUBIN,TOTAL 2.9 MG/DL (0.3-1.2); BLOOD UREA NITROGEN 13 MG/DL (9-23); CALCIUM LEVEL 7.9 MG/DL (8.5-10.1); CARBON DIOXIDE LEVEL 22 MMOL/L (20-31); CHLORIDE LEVEL 104 MMOL/L (98-107); CREATININE FOR GFR 0.65 MG/DL (0.55-1.30); GLOMERULAR FILTRATION RATE > 60.0 (>51); GLUCOSE, FASTING 92 MG/DL (60-100); POTASSIUM SERUM 3.9 MMOL/L (3.5-5.1); SODIUM LEVEL 135 MMOL/L (136-145)
[2022-12-11 15:10] LABS: CMV QUANT DNA PCR (PLASMA) Positive < 200 IU/mL (Negative)
== END ==
LOC: M LAB 10:04
PROVIDERS: ATTEND Nurse Practitioner Family
DX: Z94.4 Liver transplant status (principal)

== ENCOUNTER → 2022-12-11 | Outpatient (CLI) | payer MEDICARE, MEDICAID ==
[2022-12-11 13:38] LABS: INR 1.03; PROTHROMBIN TIME 13.7 SECONDS (12.5-14.5)
== END ==
LOC: M LAB 12:35
PROVIDERS: ATTEND Physician Assistant Medical
DX: Z01.812 Encounter for preprocedural laboratory examination (principal)

== ENCOUNTER → 2022-12-16 | Outpatient (CLI) | payer MEDICARE, MEDICAID ==
[~2022-12-16] MED LIST changes: +BUPR75TA5; +HYDR-3363; +MAGN400T2; +MORP1SOL4 PO
[2022-12-16 12:30] LABS: BASO % 0.2 % (0.0-1.0); EOS % 0.3 % (0.0-3.0); HEMATOCRIT 34.8 % (36.0-47.0); HEMOGLOBIN 10.8 g/dl (12.0-15.5); LYMPH # 1.5 10^3/uL (1.5-5.0); LYMPH % 15.4 % (24.0-44.0); MEAN CORPUSCULAR HEMOGLOBIN 31.5 pg (27.0-33.0); MEAN CORPUSCULAR VOLUME 101.5 fl (80.0-96.0); MONO # 0.8 10^3/uL (0.0-0.8); MONO % 7.8 % (2.0-8.0); NEUTROPHILS # 7.3 10^3/uL (1.5-8.5); NEUTROPHILS % 75.7 % (36.0-66.0); PLATELET COUNT, AUTOMATED 179 10^3/uL (150-450); RED BLOOD COUNT 3.43 10^6/uL (4.00-5.40); WHITE BLOOD COUNT 9.7 10^3/uL (4.0-10.0)
[2022-12-16 13:35] LABS: ALBUMIN 2.1 G/DL (3.2-5.2); ALKALINE PHOSPHATASE 592 U/L (46-116); ALT/SGPT 28 U/L (7.0-40); AST/SGOT 57 U/L (<34); BILIRUBIN,TOTAL 3.5 MG/DL (0.3-1.2); BLOOD UREA NITROGEN 10 MG/DL (9-23); CALCIUM LEVEL 8.1 MG/DL (8.5-10.1); CARBON DIOXIDE LEVEL 21 MMOL/L (20-31); CHLORIDE LEVEL 101 MMOL/L (98-107); CREATININE FOR GFR 0.65 MG/DL (0.55-1.30); GLOMERULAR FILTRATION RATE > 60.0 (>51); GLUCOSE, FASTING 95 MG/DL (60-100); POTASSIUM SERUM 4.2 MMOL/L (3.5-5.1); SODIUM LEVEL 131 MMOL/L (136-145)
[2022-12-16 18:51] LABS: TOTAL PROTEIN 7.3 G/DL (5.7-8.2)
== END ==
LOC: M LAB 10:11
PROVIDERS: ATTEND Nurse Practitioner Family
DX: Z94.4 Liver transplant status (principal); Z79.60 Long term (current) use of unspecified immunomodulators and immunosuppressants

== ENCOUNTER 2022-12-17 16:42 | Emergency (ER) | payer MEDICARE, MEDICAID ==
[~2022-12-17] VITALS: Ht 162.6 cm; Wt 46.8 kg
[~2022-12-17 16:42] MED LIST changes: -BUPR75TA5; -HYDR-3363; -MAGN400T2; -MORP1SOL4 PO
[2022-12-17] MEDS ORDERED: BUPR75TA5 (17:06)
[2022-12-17] MEDS ORDERED: HYDR-3363 (17:06)
[2022-12-17] MEDS ORDERED: MAGN400T2 (17:06)
[2022-12-17] MEDS ORDERED: methylPREDNISolone 125MG 2ML VIAL IV ONE (21:15)
[2022-12-17] MEDS ORDERED: TACROLIMUS 1MG CAP PO STA (21:15)
[2022-12-17 21:31] LABS: ALKALINE PHOSPHATASE 579 U/L (46-116); ALT/SGPT 29 U/L (7.0-40); AST/SGOT 61 U/L (<34); BLOOD UREA NITROGEN 17 MG/DL (9-23); CALCIUM LEVEL 7.5 MG/DL (8.5-10.1); CARBON DIOXIDE LEVEL 22 MMOL/L (20-31); CHLORIDE LEVEL 105 MMOL/L (98-107); CREATININE FOR GFR 0.71 MG/DL (0.55-1.30); GLOMERULAR FILTRATION RATE > 60.0 (>51); GLUCOSE, FASTING 101 MG/DL (60-100); POTASSIUM SERUM 3.8 MMOL/L (3.5-5.1); SODIUM LEVEL 134 MMOL/L (136-145)
[2022-12-17 21:42] LABS: BASO % 0.3 % (0.0-1.0); EOS # 0.1 10^3/uL (0.0-0.5); HEMATOCRIT 32.2 % (36.0-47.0); HEMOGLOBIN 10.1 g/dl (12.0-15.5); LYMPH # 1.9 10^3/uL (1.5-5.0); MEAN CORPUSCULAR HEMOGLOBIN 31.8 pg (27.0-33.0); MEAN CORPUSCULAR HGB CONC 31.4 g/dl (32.0-36.5); MEAN CORPUSCULAR VOLUME 101.3 fl (80.0-96.0); NEUTROPHILS # 8.9 10^3/uL (1.5-8.5); NEUTROPHILS % 74.3 % (36.0-66.0); PLATELET COUNT, AUTOMATED 149 10^3/uL (150-450); RED BLOOD COUNT 3.18 10^6/uL (4.00-5.40)
[2022-12-17] MEDS ORDERED: oxyCODONE 5MG TAB PO ONE (21:45)
[2022-12-17] MEDS ORDERED: MORPHINE 2 MG/ML 1ML VIAL IV ONE (21:45)
[2022-12-17] MEDS ORDERED: methylPREDNISolone 250 MG in D5W 50 ML IV ONE (22:00)
[2022-12-17] MEDS ORDERED: METHYLPREDNISOLONE IV ONE (22:00)
[2022-12-17] MEDS ORDERED: NS IV ONE (22:00)
[2022-12-17 22:32] VITALS: BP 116/69
[2022-12-17] MEDS ORDERED: MORP1SOL4 PO (23:34)
== END 2022-12-17 23:54 | disposition home or self-care (01) ==
LOC: M ED 16:42
DX: T86.40 Unspecified complication of liver transplant (principal); M25.511 Pain in right shoulder; E03.9 Hypothyroidism, unspecified; Z86.73 Personal history of transient ischemic attack (TIA), and cerebral infarction without residual deficits; F17.200 Nicotine dependence, unspecified, uncomplicated; Z79.899 Other long term (current) drug therapy; Z88.5 Allergy status to narcotic agent
CPT/HCPCS: 73030; 80053; 85025; 96365; 96375; 99284; J2930; J7507

== ENCOUNTER → 2022-12-23 | Outpatient (CLI) | payer MEDICARE, MEDICAID ==
[~2022-12-23] MED LIST changes: +BUPR75TA5; +HYDR-3363; +MAGN400T2; +MORP1SOL4 PO
[2022-12-23 11:19] LABS: BASO % 0.1 % (0.0-1.0); EOS % 0.2 % (0.0-3.0); HEMATOCRIT 33.6 % (36.0-47.0); HEMOGLOBIN 10.5 g/dl (12.0-15.5); LYMPH # 2.1 10^3/uL (1.5-5.0); LYMPH % 17.7 % (24.0-44.0); MEAN CORPUSCULAR HEMOGLOBIN 31.5 pg (27.0-33.0); MEAN CORPUSCULAR HGB CONC 31.3 g/dl (32.0-36.5); MEAN CORPUSCULAR VOLUME 100.9 fl (80.0-96.0); MONO # 0.8 10^3/uL (0.0-0.8); MONO % 6.7 % (2.0-8.0); NEUTROPHILS # 8.9 10^3/uL (1.5-8.5); NEUTROPHILS % 74.4 % (36.0-66.0); PLATELET COUNT, AUTOMATED 165 10^3/uL (150-450); RED BLOOD COUNT 3.33 10^6/uL (4.00-5.40)
[2022-12-23 11:38] LABS: ALBUMIN 2.2 G/DL (3.2-5.2); ALKALINE PHOSPHATASE 416 U/L (46-116); ALT/SGPT 62 U/L (7.0-40); AST/SGOT 51 U/L (<34); BILIRUBIN,TOTAL 1.9 MG/DL (0.3-1.2); BLOOD UREA NITROGEN 20 MG/DL (9-23); CALCIUM LEVEL 8.3 MG/DL (8.5-10.1); CARBON DIOXIDE LEVEL 24 MMOL/L (20-31); CHLORIDE LEVEL 105 MMOL/L (98-107); CREATININE FOR GFR 0.64 MG/DL (0.55-1.30); GLOMERULAR FILTRATION RATE > 60.0 (>51); GLUCOSE, FASTING 168 MG/DL (60-100); POTASSIUM SERUM 4.2 MMOL/L (3.5-5.1); SODIUM LEVEL 135 MMOL/L (136-145); TOTAL PROTEIN 6.6 G/DL (5.7-8.2)
== END ==
LOC: M LAB 10:33
PROVIDERS: ATTEND Nurse Practitioner Family
DX: Z94.4 Liver transplant status (principal)

== ENCOUNTER → 2022-12-30 | Outpatient (CLI) | payer MEDICARE, MEDICAID ==
[2022-12-30 11:31] LABS: ALBUMIN 2.1 G/DL (3.2-5.2); ALKALINE PHOSPHATASE 283 U/L (46-116); ALT/SGPT 38 U/L (7.0-40); AST/SGOT 31 U/L (<34); BILIRUBIN,TOTAL 1.6 MG/DL (0.3-1.2); BLOOD UREA NITROGEN 19 MG/DL (9-23); CARBON DIOXIDE LEVEL 24 MMOL/L (20-31); CHLORIDE LEVEL 103 MMOL/L (98-107); CREATININE FOR GFR 0.59 MG/DL (0.55-1.30); GLOMERULAR FILTRATION RATE > 60.0 (>51); GLUCOSE, FASTING 170 MG/DL (60-100); POTASSIUM SERUM 3.8 MMOL/L (3.5-5.1); SODIUM LEVEL 134 MMOL/L (136-145); TOTAL PROTEIN 6.2 G/DL (5.7-8.2)
[2022-12-30 11:43] LABS: BASO % 0.1 % (0.0-1.0); EOS % 0.3 % (0.0-3.0); HEMATOCRIT 33.5 % (36.0-47.0); HEMOGLOBIN 10.4 g/dl (12.0-15.5); MEAN CORPUSCULAR HEMOGLOBIN 31.2 pg (27.0-33.0); MEAN CORPUSCULAR VOLUME 100.6 fl (80.0-96.0); MONO # 1.1 10^3/uL (0.0-0.8); MONO % 7.7 % (2.0-8.0); NEUTROPHILS # 9.9 10^3/uL (1.5-8.5); NEUTROPHILS % 69.4 % (36.0-66.0); PLATELET COUNT, AUTOMATED 151 10^3/uL (150-450); RED BLOOD COUNT 3.33 10^6/uL (4.00-5.40); WHITE BLOOD COUNT 14.3 10^3/uL (4.0-10.0)
== END ==
LOC: M LAB 10:19
PROVIDERS: ATTEND Nurse Practitioner Family
DX: Z94.4 Liver transplant status (principal)

== ENCOUNTER → 2023-01-06 | Outpatient (CLI) | payer MEDICARE, MEDICAID ==
[2023-01-06 13:21] LABS: BASO % 0.2 % (0.0-1.0); EOS # 0.1 10^3/uL (0.0-0.5); EOS % 0.5 % (0.0-3.0); HEMATOCRIT 36.2 % (36.0-47.0); HEMOGLOBIN 11.2 g/dl (12.0-15.5); LYMPH # 4.1 10^3/uL (1.5-5.0); MEAN CORPUSCULAR HEMOGLOBIN 30.9 pg (27.0-33.0); MEAN CORPUSCULAR HGB CONC 30.9 g/dl (32.0-36.5); MEAN CORPUSCULAR VOLUME 99.7 fl (80.0-96.0); MONO % 6.7 % (2.0-8.0); NEUTROPHILS # 9.8 10^3/uL (1.5-8.5); PLATELET COUNT, AUTOMATED 199 10^3/uL (150-450); RED BLOOD COUNT 3.63 10^6/uL (4.00-5.40); WHITE BLOOD COUNT 15.1 10^3/uL (4.0-10.0)
[2023-01-06 13:57] LABS: ALBUMIN 2.5 G/DL (3.2-5.2); ALKALINE PHOSPHATASE 267 U/L (46-116); ALT/SGPT 64 U/L (7.0-40); AST/SGOT 37 U/L (<34); BILIRUBIN,TOTAL 1.7 MG/DL (0.3-1.2); BLOOD UREA NITROGEN 30 MG/DL (9-23); CALCIUM LEVEL 7.9 MG/DL (8.5-10.1); CARBON DIOXIDE LEVEL 22 MMOL/L (20-31); CHLORIDE LEVEL 102 MMOL/L (98-107); CREATININE FOR GFR 0.69 MG/DL (0.55-1.30); GLOMERULAR FILTRATION RATE > 60.0 (>51); GLUCOSE, FASTING 216 MG/DL (60-100); POTASSIUM SERUM 3.9 MMOL/L (3.5-5.1); SODIUM LEVEL 134 MMOL/L (136-145); TOTAL PROTEIN 6.2 G/DL (5.7-8.2)
[2023-01-09 09:11] LABS: CMV QUANT DNA PCR (PLASMA) Positive < 200 IU/mL (Negative)
== END ==
LOC: M LAB 11:01
PROVIDERS: ATTEND Physician Assistant
DX: Z94.4 Liver transplant status (principal); Z79.60 Long term (current) use of unspecified immunomodulators and immunosuppressants

== ENCOUNTER → 2023-01-13 | Outpatient (CLI) | payer MEDICARE, MEDICAID ==
[2023-01-13 11:43] LABS: BASO % 0.2 % (0.0-1.0); EOS # 0.1 10^3/uL (0.0-0.5); EOS % 0.9 % (0.0-3.0); HEMATOCRIT 35.7 % (36.0-47.0); HEMOGLOBIN 10.9 g/dl (12.0-15.5); LYMPH # 4.4 10^3/uL (1.5-5.0); LYMPH % 31.9 % (24.0-44.0); MEAN CORPUSCULAR HEMOGLOBIN 29.9 pg (27.0-33.0); MEAN CORPUSCULAR HGB CONC 30.5 g/dl (32.0-36.5); MEAN CORPUSCULAR VOLUME 98.1 fl (80.0-96.0); MONO # 0.9 10^3/uL (0.0-0.8); MONO % 6.5 % (2.0-8.0); NEUTROPHILS # 8.3 10^3/uL (1.5-8.5); NEUTROPHILS % 60.1 % (36.0-66.0); PLATELET COUNT, AUTOMATED 180 10^3/uL (150-450); RED BLOOD COUNT 3.64 10^6/uL (4.00-5.40); WHITE BLOOD COUNT 13.9 10^3/uL (4.0-10.0)
[2023-01-13 12:06] LABS: ALBUMIN 2.3 G/DL (3.2-5.2); ALKALINE PHOSPHATASE 228 U/L (46-116); ALT/SGPT 49 U/L (7.0-40); AST/SGOT 36 U/L (<34); BILIRUBIN,TOTAL 1.1 MG/DL (0.3-1.2); BLOOD UREA NITROGEN 23 MG/DL (9-23); CARBON DIOXIDE LEVEL 23 MMOL/L (20-31); CHLORIDE LEVEL 105 MMOL/L (98-107); CREATININE FOR GFR 0.61 MG/DL (0.55-1.30); GLOMERULAR FILTRATION RATE > 60.0 (>51); GLUCOSE, FASTING 147 MG/DL (60-100); POTASSIUM SERUM 4.1 MMOL/L (3.5-5.1); SODIUM LEVEL 136 MMOL/L (136-145); TOTAL PROTEIN 5.9 G/DL (5.7-8.2)
== END ==
LOC: M LAB 10:18
PROVIDERS: ATTEND Internal Medicine
DX: Z94.4 Liver transplant status (principal)

== ENCOUNTER → 2023-01-20 | Outpatient (CLI) | payer MEDICAID, MEDICARE ==
[2023-01-20 11:24] LABS: BASO % 0.3 % (0.0-1.0); EOS # 0.1 10^3/uL (0.0-0.5); EOS % 0.5 % (0.0-3.0); HEMATOCRIT 38.8 % (36.0-47.0); HEMOGLOBIN 11.7 g/dl (12.0-15.5); LYMPH % 27.4 % (24.0-44.0); MEAN CORPUSCULAR HEMOGLOBIN 29.8 pg (27.0-33.0); MEAN CORPUSCULAR HGB CONC 30.2 g/dl (32.0-36.5); MEAN CORPUSCULAR VOLUME 98.7 fl (80.0-96.0); MONO # 0.7 10^3/uL (0.0-0.8); MONO % 6.4 % (2.0-8.0); NEUTROPHILS # 7.2 10^3/uL (1.5-8.5); NEUTROPHILS % 64.6 % (36.0-66.0); PLATELET COUNT, AUTOMATED 183 10^3/uL (150-450); RED BLOOD COUNT 3.93 10^6/uL (4.00-5.40); WHITE BLOOD COUNT 11.1 10^3/uL (4.0-10.0)
[2023-01-20 11:56] LABS: ALBUMIN 2.9 G/DL (3.2-5.2); ALKALINE PHOSPHATASE 210 U/L (46-116); ALT/SGPT 99 U/L (7.0-40); AST/SGOT 76 U/L (<34); BILIRUBIN,TOTAL 1.1 MG/DL (0.3-1.2); BLOOD UREA NITROGEN 23 MG/DL (9-23); CALCIUM LEVEL 8.8 MG/DL (8.5-10.1); CARBON DIOXIDE LEVEL 26 MMOL/L (20-31); CHLORIDE LEVEL 102 MMOL/L (98-107); CREATININE FOR GFR 0.62 MG/DL (0.55-1.30); GLOMERULAR FILTRATION RATE > 60.0 (>51); GLUCOSE, FASTING 144 MG/DL (60-100); POTASSIUM SERUM 3.9 MMOL/L (3.5-5.1); SODIUM LEVEL 133 MMOL/L (136-145); TOTAL PROTEIN 6.8 G/DL (5.7-8.2)
== END ==
LOC: M LAB 10:24
PROVIDERS: ATTEND Nurse Practitioner Family
DX: Z94.4 Liver transplant status (principal); Z79.60 Long term (current) use of unspecified immunomodulators and immunosuppressants

== ENCOUNTER → 2023-01-27 | Outpatient (CLI) | payer MEDICARE, MEDICAID ==
[2023-01-27 11:18] LABS: BASO % 0.1 % (0.0-1.0); EOS % 0.2 % (0.0-3.0); HEMATOCRIT 34.8 % (36.0-47.0); HEMOGLOBIN 10.6 g/dl (12.0-15.5); LYMPH # 2.2 10^3/uL (1.5-5.0); LYMPH % 17.9 % (24.0-44.0); MEAN CORPUSCULAR HEMOGLOBIN 29.5 pg (27.0-33.0); MEAN CORPUSCULAR HGB CONC 30.5 g/dl (32.0-36.5); MEAN CORPUSCULAR VOLUME 96.9 fl (80.0-96.0); MONO # 0.8 10^3/uL (0.0-0.8); MONO % 6.5 % (2.0-8.0); NEUTROPHILS # 9.1 10^3/uL (1.5-8.5); NEUTROPHILS % 74.5 % (36.0-66.0); PLATELET COUNT, AUTOMATED 156 10^3/uL (150-450); RED BLOOD COUNT 3.59 10^6/uL (4.00-5.40); WHITE BLOOD COUNT 12.2 10^3/uL (4.0-10.0)
[2023-01-27 11:52] LABS: ALBUMIN 2.7 G/DL (3.2-5.2); ALKALINE PHOSPHATASE 194 U/L (46-116); ALT/SGPT 81 U/L (7.0-40); AST/SGOT 45 U/L (<34); BILIRUBIN,TOTAL 1.4 MG/DL (0.3-1.2); BLOOD UREA NITROGEN 23 MG/DL (9-23); CALCIUM LEVEL 8.6 MG/DL (8.5-10.1); CARBON DIOXIDE LEVEL 24 MMOL/L (20-31); CHLORIDE LEVEL 102 MMOL/L (98-107); CREATININE FOR GFR 0.66 MG/DL (0.55-1.30); GLOMERULAR FILTRATION RATE > 60.0 (>51); GLUCOSE, FASTING 233 MG/DL (60-100); POTASSIUM SERUM 4.5 MMOL/L (3.5-5.1); SODIUM LEVEL 134 MMOL/L (136-145); TOTAL PROTEIN 6.2 G/DL (5.7-8.2)
[2023-01-28 17:10] LABS: CMV QUANT DNA PCR (PLASMA) Positive < 200 IU/mL (Negative)
== END ==
LOC: M LAB 09:54
PROVIDERS: ATTEND Nurse Practitioner Family
DX: Z94.4 Liver transplant status (principal)

== ENCOUNTER → 2023-01-30 | Outpatient (CLI) | payer MEDICARE, MEDICAID | LOC: M RAD 17:43 | PROVIDERS: ATTEND Physician Assistant | DX: R05.9 Cough, unspecified (principal); J84.10 Pulmonary fibrosis, unspecified ==

== ENCOUNTER → 2023-02-03 | Outpatient (CLI) | payer MEDICARE, MEDICAID ==
[2023-02-03 11:54] LABS: BASO % 0.1 % (0.0-1.0); EOS % 0.2 % (0.0-3.0); HEMATOCRIT 32.9 % (36.0-47.0); HEMOGLOBIN 9.9 g/dl (12.0-15.5); LYMPH # 2.6 10^3/uL (1.5-5.0); MEAN CORPUSCULAR HEMOGLOBIN 29.5 pg (27.0-33.0); MEAN CORPUSCULAR HGB CONC 30.1 g/dl (32.0-36.5); MEAN CORPUSCULAR VOLUME 97.9 fl (80.0-96.0); MONO # 0.7 10^3/uL (0.0-0.8); MONO % 6.3 % (2.0-8.0); NEUTROPHILS # 7.5 10^3/uL (1.5-8.5); NEUTROPHILS % 68.8 % (36.0-66.0); PLATELET COUNT, AUTOMATED 163 10^3/uL (150-450); RED BLOOD COUNT 3.36 10^6/uL (4.00-5.40); WHITE BLOOD COUNT 10.8 10^3/uL (4.0-10.0)
[2023-02-03 12:23] LABS: ALBUMIN 2.7 G/DL (3.2-5.2); ALKALINE PHOSPHATASE 214 U/L (46-116); ALT/SGPT 53 U/L (7.0-40); AST/SGOT 29 U/L (<34); BILIRUBIN,TOTAL 1.1 MG/DL (0.3-1.2); BLOOD UREA NITROGEN 18 MG/DL (9-23); CALCIUM LEVEL 8.5 MG/DL (8.5-10.1); CARBON DIOXIDE LEVEL 26 MMOL/L (20-31); CHLORIDE LEVEL 104 MMOL/L (98-107); CREATININE FOR GFR 0.57 MG/DL (0.55-1.30); GLOMERULAR FILTRATION RATE > 60.0 (>51); GLUCOSE, FASTING 141 MG/DL (60-100); POTASSIUM SERUM 3.6 MMOL/L (3.5-5.1); SODIUM LEVEL 134 MMOL/L (136-145); TOTAL PROTEIN 6.3 G/DL (5.7-8.2)
== END ==
LOC: M LAB 10:36
PROVIDERS: ATTEND Nurse Practitioner Family
DX: Z94.4 Liver transplant status (principal)

== ENCOUNTER → 2023-02-10 | Outpatient (CLI) | payer MEDICARE, MEDICAID | LOC: M LAB 09:48 | PROVIDERS: ATTEND Nurse Practitioner Adult Health | DX: Z94.4 Liver transplant status (principal) ==

== ENCOUNTER → 2023-02-10 | Outpatient (CLI) | payer MEDICARE, MEDICAID ==
[2023-02-10 10:28] LABS: BASO % 0.2 % (0.0-1.0); EOS % 0.2 % (0.0-3.0); HEMOGLOBIN 11.4 g/dl (12.0-15.5); LYMPH # 3.1 10^3/uL (1.5-5.0); LYMPH % 24.8 % (24.0-44.0); MEAN CORPUSCULAR HEMOGLOBIN 27.9 pg (27.0-33.0); MEAN CORPUSCULAR HGB CONC 29.2 g/dl (32.0-36.5); MEAN CORPUSCULAR VOLUME 95.4 fl (80.0-96.0); MONO # 0.7 10^3/uL (0.0-0.8); MONO % 5.7 % (2.0-8.0); NEUTROPHILS # 8.4 10^3/uL (1.5-8.5); NEUTROPHILS % 67.6 % (36.0-66.0); PLATELET COUNT, AUTOMATED 188 10^3/uL (150-450); RED BLOOD COUNT 4.09 10^6/uL (4.00-5.40); WHITE BLOOD COUNT 12.4 10^3/uL (4.0-10.0)
[2023-02-10 10:47] LABS: ALBUMIN 3.1 G/DL (3.2-5.2); ALKALINE PHOSPHATASE 232 U/L (46-116); ALT/SGPT 39 U/L (7.0-40); AST/SGOT 18 U/L (<34); BILIRUBIN,TOTAL 1.6 MG/DL (0.3-1.2); BLOOD UREA NITROGEN 20 MG/DL (9-23); CALCIUM LEVEL 8.9 MG/DL (8.5-10.1); CARBON DIOXIDE LEVEL 25 MMOL/L (20-31); CHLORIDE LEVEL 103 MMOL/L (98-107); CREATININE FOR GFR 0.62 MG/DL (0.55-1.30); GLOMERULAR FILTRATION RATE > 60.0 (>51); GLUCOSE, FASTING 162 MG/DL (60-100); SODIUM LEVEL 136 MMOL/L (136-145); TOTAL PROTEIN 7.1 G/DL (5.7-8.2)
== END ==
LOC: M LAB 09:35
PROVIDERS: ATTEND Nurse Practitioner Family
DX: Z94.4 Liver transplant status (principal)

== ENCOUNTER → 2023-02-11 | Outpatient (REF) | payer MEDICARE, MEDICAID ==
[~2023-02-11] MED LIST changes: -BUPR75TA5; +BUPR75TA5 PO; -MAGN400T2; +MAGN400T2 PO; +OXYC-517 PO; +PRED10TA2 PO; +TACR1CAP3 PO
[2023-02-13 17:08] LABS: CMV QUANT DNA PCR (PLASMA) Positive < 200 IU/mL (Negative)
== END ==
LOC: M LAB REF 16:35
PROVIDERS: ATTEND Nurse Practitioner Family
DX: Z94.4 Liver transplant status (principal)

== ENCOUNTER → 2023-02-17 | Outpatient (CLI) | payer MEDICARE, MEDICAID ==
[2023-02-17 11:42] LABS: BASO % 0.1 % (0.0-1.0); EOS % 0.2 % (0.0-3.0); HEMATOCRIT 31.2 % (36.0-47.0); HEMOGLOBIN 9.4 g/dl (12.0-15.5); LYMPH # 3.1 10^3/uL (1.5-5.0); LYMPH % 22.5 % (24.0-44.0); MEAN CORPUSCULAR HEMOGLOBIN 28.1 pg (27.0-33.0); MEAN CORPUSCULAR HGB CONC 30.1 g/dl (32.0-36.5); MEAN CORPUSCULAR VOLUME 93.4 fl (80.0-96.0); MONO # 0.8 10^3/uL (0.0-0.8); MONO % 5.6 % (2.0-8.0); NEUTROPHILS # 9.7 10^3/uL (1.5-8.5); NEUTROPHILS % 70.7 % (36.0-66.0); PLATELET COUNT, AUTOMATED 156 10^3/uL (150-450); RED BLOOD COUNT 3.34 10^6/uL (4.00-5.40); WHITE BLOOD COUNT 13.8 10^3/uL (4.0-10.0)
[2023-02-17 12:06] LABS: ALBUMIN 2.6 G/DL (3.2-5.2); ALKALINE PHOSPHATASE 207 U/L (46-116); ALT/SGPT 35 U/L (7.0-40); AST/SGOT 12 U/L (<34); BILIRUBIN,TOTAL 0.7 MG/DL (0.3-1.2); BLOOD UREA NITROGEN 22 MG/DL (9-23); CARBON DIOXIDE LEVEL 24 MMOL/L (20-31); CHLORIDE LEVEL 101 MMOL/L (98-107); CREATININE FOR GFR 0.64 MG/DL (0.55-1.30); GLOMERULAR FILTRATION RATE > 60.0 (>51); GLUCOSE, FASTING 307 MG/DL (60-100); SODIUM LEVEL 132 MMOL/L (136-145); TOTAL PROTEIN 6.1 G/DL (5.7-8.2)
[2023-02-19 11:11] LABS: CMV QUANT DNA PCR (PLASMA) Positive < 200 IU/mL (Negative)
== END ==
LOC: M LAB 10:50
PROVIDERS: ATTEND Nurse Practitioner Family
DX: Z94.4 Liver transplant status (principal)

== ENCOUNTER 2023-02-19 05:41 | Inpatient (IN) | payer MEDICARE, MEDICAID ==
[2023-02-19] VITALS (11 sets, daily range): BP systolic 90–106; BP diastolic 55–71; TEMP 96.8–99; O2SAT 86–97
[~2023-02-19] VITALS: Ht 162.6 cm; Wt 43.6 kg
[~2023-02-19 05:41] MED LIST changes: -OXYC-517 PO; -PRED10TA2 PO; -TACR1CAP3 PO
[2023-02-19 07:48] LABS: BASO % 0.2 % (0.0-1.0); EOS % 0.1 % (0.0-3.0); HEMATOCRIT 34.8 % (36.0-47.0); HEMOGLOBIN 10.7 g/dl (12.0-15.5); LYMPH # 3.4 10^3/uL (1.5-5.0); LYMPH % 17.3 % (24.0-44.0); MEAN CORPUSCULAR HEMOGLOBIN 28.4 pg (27.0-33.0); MEAN CORPUSCULAR HGB CONC 30.7 g/dl (32.0-36.5); MEAN CORPUSCULAR VOLUME 92.3 fl (80.0-96.0); MONO % 5.1 % (2.0-8.0); NEUTROPHILS % 76.4 % (36.0-66.0); PLATELET COUNT, AUTOMATED 208 10^3/uL (150-450); RED BLOOD COUNT 3.77 10^6/uL (4.00-5.40); WHITE BLOOD COUNT 19.5 10^3/uL (4.0-10.0)
[2023-02-19] MEDS: MORPHINE 2 MG/ML 1ML VIAL IV PRN ×2 (07:48→10:06)
[2023-02-19 07:57] LABS: ALBUMIN 2.8 G/DL (3.2-5.2); ALKALINE PHOSPHATASE 240 U/L (46-116); ALT/SGPT 40 U/L (7.0-40); AST/SGOT 27 U/L (<34); BILIRUBIN,DIRECT 0.5 MG/DL (<0.4); BILIRUBIN,TOTAL 0.8 MG/DL (0.3-1.2); BLOOD UREA NITROGEN 23 MG/DL (9-23); CALCIUM LEVEL 8.7 MG/DL (8.5-10.1); CARBON DIOXIDE LEVEL 24 MMOL/L (20-31); CHLORIDE LEVEL 98 MMOL/L (98-107); CREATININE FOR GFR 0.68 MG/DL (0.55-1.30); GLOMERULAR FILTRATION RATE > 60.0 (>51); GLUCOSE, FASTING 392 MG/DL (60-100); POTASSIUM SERUM 4.6 MMOL/L (3.5-5.1); SODIUM LEVEL 130 MMOL/L (136-145); TOTAL PROTEIN 6.8 G/DL (5.7-8.2)
[2023-02-19 08:29] LABS: ERYTHROCYTE SEDIMENTATION RATE 95 mm/hr (0-30)
[2023-02-19] MEDS ORDERED: predniSONE 50 MG TAB PO SCH (09:00)
[2023-02-19] MEDS ORDERED: buPROPion 75 MG TAB PO SCH ×2 (09:00)
[2023-02-19] MEDS ORDERED: MEGESTROL 400MG 10ML SUSP ORAL SYRINGE *DRAW UP EXACT DOSE PO SCH (09:00)
[2023-02-19] MEDS ORDERED: ISOVUE-370 76% 100ML VIAL As Ordered ONE (09:29)
[2023-02-19 10:20] LABS: LIPASE 42 U/L (12-53)
[2023-02-19] MEDS ORDERED: NS 1,310 ML in IV 1 EA IV ONE (11:20)
[2023-02-19] MEDS ORDERED: PIPERACILLIN/TAZOBACTAM SOD 4.5 GM in D5W MINI-BAG PLUS 50 ML IV ONE (11:20)
[2023-02-19] MEDS ORDERED: MED REC IN PROGRESS XX ONE (13:00)
[2023-02-19] MEDS ORDERED: NS 2,000 ML IV ONE (13:05)
[2023-02-19] MEDS ORDERED: TACR1CAP3 PO ×2 (13:32)
[2023-02-19] MEDS ORDERED: PRED10TA2 PO (13:32)
[2023-02-19] MEDS ORDERED: OXYC-517 PO (13:32)
[2023-02-19] MEDS ORDERED: HOME MED LIST COMPLETE! XX SCH (13:35)
[2023-02-19] MEDS ORDERED: traMADol 50 MG TAB PO PRN (13:50)
[2023-02-19] MEDS ORDERED: oxyCODONE 5MG TAB PO PRN (13:50)
[2023-02-19] MEDS ORDERED: MORPHINE 2 MG/ML 1ML VIAL IV ONE (13:50)
[2023-02-19] MEDS ORDERED: ALPRAZolam 0.25 MG TAB PO ONE (13:50)
[2023-02-19] MEDS ORDERED: KETOROLAC 30 MG/ML 1ML VIAL IV ONE (13:50)
[2023-02-19] MEDS ORDERED: LIDOCAINE 1% MDV 20ML VIAL As Ordered ONE (15:48)
[2023-02-19] MEDS: IPRATROPIUM 0.5MG/ALBUTEROL 2.5MG INH SOL UD 3ML (DUONEB) NEB SCH ×2 (16:00→19:41)
[2023-02-19] MEDS ORDERED: MIDODRINE 5 MG TAB PO SCH (16:00)
[2023-02-19] MEDS ORDERED: MIDODRINE 5 MG TAB PO STA (17:30)
[2023-02-19] MEDS ORDERED: NS 1,000 ML IV ONE ×3 (18:05→20:00)
[2023-02-19] MEDS ORDERED: VANCOMYCIN HCL 1,000 MG, VIAL MATE ADAPTER 1 EACH in D5W 250 ML IV ONE (19:00)
[2023-02-19] MEDS ORDERED: HYDROCORTISONE 100MG/2ML VIAL IV ONE (19:00)
[2023-02-19] MEDS ORDERED: NOREPINEPHRINE 4MG IN D5 250ML 4 MG in IV 1 EA IV SCH ×2 (19:00)
[2023-02-19] MEDS ORDERED: FLUDROCORTISONE ACETATE 0.1 MG TAB PO SCH (20:00)
[2023-02-19] MEDS ORDERED: PIPERACILLIN/TAZOBACTAM SOD 4.5 GM in D5W MINI-BAG PLUS 50 ML IV SCH (20:00)
[2023-02-19] MEDS ORDERED: PILL CUTTER 1 EACH XX PRN (20:00)
[2023-02-19 20:45] LABS: HEMOGLOBIN A1c 9.8 % (4.0-6.0)
[2023-02-19 20:57] LABS: ALBUMIN 1.9 G/DL (3.2-5.2); ALKALINE PHOSPHATASE 185 U/L (46-116); ALT/SGPT 27 U/L (7.0-40); AST/SGOT 19 U/L (<34); BILIRUBIN,TOTAL 1.8 MG/DL (0.3-1.2); BLOOD UREA NITROGEN 14 MG/DL (9-23); CALCIUM LEVEL 6.1 MG/DL (8.5-10.1); CARBON DIOXIDE LEVEL 21 MMOL/L (20-31); CHLORIDE LEVEL 107 MMOL/L (98-107); CREATININE FOR GFR 0.63 MG/DL (0.55-1.30); GLOMERULAR FILTRATION RATE > 60.0 (>51); GLUCOSE, FASTING 239 MG/DL (60-100); POTASSIUM SERUM 3.8 MMOL/L (3.5-5.1); SODIUM LEVEL 134 MMOL/L (136-145); TOTAL PROTEIN 4.7 G/DL (5.7-8.2)
[2023-02-19] MEDS ORDERED: PANTOPRAZOLE 40MG TAB (PROTONIX) PO SCH (21:00)
[2023-02-19] MEDS ORDERED: TACROLIMUS 1MG CAP PO SCH (21:00)
[2023-02-19] MEDS ORDERED: ursodioL 300MG CAP PO SCH (21:00)
[2023-02-19] MEDS ORDERED: HYDROCORTISONE 5MG TABLET PO SCH (21:00)
[2023-02-20] MEDS ORDERED: LEVOTHYROXINE 100MCG TABLET (0.1MG) PO SCH (06:00)
[2023-02-20] MEDS ORDERED: VANCOMYCIN HCL 500 MG in D5W MINI-BAG PLUS 100 ML IV SCH (06:00)
[2023-02-20] MEDS ORDERED: MAGNESIUM OXIDE 400MG TAB (MAG-OX) PO SCH (09:00)
[2023-02-20] MEDS ORDERED: TACROLIMUS 1MG CAP PO SCH (09:00)
== END 2023-02-19 22:38 | disposition short-term general hospital (02) | DRG 871 ==
LOC: M ED 05:41 → EDBD 05:41 → M ED INP 12:59 → ENRESERV 14:49 → M MSPAV 15:52 → M PCU 19:01
PROVIDERS: ADMIT General Practice; ATTEND General Practice
PROC: 0W9G3ZZ Drainage of Peritoneal Cavity, Percutaneous Approach (ICD-10-PCS; principal; 2023-02-19 16:00)
DX: A41.9 Sepsis, unspecified organism (principal); K65.1 Peritoneal abscess; Z94.4 Liver transplant status; D84.9 Immunodeficiency, unspecified; E27.40 Unspecified adrenocortical insufficiency; E87.1 Hypo-osmolality and hyponatremia; E46 Unspecified protein-calorie malnutrition; R65.20 Severe sepsis without septic shock; E88.09 Other disorders of plasma-protein metabolism, not elsewhere classified; J47.9 Bronchiectasis, uncomplicated; D53.9 Nutritional anemia, unspecified; L93.0 Discoid lupus erythematosus; D63.1 Anemia in chronic kidney disease; M25.512 Pain in left shoulder; I10 Essential (primary) hypertension; E03.9 Hypothyroidism, unspecified; Z79.52 Long term (current) use of systemic steroids; Z79.899 Other long term (current) drug therapy; Z88.5 Allergy status to narcotic agent

== ENCOUNTER → 2023-03-03 | Outpatient (CLI) | payer MEDICARE, MEDICAID ==
[~2023-03-03] MED LIST changes: +OXYC-517 PO; +PRED10TA2 PO; +TACR1CAP3 PO
[2023-03-03 11:53] LABS: BASO % 0.2 % (0.0-1.0); EOS % 0.2 % (0.0-3.0); HEMATOCRIT 29.4 % (36.0-47.0); HEMOGLOBIN 8.3 g/dl (12.0-15.5); LYMPH # 3.3 10^3/uL (1.5-5.0); MEAN CORPUSCULAR HEMOGLOBIN 26.6 pg (27.0-33.0); MEAN CORPUSCULAR HGB CONC 28.2 g/dl (32.0-36.5); MEAN CORPUSCULAR VOLUME 94.2 fl (80.0-96.0); MONO # 0.7 10^3/uL (0.0-0.8); NEUTROPHILS # 7.7 10^3/uL (1.5-8.5); PLATELET COUNT, AUTOMATED 187 10^3/uL (150-450); RED BLOOD COUNT 3.12 10^6/uL (4.00-5.40); WHITE BLOOD COUNT 11.8 10^3/uL (4.0-10.0)
[2023-03-03 12:17] LABS: ALBUMIN 3.1 G/DL (3.2-5.2); ALKALINE PHOSPHATASE 194 U/L (46-116); ALT/SGPT 69 U/L (7.0-40); AST/SGOT 44 U/L (<34); BILIRUBIN,TOTAL 1.1 MG/DL (0.3-1.2); BLOOD UREA NITROGEN 19 MG/DL (9-23); CALCIUM LEVEL 8.6 MG/DL (8.5-10.1); CARBON DIOXIDE LEVEL 25 MMOL/L (20-31); CHLORIDE LEVEL 104 MMOL/L (98-107); CREATININE FOR GFR 0.67 MG/DL (0.55-1.30); GLOMERULAR FILTRATION RATE > 60.0 (>51); GLUCOSE, FASTING 140 MG/DL (60-100); POTASSIUM SERUM 3.9 MMOL/L (3.5-5.1); SODIUM LEVEL 137 MMOL/L (136-145); TOTAL PROTEIN 6.3 G/DL (5.7-8.2)
== END ==
LOC: M LAB 10:42
PROVIDERS: ATTEND Nurse Practitioner Family
DX: Z94.4 Liver transplant status (principal)

== ENCOUNTER → 2023-03-06 | Outpatient (REF) | payer MEDICARE, MEDICAID ==
[2023-03-06 18:45] LABS: CREATININE, URINE 127.3 MG/DL
[2023-03-11 00:11] LABS: CREATININE, URINE 118.5 mg/dL (20.0-300.0)
== END ==
LOC: M LAB REF 16:15
PROVIDERS: ATTEND Physician Assistant
DX: Z79.899 Other long term (current) drug therapy (principal); E11.65 Type 2 diabetes mellitus with hyperglycemia

== ENCOUNTER 2023-03-17 18:38 | Emergency (ER) | payer MEDICARE, MEDICAID ==
[~2023-03-17] VITALS: Ht 162.6 cm; Wt 49.3 kg
[~2023-03-17 18:38] MED LIST changes: -VITA500C24 PO
[2023-03-17 20:46] LABS: BASO % 0.1 % (0.0-1.0); HEMATOCRIT 22.8 % (36.0-47.0); LYMPH % 14.1 % (24.0-44.0); MEAN CORPUSCULAR HEMOGLOBIN 24.7 pg (27.0-33.0); MEAN CORPUSCULAR HGB CONC 27.2 g/dl (32.0-36.5); MEAN CORPUSCULAR VOLUME 90.8 fl (80.0-96.0); MONO # 0.2 10^3/uL (0.0-0.8); MONO % 3.3 % (2.0-8.0); NEUTROPHILS # 5.6 10^3/uL (1.5-8.5); NEUTROPHILS % 81.1 % (36.0-66.0); PLATELET COUNT, AUTOMATED 171 10^3/uL (150-450); RED BLOOD COUNT 2.51 10^6/uL (4.00-5.40); WHITE BLOOD COUNT 6.9 10^3/uL (4.0-10.0)
[2023-03-17 20:52] LABS: HEMOGLOBIN 6.2 g/dl (12.0-15.5)
[2023-03-17 21:00] LABS: INR 0.91; PROTHROMBIN TIME 12.5 SECONDS (12.5-14.5)
[2023-03-17 21:07] LABS: BLOOD UREA NITROGEN 27 MG/DL (9-23); CARBON DIOXIDE LEVEL 23 MMOL/L (20-31); CHLORIDE LEVEL 106 MMOL/L (98-107); CREATININE FOR GFR 0.67 MG/DL (0.55-1.30); GLOMERULAR FILTRATION RATE > 60.0 (>51); GLUCOSE, FASTING 208 MG/DL (60-100); IRON (FE) 10 UG/DL (50-170); PERCENT SATURATION 2.4 % (13.2-45.0); POTASSIUM SERUM 4.1 MMOL/L (3.5-5.1); SODIUM LEVEL 138 MMOL/L (136-145); TOTAL IRON BINDING CAPACITY 423 UG/DL (250-425)
[2023-03-17 21:08] LABS: FERRITIN 6.4 NG/ML (7.3-270.7)
[2023-03-17 22:14] VITALS: BP 125/69; TEMP 98; O2SAT 98
[2023-03-17] MEDS ORDERED: ACETAMINOPHEN TAB 650MG DOSE (2X325MG) PO ONE (22:25)
[2023-03-17 22:30] VITALS: BP 103/65; TEMP 97.9; O2SAT 96
[2023-03-17 23:27] VITALS: BP 109/67; TEMP 98; O2SAT 98
[2023-03-18] MEDS ORDERED: HYDROMORPHONE HCL 0.5 MG/ 0.5 ML SYRINGE IV PRN (00:35)
[2023-03-18 00:36] VITALS: BP 111/61; TEMP 98
[2023-03-18 00:50] VITALS: BP 102/58; TEMP 98; O2SAT 98
[2023-03-18 02:34] VITALS: BP 107/68; TEMP 97; O2SAT 98
[2023-03-18 03:45] VITALS: BP 114/72; O2SAT 94
[2023-03-18] MEDS ORDERED: VITA500C24 PO (04:11)
[2023-03-18] MEDS ORDERED: FERR325T3 PO (04:11)
== END 2023-03-18 04:19 | disposition home or self-care (01) ==
LOC: M ED 18:38
DX: D50.9 Iron deficiency anemia, unspecified (principal); Z94.4 Liver transplant status; I10 Essential (primary) hypertension; Z87.891 Personal history of nicotine dependence; Z79.899 Other long term (current) drug therapy
CPT/HCPCS: 36415; 36430; 80048; 80053; 80197; 82728; 83550; 85025; 85046; 85610; 85730; 86850; 86900; 86901; 86920; 87497; 87798; 99285; P9016

== ENCOUNTER → 2023-03-17 | Outpatient (CLI) | payer MEDICARE, MEDICAID ==
[~2023-03-17] MED LIST changes: +VITA500C24 PO
[2023-03-17 11:12] LABS: BASO % 0.3 % (0.0-1.0); EOS % 0.3 % (0.0-3.0); HEMATOCRIT 24.7 % (36.0-47.0); LYMPH # 2.7 10^3/uL (1.5-5.0); LYMPH % 34.7 % (24.0-44.0); MEAN CORPUSCULAR HEMOGLOBIN 24.5 pg (27.0-33.0); MEAN CORPUSCULAR HGB CONC 27.1 g/dl (32.0-36.5); MEAN CORPUSCULAR VOLUME 90.5 fl (80.0-96.0); MONO # 0.5 10^3/uL (0.0-0.8); MONO % 6.2 % (2.0-8.0); NEUTROPHILS # 4.4 10^3/uL (1.5-8.5); NEUTROPHILS % 57.2 % (36.0-66.0); PLATELET COUNT, AUTOMATED 186 10^3/uL (150-450); RED BLOOD COUNT 2.73 10^6/uL (4.00-5.40); WHITE BLOOD COUNT 7.7 10^3/uL (4.0-10.0)
[2023-03-17 11:28] LABS: ALBUMIN 3.1 G/DL (3.2-5.2); ALKALINE PHOSPHATASE 188 U/L (46-116); ALT/SGPT 42 U/L (7.0-40); AST/SGOT 21 U/L (<34); BILIRUBIN,TOTAL 0.7 MG/DL (0.3-1.2); BLOOD UREA NITROGEN 22 MG/DL (9-23); CALCIUM LEVEL 8.3 MG/DL (8.5-10.1); CARBON DIOXIDE LEVEL 25 MMOL/L (20-31); CHLORIDE LEVEL 110 MMOL/L (98-107); CREATININE FOR GFR 0.69 MG/DL (0.55-1.30); GLOMERULAR FILTRATION RATE > 60.0 (>51); GLUCOSE, FASTING 77 MG/DL (60-100); POTASSIUM SERUM 3.8 MMOL/L (3.5-5.1); SODIUM LEVEL 142 MMOL/L (136-145)
[2023-03-17 11:31] LABS: HEMOGLOBIN 6.7 g/dl (12.0-15.5)
[2023-03-19 23:07] LABS: CMV QUANT DNA PCR (PLASMA) Positive < 200 IU/mL (Negative)
== END ==
LOC: M LAB 10:26
PROVIDERS: ATTEND Nurse Practitioner Family
DX: Z94.4 Liver transplant status (principal)

== ENCOUNTER → 2023-03-24 | Outpatient (CLI) | payer MEDICARE, MEDICAID ==
[~2023-03-24] MED LIST changes: +VITA500C24 PO
[2023-03-24 11:28] LABS: BASO % 0.4 % (0.0-1.0); EOS % 0.3 % (0.0-3.0); HEMATOCRIT 34.2 % (36.0-47.0); HEMOGLOBIN 9.5 g/dl (12.0-15.5); LYMPH # 2.6 10^3/uL (1.5-5.0); MEAN CORPUSCULAR HGB CONC 27.8 g/dl (32.0-36.5); MEAN CORPUSCULAR VOLUME 93.4 fl (80.0-96.0); MONO # 0.6 10^3/uL (0.0-0.8); MONO % 8.3 % (2.0-8.0); NEUTROPHILS # 4.1 10^3/uL (1.5-8.5); NEUTROPHILS % 54.7 % (36.0-66.0); PLATELET COUNT, AUTOMATED 147 10^3/uL (150-450); RED BLOOD COUNT 3.66 10^6/uL (4.00-5.40); WHITE BLOOD COUNT 7.5 10^3/uL (4.0-10.0)
[2023-03-24 11:57] LABS: ALBUMIN 2.9 G/DL (3.2-5.2); ALKALINE PHOSPHATASE 202 U/L (46-116); ALT/SGPT 25 U/L (7.0-40); AST/SGOT < 8 U/L (<34); BILIRUBIN,TOTAL 0.8 MG/DL (0.3-1.2); BLOOD UREA NITROGEN 19 MG/DL (9-23); CALCIUM LEVEL 8.3 MG/DL (8.5-10.1); CARBON DIOXIDE LEVEL 26 MMOL/L (20-31); CHLORIDE LEVEL 107 MMOL/L (98-107); CREATININE FOR GFR 0.69 MG/DL (0.55-1.30); GLOMERULAR FILTRATION RATE > 60.0 (>51); GLUCOSE, FASTING 88 MG/DL (60-100); POTASSIUM SERUM 3.8 MMOL/L (3.5-5.1); SODIUM LEVEL 139 MMOL/L (136-145)
== END ==
LOC: M LAB 10:48
PROVIDERS: ATTEND Nurse Practitioner Family
DX: Z94.4 Liver transplant status (principal)

== ENCOUNTER → 2023-03-31 | Outpatient (CLI) | payer MEDICARE, MEDICAID ==
[2023-03-31 12:18] LABS: ALKALINE PHOSPHATASE 242 U/L (46-116); ALT/SGPT 23 U/L (7.0-40); AST/SGOT 18 U/L (<34); BILIRUBIN,TOTAL 0.7 MG/DL (0.3-1.2); BLOOD UREA NITROGEN 21 MG/DL (9-23); CALCIUM LEVEL 8.6 MG/DL (8.5-10.1); CARBON DIOXIDE LEVEL 25 MMOL/L (20-31); CHLORIDE LEVEL 107 MMOL/L (98-107); CREATININE FOR GFR 0.73 MG/DL (0.55-1.30); GLOMERULAR FILTRATION RATE > 60.0 (>51); GLUCOSE, FASTING 69 MG/DL (60-100); HEMATOCRIT 35.2 % (36.0-47.0); MEAN CORPUSCULAR HEMOGLOBIN 27.5 pg (27.0-33.0); MEAN CORPUSCULAR HGB CONC 28.4 g/dl (32.0-36.5); MEAN CORPUSCULAR VOLUME 96.7 fl (80.0-96.0); PLATELET COUNT, AUTOMATED 168 10^3/uL (150-450); RED BLOOD COUNT 3.64 10^6/uL (4.00-5.40); SODIUM LEVEL 141 MMOL/L (136-145); TOTAL PROTEIN 6.5 G/DL (5.7-8.2); WHITE BLOOD COUNT 7.9 10^3/uL (4.0-10.0)
[2023-03-31 12:49] LABS: ATYPICAL LYMPH 6 % (0-5); BASOPHILS 1 % (0-1); LYMPHOCYTES 30 % (16-44); MONOCYTES 8 % (0-5); NEUTROPHILS 54 % (28-66)
[2023-03-31 13:06] LABS: ANISOCYTOSIS 4+; HYPOCHROMASIA 1+
[2023-03-31 13:07] LABS: PLATELET ESTIMATE NORMAL (NORMAL)
[2023-04-02 11:08] LABS: CMV QUANT DNA PCR (PLASMA) Positive < 200 IU/mL (Negative)
== END ==
LOC: M LAB 10:39
PROVIDERS: ATTEND Nurse Practitioner Family
DX: Z94.4 Liver transplant status (principal)

== ENCOUNTER → 2023-04-07 | Outpatient (CLI) | payer MEDICARE, MEDICAID ==
[~2023-04-07] MED LIST changes: +BACI500O8; +BACTDSTA
[2023-04-07 11:21] LABS: BASO # 0.1 10^3/uL (0.0-0.2); BASO % 0.7 % (0.0-1.0); EOS # 0.1 10^3/uL (0.0-0.5); EOS % 0.9 % (0.0-3.0); HEMATOCRIT 39.7 % (36.0-47.0); HEMOGLOBIN 11.3 g/dl (12.0-15.5); LYMPH # 2.6 10^3/uL (1.5-5.0); LYMPH % 34.2 % (24.0-44.0); MEAN CORPUSCULAR HEMOGLOBIN 28.2 pg (27.0-33.0); MEAN CORPUSCULAR HGB CONC 28.5 g/dl (32.0-36.5); MONO # 0.7 10^3/uL (0.0-0.8); MONO % 9.5 % (2.0-8.0); NEUTROPHILS # 4.1 10^3/uL (1.5-8.5); NEUTROPHILS % 53.9 % (36.0-66.0); PLATELET COUNT, AUTOMATED 149 10^3/uL (150-450); RED BLOOD COUNT 4.01 10^6/uL (4.00-5.40); WHITE BLOOD COUNT 7.7 10^3/uL (4.0-10.0)
[2023-04-07 11:57] LABS: ALKALINE PHOSPHATASE 223 U/L (46-116); ALT/SGPT 26 U/L (7.0-40); AST/SGOT 22 U/L (<34); BLOOD UREA NITROGEN 21 MG/DL (9-23); CALCIUM LEVEL 8.7 MG/DL (8.5-10.1); CARBON DIOXIDE LEVEL 26 MMOL/L (20-31); CHLORIDE LEVEL 106 MMOL/L (98-107); CREATININE FOR GFR 0.68 MG/DL (0.55-1.30); GLOMERULAR FILTRATION RATE > 60.0 (>51); GLUCOSE, FASTING 91 MG/DL (60-100); POTASSIUM SERUM 3.8 MMOL/L (3.5-5.1); SODIUM LEVEL 140 MMOL/L (136-145); TOTAL PROTEIN 6.5 G/DL (5.7-8.2)
[2023-04-10 02:21] LABS: CMV QUANT DNA PCR (PLASMA) Negative (Negative)
== END ==
LOC: M LAB 10:55
PROVIDERS: ATTEND Nurse Practitioner Family
DX: Z94.4 Liver transplant status (principal)

== ENCOUNTER → 2023-04-14 | Outpatient (CLI) | payer MEDICARE, MEDICAID ==
[2023-04-14 11:28] LABS: BASO % 0.6 % (0.0-1.0); EOS # 0.1 10^3/uL (0.0-0.5); EOS % 0.9 % (0.0-3.0); HEMATOCRIT 39.4 % (36.0-47.0); HEMOGLOBIN 11.9 g/dl (12.0-15.5); LYMPH # 1.7 10^3/uL (1.5-5.0); LYMPH % 30.8 % (24.0-44.0); MEAN CORPUSCULAR HEMOGLOBIN 29.8 pg (27.0-33.0); MEAN CORPUSCULAR HGB CONC 30.2 g/dl (32.0-36.5); MEAN CORPUSCULAR VOLUME 98.7 fl (80.0-96.0); MONO # 0.4 10^3/uL (0.0-0.8); MONO % 7.7 % (2.0-8.0); NEUTROPHILS # 3.2 10^3/uL (1.5-8.5); NEUTROPHILS % 59.3 % (36.0-66.0); PLATELET COUNT, AUTOMATED 131 10^3/uL (150-450); RED BLOOD COUNT 3.99 10^6/uL (4.00-5.40); WHITE BLOOD COUNT 5.4 10^3/uL (4.0-10.0)
[2023-04-14 11:53] LABS: ALBUMIN 3.3 G/DL (3.2-5.2); ALKALINE PHOSPHATASE 368 U/L (46-116); ALT/SGPT 69 U/L (7.0-40); AST/SGOT 92 U/L (<34); BILIRUBIN,TOTAL 0.8 MG/DL (0.3-1.2); BLOOD UREA NITROGEN 28 MG/DL (9-23); CALCIUM LEVEL 8.9 MG/DL (8.5-10.1); CARBON DIOXIDE LEVEL 22 MMOL/L (20-31); CHLORIDE LEVEL 106 MMOL/L (98-107); CREATININE FOR GFR 0.86 MG/DL (0.55-1.30); GLOMERULAR FILTRATION RATE > 60.0 (>51); GLUCOSE, FASTING 68 MG/DL (60-100); POTASSIUM SERUM 4.2 MMOL/L (3.5-5.1); SODIUM LEVEL 137 MMOL/L (136-145); TOTAL PROTEIN 6.8 G/DL (5.7-8.2)
== END ==
LOC: M LAB 10:14
PROVIDERS: ATTEND Nurse Practitioner Family
DX: Z94.4 Liver transplant status (principal)

== ENCOUNTER → 2023-04-14 | Outpatient (CLI) | payer MEDICARE, MEDICAID | LOC: M LAB 10:06 | PROVIDERS: ATTEND Nurse Practitioner Family | DX: S81.809D Unspecified open wound, unspecified lower leg, subsequent encounter (principal); Z94.4 Liver transplant status; Y99.8 Other external cause status ==

== ENCOUNTER → 2023-04-17 | Outpatient (CLI) | payer MEDICARE, MEDICAID | LOC: M WHC 13:48 | PROVIDERS: ATTEND Physician Assistant | DX: M81.0 Age-related osteoporosis without current pathological fracture (principal); Z13.820 Encounter for screening for osteoporosis ==

== ENCOUNTER → 2023-04-18 | Outpatient (CLI) | payer MEDICARE, MEDICAID ==
[2023-04-18 18:52] LABS: HEMATOCRIT 35.6 % (36.0-47.0); HEMOGLOBIN 10.9 g/dl (12.0-15.5); MEAN CORPUSCULAR HEMOGLOBIN 29.8 pg (27.0-33.0); MEAN CORPUSCULAR HGB CONC 30.6 g/dl (32.0-36.5); MEAN CORPUSCULAR VOLUME 97.3 fl (80.0-96.0); PLATELET COUNT, AUTOMATED 107 10^3/uL (150-450); RED BLOOD COUNT 3.66 10^6/uL (4.00-5.40); WHITE BLOOD COUNT 5.2 10^3/uL (4.0-10.0)
[2023-04-18 19:10] LABS: ALBUMIN 3.1 G/DL (3.2-5.2); ALKALINE PHOSPHATASE 606 U/L (46-116); ALT/SGPT 78 U/L (7.0-40); AST/SGOT 77 U/L (<34); BILIRUBIN,TOTAL 1.5 MG/DL (0.3-1.2); BLOOD UREA NITROGEN 27 MG/DL (9-23); CALCIUM LEVEL 8.7 MG/DL (8.5-10.1); CARBON DIOXIDE LEVEL 17 MMOL/L (20-31); CHLORIDE LEVEL 108 MMOL/L (98-107); CREATININE FOR GFR 0.95 MG/DL (0.55-1.30); GLOMERULAR FILTRATION RATE > 60.0 (>51); GLUCOSE, FASTING 166 MG/DL (60-100); POTASSIUM SERUM 4.7 MMOL/L (3.5-5.1); SODIUM LEVEL 139 MMOL/L (136-145); TOTAL PROTEIN 6.9 G/DL (5.7-8.2)
[2023-04-18 19:28] LABS: ATYPICAL LYMPH 1 % (0-5); LYMPHOCYTES 22 % (16-44); MONOCYTES 2 % (0-5); NEUTROPHILS 75 % (28-66)
[2023-04-18 19:29] LABS: PLATELET ESTIMATE NORMAL (NORMAL)
== END ==
LOC: M LAB 17:41
PROVIDERS: ATTEND Nurse Practitioner Family
DX: Z94.4 Liver transplant status (principal)

== ENCOUNTER → 2023-04-25 | Outpatient (CLI) | payer MEDICARE, MEDICAID ==
[2023-04-25 11:22] LABS: BASO % 0.4 % (0.0-1.0); EOS # 0.1 10^3/uL (0.0-0.5); EOS % 0.9 % (0.0-3.0); HEMATOCRIT 39.4 % (36.0-47.0); HEMOGLOBIN 11.7 g/dl (12.0-15.5); LYMPH # 2.6 10^3/uL (1.5-5.0); LYMPH % 37.5 % (24.0-44.0); MEAN CORPUSCULAR HGB CONC 29.7 g/dl (32.0-36.5); MONO # 0.5 10^3/uL (0.0-0.8); NEUTROPHILS # 3.8 10^3/uL (1.5-8.5); NEUTROPHILS % 53.8 % (36.0-66.0); PLATELET COUNT, AUTOMATED 109 10^3/uL (150-450)
[2023-04-25 11:42] LABS: ALKALINE PHOSPHATASE 559 U/L (46-116); ALT/SGPT 91 U/L (7.0-40); AST/SGOT 95 U/L (<34); BILIRUBIN,TOTAL 1.3 MG/DL (0.3-1.2); BLOOD UREA NITROGEN 23 MG/DL (9-23); CALCIUM LEVEL 8.7 MG/DL (8.5-10.1); CARBON DIOXIDE LEVEL 24 MMOL/L (20-31); CHLORIDE LEVEL 109 MMOL/L (98-107); CREATININE FOR GFR 0.81 MG/DL (0.55-1.30); GLOMERULAR FILTRATION RATE > 60.0 (>51); GLUCOSE, FASTING 67 MG/DL (60-100); SODIUM LEVEL 141 MMOL/L (136-145); TOTAL PROTEIN 7.2 G/DL (5.7-8.2)
[2023-04-28 11:07] LABS: CMV QUANT DNA PCR (PLASMA) Negative (Negative)
== END ==
LOC: M LAB 09:58
PROVIDERS: ATTEND Nurse Practitioner Family
DX: Z94.4 Liver transplant status (principal)

== ENCOUNTER → 2023-04-25 | Outpatient (CLI) | payer MEDICARE, MEDICAID ==
[2023-04-25 11:35] LABS: INR 0.98; PROTHROMBIN TIME 12.7 SECONDS (12.5-14.5)
== END ==
LOC: M LAB 10:03
PROVIDERS: ATTEND Nurse Practitioner Adult Health
DX: Z94.4 Liver transplant status (principal); E46 Unspecified protein-calorie malnutrition; Z79.01 Long term (current) use of anticoagulants

== ENCOUNTER → 2023-04-28 | Outpatient (CLI) | payer MEDICARE, MEDICAID ==
[2023-04-28 10:59] LABS: BASO # 0.1 10^3/uL (0.0-0.2); EOS # 0.1 10^3/uL (0.0-0.5); EOS % 1.4 % (0.0-3.0); HEMATOCRIT 42.1 % (36.0-47.0); HEMOGLOBIN 12.4 g/dl (12.0-15.5); LYMPH # 2.4 10^3/uL (1.5-5.0); LYMPH % 41.2 % (24.0-44.0); MEAN CORPUSCULAR HGB CONC 29.5 g/dl (32.0-36.5); MEAN CORPUSCULAR VOLUME 101.9 fl (80.0-96.0); MONO # 0.4 10^3/uL (0.0-0.8); MONO % 6.4 % (2.0-8.0); NEUTROPHILS # 2.8 10^3/uL (1.5-8.5); NEUTROPHILS % 49.3 % (36.0-66.0); PLATELET COUNT, AUTOMATED 110 10^3/uL (150-450); RED BLOOD COUNT 4.13 10^6/uL (4.00-5.40); WHITE BLOOD COUNT 5.8 10^3/uL (4.0-10.0)
[2023-04-28 11:26] LABS: INR 0.96; PROTHROMBIN TIME 12.5 SECONDS (12.5-14.5)
[2023-04-28 11:33] LABS: ALKALINE PHOSPHATASE 579 U/L (46-116); ALT/SGPT 90 U/L (7.0-40); AST/SGOT 92 U/L (<34); BILIRUBIN,TOTAL 1.5 MG/DL (0.3-1.2); BLOOD UREA NITROGEN 20 MG/DL (9-23); CARBON DIOXIDE LEVEL 23 MMOL/L (20-31); CHLORIDE LEVEL 108 MMOL/L (98-107); CREATININE FOR GFR 0.78 MG/DL (0.55-1.30); GLOMERULAR FILTRATION RATE > 60.0 (>51); GLUCOSE, FASTING 173 MG/DL (60-100); POTASSIUM SERUM 4.1 MMOL/L (3.5-5.1); SODIUM LEVEL 139 MMOL/L (136-145); TOTAL PROTEIN 7.2 G/DL (5.7-8.2)
[2023-04-28 11:35] LABS: PREALBUMIN 11.9 MG/DL (10.0-40.0)
[2023-04-30 10:11] LABS: CMV QUANT DNA PCR (PLASMA) Negative (Negative)
== END ==
LOC: M LAB 10:21
PROVIDERS: ATTEND Nurse Practitioner Adult Health
DX: Z94.4 Liver transplant status (principal); E46 Unspecified protein-calorie malnutrition

== ENCOUNTER → 2023-05-05 | Outpatient (CLI) | payer MEDICARE, MEDICAID ==
[2023-05-05 12:14] LABS: INR 0.92; PROTHROMBIN TIME 12.1 SECONDS (12.5-14.5)
== END ==
LOC: M LAB 10:56
PROVIDERS: ATTEND Nurse Practitioner Adult Health
DX: Z94.4 Liver transplant status (principal); E46 Unspecified protein-calorie malnutrition

== ENCOUNTER → 2023-05-05 | Outpatient (CLI) | payer MEDICARE, MEDICAID ==
[2023-05-05 11:59] LABS: BASO % 0.4 % (0.0-1.0); EOS # 0.1 10^3/uL (0.0-0.5); HEMATOCRIT 45.5 % (36.0-47.0); HEMOGLOBIN 14.1 g/dl (12.0-15.5); LYMPH % 43.3 % (24.0-44.0); MEAN CORPUSCULAR HEMOGLOBIN 31.5 pg (27.0-33.0); MEAN CORPUSCULAR VOLUME 101.6 fl (80.0-96.0); MONO # 0.4 10^3/uL (0.0-0.8); MONO % 6.1 % (2.0-8.0); NEUTROPHILS # 3.4 10^3/uL (1.5-8.5); NEUTROPHILS % 48.8 % (36.0-66.0); PLATELET COUNT, AUTOMATED 119 10^3/uL (150-450); RED BLOOD COUNT 4.48 10^6/uL (4.00-5.40); WHITE BLOOD COUNT 6.9 10^3/uL (4.0-10.0)
[2023-05-05 12:25] LABS: ALBUMIN 3.2 G/DL (3.2-5.2); ALKALINE PHOSPHATASE 582 U/L (46-116); ALT/SGPT 77 U/L (7.0-40); AST/SGOT 91 U/L (<34); BILIRUBIN,TOTAL 1.8 MG/DL (0.3-1.2); BLOOD UREA NITROGEN 25 MG/DL (9-23); CALCIUM LEVEL 9.2 MG/DL (8.5-10.1); CARBON DIOXIDE LEVEL 23 MMOL/L (20-31); CHLORIDE LEVEL 106 MMOL/L (98-107); CREATININE FOR GFR 0.94 MG/DL (0.55-1.30); GLOMERULAR FILTRATION RATE > 60.0 (>51); GLUCOSE, FASTING 105 MG/DL (60-100); POTASSIUM SERUM 3.7 MMOL/L (3.5-5.1); SODIUM LEVEL 138 MMOL/L (136-145)
[2023-05-07 15:08] LABS: CMV QUANT DNA PCR (PLASMA) Negative (Negative)
== END ==
LOC: M LAB 10:53
PROVIDERS: ATTEND Nurse Practitioner Family
DX: Z94.4 Liver transplant status (principal); E46 Unspecified protein-calorie malnutrition

== ENCOUNTER → 2023-05-08 | Outpatient (CLI) | payer MEDICARE, MEDICAID | LOC: M RAD 12:35 | PROVIDERS: ATTEND Internal Medicine Pulmonary Disease | DX: Z12.2 Encounter for screening for malignant neoplasm of respiratory organs (principal); Z87.891 Personal history of nicotine dependence; J44.9 Chronic obstructive pulmonary disease, unspecified; J98.4 Other disorders of lung; J98.11 Atelectasis ==

== ENCOUNTER → 2023-05-12 | Outpatient (CLI) | payer MEDICARE, MEDICAID ==
[2023-05-12 12:03] LABS: INR 1.01
== END ==
LOC: M LAB 10:57
PROVIDERS: ATTEND Nurse Practitioner Adult Health
DX: Z94.4 Liver transplant status (principal); E46 Unspecified protein-calorie malnutrition

== ENCOUNTER → 2023-05-12 | Outpatient (CLI) | payer MEDICARE, MEDICAID ==
[2023-05-12 11:48] LABS: BASO % 0.6 % (0.0-1.0); EOS # 0.1 10^3/uL (0.0-0.5); EOS % 1.3 % (0.0-3.0); HEMATOCRIT 46.5 % (36.0-47.0); HEMOGLOBIN 14.5 g/dl (12.0-15.5); LYMPH # 2.5 10^3/uL (1.5-5.0); LYMPH % 35.8 % (24.0-44.0); MEAN CORPUSCULAR HEMOGLOBIN 32.2 pg (27.0-33.0); MEAN CORPUSCULAR HGB CONC 31.2 g/dl (32.0-36.5); MEAN CORPUSCULAR VOLUME 103.1 fl (80.0-96.0); MONO # 0.6 10^3/uL (0.0-0.8); MONO % 7.8 % (2.0-8.0); NEUTROPHILS # 3.8 10^3/uL (1.5-8.5); NEUTROPHILS % 53.9 % (36.0-66.0); PLATELET COUNT, AUTOMATED 108 10^3/uL (150-450); RED BLOOD COUNT 4.51 10^6/uL (4.00-5.40)
[2023-05-12 12:15] LABS: ALBUMIN 3.1 G/DL (3.2-5.2); ALKALINE PHOSPHATASE 485 U/L (46-116); ALT/SGPT 58 U/L (7.0-40); AST/SGOT 70 U/L (<34); BILIRUBIN,TOTAL 2.1 MG/DL (0.3-1.2); BLOOD UREA NITROGEN 23 MG/DL (9-23); CALCIUM LEVEL 9.3 MG/DL (8.5-10.1); CARBON DIOXIDE LEVEL 24 MMOL/L (20-31); CHLORIDE LEVEL 108 MMOL/L (98-107); CREATININE FOR GFR 0.68 MG/DL (0.55-1.30); GLOMERULAR FILTRATION RATE > 60.0 (>51); GLUCOSE, FASTING 82 MG/DL (60-100); POTASSIUM SERUM 3.9 MMOL/L (3.5-5.1); SODIUM LEVEL 140 MMOL/L (136-145); TOTAL PROTEIN 7.4 G/DL (5.7-8.2)
[2023-05-14 15:08] LABS: CMV QUANT DNA PCR (PLASMA) Negative (Negative)
== END ==
LOC: M LAB 10:52
PROVIDERS: ATTEND Nurse Practitioner Family
DX: Z94.4 Liver transplant status (principal); E46 Unspecified protein-calorie malnutrition

== ENCOUNTER → 2023-05-19 | Outpatient (CLI) | payer MEDICARE, MEDICAID ==
[2023-05-19 10:44] LABS: INR 0.96; PROTHROMBIN TIME 12.5 SECONDS (12.5-14.5)
== END ==
LOC: M LAB 10:02
PROVIDERS: ATTEND Nurse Practitioner Adult Health
DX: Z94.4 Liver transplant status (principal); E46 Unspecified protein-calorie malnutrition

== ENCOUNTER → 2023-05-19 | Outpatient (CLI) | payer MEDICARE, MEDICAID ==
[2023-05-19 10:35] LABS: BASO % 0.5 % (0.0-1.0); EOS # 0.1 10^3/uL (0.0-0.5); EOS % 1.3 % (0.0-3.0); HEMATOCRIT 44.2 % (36.0-47.0); HEMOGLOBIN 13.9 g/dl (12.0-15.5); LYMPH # 3.1 10^3/uL (1.5-5.0); LYMPH % 35.8 % (24.0-44.0); MEAN CORPUSCULAR HEMOGLOBIN 32.8 pg (27.0-33.0); MEAN CORPUSCULAR HGB CONC 31.4 g/dl (32.0-36.5); MEAN CORPUSCULAR VOLUME 104.2 fl (80.0-96.0); MONO # 0.6 10^3/uL (0.0-0.8); MONO % 6.8 % (2.0-8.0); NEUTROPHILS # 4.8 10^3/uL (1.5-8.5); NEUTROPHILS % 55.3 % (36.0-66.0); PLATELET COUNT, AUTOMATED 104 10^3/uL (150-450); RED BLOOD COUNT 4.24 10^6/uL (4.00-5.40); WHITE BLOOD COUNT 8.6 10^3/uL (4.0-10.0)
[2023-05-19 10:55] LABS: ALBUMIN 2.8 G/DL (3.2-5.2); ALKALINE PHOSPHATASE 403 U/L (46-116); ALT/SGPT 54 U/L (7.0-40); AST/SGOT 68 U/L (<34); BILIRUBIN,TOTAL 1.7 MG/DL (0.3-1.2); BLOOD UREA NITROGEN 26 MG/DL (9-23); CALCIUM LEVEL 8.8 MG/DL (8.5-10.1); CARBON DIOXIDE LEVEL 23 MMOL/L (20-31); CHLORIDE LEVEL 107 MMOL/L (98-107); CREATININE FOR GFR 0.69 MG/DL (0.55-1.30); GLOMERULAR FILTRATION RATE > 60.0 (>51); GLUCOSE, FASTING 115 MG/DL (60-100); POTASSIUM SERUM 3.8 MMOL/L (3.5-5.1); SODIUM LEVEL 138 MMOL/L (136-145)
[2023-05-22 15:08] LABS: CMV QUANT DNA PCR (PLASMA) Negative (Negative)
== END ==
LOC: M LAB 09:56
PROVIDERS: ATTEND Nurse Practitioner Family
DX: Z94.4 Liver transplant status (principal); E46 Unspecified protein-calorie malnutrition

== ENCOUNTER → 2023-05-26 | Outpatient (CLI) | payer MEDICARE, MEDICAID ==
[2023-05-26 11:41] LABS: BASO # 0.1 10^3/uL (0.0-0.2); BASO % 0.6 % (0.0-1.0); EOS # 0.1 10^3/uL (0.0-0.5); EOS % 1.6 % (0.0-3.0); HEMATOCRIT 46.7 % (36.0-47.0); HEMOGLOBIN 14.6 g/dl (12.0-15.5); LYMPH # 3.1 10^3/uL (1.5-5.0); LYMPH % 38.8 % (24.0-44.0); MEAN CORPUSCULAR HEMOGLOBIN 33.3 pg (27.0-33.0); MEAN CORPUSCULAR HGB CONC 31.3 g/dl (32.0-36.5); MEAN CORPUSCULAR VOLUME 106.4 fl (80.0-96.0); MONO # 0.7 10^3/uL (0.0-0.8); MONO % 8.6 % (2.0-8.0); NEUTROPHILS # 3.9 10^3/uL (1.5-8.5); NEUTROPHILS % 49.8 % (36.0-66.0); PLATELET COUNT, AUTOMATED 132 10^3/uL (150-450); RED BLOOD COUNT 4.39 10^6/uL (4.00-5.40); WHITE BLOOD COUNT 7.9 10^3/uL (4.0-10.0)
[2023-05-26 14:15] LABS: ALBUMIN 3.1 G/DL (3.2-5.2); ALKALINE PHOSPHATASE 530 U/L (46-116); ALT/SGPT 62 U/L (7.0-40); AST/SGOT 74 U/L (<34); BILIRUBIN,TOTAL 1.6 MG/DL (0.3-1.2); BLOOD UREA NITROGEN 26 MG/DL (9-23); CALCIUM LEVEL 8.9 MG/DL (8.5-10.1); CARBON DIOXIDE LEVEL 20 MMOL/L (20-31); CHLORIDE LEVEL 108 MMOL/L (98-107); CREATININE FOR GFR 0.71 MG/DL (0.55-1.30); GLOMERULAR FILTRATION RATE > 60.0 (>51); GLUCOSE, FASTING 74 MG/DL (60-100); POTASSIUM SERUM 4.1 MMOL/L (3.5-5.1); SODIUM LEVEL 141 MMOL/L (136-145); TOTAL PROTEIN 7.5 G/DL (5.7-8.2)
[2023-05-28 23:07] LABS: CMV QUANT DNA PCR (PLASMA) Negative (Negative)
== END ==
LOC: M LAB 10:35
PROVIDERS: ATTEND Nurse Practitioner Family
DX: Z94.4 Liver transplant status (principal)

== ENCOUNTER → 2023-05-26 | Outpatient (CLI) | payer MEDICARE, MEDICAID ==
[2023-05-26 11:54] LABS: INR 0.98; PROTHROMBIN TIME 12.7 SECONDS (12.5-14.5)
== END ==
LOC: M LAB 10:32
PROVIDERS: ATTEND Nurse Practitioner Adult Health
DX: Z94.4 Liver transplant status (principal)

== ENCOUNTER → 2023-06-02 | Outpatient (CLI) | payer MEDICARE, MEDICAID ==
[2023-06-02 12:00] LABS: BASO # 0.1 10^3/uL (0.0-0.2); BASO % 0.7 % (0.0-1.0); EOS # 0.1 10^3/uL (0.0-0.5); EOS % 1.7 % (0.0-3.0); HEMATOCRIT 44.4 % (36.0-47.0); HEMOGLOBIN 14.3 g/dl (12.0-15.5); LYMPH # 2.5 10^3/uL (1.5-5.0); LYMPH % 34.2 % (24.0-44.0); MEAN CORPUSCULAR HGB CONC 32.2 g/dl (32.0-36.5); MEAN CORPUSCULAR VOLUME 105.7 fl (80.0-96.0); MONO # 0.6 10^3/uL (0.0-0.8); MONO % 8.2 % (2.0-8.0); NEUTROPHILS % 54.6 % (36.0-66.0); PLATELET COUNT, AUTOMATED 111 10^3/uL (150-450); WHITE BLOOD COUNT 7.2 10^3/uL (4.0-10.0)
[2023-06-02 12:26] LABS: ALBUMIN 3.1 G/DL (3.2-5.2); ALKALINE PHOSPHATASE 503 U/L (46-116); ALT/SGPT 75 U/L (7.0-40); AST/SGOT 102 U/L (<34); BILIRUBIN,TOTAL 2.2 MG/DL (0.3-1.2); BLOOD UREA NITROGEN 24 MG/DL (9-23); CARBON DIOXIDE LEVEL 22 MMOL/L (20-31); CHLORIDE LEVEL 109 MMOL/L (98-107); CREATININE FOR GFR 0.61 MG/DL (0.55-1.30); GLOMERULAR FILTRATION RATE > 60.0 (>51); GLUCOSE, FASTING 96 MG/DL (60-100); POTASSIUM SERUM 3.7 MMOL/L (3.5-5.1); SODIUM LEVEL 139 MMOL/L (136-145); TOTAL PROTEIN 7.4 G/DL (5.7-8.2)
== END ==
LOC: M LAB 10:45
PROVIDERS: ATTEND Nurse Practitioner Family
DX: Z94.4 Liver transplant status (principal)

== ENCOUNTER → 2023-06-02 | Outpatient (CLI) | payer MEDICARE, MEDICAID ==
[2023-06-02 12:10] LABS: INR 0.96; PROTHROMBIN TIME 12.5 SECONDS (12.5-14.5)
== END ==
LOC: M LAB 10:49
PROVIDERS: ATTEND Nurse Practitioner Adult Health
DX: Z94.4 Liver transplant status (principal); E46 Unspecified protein-calorie malnutrition

== ENCOUNTER → 2023-06-07 | Outpatient (CLI) | payer MEDICARE, MEDICAID | LOC: M RAD 14:33 | PROVIDERS: ATTEND Pediatrics | DX: M54.50 Low back pain, unspecified (principal); M47.816 Spondylosis without myelopathy or radiculopathy, lumbar region ==

== ENCOUNTER → 2023-06-23 | Outpatient (CLI) | payer MEDICARE, MEDICAID ==
[2023-06-23 11:33] LABS: BASO % 0.4 % (0.0-1.0); EOS # 0.1 10^3/uL (0.0-0.5); EOS % 1.3 % (0.0-3.0); HEMATOCRIT 43.4 % (36.0-47.0); HEMOGLOBIN 14.5 g/dl (12.0-15.5); LYMPH # 2.9 10^3/uL (1.5-5.0); LYMPH % 38.4 % (24.0-44.0); MEAN CORPUSCULAR HEMOGLOBIN 35.8 pg (27.0-33.0); MEAN CORPUSCULAR HGB CONC 33.4 g/dl (32.0-36.5); MEAN CORPUSCULAR VOLUME 107.2 fl (80.0-96.0); MONO # 0.6 10^3/uL (0.0-0.8); MONO % 7.5 % (2.0-8.0); NEUTROPHILS # 3.9 10^3/uL (1.5-8.5); NEUTROPHILS % 51.9 % (36.0-66.0); PLATELET COUNT, AUTOMATED 110 10^3/uL (150-450); RED BLOOD COUNT 4.05 10^6/uL (4.00-5.40); WHITE BLOOD COUNT 7.4 10^3/uL (4.0-10.0)
[2023-06-23 11:59] LABS: INR 0.94; PROTHROMBIN TIME 12.2 SECONDS (12.5-14.5)
[2023-06-23 12:17] LABS: ALBUMIN 2.7 G/DL (3.2-5.2); ALKALINE PHOSPHATASE 483 U/L (46-116); ALT/SGPT 84 U/L (7.0-40); AST/SGOT 101 U/L (<34); BLOOD UREA NITROGEN 27 MG/DL (9-23); CARBON DIOXIDE LEVEL 22 MMOL/L (20-31); CHLORIDE LEVEL 111 MMOL/L (98-107); CREATININE FOR GFR 0.74 MG/DL (0.55-1.30); GLOMERULAR FILTRATION RATE > 60.0 (>51); GLUCOSE, FASTING 92 MG/DL (60-100); POTASSIUM SERUM 3.9 MMOL/L (3.5-5.1); SODIUM LEVEL 140 MMOL/L (136-145)
[2023-06-23 13:10] LABS: PREALBUMIN 8.9 MG/DL (10.0-40.0)
[2023-06-25 14:08] LABS: CMV QUANT DNA PCR (PLASMA) Negative (Negative)
== END ==
LOC: M LAB 10:50
PROVIDERS: ATTEND Nurse Practitioner Adult Health
DX: Z94.4 Liver transplant status (principal)

== ENCOUNTER → 2023-06-23 | Outpatient (CLI) | payer MEDICARE, MEDICAID | LOC: M LAB 10:46 | PROVIDERS: ATTEND Nurse Practitioner Family | DX: Z94.4 Liver transplant status (principal) ==

== ENCOUNTER → 2023-06-30 | Outpatient (CLI) | payer MEDICARE, MEDICAID ==
[~2023-06-30] MED LIST changes: -CEFD300C41 PO; +CEFD300C42 PO
[2023-06-30 11:42] LABS: BASO % 0.3 % (0.0-1.0); EOS # 0.1 10^3/uL (0.0-0.5); EOS % 1.4 % (0.0-3.0); HEMATOCRIT 45.5 % (36.0-47.0); HEMOGLOBIN 15.2 g/dl (12.0-15.5); LYMPH # 2.6 10^3/uL (1.5-5.0); LYMPH % 40.2 % (24.0-44.0); MEAN CORPUSCULAR HEMOGLOBIN 36.2 pg (27.0-33.0); MEAN CORPUSCULAR HGB CONC 33.4 g/dl (32.0-36.5); MEAN CORPUSCULAR VOLUME 108.3 fl (80.0-96.0); MONO # 0.5 10^3/uL (0.0-0.8); MONO % 8.1 % (2.0-8.0); NEUTROPHILS # 3.2 10^3/uL (1.5-8.5); NEUTROPHILS % 49.5 % (36.0-66.0); PLATELET COUNT, AUTOMATED 107 10^3/uL (150-450); WHITE BLOOD COUNT 6.5 10^3/uL (4.0-10.0)
[2023-06-30 12:02] LABS: ALBUMIN 2.7 G/DL (3.2-5.2); ALKALINE PHOSPHATASE 463 U/L (46-116); ALT/SGPT 70 U/L (7.0-40); AST/SGOT 104 U/L (<34); BILIRUBIN,TOTAL 6.4 MG/DL (0.3-1.2); BLOOD UREA NITROGEN 19 MG/DL (9-23); CALCIUM LEVEL 9.1 MG/DL (8.5-10.1); CARBON DIOXIDE LEVEL 23 MMOL/L (20-31); CHLORIDE LEVEL 106 MMOL/L (98-107); CREATININE FOR GFR 0.73 MG/DL (0.55-1.30); GLOMERULAR FILTRATION RATE > 60.0 (>51); GLUCOSE, FASTING 97 MG/DL (60-100); POTASSIUM SERUM 4.1 MMOL/L (3.5-5.1); SODIUM LEVEL 139 MMOL/L (136-145); TOTAL PROTEIN 7.1 G/DL (5.7-8.2)
[2023-07-02 13:12] LABS: CMV QUANT DNA PCR (PLASMA) Negative (Negative)
== END ==
LOC: M LAB 10:34
PROVIDERS: ATTEND Nurse Practitioner Family
DX: Z94.4 Liver transplant status (principal)

== ENCOUNTER → 2023-07-09 | Outpatient (CLI) | payer MEDICARE, MEDICAID ==
[2023-07-09 13:17] LABS: HEMATOCRIT 44.3 % (36.0-47.0); HEMOGLOBIN 14.6 g/dl (12.0-15.5); MEAN CORPUSCULAR HEMOGLOBIN 35.7 pg (27.0-33.0); MEAN CORPUSCULAR VOLUME 108.3 fl (80.0-96.0); PLATELET COUNT, AUTOMATED 109 10^3/uL (150-450); RED BLOOD COUNT 4.09 10^6/uL (4.00-5.40); WHITE BLOOD COUNT 7.4 10^3/uL (4.0-10.0)
[2023-07-09 13:32] LABS: INR 0.99; PROTHROMBIN TIME 12.8 SECONDS (12.5-14.5)
[2023-07-09 13:36] LABS: ALBUMIN 2.9 G/DL (3.2-5.2); ALKALINE PHOSPHATASE 371 U/L (46-116); ALT/SGPT 60 U/L (7.0-40); AST/SGOT 81 U/L (<34); BLOOD UREA NITROGEN 18 MG/DL (9-23); CALCIUM LEVEL 9.2 MG/DL (8.5-10.1); CARBON DIOXIDE LEVEL 22 MMOL/L (20-31); CHLORIDE LEVEL 106 MMOL/L (98-107); GLOMERULAR FILTRATION RATE > 60.0 (>51); GLUCOSE, FASTING 128 MG/DL (60-100); POTASSIUM SERUM 3.7 MMOL/L (3.5-5.1); PREALBUMIN 10.5 MG/DL (10.0-40.0); SODIUM LEVEL 137 MMOL/L (136-145); TOTAL PROTEIN 7.1 G/DL (5.7-8.2)
== END ==
LOC: M LAB 12:35
PROVIDERS: ATTEND Nurse Practitioner Adult Health
DX: Z94.4 Liver transplant status (principal)

== ENCOUNTER → 2023-07-14 | Outpatient (CLI) | payer MEDICARE, MEDICAID ==
[2023-07-14 13:13] LABS: BASO % 0.6 % (0.0-1.0); EOS # 0.1 10^3/uL (0.0-0.5); EOS % 1.7 % (0.0-3.0); HEMATOCRIT 44.7 % (36.0-47.0); HEMOGLOBIN 14.8 g/dl (12.0-15.5); IRON (FE) 101 UG/DL (50-170); LYMPH # 2.3 10^3/uL (1.5-5.0); MEAN CORPUSCULAR HEMOGLOBIN 36.2 pg (27.0-33.0); MEAN CORPUSCULAR HGB CONC 33.1 g/dl (32.0-36.5); MEAN CORPUSCULAR VOLUME 109.3 fl (80.0-96.0); MONO # 0.6 10^3/uL (0.0-0.8); MONO % 8.6 % (2.0-8.0); NEUTROPHILS # 3.6 10^3/uL (1.5-8.5); NEUTROPHILS % 54.6 % (36.0-66.0); PERCENT SATURATION 38.3 % (13.2-45.0); PLATELET COUNT, AUTOMATED 104 10^3/uL (150-450); RED BLOOD COUNT 4.09 10^6/uL (4.00-5.40); TOTAL IRON BINDING CAPACITY 264 UG/DL (250-425); WHITE BLOOD COUNT 6.6 10^3/uL (4.0-10.0)
[2023-07-14 13:15] LABS: VITAMIN B12 LEVEL 438 PG/ML (211-911)
[2023-07-14 13:19] LABS: FOLATE > 24.00 NG/ML (>5.4)
[2023-07-15 18:10] LABS: ANTI DOUBLE STRAND-DNA AB 13 IU/mL (0-9); ANTINUCLEAR ANTIBODIES DIRECT Positive (Negative); CYCLIC CITRULLINATED PEPTIDE 5 units (0-19); RNP ANTIBODIES 2.2 AI (0.0-0.9); SJOGREN'S ANTI SS-A 0.5 AI (0.0-0.9); SJOGREN'S ANTI SS-B <0.2 AI (0.0-0.9); SMITH ANTIBODIES <0.2 AI (0.0-0.9)
== END ==
LOC: M LAB 11:45
PROVIDERS: ATTEND Internal Medicine Hematology & Oncology
DX: D53.9 Nutritional anemia, unspecified (principal); D50.9 Iron deficiency anemia, unspecified; K75.4 Autoimmune hepatitis; Z94.4 Liver transplant status

== ENCOUNTER → 2023-07-14 | Outpatient (CLI) | payer MEDICARE, MEDICAID ==
[2023-07-14 13:27] LABS: ALBUMIN 2.8 G/DL (3.2-5.2); ALKALINE PHOSPHATASE 362 U/L (46-116); ALT/SGPT 57 U/L (7.0-40); AST/SGOT 91 U/L (<34); BILIRUBIN,TOTAL 6.2 MG/DL (0.3-1.2); BLOOD UREA NITROGEN 19 MG/DL (9-23); CARBON DIOXIDE LEVEL 21 MMOL/L (20-31); CHLORIDE LEVEL 105 MMOL/L (98-107); CREATININE FOR GFR 0.62 MG/DL (0.55-1.30); GLOMERULAR FILTRATION RATE > 60.0 (>51); GLUCOSE, FASTING 106 MG/DL (60-100); POTASSIUM SERUM 4.1 MMOL/L (3.5-5.1); SODIUM LEVEL 137 MMOL/L (136-145); TOTAL PROTEIN 6.9 G/DL (5.7-8.2)
[2023-07-14 13:36] LABS: BASO % 0.5 % (0.0-1.0); EOS # 0.1 10^3/uL (0.0-0.5); EOS % 1.4 % (0.0-3.0); HEMATOCRIT 45.2 % (36.0-47.0); LYMPH # 2.3 10^3/uL (1.5-5.0); LYMPH % 35.5 % (24.0-44.0); MEAN CORPUSCULAR HEMOGLOBIN 36.3 pg (27.0-33.0); MEAN CORPUSCULAR HGB CONC 33.2 g/dl (32.0-36.5); MEAN CORPUSCULAR VOLUME 109.4 fl (80.0-96.0); MONO # 0.6 10^3/uL (0.0-0.8); NEUTROPHILS # 3.4 10^3/uL (1.5-8.5); NEUTROPHILS % 53.1 % (36.0-66.0); PLATELET COUNT, AUTOMATED 105 10^3/uL (150-450); RED BLOOD COUNT 4.13 10^6/uL (4.00-5.40); WHITE BLOOD COUNT 6.4 10^3/uL (4.0-10.0)
== END ==
LOC: M LAB 11:50
PROVIDERS: ATTEND Nurse Practitioner Family
DX: Z94.4 Liver transplant status (principal)

== ENCOUNTER → 2023-07-28 | Outpatient (CLI) | payer MEDICARE, MEDICAID ==
[2023-07-28 11:00] LABS: BASO % 0.4 % (0.0-1.0); EOS # 0.1 10^3/uL (0.0-0.5); EOS % 0.9 % (0.0-3.0); HEMATOCRIT 44.2 % (36.0-47.0); LYMPH # 1.7 10^3/uL (1.5-5.0); LYMPH % 21.3 % (24.0-44.0); MEAN CORPUSCULAR HGB CONC 33.9 g/dl (32.0-36.5); MONO # 0.6 10^3/uL (0.0-0.8); MONO % 6.8 % (2.0-8.0); NEUTROPHILS # 5.7 10^3/uL (1.5-8.5); NEUTROPHILS % 70.4 % (36.0-66.0); PLATELET COUNT, AUTOMATED 133 10^3/uL (150-450); RED BLOOD COUNT 4.17 10^6/uL (4.00-5.40)
[2023-07-28 11:36] LABS: ALBUMIN 2.7 G/DL (3.2-5.2); ALKALINE PHOSPHATASE 360 U/L (46-116); ALT/SGPT 82 U/L (7.0-40); AST/SGOT 113 U/L (<34); BILIRUBIN,TOTAL 7.4 MG/DL (0.3-1.2); BLOOD UREA NITROGEN 21 MG/DL (9-23); CALCIUM LEVEL 8.6 MG/DL (8.5-10.1); CARBON DIOXIDE LEVEL 22 MMOL/L (20-31); CHLORIDE LEVEL 106 MMOL/L (98-107); CREATININE FOR GFR 0.56 MG/DL (0.55-1.30); GLOMERULAR FILTRATION RATE > 60.0 (>51); GLUCOSE, FASTING 121 MG/DL (60-100); POTASSIUM SERUM 3.4 MMOL/L (3.5-5.1); SODIUM LEVEL 139 MMOL/L (136-145)
[2023-07-30 19:07] LABS: CMV QUANT DNA PCR (PLASMA) Negative (Negative)
== END ==
LOC: M LAB 09:55
PROVIDERS: ATTEND Nurse Practitioner Family
DX: Z94.4 Liver transplant status (principal)

== ENCOUNTER → 2023-07-28 | Outpatient (CLI) | payer MEDICARE, MEDICAID | LOC: M LAB 10:05 | PROVIDERS: ATTEND Nurse Practitioner Adult Health | DX: Z94.4 Liver transplant status (principal) ==

== ENCOUNTER → 2023-08-05 | Outpatient (CLI) | payer MEDICARE, MEDICAID ==
[2023-08-05 16:30] LABS: HEMATOCRIT 45.8 % (36.0-47.0); MEAN CORPUSCULAR HGB CONC 32.8 g/dl (32.0-36.5); MEAN CORPUSCULAR VOLUME 109.8 fl (80.0-96.0); PLATELET COUNT, AUTOMATED 127 10^3/uL (150-450); RED BLOOD COUNT 4.17 10^6/uL (4.00-5.40); WHITE BLOOD COUNT 8.6 10^3/uL (4.0-10.0)
[2023-08-05 16:39] LABS: ALBUMIN 2.9 G/DL (3.2-5.2); ALKALINE PHOSPHATASE 418 U/L (46-116); ALT/SGPT 62 U/L (7.0-40); AST/SGOT 79 U/L (<34); BILIRUBIN,TOTAL 5.4 MG/DL (0.3-1.2); BLOOD UREA NITROGEN 15 MG/DL (9-23); CARBON DIOXIDE LEVEL 24 MMOL/L (20-31); CHLORIDE LEVEL 104 MMOL/L (98-107); GLOMERULAR FILTRATION RATE > 60.0 (>51); GLUCOSE, FASTING 116 MG/DL (60-100); POTASSIUM SERUM 3.8 MMOL/L (3.5-5.1); SODIUM LEVEL 137 MMOL/L (136-145); TOTAL PROTEIN 7.2 G/DL (5.7-8.2)
[2023-08-09 14:07] LABS: CMV QUANT DNA PCR (PLASMA) Positive < 200 IU/mL (Negative)
== END ==
LOC: M LAB 14:29
PROVIDERS: ATTEND Nurse Practitioner Adult Health
DX: M47.814 Spondylosis without myelopathy or radiculopathy, thoracic region (principal); M54.6 Pain in thoracic spine; Z94.4 Liver transplant status

== ENCOUNTER → 2023-08-05 | Outpatient (CLI) | payer MEDICARE, MEDICAID | LOC: M RAD 14:35 | PROVIDERS: ATTEND Pediatrics | DX: M47.814 Spondylosis without myelopathy or radiculopathy, thoracic region (principal); M54.6 Pain in thoracic spine ==

== ENCOUNTER → 2023-08-11 | Outpatient (CLI) | payer MEDICARE, MEDICAID ==
[~2023-08-11] MED LIST changes: +GASTROGRAFIN SOLUTION 30ML As Ordered ONE; +ISOVUE-370 76% 100ML VIAL As Ordered ONE
== END ==
LOC: M RAD 10:22
PROVIDERS: ATTEND Nurse Practitioner Family
DX: R10.9 Unspecified abdominal pain (principal); Z79.60 Long term (current) use of unspecified immunomodulators and immunosuppressants; Z94.4 Liver transplant status; K76.0 Fatty (change of) liver, not elsewhere classified; R16.2 Hepatomegaly with splenomegaly, not elsewhere classified; Z95.828 Presence of other vascular implants and grafts
CPT/HCPCS: 36415; 74160; 80053; 80197; 85027; Q9963; Q9967

== ENCOUNTER → 2023-08-11 | Outpatient (CLI) | payer MEDICARE, MEDICAID ==
[~2023-08-11] MED LIST changes: -GASTROGRAFIN SOLUTION 30ML As Ordered ONE; -ISOVUE-370 76% 100ML VIAL As Ordered ONE
[2023-08-11 11:08] LABS: HEMATOCRIT 43.2 % (36.0-47.0); HEMOGLOBIN 14.3 g/dl (12.0-15.5); MEAN CORPUSCULAR HEMOGLOBIN 35.8 pg (27.0-33.0); MEAN CORPUSCULAR HGB CONC 33.1 g/dl (32.0-36.5); PLATELET COUNT, AUTOMATED 125 10^3/uL (150-450); WHITE BLOOD COUNT 8.2 10^3/uL (4.0-10.0)
[2023-08-11 11:35] LABS: ALBUMIN 2.8 G/DL (3.2-5.2); ALKALINE PHOSPHATASE 431 U/L (46-116); ALT/SGPT 52 U/L (7.0-40); AST/SGOT 67 U/L (<34); BILIRUBIN,TOTAL 5.8 MG/DL (0.3-1.2); BLOOD UREA NITROGEN 20 MG/DL (9-23); CALCIUM LEVEL 8.7 MG/DL (8.5-10.1); CARBON DIOXIDE LEVEL 21 MMOL/L (20-31); CHLORIDE LEVEL 106 MMOL/L (98-107); CREATININE FOR GFR 0.61 MG/DL (0.55-1.30); GLOMERULAR FILTRATION RATE > 60.0 (>51); GLUCOSE, FASTING 104 MG/DL (60-100); POTASSIUM SERUM 4.3 MMOL/L (3.5-5.1); SODIUM LEVEL 139 MMOL/L (136-145); TOTAL PROTEIN 6.9 G/DL (5.7-8.2)
== END ==
LOC: M LAB 10:25
PROVIDERS: ATTEND Nurse Practitioner Adult Health
DX: Z94.4 Liver transplant status (principal)

== ENCOUNTER → 2023-08-18 | Outpatient (CLI) | payer MEDICARE, MEDICAID ==
[2023-08-18 11:24] LABS: HEMATOCRIT 36.2 % (36.0-47.0); MEAN CORPUSCULAR HEMOGLOBIN 36.4 pg (27.0-33.0); MEAN CORPUSCULAR HGB CONC 33.1 g/dl (32.0-36.5); MEAN CORPUSCULAR VOLUME 109.7 fl (80.0-96.0); PLATELET COUNT, AUTOMATED 137 10^3/uL (150-450); WHITE BLOOD COUNT 8.7 10^3/uL (4.0-10.0)
[2023-08-18 12:07] LABS: ALBUMIN 2.6 G/DL (3.2-5.2); ALKALINE PHOSPHATASE 374 U/L (46-116); ALT/SGPT 57 U/L (7.0-40); AST/SGOT 72 U/L (<34); BILIRUBIN,TOTAL 4.1 MG/DL (0.3-1.2); BLOOD UREA NITROGEN 22 MG/DL (9-23); CALCIUM LEVEL 8.4 MG/DL (8.5-10.1); CARBON DIOXIDE LEVEL 19 MMOL/L (20-31); CHLORIDE LEVEL 108 MMOL/L (98-107); CREATININE FOR GFR 0.71 MG/DL (0.55-1.30); GLOMERULAR FILTRATION RATE > 60.0 (>51); GLUCOSE, FASTING 106 MG/DL (60-100); POTASSIUM SERUM 3.7 MMOL/L (3.5-5.1); SODIUM LEVEL 138 MMOL/L (136-145); TOTAL PROTEIN 6.3 G/DL (5.7-8.2)
== END ==
LOC: M LAB 10:22
PROVIDERS: ATTEND Nurse Practitioner Adult Health
DX: Z94.4 Liver transplant status (principal)

== ENCOUNTER → 2023-08-25 | Outpatient (CLI) | payer MEDICARE, MEDICAID ==
[~2023-08-25] MED LIST changes: +CEFD1CAP9 PO; -CEFD300C42 PO
[2023-08-25 13:09] LABS: HEMATOCRIT 39.2 % (36.0-47.0); HEMOGLOBIN 12.9 g/dl (12.0-15.5); MEAN CORPUSCULAR HEMOGLOBIN 36.9 pg (27.0-33.0); MEAN CORPUSCULAR HGB CONC 32.9 g/dl (32.0-36.5); PLATELET COUNT, AUTOMATED 150 10^3/uL (150-450)
[2023-08-25 13:28] LABS: ALBUMIN 2.8 G/DL (3.2-5.2); ALKALINE PHOSPHATASE 389 U/L (46-116); ALT/SGPT 45 U/L (7.0-40); AST/SGOT 47 U/L (<34); BILIRUBIN,TOTAL 4.6 MG/DL (0.3-1.2); BLOOD UREA NITROGEN 17 MG/DL (9-23); CALCIUM LEVEL 8.7 MG/DL (8.5-10.1); CARBON DIOXIDE LEVEL 22 MMOL/L (20-31); CHLORIDE LEVEL 109 MMOL/L (98-107); CREATININE FOR GFR 0.59 MG/DL (0.55-1.30); GLOMERULAR FILTRATION RATE > 60.0 (>51); GLUCOSE, FASTING 103 MG/DL (60-100); SODIUM LEVEL 140 MMOL/L (136-145); TOTAL PROTEIN 6.4 G/DL (5.7-8.2)
== END ==
LOC: M LAB 11:22
PROVIDERS: ATTEND Nurse Practitioner Adult Health
DX: Z94.4 Liver transplant status (principal)

== ENCOUNTER → 2023-09-01 | Outpatient (CLI) | payer MEDICARE, MEDICAID ==
[2023-09-01 11:20] LABS: HEMATOCRIT 37.8 % (36.0-47.0); HEMOGLOBIN 12.4 g/dl (12.0-15.5); MEAN CORPUSCULAR HEMOGLOBIN 36.7 pg (27.0-33.0); MEAN CORPUSCULAR HGB CONC 32.8 g/dl (32.0-36.5); MEAN CORPUSCULAR VOLUME 111.8 fl (80.0-96.0); PLATELET COUNT, AUTOMATED 129 10^3/uL (150-450); RED BLOOD COUNT 3.38 10^6/uL (4.00-5.40); WHITE BLOOD COUNT 7.6 10^3/uL (4.0-10.0)
[2023-09-01 11:53] LABS: ALBUMIN 2.7 G/DL (3.2-5.2); ALKALINE PHOSPHATASE 325 U/L (46-116); ALT/SGPT 42 U/L (7.0-40); AST/SGOT 48 U/L (<34); BILIRUBIN,TOTAL 3.1 MG/DL (0.3-1.2); BLOOD UREA NITROGEN 24 MG/DL (9-23); CALCIUM LEVEL 8.7 MG/DL (8.5-10.1); CARBON DIOXIDE LEVEL 22 MMOL/L (20-31); CHLORIDE LEVEL 108 MMOL/L (98-107); CREATININE FOR GFR 0.72 MG/DL (0.55-1.30); GLOMERULAR FILTRATION RATE > 60.0 (>51); GLUCOSE, FASTING 100 MG/DL (60-100); POTASSIUM SERUM 4.2 MMOL/L (3.5-5.1); SODIUM LEVEL 139 MMOL/L (136-145); TOTAL PROTEIN 6.1 G/DL (5.7-8.2)
== END ==
LOC: M LAB 10:19
PROVIDERS: ATTEND Nurse Practitioner Adult Health
DX: Z94.4 Liver transplant status (principal)

== ENCOUNTER → 2023-09-12 | Outpatient (REF) | payer MEDICARE, MEDICAID | LOC: M LAB REF 15:41 | PROVIDERS: ATTEND Internal Medicine Pulmonary Disease | DX: J43.9 Emphysema, unspecified (principal) ==